=== PATIENT | female | born 1960 | race Caucasian/White ===

== ENCOUNTER 2019-03-22 23:41 | Emergency (ER) | payer OTHER, SELFPAY ==
--- NOTE | ~2019-03-22 | CT_ITS ---
EXAMINATION: CTA [facility] DATE: 03/23/2019 03:01 INDICATION: Left lower limb pain. TECHNIQUE: Computed tomographic angiography (CTA) of the left lower extremity was performed with 150 mL Omnipaque-350 intravenous contrast. Automated exposure control and iterative reconstruction techni que were employed. The dose-length product was 500.76 mGy-cm. Maximum intensity projection 3D-reconst ructions of the arteries were created by the technologist on a separate workstation. COMPARISON: None. FINDINGS: There is thrombus in left common femoral artery and proximal superficial femoral artery with severe s tenosis. There is no significant stenosis of popliteal artery, tibioperoneal trunk, peroneal artery, or the anterior or posterior tibial arteries. IMPRESSION: 1. Thrombus in left common femoral artery and proximal superficial femoral artery with severe stenos is. Reviewed, dictated and finalized at location A. OR CENTER MANAGER IMPRESSION: 1. Thrombus in left common femoral artery and proximal superficial femoral art kae with severe stenosis.
[2019-03-23 00:05] VITALS: BP 130/68; PULSE 71; RESP 22; TEMP 36.8; O2SAT 100
[2019-03-23 01:38] VITALS: BP 122/87; PULSE 80; RESP 16; O2SAT 99
--- NOTE | 2019-03-23 01:44 | ED.LOWEXIN ---
HPI - Extremity Injury (Lower) General Chief Complaint: Extremity Injury, Lower Stated Complaint: L LEG PAIN Time Seen by Provider: 03/23/19 01:43 Source: patient and RN notes reviewed Mode of arrival: ambulatory Limitations: no limitations History of Present Illness HPI Narrative: A 58 y/o female presents to the ED with constant, aching, 7/10, lt groin pain beginning when she woke up yesterday morning. She states that she had that pain occasionally radiates down into her lt calf. She reports some LLE weakness. She notes that she had a triple A repaired on 01/15/[address] [facility], but that she is no longer on any BT's. She denies anything alleviating or aggravating her pain. She also denies any numbness, tingling, back pain, neck pain, knee pain, hip pain, CP, SOB, fevers, chills, N/V/D, or ABD pain. complaint: other (lt groin pain) Onset (ago): day(s) (yesterday morning) Injury: Left: thigh (groin) Place: home Severity scale (1-10): 7 Relieving factors: nothing Exacerbating factors: nothing Context: other (woke up with the pain) Other symptoms: other (lt calf pain and LLE weakness) Related Data Allergies Allergy/AdvReac Type Severity Reaction Status Date / Time No Known Allergies Allergy Unverified 08/17/18 12:36 Review of Systems Review of Systems: All systems reviewed & are unremarkable except as noted in HPI and below Constitutional: Constitutional: Denies chills and Denies fever(s) Cardiovascular: Cardiovascular: Denies chest pain and Reports other (Lt calf pain) Respiratory: Respiratory: Denies dyspnea Gastrointestinal: Gastrointestinal: Denies abdominal pain, Denies diarrhea, Denies nausea and Denies vomiting Musculoskeletal: Musculoskeletal: Denies back pain, Denies neck pain and Reports other (Reports: lt groin pain Denies: knee pain or hip pain) Neurologic: Denies tingling and Reports weakness (LLE) PENDING SALE TO [facility] Past Medical History Medical History (Updated 03/23/19 @ 05:11 by Kiel Avila DO) Anemia Aneurysm Arthritis Asthma Bowel obstruction Depression Eczema Ileostomy in place MRSA (methicillin resistant Staphylococcus aureus) x3 Ulcerative colitis Surgical History Surgical History (Updated 03/23/19 @ 01:51 by Sen Cordon) H/O section H/O colectomy H/O thyroidectomy H/O: hysterectomy History of tonsillectomy Status post aneurysm repair Social History Social History Smoking status: Never smoker Gender identity (if verbalized by the patient): Female Comments PCP: Dr. Gomez. Exam Narrative: Exam Narrative: APPEARANCE: No acute distress, nontoxic, resting in bed EYES: EOMI HEENT: Normocephalic, atraumatic, OMM RESPIRATORY: No respiratory distress Clear to auscultation bilaterally with no rhonchi wheezing or rales. CARDIOVASCULAR: Regular rate and rhythm without murmurs rubs or gallops. ABDOMINAL: Soft, nontender, nondistended, no rebound or guarding MUSCULOSKELETAl: Moves all extremities. No clubbing, cyanosis or edema. No tenderness of the left hip knee or ankle with full range of motion, bilateral dorsalis pedis pulses present by Doppler no overlying erythema NEURO: Awake and alert. Following commands, speech normal, no focal deficits SKIN:: Warm, dry. No rashes lesions or abrasions PSYCHIATRIC: Normal affect/mood, Course Course Emergency Course: Discussed with patient need for transfer and request [facility] at this time Discussed with vascular surgery.Dr. Roberts at [facility]. Request patient placed on heparin drip and transferred to the ER Discussed with Dr. Stevens at [facility] ED. Excepts transfer at this time Vital Signs Vital signs: Vital Signs Temperature 98.2 F 03/23/19 00:05 Pulse Rate 71 03/23/19 00:05 Respiratory Rate 22 H 03/23/19 00:05 Blood Pressure 130/68 03/23/19 00:05 Pulse Oximetry 100 03/23/19 00:05 Temperature 98.2 F 03/23/19 04:27 Pulse Rate 64 03/23/19 04:2
--- NOTE | 2019-03-23 02:00 | PC.NURSE ---
this rn couldn't palpate pedal pulses in pt. md notified. pt has 7/10 pain in left leg, no discoloration noted. leg is cold to touch.
[2019-03-23 02:07] LABS: Basophils Absolute Auto 0.1 K/mm3 (0.0-0.1); Basophils Percent Auto 0.9 % (0.2-1.2); Eosinophils Absolute Auto 0.2 K/mm3 (0-0.3); Eosinophils Percent Auto 2.8 % (0-4.4); Hematocrit 40.1 % (37.0-47.0); Hemoglobin 12.8 g/dL (12.0-15.0); Immature Granulocyte Absolute 0.02 K/mm3 (0.00-0.031); Immature Granulocyte Percent A 0.3 % (0-0.5); Lymphocytes Absolute Auto 1.54 K/mm3 (0.9-3.2); Lymphocytes Percent Auto 22.5 % (18.3-44.2); Mean Corpuscular HGB Conc 31.9 g/dl (32-36); Mean Corpuscular Hemoglobin 29.8 pg (26-34); Mean Corpuscular Volume 93.5 fl (80-100); Mean Platelet Volume 9.6 fl (7.4-10.4); Monocytes Percent Auto 14.3 % (2.6-8.5); Neutrophils Absolute Auto 4.1 K/mm3 (1.3-6.7); Neutrophils Percent Auto 59.2 % (45.5-73.1); Platelet Count Result 223 k/mm3 (150-375); Red Blood Count 4.29 M/mm3 (4.2-5.4); Red Cell Distribution Width 14.2 % (11.5-14.5); White Blood Count 6.8 K/mm3 (4.5-10.0)
[2019-03-23 02:20] LABS: Blood Urea Nitrogen 11 mg/dL (7-17); Calcium 9.8 mg/dL (8.4-10.2); Carbon Dioxide 28 mmol/L (22-30); Chloride 95 mmol/L (98-107); Estimated CRCL calculation 72 ml/min; Estimated Glomerular Filt Rate > 60; Glucose 112 mg/dL (65-105); Potassium 4.6 mmol/L (3.4-5.0); Sodium 134 mmol/L (137-145)
[2019-03-23 02:21] LABS: INR 0.9; Partial Thromboplastin Time 30.3 SECONDS (22.3-36.8); Prothrombin Time 11.4 Seconds (11.1-14.7)
--- NOTE | 2019-03-23 02:23 | PC.NURSE ---
this rn couldnt palpate pedal pulses in pt. this rn used doppler, found faint pedal pulses md shwetha notified. where pulses found marked w/ marker on pt feet shwetha.
[2019-03-23 03:22] VITALS: BP 158/77; PULSE 64; RESP 16; O2SAT 100
--- NOTE | 2019-03-23 03:45 | ECG_ITS ---
Measurements Intervals [place] Rate: 63 P: -23 [place]: 208 QRS: -33 QRSD: 84 T: 24 QT: 430 QTc: 443 Interpretive Statements SINUS RHYTHM WITH FIRST DEGREE AV BLOCK LEFT AXIS DEVIATION LOW QRS VOLTAGE IN PRECORDIAL LEADS ANTEROSEPTAL INFARCT, CONSIDER RECENT ANTEROLATERAL INFARCT, AGE INDETERMINATE INFERIOR INFARCT, AGE INDETERMINATE BORDERLINE ST-T WAVE ABNORMALITY- LATERAL LEADS BASELINE ARTIFACT- I, II, III, AVL ABNORMAL ECG Electronically Signed On 03-23-2019 15:48:30 PATROLLER by Brandyn Abdi D.O.
[2019-03-23] MEDS: MORPHINE SULFATE 2 MG/ML INJ IV PUSH (04:10)
[2019-03-23] MEDS: HEPARIN SODIUM 5,000 UNITS/ML VIAL 5000 UNITS IV PUSH (04:10)
[2019-03-23] MEDS: HEPARIN SOD/D5W 100 UNITS/ML 25,000 UNITS/250 ML BAG 11 UNITS IV CONT (04:10)
--- NOTE | 2019-03-23 04:12 | PC.NURSE ---
0356: CALLED [facility] TO TRANSPORT PATIENT TO [facility] (EMERG[facility]). 0359, [facility] CALLED AND DECLINED. 0405: CALLED [facility] TO TRANSPORT PATIENT TO [facility] (EMERGENT). ETA....ENROUTE.
[2019-03-23 04:27] VITALS: BP 150/74; PULSE 64; RESP 16; TEMP 36.8; O2SAT 99
== END 2019-03-23 04:38 | disposition short-term general hospital (02) ==
PROVIDERS: Emergency Provider Emergency Medicine; PCP Family Medicine
DX: I74.3 Embolism and thrombosis of arteries of the lower extremities (principal); I44.0 Atrioventricular block, first degree; R94.31 Abnormal electrocardiogram [ECG] [EKG]; M19.90 Unspecified osteoarthritis, unspecified site; J45.909 Unspecified asthma, uncomplicated; Z86.14 Personal history of Methicillin resistant Staphylococcus aureus infection; Z86.2 Personal history of diseases of the blood and blood-forming organs and certain disorders involving the immune mechanism; E89.0 Postprocedural hypothyroidism
CPT/HCPCS: 36415; 73706; 80048; 85025; 85610; 85730; 93005; 96365; 96375; 99285; J1644; J2270; Q9967

== ENCOUNTER 2019-07-23 18:26 | Emergency (ER) | payer OTHER, SELFPAY ==
--- NOTE | ~2019-07-23 | XR_ITS ---
EXAMINATION: XR chest 1V EXAM DATE: 07/23/2019 20:10 INDICATION: Confusion. History of asthma. TECHNIQUE: Portable AP frontal chest x-ray was obtained. Comparison is made to prior examination from 02/06/2019. FINDINGS: The lungs are clear. Patient has sternotomy hardware. There are no pleural effusions. Card iac silhouette is prominent but magnified on this AP technique. There is no pneumothorax suspected. Mild to moderate thoracolumbar scoliosis. IMPRESSION: No acute cardiopulmonary findings. Reviewed, dictated and finalized at location A.
--- NOTE | ~2019-07-23 | CT_ITS ---
EXAMINATION: CT brain wo con, CT cervical spine wo con EXAM DATE: 07/23/2019 19:58 INDICATION: Fall, head injury. Altered mental status. TECHNIQUE: Spiral CT of the head was performed without contrast. Axial, coronal and sagittal images were reviewed. Spiral CT of the cervical spine was performed without contrast. Axial images were rev iewed. Coronal and sagittal reformatted images were also reviewed. The dose-length product (DLP) fo r this examination was 605.33 (accession [id number]), 170.01 (accession [id number]) mGy-cm. The exposure was tailored according to patient size, and iterative reconstruction (ASIR) was used as additional dose reduction technique. There is no prior study for comparison. FINDINGS: HEAD CT: There is no acute intraparenchymal hemorrhage. No evidence of intraparenchymal brain mass l esion. No evidence of acute infarction. There is mild periventricular and subcortical hypodensity, n onspecific but probably related to small vessel ischemic disease. There is mild prominence of the s ulci and ventricles related to cerebral atrophy. There is intracranial carotid arteriosclerosis. There is no mass effect or midline shift. There is no obstructive hydrocephalus suspected. There are no extra-axial collections. There are no acute calvarial fractures. The orbits are unremarkable. Soft tissue is unremarkable. The visualized sinuses and mastoid air cells are well aerated. CERVICAL CT: Sternotomy wires. There is no evidence of acute cervical fracture. The odontoid process is intact. Pre-dens space is normal. Prevertebral soft tissue is normal. There are no soft tissue abnormalities identified. There is no disc space widening or traumatic vertebral body subluxation s uspected. Moderate disc disease at C6-7. Right thyroid lobectomy. Moderate arthropathy at multiple l evels. A detailed level by level evaluation of spondylosis can be added as addendum if requested. IMPRESSION: 1. No acute intracranial or cervical findings. Reviewed, dictated and finalized at location A. IMPRESSION: 1. No acute intracranial or cervical findings.
[2019-07-23 18:26] VITALS: BP 107/65; PULSE 116; RESP 16; TEMP 36.9; O2SAT 100
--- NOTE | 2019-07-23 19:13 | PC.NURSE ---
Patient refusing blood to be drawn until speaks with doctor.
[2019-07-23 19:21] LABS: Add Urine Microscopic? YES; Appearance Urine Clear (Clear); Bilirubin Urine Negative (Negative); Blood Urine Negative (Negative); Color Urine Straw (Yellow); Glucose Urine UA Negative (Negative); Ketones Urine Trace mg/dL (Negative); Leukocyte Esterase Ur Negative LEU/UL (Negative); Nitrate Urine Negative (Negative); Protein Urine Negative (Negative); RBC Urine 0-2 /hpf (0-2); Specific Grav Ur 1.005 (1.001-1.035); Squamous Epithelial Cell Urine Rare /hpf (Few); Urobilinogen Urine Negative mg/dL (<2.0); WBC Urine 0-3 /hpf
--- NOTE | 2019-07-23 19:28 | ED.GENADULT ---
HPI - General Adult General Chief complaint: Altered Mental Status Stated complaint: SI Time Seen by Provider: 07/23/19 19:03 Source: patient Mode of arrival: EMS History of Present Illness HPI narrative: This patient is a 59 year old female who presented via EMS for evaluation of altered mental status after a fall. Patient states she fell in the shower. She denies any pain, nausea, vomiting, chest pain, shortness of breath. She denies headache and dizziness. EMS states they were initially called for a lift assist. PAtient was naked on the floor trying to put ostomy bag back on. Patient has history of depression but she denies suicidal ideations or homicidal ideations. Related Data Home Medications Medication Instructions Recorded Confirmed albuterol sulfate INHALATION 07/23/19 aspirin 07/23/19 atorvastatin 07/23/19 clonazepam 07/23/19 clonazepam 07/23/19 ferrous sulfate 07/23/19 folic acid 07/23/19 metoprolol tartrate 07/23/19 venlafaxine mg PO 07/23/19 warfarin 07/23/19 warfarin 07/23/19 Allergies Allergy/AdvReac Type Severity Reaction Status Date / Time No Known Allergies Allergy Verified 07/23/19 18:47 Review of Systems Review of Systems: All systems reviewed & are unremarkable except as noted in HPI and below Constitutional: Constitutional: Denies chills and Denies fever(s) Cardiovascular: Cardiovascular: Denies chest pain Respiratory: Respiratory: Denies cough and Denies dyspnea Gastrointestinal: Gastrointestinal: Denies abdominal pain, Denies nausea and Denies vomiting Genitourinary: Genitourinary: Denies hematuria Neurologic: Denies dizziness, Denies headache(s), Denies focal weakness, Denies numbness and Denies weakness Psychiatric: Psychiatric: Denies anxiety, Denies homicidal ideation and Denies suicidal ideation [facility] Past Medical History Medical History (Updated 07/24/19 @ 00:00 by Sg Mays) Anemia Aneurysm Arthritis Asthma Bowel obstruction Depression Eczema Ileostomy in place MRSA (methicillin resistant Staphylococcus aureus) x3 Ulcerative colitis Surgical History Surgical History (Updated 03/23/19 @ 01:51 by Sen Cordon) H/O section H/O colectomy H/O thyroidectomy H/O: hysterectomy History of tonsillectomy Status post aneurysm repair Social History Social History Smoking status: Never smoker Gender identity (if verbalized by the patient): Female Exam Narrative: Exam Narrative: GENERAL: Well-appearing, well-nourished, and in no acute distress. HEAD: Normocephalic, atraumatic EYES: PERRLA and EOMI, conjunctiva clear without discharge EARS: TM's clear bilaterally without erythema or dullness NOSE: Nares clear, no rhinorrhea or epistaxis THROAT:Mucous membranes moist, Oropharynx normal without erythema, exudate, peritonsillar swelling or fluctuance NECK: Supple, without lymphadenopathy or mass RESPIRATORY: No respiratory distress, Airway patent, Respirations non-labored, Clear to auscultation without rales, rhonchi or wheeze HEART: Regular rate and rhythm. No murmur heard. Normal peripheral pulses. ABDOMEN: Soft, nontender, nondistended, normal active bowel sounds. No masses. No rebound or guarding, No organomegaly. EXTREMITIES: No edema, normal strength with full range of motion. SKIN: Warm, dry, normal color without rash NEURO: Alert and oriented x3. CN 2-12 grossly intact. No focal deficits. PSYCH: Normal mood and affect. Course Reevaluation(s) Reevaluation #1: Nursing staff has spoken to patient's and he denies patient making suicidal statements. Patient has no medical abnormalities. She is not confused. She is able to answer all questions. Date: 07/23/19 Time: 22:37 Vital Signs Vital signs: Vital Signs Temperature 98.4 F 07/23/19 18:26 Pulse Rate 116 H 07/23/19 18:26 Respiratory Rate 16 07/23/19 18:26 Blood Pressure 107/65
[2019-07-23 19:34] VITALS: BP 111/66; PULSE 98; RESP 18; O2SAT 97
[2019-07-23 19:37] LABS: Basophils Percent Auto 0.3 % (0.2-1.2); Eosinophils Absolute Auto 0.1 K/mm3 (0-0.3); Eosinophils Percent Auto 0.9 % (0-4.4); Hematocrit 43.4 % (37.0-47.0); Hemoglobin 14.2 g/dL (12.0-15.0); Immature Granulocyte Absolute 0.01 K/mm3 (0.00-0.031); Immature Granulocyte Percent A 0.2 % (0-0.5); Lymphocytes Absolute Auto 1.24 K/mm3 (0.9-3.2); Lymphocytes Percent Auto 21.3 % (18.3-44.2); Mean Corpuscular HGB Conc 32.7 g/dl (32-36); Mean Corpuscular Hemoglobin 29.2 pg (26-34); Mean Corpuscular Volume 89.1 fl (80-100); Mean Platelet Volume 9.6 fl (7.4-10.4); Monocytes Absolute Auto 0.6 K/mm3 (0.1-0.6); Monocytes Percent Auto 10.3 % (2.6-8.5); Neutrophils Absolute Auto 3.9 K/mm3 (1.3-6.7); Platelet Count Result 228 k/mm3 (150-375); Red Blood Count 4.87 M/mm3 (4.2-5.4); Red Cell Distribution Width 13.5 % (11.5-14.5); White Blood Count 5.8 K/mm3 (4.5-10.0)
[2019-07-23 19:38] VITALS: TEMP 36.8
[2019-07-23 19:45] LABS: Ethanol 61 mg/dL (<10)
--- NOTE | 2019-07-23 19:45 | PC.NURSE ---
Pt denies suicidal/ homicidal ideations at this time. Pt denies seeing or hearing anything. Pt alert and orientedx4 at this time and answering all questions appropriately. Per EDP move pt to rm [address] her on a monitor. Pt does not meet SI requirements nor does she need a sitter.
[2019-07-23 19:46] LABS: Alanine Aminotransferase 33 U/L (4-35); Albumin Level 5.1 g/dL (3.5-5.1); Alkaline Phosphatase 100 U/L (38-126); Aspartate Amino Transferase 42 U/L (14-36); Bilirubin,Total 0.4 mg/dL (0.2-1.3); Blood Urea Nitrogen 13 mg/dL (7-17); Calcium 10.1 mg/dL (8.4-10.2); Carbon Dioxide 22 mmol/L (22-30); Chloride 101 mmol/L (98-107); Estimated CRCL calculation 49 ml/min; Estimated Glomerular Filt Rate 57; Glucose 160 mg/dL (65-105); Potassium 3.6 mmol/L (3.4-5.0); Sodium 138 mmol/L (137-145)
[2019-07-23 19:47] LABS: Barbiturate Screen Urine Negative (Negative); Benzodiazepines Screen Urine Negative (Negative)
[2019-07-23 19:48] LABS: Amphetamine Screen Urine Negative (Negative); Cocaine Screen Urine Negative (Negative); Methadone Screen Urine Negative (Negative); Opiate Screen Urine Negative (Negative); Phencyclidine Screen Urine Negative (Negative)
--- NOTE | 2019-07-23 19:49 | PC.NURSE ---
Pt's called RN to state pt has been suffering w/ chronic depression and that she has a chemical imbalance in her brain. Pt's states she has been telling him and that she does not want to see him or anyone else. Pt's states he loves his and he wants to be here for her. Pt's family states he is concerned about her and doesn't know what is going on. Pt's states told him she just wants me to leave and go back to [place] and that he is controlling her. Pt's Hesham states I watched carolyn take all the pictures of our kids and grandkids and put it in a bag. I asked her honey what are you doing those are your family, he states she said, 'well I don't want them.' Hesham states I found her burning the pictures. States he is 62 years old and that i stay in shape work out, take care of the big yard and do the dishes. I do all of this out of love. And she wants nothing to do with me. I have nothing bad to say about my . Hesham the asks Why would she do this to me? RN states she is unsure. Pt's Hesham Ramey, .
[2019-07-23 20:09] LABS: Cannabinoid Screen Urine Negative (Negative)
--- NOTE | 2019-07-23 20:45 | ECG_ITS ---
Measurements Intervals [place] Rate: 97 P: 43 [place]: 199 QRS: 89 QRSD: 110 T: 35 QT: 362 QTc: 462 Interpretive Statements SINUS RHYTHM BORDERLINE AV CONDUCTION DELAY POSSIBLE LEFT ATRIAL ENLARGEMENT LOW QRS VOLTAGE IN PRECORDIAL LEADS CANNOT RULE OUT SEPTAL INFARCT, AGE INDETERMINATE BORDERLINE ST-T WAVE ABNORMALITY- ANT/INF LEADS ABNORMAL ECG Electronically Signed On 07-24-2019 6:42:14 CDT by Brandyn Abdi D.O.
[2019-07-23 21:18] VITALS: BP 115/74; PULSE 104; RESP 30; O2SAT 98
--- NOTE | 2019-07-23 23:07 | PC.NURSE ---
Pt's here to lemon picker pt. informed him that pt is no longer present in the ED. pt's asks what am i supposed to do. suggested that he could call pd to help find his .
--- NOTE | 2019-07-23 23:26 | PC.NURSE ---
pt back stating I drove everywhere and can't find her. Informed him that RN cannot leave work to help find patient. PT was alert and oriented x4 and left before getting her d/c inst. told he should call the police if he cannot find her.
== END 2019-07-23 22:45 | disposition home or self-care (01) ==
PROVIDERS: Emergency Medicine; Emergency Provider General Practice; PCP Family Medicine
DX: S09.90XA Unspecified injury of head, initial encounter (principal); Z93.2 Ileostomy status; J45.909 Unspecified asthma, uncomplicated; Z86.14 Personal history of Methicillin resistant Staphylococcus aureus infection; Z79.01 Long term (current) use of anticoagulants; D64.9 Anemia, unspecified; F32.9 Major depressive disorder, single episode, unspecified; E89.0 Postprocedural hypothyroidism; R94.31 Abnormal electrocardiogram [ECG] [EKG]; W18.2XXA Fall in (into) shower or empty bathtub, initial encounter
CPT/HCPCS: 36415; 70450; 71045; 72125; 80053; 80307; 81001; 84443; 85025; 93005; 99284

== ENCOUNTER 2019-08-03 13:21 | Emergency (ER) | payer OTHER, SELFPAY ==
--- NOTE | ~2019-08-03 | US_ITS ---
EXAMINATION: US venous doppler [facility] DATE: 08/03/2019 14:20 INDICATION: Left lower limb pain TECHNIQUE: Grayscale ultrasound images without and with compression and Doppler ultrasound images of the left lower extremity veins were obtained. COMPARISON: None. FINDINGS: The visualized portions of left common femoral vein, profunda (deep) femoral vein, femoral vein, popl iteal vein, peroneal veins, posterior tibial veins, gastrocnemius vein and greater saphenous vein out flow are patent. IMPRESSION: 1. No deep venous thrombosis in the left lower limb. Reviewed, dictated and finalized at location A.
--- NOTE | ~2019-08-03 | CT_ITS ---
EXAMINATION: CTA [facility] DATE: 08/03/2019 15:32 INDICATION: Left lower limb arterial occlusive disease. Left thigh pain. TECHNIQUE: Computed tomographic angiography (CTA) of the left lower limb was performed with 100 mL Om nipaque-350 intravenous contrast. Automated exposure control and iterative reconstruction technique w ere employed. The dose-length product was 603.34 mGy-cm. Maximum intensity projection 3D-reconstructi ons of the arteries were constructed by the technologist on a separate workstation. COMPARISON: CTA 03/23/2019, 01/15/2019 FINDINGS: There is a dissection in the visualized portion of abdominal aorta and in left common iliac artery. There is no significant stenosis of left common femoral artery, profunda femoris, superficia l femoral artery, popliteal artery, tibioperoneal trunk, peroneal artery, anterior tibial artery, or posterior tibial artery. There is an ostomy in right abdomen. There are no pathologically enlarged ly mph nodes. There is no free intraperitoneal fluid. There is moderate left knee osteoarthritis. IMPRESSION: 1. No significant arterial occlusive disease in left lower limb. Three-vessel runoff. 2. Dissection in abdominal aorta and left common iliac artery, stable from 01/15/2019. Reviewed, dictated and finalized at location A. IMPRESSION: 1. No significant arterial occlusive disease in left lower limb. Three-vessel r unoff. 2. Dissection in abdominal aorta and left common iliac artery, stable from 12/23.
[2019-08-03 13:27] VITALS: BP 138/63; PULSE 85; RESP 20; O2SAT 100
[2019-08-03 14:28] LABS: Basophils Percent Auto 0.3 % (0.2-1.2); Eosinophils Absolute Auto 0.1 K/mm3 (0-0.3); Eosinophils Percent Auto 1.2 % (0-4.4); Hemoglobin 12.8 g/dL (12.0-15.0); Immature Granulocyte Absolute 0.01 K/mm3 (0.00-0.031); Immature Granulocyte Percent A 0.2 % (0-0.5); Lymphocytes Absolute Auto 1.18 K/mm3 (0.9-3.2); Lymphocytes Percent Auto 20.6 % (18.3-44.2); Mean Corpuscular HGB Conc 32.8 g/dl (32-36); Mean Corpuscular Hemoglobin 29.7 pg (26-34); Mean Corpuscular Volume 90.5 fl (80-100); Mean Platelet Volume 9.7 fl (7.4-10.4); Monocytes Absolute Auto 0.6 K/mm3 (0.1-0.6); Monocytes Percent Auto 11.2 % (2.6-8.5); Neutrophils Absolute Auto 3.8 K/mm3 (1.3-6.7); Neutrophils Percent Auto 66.5 % (45.5-73.1); Platelet Count Result 222 k/mm3 (150-375); Red Blood Count 4.31 M/mm3 (4.2-5.4); Red Cell Distribution Width 14.1 % (11.5-14.5); White Blood Count 5.7 K/mm3 (4.5-10.0)
--- NOTE | 2019-08-03 14:32 | ED.EXTPRO ---
HPI - Extremity Problem General Chief complaint: Extremity Problem,Nontraumatic Stated complaint: lt thigh pain. pt with hx dvt Time Seen by Provider: 08/03/19 14:06 Source: patient Mode of arrival: ambulatory Limitations: no limitations History of Present Illness HPI Narrative: This is a 59 year old female that presents to the ER for left thigh pain present for one week. Reports worsening last night. Reports she has history of clots in this leg and has been treated by a vascular surgeon at [facility]. Reports she currently takes Warfarin. She had a clot removed from the left leg in March of this year. Reports she has had intermittent pain in the left thigh since. Denies chest pain or shortness of breath. Related Data Home Medications Medication Instructions Recorded Confirmed albuterol sulfate INHALATION 07/23/19 aspirin 07/23/19 atorvastatin 07/23/19 ferrous sulfate 07/23/19 folic acid 07/23/19 metoprolol tartrate 07/23/19 venlafaxine mg PO 07/23/19 warfarin 07/23/19 warfarin 07/23/19 warfarin [Coumadin] 7.5 mg PO DAILY 08/03/19 08/03/19 Allergies Allergy/AdvReac Type Severity Reaction Status Date / Time No Known Allergies Allergy Verified 08/03/19 13:47 Review of Systems Review of Systems: Narrative: CONSTITUTIONAL: Denies fever CARDIOVASCULAR: Denies chest pain RESPIRATORY: Denies dyspnea. MUSCULOSKELETAL: Reports myalgia. NEUROLOGIC: Denies numbness, or weakness. All systems reviewed & are unremarkable except as noted in HPI and below PMFSH Past Medical History Medical History (Updated 08/03/19 @ 16:59 by Patricia Sher PA-C) Anemia Aneurysm Arthritis Asthma Bowel obstruction Depression Eczema Ileostomy in place MRSA (methicillin resistant Staphylococcus aureus) x3 Ulcerative colitis Surgical History Surgical History (Updated 03/23/19 @ 01:51 by Sen Cordon) H/O section H/O colectomy H/O thyroidectomy H/O: hysterectomy History of tonsillectomy Status post aneurysm repair Social History Social History Smoking status: Never smoker Gender identity (if verbalized by the patient): Female Exam Narrative: Exam Narrative: GENERAL: Well-appearing, well-nourished, and in no acute distress. HEAD: Normocephalic, atraumatic. EYES: EOMI. EXTREMITIES: Normal range of motion. No edema or erythema. Strength equal in bilateral lower extremities. Normal DP pulse on the right; mildly reduced on the left, but palpable SKIN: Warm, dry, no rash. NEURO: No focal deficits. Alert and oriented x3. PSYCH: Normal mood and affect Course Vital Signs Vital signs: Vital Signs Pulse Rate 85 08/03/19 13:27 Respiratory Rate 20 08/03/19 13:27 Blood Pressure 138/63 08/03/19 13:27 Pulse Oximetry 100 08/03/19 13:27 Pulse Rate 85 08/03/19 13:27 Respiratory Rate 20 08/03/19 13:27 Blood Pressure 138/63 08/03/19 13:27 Pulse Oximetry 100 08/03/19 13:27 MDM - Extremity (Nontraumatic) MDM Narrative Medical decision making narrative: Patient presents the emergency department for left thigh pain for the last week. History of recent thrombus removal from left femoral artery earlier this year at [facility]. Reports she has had intermittent pain in this leg since. She is afebrile and nontoxic-appearing. CBC and metabolic panel are without acute changes. Inflammatory markers are not elevated. Left lower extremity venous Dopplers without evidence of DVT. Lower extremity CTA is without significant arterial occlusive disease. 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 She sees a cardiothoracic surgeon at [facility] for this as well. Patient was updated on case findings. Patient stable and felt appropriate for further outpatient evaluation. She was instructed to follow-up with her vascular surgeon. Patient was given warnings to return to the ER Lab Data Attestation: I reviewed
[2019-08-03 14:45] LABS: Blood Urea Nitrogen 13 mg/dL (7-17); CRP < 0.5 mg/dL (<1.0); Carbon Dioxide 28 mmol/L (22-30); Chloride 101 mmol/L (98-107); Estimated CRCL calculation 82 ml/min; Estimated Glomerular Filt Rate > 60; Glucose 97 mg/dL (65-105); INR 2.2; Potassium 3.8 mmol/L (3.4-5.0); Prothrombin Time 24.1 Seconds (11.1-14.7); Sodium 137 mmol/L (137-145)
[2019-08-03 14:46] LABS: Partial Thromboplastin Time 35.8 SECONDS (22.3-36.8)
[2019-08-03 15:22] LABS: Erythrocyte Sedimentation Rate 16 mm/hr (0-20)
--- NOTE | 2019-08-03 16:05 | PC.NURSE ---
Patient given water per verbal okay from CALLIE Sher.
[2019-08-03 17:17] VITALS: BP 133/71; PULSE 81; RESP 18; O2SAT 97
== END 2019-08-03 17:18 | disposition home or self-care (01) ==
PROVIDERS: Physician Assistant; Emergency Provider Emergency Medicine; PCP Family Medicine
DX: M79.652 Pain in left thigh (principal); Z86.2 Personal history of diseases of the blood and blood-forming organs and certain disorders involving the immune mechanism; J45.909 Unspecified asthma, uncomplicated; Z86.14 Personal history of Methicillin resistant Staphylococcus aureus infection; D64.9 Anemia, unspecified; Z79.82 Long term (current) use of aspirin; Z79.01 Long term (current) use of anticoagulants; E89.0 Postprocedural hypothyroidism; Z93.2 Ileostomy status; Z86.718 Personal history of other venous thrombosis and embolism; I71.02 Dissection of abdominal aorta; I72.3 Aneurysm of iliac artery
CPT/HCPCS: 36415; 73706; 80048; 85025; 85610; 85652; 85730; 86140; 93971; 99284; Q9967

== ENCOUNTER 2019-12-24 01:07 | Inpatient (IN) | payer OTHER, SELFPAY ==
[2019-12-24] VITALS (9 sets, daily range): BP systolic 117–130; BP diastolic 40–58; PULSE 59–78; RESP 16–20; TEMP 36–36.9; O2SAT 91–100; BMI 21.7
--- NOTE | ~2019-12-24 | XR_ITS ---
EXA EXAMINATION: XR UGI water soluble w sbs DATE: 12/26/2019 11:46 INDICATION: Small bowel obstruction TECHNIQUE: Water-soluble contrast was injected through the patient's indwelling nasogastric tube. Con ventional supine abdomen radiographs and fluoroscopy of the distal esophagus, stomach, and small karen l were performed. Fluoroscopy exposure time was 0.9 minutes. The DAP for this procedure was 51.06 Gyc m2. COMPARISON: 12/24/2019 FINDINGS: UPPER GASTROINTESTINAL SERIES: There is no mass or stricture of the distal esophagus. No hiatal hernia is identified. There was a sm all amount of gastroesophageal reflux around the nasogastric tube. The stomach shows a normal folding pattern.] SMALL BOWEL SERIES: The small bowel is diffusely dilated. Contrast progresses to the right pelvis at the three hour mariajose but is not definitely identified in the ileostomy bag or the affected loops seen on recent CT. Examin ation was ended by the surgical team with plan for surgery. IMPRESSION: 1. Small bowel obstruction. Reviewed, dictated and finalized at location A. MACOV[employer]ILANCE SAFETY EXPERT IMPRESSION: 1. Small bowel obstruction.
--- NOTE | ~2019-12-24 | XR_ITS ---
EXAMINATION: XR chest 1V portable DATE: 12/27/2019 22:51 INDICATION: Atrial fibrillation. TECHNIQUE: A single frontal view of the chest was obtained. COMPARISON: Chest single view 07/23/2019, CT abdomen and pelvis 12/24/2019 FINDINGS: There are airspace opacities at the lung bases. No pleural effusion or pneumothorax. Cardio megaly is noted. Median sternotomy wires and mediastinal surgical clips are seen, likely from prior c oronary artery bypass grafting. There are surgical clips in right axilla. The nasogastric tube tip is beyond the inferior margin of the radiograph, but at least to the stomach. IMPRESSION: 1. Airspace opacities at the lung bases, consistent with atelectasis or less likely pneumonia. 2. Cardiomegaly. Reviewed, dictated and finalized at location A. EDGE BANDER IMPRESSION: 1. Airspace opacities at the lung bases, consistent with atelectasis or less li segundo pneumonia. 2. Cardiomegaly.
--- NOTE | ~2019-12-24 | XR_ITS ---
EXAMINATION: XR abdomen NG/feed tube insert INDICATION: Nasogastric tube placement TECHNIQUE: Portable AP KUB-NG at 0354 hours COMPARISON: 08/17/2018 FINDINGS: The nasogastric tube is in the stomach. There are mildly dilated small bowel loops in the v isualized upper abdomen. Contrast from earlier CT examination partially opacifies the urinary tract. IMPRESSION: 1. Nasogastric tube in the stomach. Reviewed, dictated and finalized at location A. TSU THERAPIST
--- NOTE | ~2019-12-24 | XR_ITS ---
EXAMINATION: XR abdomen/kub 1V INDICATION: Small bowel obstruction TECHNIQUE: Supine view of the abdomen is obtained. COMPARISON: 12/24/2019 FINDINGS: There are persistently dilated loops of small bowel in the midabdomen. Nasogastric tube is in the stomach. No definite free intraperitoneal gas is identified. IMPRESSION: 1. Persistently dilated small bowel, consistent with obstruction. Reviewed, dictated and finalized at location A. ACT LENS CUTTER
--- NOTE | ~2019-12-24 | CT_ITS ---
EXAMINATION: CT abdomen pelvis w con EXAM DATE: 12/24/2019 02:23 INDICATION: Abdominal pain nausea and vomiting. TECHNIQUE: Spiral CT of the abdomen and pelvis was performed following intravenous injection of 100 m L Omnipaque 350. Axial, coronal and sagittal images were reviewed. The dose-length product (DLP) fo r this examination was 278.62 mGy-cm. The exposure was tailored according to patient size (auto mA e xposure control), and iterative reconstruction (ASIR) was used as additional dose reduction technique . Correlation is made to left lower extremity CT angiogram 08/03/2019, CTA chest abdomen pelvis 2018. FINDINGS: Again there is dissecting abdominal aortic aneurysm, was previously determined to be a type A dissection in 2019. On previous examination, there was difference in degree of opacification betwe en the true and false lumens, which now has equal opacification on today's examination. Otherwise jason s not appear significantly changed. The abdominal aorta and iliac arteries are normal in caliber. The re is no aortic rupture. Renal arteries, mesenteric arteries are patent. The liver, spleen, adrenal glands and pancreas are unremarkable. Gallbladder is unremarkable. No bi liary obstruction. Portal and splenic veins are patent. Kidneys enhance symmetrically. There is no hydronephrosis. The uterus is not identified and has likely been surgically resected. The bladder is unremarkable. There is no retroperitoneal or pelvic lymphadenopathy. Status post colectomy with right lower quadrant ileostomy. There are multiple loops of distended smal l bowel, most of the small bowel being dilated with the distal aspect being collapsed, and discrete t ransition point suspected on axial image 117. Appearance is most consistent with adhesion related sma ll bowel obstruction. The stomach and small bowel are unremarkable. No free intraperitoneal gas. There is cardiomegaly. There are no pleural or pericardial effusions. The lung bases are unremarkab le. There are no osteoblastic or osteolytic lesions identified. IMPRESSION: 1. Small bowel obstruction. 2. Colectomy, right lower quadrant ileostomy. 3. Chronic aortic dissection. Reviewed, dictated and finalized at location B. ER MILL OPERATOR
--- NOTE | ~2019-12-24 | XR_ITS ---
EXAMINATION: XR abdomen/kub 1V INDICATION: Small bowel obstruction TECHNIQUE: Supine view of the abdomen is obtained. COMPARISON: 12/25/2019 FINDINGS: There are persistently dilated loops of small bowel in the midabdomen which have decreased in number. No free intraperitoneal gas is identified. The nasogastric tube is in the stomach. IMPRESSION: 1. Persistent but decreased number of dilated small bowel loops, consistent with ileus versus obstruc tion. Reviewed, dictated and finalized at location A. M CONVEYOR OPERATOR IMPRESSION: 1. Persistent but decreased number of dilated small bowel loops, consistent wit h ileus versus obstruction.
--- NOTE | 2019-12-24 01:42 | ED.ABDPAIN ---
HPI - Abdominal Pain General Chief Complaint: Abdominal Pain Stated Complaint: abd pain & vomiting Time Seen by Provider: 12/24/19 01:33 History of Present Illness HPI narrative: Severe sharp upper abdominal pain for the past several hours. Associated with nausea and vomiting. She had a similar pain last week that resolved spontaneously. She has an ileostomy due to UC. She has had one previous bowel obstruction. She had surgery for an ascending thoracic aortic aneurysm earlier this year. Related Data Home Medications Medication Instructions Recorded Confirmed albuterol sulfate INHALATION 07/23/19 aspirin 07/23/19 atorvastatin 07/23/19 ferrous sulfate 07/23/19 folic acid 07/23/19 metoprolol tartrate 07/23/19 venlafaxine mg PO 07/23/19 warfarin 07/23/19 warfarin 07/23/19 warfarin [Coumadin] 7.5 mg PO DAILY 08/03/19 08/03/19 Allergies Allergy/AdvReac Type Severity Reaction Status Date / Time No Known Allergies Allergy Verified 12/24/19 01:15 Review of Systems Review of Systems: All systems reviewed & are unremarkable except as noted in HPI and below Constitutional: Constitutional: Denies fever(s) Cardiovascular: Cardiovascular: Denies chest pain Respiratory: Respiratory: Denies dyspnea Gastrointestinal: Gastrointestinal: Reports abdominal pain, Reports nausea and Reports vomiting Genitourinary: Genitourinary: Denies hematuria, Denies nocturia and Denies dysuria Neurologic: Denies confusion [facility] Past Medical History Medical History Anemia Aneurysm Arthritis Asthma Bowel obstruction Depression Eczema Ileostomy in place MRSA (methicillin resistant Staphylococcus aureus) x3 Ulcerative colitis Surgical History Surgical History H/O section H/O colectomy H/O thyroidectomy H/O: hysterectomy History of tonsillectomy Status post aneurysm repair Social History Social History Smoking status: Never smoker Gender identity (if verbalized by the patient): Female Exam Const: General: no acute distress and alert Orientation/consciousness: patient oriented x3 HENMT: Head: normal to inspection Resp: Effort & Inspection: normal respiratory effort Auscultation: clear to auscultation bilaterally Cardio: Rate: regular rate Rhythm: regular rhythm GI: Inspection: non-distended GI Palp: Yes Soft to palpation and Yes Tenderness to palpation present (GI) (epigastrium) Neuro: General: patient oriented x3, moves all extremities and CN's II-XI intact bilaterally Speech: normal speech Extrem: General: normal to inspection Course Vital Signs Vital signs: Vital Signs Temperature 36.0 C L 12/24/19 01:11 Pulse Rate 60 12/24/19 01:11 Respiratory Rate 18 12/24/19 01:11 Blood Pressure 121/55 L 12/24/19 01:11 Pulse Oximetry 100 12/24/19 01:11 Temperature 36.0 C L 12/24/19 01:11 Pulse Rate 59 L 12/24/19 02:30 Respiratory Rate 16 12/24/19 02:30 Blood Pressure 130/55 L 12/24/19 02:30 Pulse Oximetry 97 12/24/19 02:30 MDM - Abdominal Pain MDM Narrative Medical decision making narrative: CT shows SBO and aortic dissection. I spoke with [facility] vascular surgeon [facility]. The aortic dissection is not new and if it is not causing end organ ischemia it does not need any further intervention at this time. Case discussed with Dr. Govea. He will admit for SBO. Differential Diagnosis Differential diagnosis: Likely calculus of kidney, diverticulitis, pancreatitis and small bowel obstruction Medical Records Attestation: I reviewed the patient's medical records. Lab Data Attestation: I reviewed the patient's lab results. Result diagrams: 12/24/19 01:37 12/24/19 01:37 Labs: Lab Results 12/24/19 12/24/19 12/24/19 Range/Units 01:37 01:37 01:37 WBC 10.0
[2019-12-24 01:48] LABS: Basophils Percent Auto 0.3 % (0.2-1.2); Eosinophils Percent Auto 0.3 % (0-4.4); Hematocrit 42.9 % (37.0-47.0); Hemoglobin 14.1 g/dL (12.0-15.0); Immature Granulocyte Absolute 0.02 K/mm3 (0.00-0.031); Immature Granulocyte Percent A 0.2 % (0-0.5); Mean Corpuscular HGB Conc 32.9 g/dl (32-36); Mean Corpuscular Hemoglobin 29.4 pg (26-34); Mean Corpuscular Volume 89.4 fl (80-100); Mean Platelet Volume 10.4 fl (7.4-10.4); Monocytes Absolute Auto 0.9 K/mm3 (0.1-0.6); Monocytes Percent Auto 9.2 % (2.6-8.5); Neutrophils Absolute Auto 7.5 K/mm3 (1.3-6.7); Platelet Count Result 226 k/mm3 (150-375); Red Cell Distribution Width 13.2 % (11.5-14.5)
[2019-12-24] MEDS: ONDANSETRON INJ 4 MG/2 ML VIAL IV PUSH ×2 (01:48→22:54)
[2019-12-24] MEDS: fentaNYL CITRATE INJ (*CRX) 100 MCG/2 ML VIAL 50 MCG IV PUSH (01:48)
[2019-12-24 02:02] LABS: Alanine Aminotransferase 100 U/L (4-35); Albumin Level 4.6 g/dL (3.5-5.1); Alkaline Phosphatase 254 U/L (38-126); Anion Gap 12 mmol/L (8-16); Aspartate Amino Transferase 59 U/L (14-36); Bilirubin,Total 0.7 mg/dL (0.2-1.3); Blood Urea Nitrogen 17 mg/dL (7-17); Calcium 10.3 mg/dL (8.4-10.2); Carbon Dioxide 30 mmol/L (22-30); Chloride 99 mmol/L (98-107); Estimated Glomerular Filt Rate > 60; Glucose 173 mg/dL (65-105); Lipase 51 U/L (23-300); Potassium 3.6 mmol/L (3.4-5.0); Sodium 141 mmol/L (137-145)
[2019-12-24 02:22] LABS: INR 1.1; Prothrombin Time 13.5 Seconds (11.1-14.7)
[2019-12-24 02:22] LABS: Add Urine Microscopic? YES; Appearance Urine Clear (Clear); Bacteria Urine Trace /hpf; Bilirubin Urine Negative (Negative); Blood Urine Negative (Negative); Color Urine Yellow (Yellow); Glucose Urine UA Negative (Negative); Ketones Urine Trace mg/dL (Negative); Leukocyte Esterase Ur Negative LEU/UL (Negative); Mucus Urine Few /lpf; Nitrate Urine Negative (Negative); Protein Urine Negative (Negative); Specific Grav Ur 1.018 (1.001-1.035); Squamous Epithelial Cell Urine Rare /hpf (Few); Urobilinogen Urine Negative mg/dL (<2.0); WBC Urine 0-3 /hpf
[2019-12-24 02:23] LABS: Partial Thromboplastin Time 31.1 SECONDS (22.3-36.8)
[2019-12-24] MEDS: MORPHINE SULFATE (*CRX) 4 MG/ML INJ IV PUSH ×4 (03:38→13:42)
--- NOTE | 2019-12-24 05:30 | PC.NURSE ---
This patient, Eri Ramey, was admitted to [facility] Surg Room 322-01. Patient/family oriented to hospital policies and general routines including ID bracelet, bed and alarms, visiting hours, pain management, procedures, bathroom and other care routines, personal items, smoking policy, room service/diet, and visiting hours. Information on how to activate the Rapid Response Team has been discussed. Patient/Family are encouraged to report perceived risks to care and to ask questions if they do not understand what they are told or what they should do.
[2019-12-24] MEDS: LACTATED RINGERS 1,000 ML 125 ML IV CONT ×3 (05:31→21:53)
--- NOTE | 2019-12-24 08:20 | PM.IMHP ---
H&P: HPI History of Present Illness Date/Time: 12/24/19 08:20 Chief complaint: SBO Narrative: Eri Ramey is a 59 year old female Who has a history of ulcerative colitis. She underwent procto colectomy with permanent ileostomy in the in [place]. She has also had a hysterectomy. She started having rather diffuse abdominal pain with nausea and vomiting yesterday morning. This got worse and she came to the emergency room[place] [address] [place] scan was done and showed evidence of a small-bowel obstruction with the point of obstruction in the lower right pelvis. The patient was treated for small-bowel obstruction here in August of 2018. She does feel better since an NG tube has been placed. She has continued to have ileostomy output. She still has some abdominal pain but not as severe. She also has a history of a stable aortic dissection which was noted about a year ago. She has had the ascending aorta repaired. The descending aorta is being observed and repair may be done later. The emergency room physician contacted vascular surgery at [facility] prior to the patient being admitted to confirm this was a stable dissection. Review of Systems Review of Systems: All systems reviewed & are unremarkable except as noted in HPI and below Constitutional: Constitutional: Denies headache(s) Cardiovascular: Cardiovascular: Denies chest pain and Denies dyspnea Respiratory: Respiratory: Denies cough and Denies dyspnea Gastrointestinal: Gastrointestinal: Reports abdominal pain, Reports nausea and Reports vomiting Integumentary/Breasts: Skin/Breast: Reports pruritus, Denies lesions and Denies wounds Neurologic: Denies confusion and Denies headache(s) [facility] Past Medical History Medical History Anemia Aneurysm Arthritis Asthma Bowel obstruction Depression Eczema Ileostomy in place MRSA (methicillin resistant Staphylococcus aureus) x3 Ulcerative colitis Surgical History Surgical History H/O section H/O colectomy H/O thyroidectomy H/O: hysterectomy History of tonsillectomy Status post aneurysm repair Family History Family History Sibling Diabetes mellitus Mother Cancer Father Heart attack Social History Social History Smoking status: Never smoker Second hand tobacco smoke exposure: No Alcohol intake: never Substance use: never Substance use type: does not use Gender identity (if verbalized by the patient): Female Spiritual care concerns: No Meds Home Medications and Allergies Home Medications Medication Instructions Recorded Confirmed Type albuterol sulfate 90 mcg INHALATION PRN PRN 07/23/19 12/24/19 History aspirin 81 mg PO DAILY 07/23/19 12/24/19 History atorvastatin 80 mg PO DAILY 07/23/19 12/24/19 History ferrous sulfate 325 mg PO DAILY 07/23/19 12/24/19 History folic acid 1 mg PO DAILY 07/23/19 12/24/19 History metoprolol tartrate 100 mg PO BID 07/23/19 12/24/19 History venlafaxine 150 mg PO DAILY 07/23/19 12/24/19 History apixaban [Eliquis] 5 mg PO BID 12/24/19 12/24/19 History Allergies Allergy/AdvReac Type Severity Reaction Status Date / Time No Known Allergies Allergy Verified 12/24/19 06:04 Vital Signs Vital Signs - 24 hr 12/24/19 01:11 12/24/19 02:30 12/24/19 04:00 Temperature 36.0 C L Pulse Rate 60 59 L 59 L Respiratory Rate 18 16 18 Blood Pressure 121/55 L 130/55 L 128/49 L Pulse Oximetry 100 97 95 12/24/19 05:15 12/24/19 05:30 Temperature 36.2 C L Pulse Rate 65 62 Respiratory Rate 16 18 Blood Pressure 117/43 L 122/40 L Pulse Oximetry 93 97 Exam Const: General: cooperative, comfortable, no acute distress, alert and awake; No confusion Orientation/consciousness: No confu
[2019-12-24] MEDS: VENLAFAXINE HCL XR 75 MG CAP.ER.24H 150 MG PO (10:22)
[2019-12-24] MEDS: ENOXAPARIN 40 MG/0.4 ML SYRINGE SUB-Q (10:22)
[2019-12-24] MEDS: METOPROLOL TARTRATE INJ 5 MG/5 ML VIAL IV PUSH ×3 (13:41→23:30)
[2019-12-24] MEDS: HYDROmorphone HCL INJ (*CRX) 1 MG/ML SYR 0.5 MG IV PUSH ×2 (17:47→19:45)
[2019-12-24] MEDS: HYDROmorphone HCL INJ (*CRX) 1 MG/ML SYR IV PUSH (21:53)
[2019-12-25] VITALS (8 sets, daily range): BP systolic 114–139; BP diastolic 37–50; PULSE 73–79; RESP 16–24; TEMP 36.6–36.9; O2SAT 91–98
[2019-12-25] MEDS: HYDROmorphone HCL INJ (*CRX) 1 MG/ML SYR IV PUSH ×7 (01:34→18:41)
[2019-12-25] MEDS: ONDANSETRON INJ 4 MG/2 ML VIAL IV PUSH ×3 (03:17→16:30)
[2019-12-25] MEDS: METOPROLOL TARTRATE INJ 5 MG/5 ML VIAL IV PUSH ×3 (06:11→17:55)
[2019-12-25] MEDS: LACTATED RINGERS 1,000 ML 125 ML IV CONT (06:12)
[2019-12-25 06:15] LABS: Hemoglobin 12.3 g/dL (12.0-15.0); Mean Corpuscular HGB Conc 32.4 g/dl (32-36); Mean Corpuscular Hemoglobin 29.3 pg (26-34); Mean Corpuscular Volume 90.5 fl (80-100); Mean Platelet Volume 9.5 fl (7.4-10.4); Platelet Count Result 164 k/mm3 (150-375); Red Cell Distribution Width 13.6 % (11.5-14.5); White Blood Count 2.9 K/mm3 (4.5-10.0)
[2019-12-25 06:31] LABS: Anion Gap 6 mmol/L (8-16); Blood Urea Nitrogen 14 mg/dL (7-17); Calcium 8.6 mg/dL (8.4-10.2); Carbon Dioxide 35 mmol/L (22-30); Chloride 99 mmol/L (98-107); Estimated CRCL calculation 82 ml/min; Estimated Glomerular Filt Rate > 60; Glucose 128 mg/dL (65-105); Potassium 3.9 mmol/L (3.4-5.0); Sodium 140 mmol/L (137-145)
--- NOTE | 2019-12-25 07:56 | PM.PNGS ---
Progress Note: A&P Assessment and Plan (1) SBO (small bowel obstruction): Code(s): K56.609 - Unspecified intestinal obstruction, unspecified as to partial versus complete obstruction Status: Acute Assessment and Plan: symptoms persist. Continue NG suction. No signs deterioration. Possible UGI/SBFT tomorrow. (2) Ileostomy in place: Code(s): Z93.2 - Ileostomy status Status: Chronic (3) Chronic dissection of thoracic aorta: Code(s): I71.01 - Dissection of thoracic aorta Status: Chronic Subjective Subjective Date/Time Seen: 12/25/19 07:56 Patient reports: still having pain, bowel movement, nausea and afebrile Review of Systems Review of Systems: All systems reviewed & are unremarkable except as noted in HPI and below Constitutional: Constitutional: Reports fatigue, Denies headache(s) and Reports poor appetite Cardiovascular: Cardiovascular: Denies chest pain and Denies dyspnea Respiratory: Respiratory: Denies cough and Denies dyspnea Gastrointestinal: Gastrointestinal: Reports as per HPI, Reports abdominal pain and Reports other (having stoma output but decreased) Neurologic: Denies confusion and Denies headache(s) Exam Const: General: cooperative, healthy appearing, no acute distress, well developed, alert, awake and uncomfortable; No confusion Nutritional Appearance: well nourished and thin Orientation/consciousness: patient oriented x3 and No confusion GI: Inspection: distended and scar GI Palp: Yes Soft to palpation, Yes Tenderness to palpation present (GI) (lower abdomen), No Guarding due to palpation present (GI) and No Rebound tenderness present Auscultation: Hypoactive bowel sounds present Neuro: General: patient oriented x3, no focal motor deficits and No confusion Extrem: General: no calf tenderness and no edema Psych: Affect: normal affect Insight: Good insight present (Psych) Judgement: Good judgement present (Psych) Objective Data Vital Signs Vital Signs: Vital Signs - 24 hr 12/24/19 08:00 12/24/19 14:00 12/24/19 22:00 Temperature 36.9 C 36.6 C Pulse Rate 62 70 78 Respiratory Rate 18 18 20 Blood Pressure 125/58 L 121/47 L Pulse Oximetry 97 91 93 12/24/19 23:30 12/25/19 06:00 12/25/19 06:11 Temperature 36.6 C Pulse Rate 64 79 74 Respiratory Rate 20 Blood Pressure 122/45 L Pulse Oximetry 95 Intake/Output Intake/Output: Intake & Output 12/23/19 12/23/19 12/24/19 12/25/19 00:59 23:59 23:59 23:59 Intake Total 1999 1000 Output Total 500 450 Balance 1500 550 Meds/Results Medications: Active Medications Generic Name Dose Route Start Last Admin Trade Name Freq PRN Reason Stop Dose Admin Diphenhydramine HCl 25 mg 12/24/19 08:30 Diphenhydramine Hcl Inj 50 Mg/Ml Vial IV PUSH Q6H PRN Itching Enoxaparin Sodium 40 mg 12/24/19 09:00 12/24/19 10:22 Enoxaparin 40 Mg/0.4 Ml Syringe SUB-Q 40 mg DAILY GULSHAN Administration Hydromorphone HCl 0.5 mg 12/24/19 16:57 12/24/19 19:45 Hydromorphone Hcl Inj (*Crx) 1 Mg/Ml Syr IV PUSH 0.5 mg Q2H PRN Administration Pain Rated 4-6 Hydromorphone HCl 1 mg 12/24/19 16:57 12/25/19 06:11 Hydromorphone Hcl Inj (*Crx) 1 Mg/Ml Syr IV PUSH 1 mg Q2H PRN Administration Pain Rated 7-10 Lactated Ringer's 1,000 mls @ 80 mls/hr 12/24/19 04:00 12/25/19 06:12 Lr - Lactated Ringers Iv IV CONT 125 mls/hr .[id number] GULSHAN Administration Ibuprofen 800 mg in 200 mls @ 400 mls/hr 12/24/19 08:30 Caldolor 800 Mg/200 Ml IVPB Q6H PRN Pain Rated 1-3 Metoprolol Tartrate 5 mg 12/24/19 12:00 12/25/19 06:11 Metoprolol Tartrate Inj 5 Mg/5 Ml Vial IV PUSH 5 mg Q6HR GULSHAN Administration Naloxone HCl 0.1 mg 12/24/19 08:30 Naloxone Hcl 0.4 Mg/Ml Vial IV PUSH Q2M PRN Opiate Reversal Ondansetron HCl 4 mg 12/24/19 08:30 12/25/19 03:17 Ondansetron Inj 4 Mg/2 Ml Vial IV PUSH 4 mg Q4H PRN Administration
[2019-12-25] MEDS: ENOXAPARIN 40 MG/0.4 ML SYRINGE SUB-Q (09:17)
[2019-12-25] MEDS: LACTATED RINGERS 1,000 ML 80 ML IV CONT (16:26)
[2019-12-26] VITALS (20 sets, daily range): BP systolic 106–155; BP diastolic 41–103; PULSE 70–812; RESP 14–18; TEMP 36.1–37.3; O2SAT 90–100
[2019-12-26] MEDS: HYDROmorphone HCL INJ (*CRX) 1 MG/ML SYR IV PUSH ×3 (00:08→12:23)
[2019-12-26] MEDS: METOPROLOL TARTRATE INJ 5 MG/5 ML VIAL IV PUSH ×4 (00:12→18:38)
[2019-12-26] MEDS: HYDROmorphone HCL INJ (*CRX) 1 MG/ML SYR 0.5 MG IV PUSH ×2 (03:20→06:36)
[2019-12-26] MEDS: LACTATED RINGERS 1,000 ML 80 ML IV CONT (04:48)
[2019-12-26 06:46] LABS: Hemoglobin 11.3 g/dL (12.0-15.0); Mean Corpuscular HGB Conc 31.4 g/dl (32-36); Mean Corpuscular Hemoglobin 28.9 pg (26-34); Mean Corpuscular Volume 92.1 fl (80-100); Mean Platelet Volume 9.9 fl (7.4-10.4); Platelet Count Result 172 k/mm3 (150-375); Red Blood Count 3.91 M/mm3 (4.2-5.4); Red Cell Distribution Width 13.7 % (11.5-14.5); White Blood Count 4.1 K/mm3 (4.5-10.0)
[2019-12-26 06:57] LABS: Anion Gap 5 mmol/L (8-16); Blood Urea Nitrogen 14 mg/dL (7-17); Calcium 8.3 mg/dL (8.4-10.2); Carbon Dioxide 36 mmol/L (22-30); Chloride 99 mmol/L (98-107); Estimated CRCL calculation 72 ml/min; Estimated Glomerular Filt Rate > 60; Glucose 111 mg/dL (65-105); Potassium 3.6 mmol/L (3.4-5.0); Sodium 140 mmol/L (137-145)
[2019-12-26] MEDS: ONDANSETRON INJ 4 MG/2 ML VIAL IV PUSH (09:02)
--- NOTE | 2019-12-26 11:39 | PM.PNGS ---
Progress Note: A&P Assessment and Plan (1) SBO (small bowel obstruction): Code(s): K56.609 - Unspecified intestinal obstruction, unspecified as to partial versus complete obstruction Status: Acute Assessment and Plan: Patient currently having more pain in very uncomfortable after upper GI small-bowel follow-through. With her clinical appearance, I feel she still has a small-bowel obstruction and we will need to proceed with surgery to relieve. I discussed this with her. The procedure the risks the benefits have been discussed. The usual recovery and time in the hospital is been discussed. All questions were answered. She agrees to go ahead. (2) Ileostomy in place: Code(s): Z93.2 - Ileostomy status Status: Chronic (3) Chronic dissection of thoracic aorta: Code(s): I71.01 - Dissection of thoracic aorta Status: Chronic Subjective Subjective Date/Time Seen: 12/26/19 11:39 Patient reports: still having pain (Still having crampy pain no different from yesterday or the day before), bowel movement (Small amount ileostomy output) and afebrile Review of Systems Review of Systems: All systems reviewed & are unremarkable except as noted in HPI and below Constitutional: Constitutional: Denies headache(s) Cardiovascular: Cardiovascular: Denies chest pain and Denies dyspnea Respiratory: Respiratory: Denies cough and Denies dyspnea Gastrointestinal: Gastrointestinal: Reports as per HPI, Reports abdominal pain and Reports GI cramping Neurologic: Denies confusion and Denies headache(s) Exam Const: General: comfortable and no acute distress; No confusion Orientation/consciousness: patient oriented x3 and No confusion GI: Inspection: non-distended and scar GI Palp: Yes Soft to palpation, Yes Tenderness to palpation present (GI) (Mild lower abdominal tenderness as before), No Guarding due to palpation present (GI) and No Rebound tenderness present Auscultation: normal bowel sounds Neuro: General: patient oriented x3, no focal motor deficits and No confusion Extrem: General: no calf tenderness and no edema Psych: Affect: normal affect Insight: Good insight present (Psych) Judgement: Good judgement present (Psych) Objective Data Vital Signs Vital Signs: Vital Signs - 24 hr 12/25/19 12:13 12/25/19 13:21 12/25/19 14:00 Temperature 36.7 C 36.6 C Pulse Rate 75 73 73 Respiratory Rate 24 H 18 Blood Pressure 114/44 L 132/49 L Pulse Oximetry 91 98 12/25/19 17:30 12/25/19 17:55 12/25/19 22:00 Temperature 36.7 C 36.9 C Pulse Rate 77 77 75 Respiratory Rate 20 16 Blood Pressure 139/50 L 122/47 L Pulse Oximetry 95 94 12/26/19 00:05 12/26/19 00:12 12/26/19 06:00 Temperature 36.3 C L Pulse Rate 88 88 84 Respiratory Rate 18 Blood Pressure 117/41 L Pulse Oximetry 91 12/26/19 06:35 12/26/19 06:38 12/26/19 08:00 Temperature Pulse Rate 79 79 79 Respiratory Rate 18 18 Blood Pressure 123/42 L Pulse Oximetry 90 90 Intake/Output Intake/Output: Intake & Output 12/23/19 12/24/19 12/25/19 12/26/19 23:59 23:59 23:59 23:59 Intake Total 1999 2220 1010 Output Total 500 650 Balance 1500 1570 1010 Meds/Results Medications: Active Medications Generic Name Dose Route Start Last Admin Trade Name Freq PRN Reason Stop Dose Admin Diphenhydramine HCl 25 mg 12/24/19 08:30 Diphenhydramine Hcl Inj 50 Mg/Ml Vial IV PUSH Q6H PRN Itching Enoxaparin Sodium 40 mg 12/24/19 09:00 12/25/19 09:17 Enoxaparin 40 Mg/0.4 Ml Syringe SUB-Q 40 mg DAILY GULSHAN Administration Hydromorphone HCl 0.5 mg 12/24/19 16:57 12/26/19 06:36 Hydromorphone Hcl Inj (*Crx) 1 Mg/Ml Syr IV PUSH 0.5 mg Q2H PRN Administration Pain Rated 4-6 Hydromorphone HCl 1 mg 12/24/19 16:57 12/26/19 09:25 Hydromorphone Hcl Inj (*Crx) 1 Mg/Ml Syr IV PUSH 1 mg Q2H PRN Administration Pain Rated 7-10 Lactated Ringer's 1,000 mls @ 80 mls/hr
--- NOTE | 2019-12-26 11:45 | WPDHPUPDATE1 ---
History and Physical Update Update Date/Time: 12/26/19 11:45 History and Physical has been reviewed, including an updated exam of the patient. There are NO changes in the patient's condition. Risks, benefits, and alternatives have been discussed and questions answered. Patient agrees to proceed with procedure.
--- NOTE | 2019-12-26 12:07 | WPDANESEPPF ---
Anes - Initial Pre Proc Eval Procedure: Operation Date: 12/26/19 14:00 Proposed Procedures p Exploratory Laparotomy for Small Bowel Obstruction - Ector Govea MD Date/Time: 12/26/19 12:07 Surgeon: Ector Govea MD Pre Op Diagnosis: SBO Patient Data Age: 59 Gender: F Height: 1.7 m Weight: 63 kg Last Vital Signs Temp 36.3 C L 12/26/19 06:00 Pulse 79 12/26/19 08:00 Resp 18 12/26/19 08:00 BP 123/42 L 12/26/19 06:35 Pulse Ox 90 12/26/19 08:00 Allergies Allergy/AdvReac Type Severity Reaction Status Date / Time No Known Allergies Allergy Verified 12/24/19 06:04 Home Medications Medication Instructions Recorded Confirmed Type albuterol sulfate 90 mcg INHALATION PRN PRN 07/23/19 12/24/19 History aspirin 81 mg PO DAILY 07/23/19 12/24/19 History atorvastatin 80 mg PO DAILY 07/23/19 12/24/19 History ferrous sulfate 325 mg PO DAILY 07/23/19 12/24/19 History folic acid 1 mg PO DAILY 07/23/19 12/24/19 History metoprolol tartrate 100 mg PO BID 07/23/19 12/24/19 History venlafaxine 150 mg PO DAILY 07/23/19 12/24/19 History apixaban [Eliquis] 5 mg PO BID 12/24/19 12/24/19 History Laboratory Tests 12/26/19 12/26/19 06:03 06:03 WBC 4.1 K/mm3 L K/mm3 (4.5-10.0) RBC 3.91 M/mm3 L M/mm3 (4.2-5.4) Hgb 11.3 g/dL L g/dL (12.0-15.0) Hct 36.0 % L % (37.0-47.0) MCV 92.1 fl fl (80-100) MCH 28.9 pg pg (26-34) MCHC 31.4 g/dl L g/dl (32-36) RDW 13.7 % % (11.5-14.5) Plt Count 172 k/mm3 k/mm3 (150-375) MPV 9.9 fl fl (7.4-10.4) Sodium 140 mmol/L mmol/L (137-145) Potassium 3.6 mmol/L mmol/L (3.4-5.0) Chloride 99 mmol/L mmol/L (98-107) Carbon Dioxide 36 mmol/L H mmol/L (22-30) Anion Gap 5 mmol/L L mmol/L (8-16) BUN 14 mg/dL mg/dL (7-17) Creatinine 0.70 mg/dL mg/dL (0.7-1.0) Estim Creat Clear Calc 72 ml/min ml/min Estimated GFR > 60 (59 - ) Glucose 111 mg/dL H mg/dL (65-105) Calcium 8.3 mg/dL L mg/dL (8.4-10.2) ECG: Date of Service: 07/23/19 Procedure(s): CA 12 lead EKG Accession Number(s): [id number] cc: ~ Measurements Intervals [place] Rate: 97 P: 43 TX: 199 QRS: 89 QRSD: 110 T: 35 QT: 362 QTc: 462 Interpretive Statements SINUS RHYTHM BORDERLINE AV CONDUCTION DELAY POSSIBLE LEFT ATRIAL ENLARGEMENT LOW QRS VOLTAGE IN PRECORDIAL LEADS CANNOT RULE OUT SEPTAL INFARCT, AGE INDETERMINATE BORDERLINE ST-T WAVE ABNORMALITY- ANT/INF LEADS ABNORMAL ECG Electronically Signed On 07-24-2019 6:42:14 CDT by Brandyn Abdi D.O. Dictated By: Brandyn Abdi DO 07/23/191931 Other Studies: CT abdomen: FINDINGS: Again there is dissecting abdominal aortic aneurysm, was previously determined to be a type A dissection in 2019. On previous examination, there was difference in degree of opacification between the true and false lumens, which now has equal opacification on today's examination. Otherwise does not appear significantly changed. The abdominal aorta and iliac arteries are normal in caliber. There is no aortic rupture. Renal arteries, mesenteric arteries are patent. [facility] Past Medical History Medical History (Updated 12/26/19 @ 12:09 by Sly Basurto MD) Anemia Aneurysm Aortic dissection Arthritis Asthma Bowel obstruction CAD (coronary artery disease) Depression DVT (deep venous thrombosis) Eczema Hypothyroidism Ileostomy in place MRSA (methicillin resistant Staphylococcus aureus) x3 Paroxysmal A-fib Ulcerative colitis Surgical History Surgical History (Updated 12/26/19 @ 12:09 by Sly Basurto MD) H/O
[2019-12-26] MEDS: LACTATED RINGERS 1,000 ML 30 ML IV CONT ×2 (13:30→16:28)
--- NOTE | 2019-12-26 13:52 | WPDANESEPPF ---
Anes - Initial Pre Proc Eval Procedure: Operation Date: 12/26/19 14:00 Proposed Procedures p Exploratory Laparotomy for Small Bowel Obstruction - Ector Govea MD Date/Time: 12/26/19 13:52 Surgeon: Ector Govea MD Pre Op Diagnosis: SBO Patient Data Age: 59 Gender: F Height: 5 ft 7 in Weight: 63 kg Last Vital Signs Temp 36.3 C L 12/26/19 06:00 Pulse 75 12/26/19 12:26 Resp 18 12/26/19 08:00 BP 123/42 L 12/26/19 06:35 Pulse Ox 90 12/26/19 08:00 Allergies Allergy/AdvReac Type Severity Reaction Status Date / Time No Known Allergies Allergy Verified 12/24/19 06:04 Home Medications Medication Instructions Recorded Confirmed Type albuterol sulfate 90 mcg INHALATION PRN PRN 07/23/19 12/24/19 History aspirin 81 mg PO DAILY 07/23/19 12/24/19 History atorvastatin 80 mg PO DAILY 07/23/19 12/24/19 History ferrous sulfate 325 mg PO DAILY 07/23/19 12/24/19 History folic acid 1 mg PO DAILY 07/23/19 12/24/19 History metoprolol tartrate 100 mg PO BID 07/23/19 12/24/19 History venlafaxine 150 mg PO DAILY 07/23/19 12/24/19 History apixaban [Eliquis] 5 mg PO BID 12/24/19 12/24/19 History Laboratory Tests 12/26/19 12/26/19 12/26/19 06:03 06:03 11:45 WBC 4.1 K/mm3 L K/mm3 (4.5-10.0) RBC 3.91 M/mm3 L M/mm3 (4.2-5.4) Hgb 11.3 g/dL L g/dL (12.0-15.0) Hct 36.0 % L % (37.0-47.0) MCV 92.1 fl fl (80-100) MCH 28.9 pg pg (26-34) MCHC 31.4 g/dl L g/dl (32-36) RDW 13.7 % % (11.5-14.5) Plt Count 172 k/mm3 k/mm3 (150-375) MPV 9.9 fl fl (7.4-10.4) Sodium 140 mmol/L mmol/L (137-145) Potassium 3.6 mmol/L mmol/L (3.4-5.0) Chloride 99 mmol/L mmol/L (98-107) Carbon Dioxide 36 mmol/L H mmol/L (22-30) Anion Gap 5 mmol/L L mmol/L (8-16) BUN 14 mg/dL mg/dL (7-17) Creatinine 0.70 mg/dL mg/dL (0.7-1.0) Estim Creat Clear Calc 72 ml/min ml/min Estimated GFR > 60 (59 - ) Glucose 111 mg/dL H mg/dL (65-105) Calcium 8.3 mg/dL L mg/dL (8.4-10.2) Blood Type O Positive Antibody Screen Negative Patient hx anesthesia problems: none Family hx anesthesia problems: none PMFSH Past Medical History Medical History Anemia Aneurysm Aortic dissection Arthritis Asthma Bowel obstruction CAD (coronary artery disease) Depression DVT (deep venous thrombosis) Eczema Hypothyroidism Ileostomy in place MRSA (methicillin resistant Staphylococcus aureus) x3 Paroxysmal A-fib Ulcerative colitis Surgical History Surgical History H/O section H/O colectomy H/O thyroidectomy H/O: hysterectomy History of tonsillectomy S/P CABG (coronary artery bypass graft) Status post aneurysm repair Family History Family History Sibling Diabetes mellitus Mother Cancer Father Heart attack Social History Social History Smoking status: Never smoker Second hand tobacco smoke exposure: No Alcohol intake: never Substance use: never Substance use type: does not use Gender identity (if verbalized by the patient): Female Spiritual care concerns: No Anes - Eval Final PreProcedure Day of Procedure 12/26/19 13:52 Patient weight: normal Heart: regular rate and rhythm Lungs: clear to auscultation Airway: Mallampati scale class II Neurological: alert and oriented Last oral intake: >/= 8 hours ASA classification: IV Emergent: yes Anesthetic plan: proceed Anesthesia type and monitoring: general ETT, standard monitoring and invasive monitoring (possible) Other findings: possible post op vent ICU Informed Consent: Nahun bobby
--- NOTE | 2019-12-26 13:53 | PC.NURSE ---
taken down for surgery [id number]
[2019-12-26] MEDS: ceFAZolin 2 GM/D5W 50 ML 2 GM/50 ML BAG IVPB (14:29)
--- NOTE | 2019-12-26 16:35 | P.OP_ITS ---
Procedure Note - Detailed Date of procedure: 12/26/19 Pre-op diagnosis: SBO Small-bowel obstruction due to adhesions Post-op diagnosis: same Procedure performed: Adhesiolysis Description of procedure: The patient was taken to the operating room and induced into general anesthesia. Bryant catheter was placed. Her ileostomy appliance was removed. We placed a 16 Amharic Bryant in the ileostomy such that the tip was advanced well into the abdomen. The balloon was inflated to 10 cm with saline. It was pulled back to the edge of the abdominal wall. We then prepped and draped. Ray-Essence sponges were placed over the ileostomy and the Bryant catheter. Ioban was placed over the entire abdomen including the Ray tecs. The the scar of the lower 3/4's of the previous midline incision was excised and discarded. Dissection was carried down through the midline fascia. We carefully opened the peritoneum. There was a lot of yellowish ascites in the abdomen. This was suctioned away. We opened the peritoneum the length of the wound. There was considerable dilated, dusky small intestine in the pelvis. Much of this was eviscerated without difficulty. A single adhesive band was found about 4 ft from the ileostomy. This was divided. This appeared to be 1 point of obstruction. Additionally there were adhesions to the lateral right pelvic sidewall of additional small bowel. These were carefully taken down and brought up into the wound. These appeared to be also a point of obstruction as the bowel was very collapsed on distal to this. All these adhesions and additional interloop adhesions were taken down. No bowel entry occurred. Cautery was used for hemostasis. Eventually the entire small bowel was cleared and I was able to follow it all the way to the ileostomy. The NG tube was checked in the stomach it seemed to be clogged. It was removed and replaced by Anesthesia. We then milked significant amounts of small bowel content into the stomach and evacuated it via the nasogastric tube. The small-bowel was much more collapsed and of a smaller diameter. It was then able to be easily placed back in the abdomen without creating abdominal distention. The NG tube was carefully positioned in the stomach. We then closed the peritoneum with 0 chromic suture. The midline fascia was closed with bidirectional running 1. PDS. The subcutaneous was closed with interrupted 3 0 Vicryl suture. The skin was loosely approximated with subcuticular interrupted 4 O Vicryl skin suture. A new ileostomy appliance was placed over the ileostomy site after the Bryant catheter was removed. The wound was dressed with Xeroform gauze fluffs and Medipore tape. The patient was awakened and taken to recovery in good condition. Sponge and needle counts were correct x2. Surgeon: Ector Govea MD Press Operator Meat: Maria Elena WU Estimated blood loss (mL): 20 Drains: Yes (NG tube) Packing: No Pathology: none sent Complications: No immediate complications Condition: stable Disposition: PACU Findings: Multiple pelvic adhesions causing small bowel obstruction.
[2019-12-26] MEDS: fentaNYL CITRATE INJ (*CRX) 100 MCG/2 ML VIAL 25 MCG IV PUSH ×8 (16:55→17:20)
[2019-12-26] MEDS: IBUPROFEN IV 800 MG/200 ML 800 MG/200 ML BAG 400 MG IVPB (18:41)
[2019-12-26] MEDS: MORPHINE SULFATE PCA (*CRX) 30 MG/30 ML SYR IV CONT (21:40)
[2019-12-26] MEDS: LACTATED RINGERS 1,000 ML 100 ML IV CONT (23:53)
[2019-12-27] VITALS (18 sets, daily range): BP systolic 100–140; BP diastolic 40–46; PULSE 65–157; RESP 16–20; TEMP 36.3–37.2; O2SAT 92–99
[2019-12-27] MEDS: IBUPROFEN IV 800 MG/200 ML 800 MG/200 ML BAG 400 MG IVPB ×4 (02:11→18:50)
[2019-12-27] MEDS: METOPROLOL TARTRATE INJ 5 MG/5 ML VIAL IV PUSH ×4 (02:11→23:55)
[2019-12-27 06:44] LABS: Hematocrit 36.8 % (37.0-47.0); Hemoglobin 11.7 g/dL (12.0-15.0); Mean Corpuscular HGB Conc 31.8 g/dl (32-36); Mean Corpuscular Hemoglobin 29.3 pg (26-34); Mean Platelet Volume 10.7 fl (7.4-10.4); Platelet Count Result 152 k/mm3 (150-375); Red Cell Distribution Width 13.5 % (11.5-14.5); White Blood Count 6.5 K/mm3 (4.5-10.0)
[2019-12-27 07:11] LABS: Alanine Aminotransferase 24 U/L (4-35); Albumin Level 2.9 g/dL (3.5-5.1); Alkaline Phosphatase 83 U/L (38-126); Anion Gap 7 mmol/L (8-16); Aspartate Amino Transferase 26 U/L (14-36); Bilirubin,Total 0.6 mg/dL (0.2-1.3); Blood Urea Nitrogen 14 mg/dL (7-17); Calcium 7.8 mg/dL (8.4-10.2); Carbon Dioxide 33 mmol/L (22-30); Chloride 99 mmol/L (98-107); Estimated CRCL calculation 97 ml/min; Estimated Glomerular Filt Rate > 60; Glucose 110 mg/dL (65-105); Potassium 3.4 mmol/L (3.4-5.0); Sodium 139 mmol/L (137-145)
--- NOTE | 2019-12-27 07:55 | WPDANESPN ---
Anes - Prog Note Post-Op Date/Time: 12/27/19 07:55 Cardiovascular status: normal Respiratory status: normal Airway patency: baseline Mental status: baseline Post-Op hydration status: normal Vital Signs: Last Vital Signs Temp 37.1 C 12/27/19 04:00 Pulse 69 12/27/19 05:54 Resp 18 12/27/19 05:51 BP 113/44 L 12/27/19 05:51 Pulse Ox 95 12/27/19 05:51 Pain Score (VAS): 04/30 I/O: Intake & Output 12/26/19 12/26/19 12/27/19 15:59 23:59 07:59 Intake Total 50 450 450 Output Total 300 40 350 Balance -250 410 100 Laboratory Tests 12/27/19 06:07 12/27/19 06:07 12/26/19 12/27/19 12/27/19 11:45 06:07 06:07 WBC 6.5 RBC 4.00 L Hgb 11.7 L Hct 36.8 L MCV 92.0 MCH 29.3 MCHC 31.8 L RDW 13.5 Plt Count 152 MPV 10.7 H Sodium 139 Potassium 3.4 Chloride 99 Carbon Dioxide 33 H Anion Gap 7 L BUN 14 Creatinine 0.50 L Estim Creat Clear Calc 97 Estimated GFR > 60 Glucose 110 H Calcium 7.8 L Total Bilirubin 0.6 AST 26 ALT 24 Alkaline Phosphatase 83 Total Protein 5.0 L Albumin 2.9 L Blood Type O Positive Antibody Screen Negative Post-procedural complaints: none Patient Feedback: Patient satisfied with anesthetic care.
[2019-12-27] MEDS: ENOXAPARIN 40 MG/0.4 ML SYRINGE SUB-Q (09:59)
[2019-12-27] MEDS: LACTATED RINGERS 1,000 ML 100 ML IV CONT ×2 (09:59→18:55)
--- NOTE | 2019-12-27 10:50 | PM.PNGS ---
Progress Note: A&P Assessment and Plan (1) SBO (small bowel obstruction): Code(s): K56.609 - Unspecified intestinal obstruction, unspecified as to partial versus complete obstruction Status: Acute Assessment and Plan: Looks very good postop day 1. Will discontinue Bryant catheter. Wound nurses to see for application of appropriate ileostomy appliance. Up walking. Feels better than she did preoperatively. Will DC dose on [employer] slightly. (2) Ileostomy in place: Code(s): Z93.2 - Ileostomy status Status: Chronic (3) Chronic dissection of thoracic aorta: Code(s): I71.01 - Dissection of thoracic aorta Status: Chronic Subjective Subjective Date/Time Seen: 12/27/19 10:50 Post Op day: 1 Patient reports: no new complaints, feels better, pain is less, bowel movement and afebrile Exam GI: Inspection: non-distended, incision (Clean, dry, healing) and other (Increased ileostomy output) GI Palp: Yes Soft to palpation and Yes Tenderness to palpation present (GI) Auscultation: normal bowel sounds Objective Data Vital Signs Vital Signs: Vital Signs - 24 hr 12/26/19 12:26 12/26/19 14:31 12/26/19 16:28 Temperature 37.0 C 36.1 C L Pulse Rate 75 73 87 Respiratory Rate 16 16 Blood Pressure 144/52 H 155/81 H Pulse Oximetry 91 100 12/26/19 16:40 12/26/19 16:55 12/26/19 17:00 Temperature 36.8 C Pulse Rate 87 79 812 H Respiratory Rate 18 16 16 Blood Pressure 122/103 H 154/52 H 140/52 L Pulse Oximetry 100 96 95 12/26/19 17:10 12/26/19 17:25 12/26/19 18:00 Temperature 37.3 C 36.6 C Pulse Rate 75 83 88 Respiratory Rate 16 16 14 Blood Pressure 135/55 L 137/55 L 141/45 H Pulse Oximetry 97 94 92 12/26/19 18:30 12/26/19 18:38 12/26/19 19:30 Temperature 37.1 C 36.6 C Pulse Rate 86 70 80 Respiratory Rate 16 18 Blood Pressure 139/49 L 106/41 L Pulse Oximetry 96 95 12/26/19 20:00 12/26/19 21:40 12/27/19 00:00 Temperature 37.2 C Pulse Rate 83 Respiratory Rate 18 18 Blood Pressure 113/44 L Pulse Oximetry 94 96 97 12/27/19 02:08 12/27/19 02:11 12/27/19 04:00 Temperature 37.1 C Pulse Rate 80 80 74 Respiratory Rate 16 18 Blood Pressure 114/41 L 100/42 L Pulse Oximetry 92 94 12/27/19 05:51 12/27/19 05:54 12/27/19 10:00 Temperature 36.8 C Pulse Rate 69 69 72 Respiratory Rate 18 18 Blood Pressure 113/44 L 131/46 L Pulse Oximetry 95 99 Intake/Output Intake/Output: Intake & Output 12/24/19 12/25/19 12/26/19 12/27/19 23:59 23:59 23:59 23:59 Intake Total 1999 2220 1510 1450 Output Total 500 650 340 350 Balance 1500 1570 1170 1100 Meds/Results Medications: Active Medications Generic Name Dose Route Start Last Admin Trade Name Freq PRN Reason Stop Dose Admin Diphenhydramine HCl 25 mg 12/24/19 08:30 Diphenhydramine Hcl Inj 50 Mg/Ml Vial IV PUSH Q6H PRN Itching Enoxaparin Sodium 40 mg 12/24/19 09:00 12/27/19 09:59 Enoxaparin 40 Mg/0.4 Ml Syringe SUB-Q 40 mg DAILY GULSHAN Administration Ibuprofen 800 mg in 200 mls @ 400 mls/hr 12/26/19 18:00 12/27/19 06:24 Caldolor 800 Mg/200 Ml IVPB Infused Q6HR GULSHAN Infusion Lactated Ringer's 1,000 mls @ 100 mls/hr 12/26/19 17:28 12/27/19 09:59 Lr - Lactated Ringers Iv IV CONT 100 mls/hr .Q10H GULSHAN Administration Morphine Sulfate 30 mg in 30 mls @ 1 mls/hr 12/26/19 21:01 12/26/19 21:40 Morphine Sulfate Beam Department Supervisor IV CONT 1 mg/hr PRN PRN 1 mls/hr [employer] Management Administration Protocol 1 MG/HR Metoprolol Tartrate 5 mg 12/24/19 12:00 12/27/19 05:54 Metoprolol Tartrate Inj 5 Mg/5 Ml Vial IV PUSH 5 mg Q6HR GULSHAN Administration Naloxone HCl 0.1 mg 12/24/19 08:30 Naloxone Hcl 0.4 Mg/Ml Vial IV PUSH Q2M PRN Opiate Reversal Ondansetron HCl 4 mg 12/24/19 08:30 12/26/19 09:02 Ondansetron Inj 4 Mg/2 Ml Vial IV PUSH 4 mg Q4H PRN Administration Nausea And Vomiting Venlafaxine HCl 150 mg 12/24/19 09:
--- NOTE | 2019-12-27 21:56 | ECG_ITS ---
Measurements Intervals [place] Rate: 147 P: NV: 0 QRS: 76 QRSD: 106 T: -40 QT: 218 QTc: 341 Interpretive Statements ATRIAL FIBRILLATION WITH RAPID VENTRICULAR RESPONSE RSR' IN V1 OR V2, CONSIDER RIGHT VENTRICULAR HYPERTROPHY OR RIGHT VCD ST-T WAVE ABNORMALITY IN ANTEROLAT/INF LEADS- CONSIDER ISCHEMIA ABNORMAL ECG Electronically Signed On 12-28-2019 6:51:16 HELICOPTER REPAIRER by Brandyn Abdi D.O.
[2019-12-27] MEDS: SODIUM CHLORIDE 0.9% IV 500 ML 999 ML IV CONT (22:44)
--- NOTE | 2019-12-27 23:00 | PC.NURSE ---
Report given to SUE Turk @9005.
--- NOTE | 2019-12-27 23:40 | PC.NURSE ---
Patient transferred to [facility] @1382.
[2019-12-28] VITALS (17 sets, daily range): BP systolic 93–153; BP diastolic 44–62; PULSE 65–86; RESP 16–24; TEMP 36.3–37; O2SAT 93–96; BMI 23.7
[2019-12-28] MEDS: IBUPROFEN IV 800 MG/200 ML 800 MG/200 ML BAG 400 MG IVPB ×3 (00:01→12:25)
--- NOTE | 2019-12-28 00:04 | ECG_ITS ---
Measurements Intervals [place] Rate: 72 P: 19 IA: 169 QRS: 64 QRSD: 100 T: 29 QT: 384 QTc: 422 Interpretive Statements SINUS RHYTHM INCOMPLETE RIGHT BUNDLE BRANCH BLOCK BASELINE ARTIFACT- V4 BORDERLINE ECG Electronically Signed On 12-28-2019 6:52:31 PUBLIC INFORMATION SPECIALIST by Brandyn Abdi D.O.
--- NOTE | 2019-12-28 00:05 | ECHO_ITS ---
Patient Info Name: Eri Ramey Age: 59 years : 1960 Gender: Female Ht: 67 in Wt: 138 lbs BSA: 1.72 m2 HR: 70 bpm BP: 123 / 69 mmHg Technical Quality: Good Exam Date: 12/28/2019 9:39 AM Exam Location: [facility] Patient Status: Inpatient Admit Date: 12/24/2019 Staff Ordering Physician: Bethel Cruz MD Aircraft Maintenance Instructor: Michael Lemus RDCS, RT Attending Provider: Ector Govea MD Referring Physician: Anthony CHOPRA; Exam Type: CA echo doppler color flow Study Info Indications I48.1 - Persistent atrial fibrillation Complete two-dimensional, color flow and Doppler transthoracic echocardiogram is performed with contrast to opacify the left ventricle and to improve the deliniation of the left ventricle endocardial borders. Strain analysis performed. Summary 1. Left ventricular chamber dimension is normal. 2. Definity contrast administered improved wall motion interpretation. 3. Left ventricular systolic function is normal, estimated at 60-65%. 4. There is mildly increased left ventricular wall thickness. 5. The left ventricular diastolic function is grade III diastolic dysfunction. 6. E/e' 9 is minimally elevated. 7. Global longitudinal strain is normal at -19.8%. 8. Left atrial chamber dimension is mildly enlarged. 9. Right atrial chamber dimension is moderately enlarged. 10. There is mild aortic valve sclerosis. 11. There is mild to moderate aortic valve regurgitation. 12. There is mild mitral valve regurgitation. 13. There is moderate to severe tricuspid valve regurgitation. 14. Mild pulmonary hypertension, estimated pulmonary arterial systolic pressure is 41 mmHg. 15. There is trace pulmonic regurgitation. 16. The aortic root size at the sinus of Valsalva is mildly dilated at 4.4 cm. 17. Ascending aorta is not well seen. There is trace regurgitation in area of what appears to be the proximal ascending aortic graft. 18. Dilated inferior vena cava with >50% collapse upon inspiration consistent with elevated right atrial pressure, 10 mmHg. Left Ventricle E/e' 9 is minimally elevated. Global longitudinal strain is normal at -19.8%. Definity contrast administered improved wall motion interpretation. Left ventricular chamber dimension is normal. Left ventricular systolic function is normal, estimated at 60-65%. There is mildly increased left ventricular wall thickness. The left ventricular diastolic function is grade III diastolic dysfunction. Right Ventricle Right ventricular systolic function is normal with normal TAPSE at 1.8 cm. Right ventricular chamber dimension is normal. Left Atria Left atrial chamber dimension is mildly enlarged. Right Atria Right atrial chamber dimension is moderately enlarged. Aortic Valve The aortic valve is trileaflet. There is mild aortic valve sclerosis. There is no aortic valve stenosis. There is mild to moderate aortic valve regurgitation. Pulmonic Valve There is trace pulmonic regurgitation. Mitral Valve There is no mitral valve stenosis. There is mild mitral valve regurgitation. Tricuspid Valve There is moderate to severe tricuspid valve regurgitation. Mild pulmonary hypertension, estimated pulmonary arterial systolic pressure is 41 mmHg. Pericardium/Pleural There is no pericardial effusion. Inferior Vena Cava Dilated inferior vena cava with >50% collapse upon inspiration consistent with elevated right atrial pressure, 10 mmHg. Aorta The aortic root size at the sinus of Valsalva is mil
--- NOTE | 2019-12-28 00:07 | PC.NURSE ---
This patient, Eri Ramey, was received from [facility] on 12/27/19 at 2340. Patient/family oriented to unit policies and routines
--- NOTE | 2019-12-28 00:10 | PM.IMHP ---
H&P: HPI History of Present Illness Date/Time: 12/28/19 00:10 Chief complaint: SBO Narrative: Thank you for consulting us to see this pleasant 59 year old female with a history of ulcerative colitis s/p colectomy with ileostomy and paroxysmal atrial fibrillation on chronic Eliquis therapy who was admitted to the hospital four days ago for a bowel obstruction. The patient underwent adhesiolysis on Tuesday12/26/2019. Tonight the patient suddenly developed palpitations and the patient's nurse found that the patient had a heart rate in the 150s. EKG was obtained which demonstrated atrial fibrillation with rapid ventricular rate. The patient continues to have a NG tube. The patient denies any chest pain, nausea, vomiting, coughing, shortness of breath. Her abdominal pain is controlled and her surgical site is clean and dry. She has no other complaints at this time. Review of Systems Review of Systems: All systems reviewed & are unremarkable except as noted in HPI and below PMFSH Past Medical History Medical History Anemia Aneurysm Aortic dissection Arthritis Asthma Bowel obstruction CAD (coronary artery disease) Depression DVT (deep venous thrombosis) Eczema Hypothyroidism Ileostomy in place MRSA (methicillin resistant Staphylococcus aureus) x3 Paroxysmal A-fib Ulcerative colitis Surgical History Surgical History H/O section H/O colectomy H/O thyroidectomy H/O: hysterectomy History of tonsillectomy S/P CABG (coronary artery bypass graft) Status post aneurysm repair Family History Family History Sibling Diabetes mellitus Mother Cancer Father Heart attack Social History Social History Smoking status: Never smoker Second hand tobacco smoke exposure: No Alcohol intake: never Substance use: never Substance use type: does not use Gender identity (if verbalized by the patient): Female Spiritual care concerns: No Meds Home Medications and Allergies Home Medications Medication Instructions Recorded Confirmed Type albuterol sulfate 90 mcg INHALATION PRN PRN 07/23/19 12/24/19 History aspirin 81 mg PO DAILY 07/23/19 12/24/19 History atorvastatin 80 mg PO DAILY 07/23/19 12/24/19 History ferrous sulfate 325 mg PO DAILY 07/23/19 12/24/19 History folic acid 1 mg PO DAILY 07/23/19 12/24/19 History metoprolol tartrate 100 mg PO BID 07/23/19 12/24/19 History venlafaxine 150 mg PO DAILY 07/23/19 12/24/19 History apixaban [Eliquis] 5 mg PO BID 12/24/19 12/24/19 History Allergies Allergy/AdvReac Type Severity Reaction Status Date / Time No Known Allergies Allergy Verified 12/24/19 06:04 Vital Signs Vital Signs - 24 hr 12/27/19 02:08 12/27/19 02:11 12/27/19 04:00 Temperature 37.1 C Pulse Rate 80 80 74 Respiratory Rate 16 18 Blood Pressure 114/41 L 100/42 L Pulse Oximetry 92 94 12/27/19 05:51 12/27/19 05:54 12/27/19 08:00 Temperature Pulse Rate 69 69 72 Respiratory Rate 18 18 Blood Pressure 113/44 L Pulse Oximetry 95 99 12/27/19 10:00 12/27/19 12:41 12/27/19 13:37 Temperature 36.8 C Pulse Rate 72 72 Respiratory Rate 18 16 Blood Pressure 131/46 L Pulse Oximetry 99 99 12/27/19 13:54 12/27/19 14:11 12/27/19 18:00 Temperature 36.6 C 36.3 C L Pulse Rate 71 73 Respiratory Rate 18 20 Blood Pressure 140/46 L 106/43 L Pulse Oximetry 95 99 97 12/27/19 19:01 12/27/19 20:00 12/27/19 22:00 Temperature 36.6 C Pulse Rate 65 72 157 H Respiratory Rate 16 Blood Pressure 107/40 L Pulse Oximetry 94 94 12/27/19 23:55 Temperature Pulse Rate 119 H Respiratory Rate Blood Pressure Pulse Oximetry Exam Const: General: cooperative, no acute distress, alert and awake Nutritional Appearance: well nourished Skinny
[2019-12-28 01:04] LABS: Troponin I 0.021 ng/mL (0.000-0.034)
[2019-12-28] MEDS: ENOXAPARIN 80 MG/0.8 ML SYRINGE 63 MG SUB-Q ×2 (05:23→17:22)
[2019-12-28] MEDS: METOPROLOL TARTRATE INJ 5 MG/5 ML VIAL IV PUSH ×3 (05:24→17:21)
[2019-12-28 05:38] LABS: Hematocrit 35.9 % (37.0-47.0); Hemoglobin 11.4 g/dL (12.0-15.0); Mean Corpuscular HGB Conc 31.8 g/dl (32-36); Mean Corpuscular Volume 91.3 fl (80-100); Mean Platelet Volume 9.8 fl (7.4-10.4); Platelet Count Result 170 k/mm3 (150-375); Red Blood Count 3.93 M/mm3 (4.2-5.4); Red Cell Distribution Width 13.2 % (11.5-14.5); White Blood Count 6.3 K/mm3 (4.5-10.0)
[2019-12-28 05:40] LABS: Anion Gap 11 mmol/L (8-16); Blood Urea Nitrogen 12 mg/dL (7-17); Calcium 7.5 mg/dL (8.4-10.2); Carbon Dioxide 28 mmol/L (22-30); Chloride 100 mmol/L (98-107); Estimated CRCL calculation 97 ml/min; Estimated Glomerular Filt Rate > 60; Glucose 58 mg/dL (65-105); Potassium 2.5 mmol/L (3.4-5.0); Sodium 139 mmol/L (137-145)
[2019-12-28 05:47] LABS: Glucose Point of Care 59 (65-105)
[2019-12-28] MEDS: DEXTROSE 50% 25 GM/50 ML SYRINGE IV PUSH (05:50)
[2019-12-28 05:53] LABS: Troponin I 0.055 ng/mL (0.000-0.034)
[2019-12-28 06:40] LABS: Glucose Point of Care 109 (65-105)
[2019-12-28] MEDS: MORPHINE SULFATE PCA (*CRX) 30 MG/30 ML SYR IV CONT (08:16)
[2019-12-28 08:56] LABS: Troponin I 0.041 ng/mL (0.000-0.034)
[2019-12-28] MEDS: PERFLUTREN LIPID MICROSPHERES 1.5 ML VIAL DILUTED TO 10 ML TOTAL VOLUME IV PUSH (10:25)
[2019-12-28] MEDS: LACTATED RINGERS 1,000 ML 80 ML IV CONT (12:25)
[2019-12-28 13:08] LABS: Potassium 2.7 mmol/L (3.4-5.0)
--- NOTE | 2019-12-28 13:45 | PM.PNGS ---
Progress Note: A&P Assessment and Plan (1) SBO (small bowel obstruction): Code(s): K56.609 - Unspecified intestinal obstruction, unspecified as to partial versus complete obstruction Status: Acute Assessment and Plan: Has good bowel sounds, no abdominal distention and good ileostomy again this morning. I will discontinue her NG tube and start clear liquids. Incision is healing well. Looks good from this standpoint. (2) Ileostomy in place: Code(s): Z93.2 - Ileostomy status Status: Chronic Assessment and Plan: Good output. No leaks from appliance. Up when okay with Cardiology and medical physicians. (3) Atrial fibrillation with rapid ventricular response: Code(s): I48.91 - Unspecified atrial fibrillation Status: Acute Assessment and Plan: Converted back to sinus rhythm. Now anticoagulated on Lovenox. Potassium very low. Will supplement with p.o. potassium now that is taking liquids. (4) Chronic dissection of thoracic aorta: Code(s): I71.01 - Dissection of thoracic aorta Status: Chronic Assessment and Plan: No evidence of changes here. Subjective Subjective Date/Time Seen: 12/28/19 13:45 Post Op day: 2 Patient reports: no new complaints, pain is less, bowel movement, afebrile and other (AFib with RVR last night, transferred to IMU, converted) Interval history: Patient started on therapeutic dose of Lovenox last night. Review of Systems Review of Systems: All systems reviewed & are unremarkable except as noted in HPI and below Constitutional: Constitutional: Denies headache(s) Gastrointestinal: Gastrointestinal: Reports as per HPI, Reports abdominal pain (Very minimal, feels good) and Denies nausea Neurologic: Denies confusion and Denies headache(s) Psychiatric: Psychiatric: Denies confusion Exam Const: General: comfortable and no acute distress; No confusion Orientation/consciousness: patient oriented x3 and No confusion GI: Inspection: non-distended and incision (Healing well, good ileostomy output) GI Palp: Yes Soft to palpation, Yes Tenderness to palpation present (GI) (Minimal appropriate tenderness), No Guarding due to palpation present (GI) and No Rebound tenderness present Auscultation: normal bowel sounds Neuro: General: patient oriented x3, no focal motor deficits and No confusion Extrem: General: no calf tenderness and no edema Psych: Affect: normal affect Insight: Good insight present (Psych) Judgement: Good judgement present (Psych) Objective Data Vital Signs Vital Signs: Vital Signs - 24 hr 12/27/19 13:54 12/27/19 14:11 12/27/19 18:00 Temperature 36.6 C 36.3 C L Pulse Rate 71 73 Respiratory Rate 18 20 Blood Pressure 140/46 L 106/43 L Pulse Oximetry 95 99 97 12/27/19 19:01 12/27/19 20:00 12/27/19 22:00 Temperature 36.6 C Pulse Rate 65 72 157 H Respiratory Rate 16 Blood Pressure 107/40 L Pulse Oximetry 94 94 12/27/19 23:48 12/27/19 23:55 12/28/19 00:00 Temperature Pulse Rate 157 H 119 H Respiratory Rate Blood Pressure Pulse Oximetry 95 12/28/19 00:10 12/28/19 02:00 12/28/19 04:00 Temperature 36.8 C 36.7 C Pulse Rate 86 83 75 Respiratory Rate 24 H 18 Blood Pressure 93/62 L 113/44 L Pulse Oximetry 95 96 12/28/19 05:24 12/28/19 05:59 12/28/19 07:10 Temperature 36.3 C L Pulse Rate 75 69 66 Respiratory Rate 20 Blood Pressure 122/46 L Pulse Oximetry 93 12/28/19 08:00 12/28/19 10:00 12/28/19 12:00 Temperature 37.0 C Pulse Rate 68 65 71 Respiratory Rate 16 Blood Pressure 141/47 H Pulse Oximetry 93 12/28/19 12:26 Temperature Pulse Rate 76 Respiratory Rate Blood Pressure Pulse Oximetry Intake/Output Intake/Output: Intake & Output 12/25/19 12/26/19 12/27/19 12/28/19 23:59 23:59 23:59 23:59 Intake Total 2220 1510 3350 2570 Output Total 857 803 3075 1400 Balance 1570 1170 1650 1170 Meds/Results Medications: Act
[2019-12-28] MEDS: HYDROcodone/acetaminophen (*CRX) 5-325 MG TABLET 1 TAB PO ×2 (16:22→20:50)
[2019-12-28] MEDS: POTASSIUM CHLORIDE 20 MEQ TABLET.ER 40 MEQ PO (17:21)
[2019-12-28] MEDS: KCL 40 MEQ/D5/0.9% SOD CHL 1,000 ML 100 ML IV CONT (17:22)
[2019-12-28] MEDS: MORPHINE SULFATE (*CRX) 2 MG/ML INJ IV PUSH (22:12)
[2019-12-29] VITALS (18 sets, daily range): BP systolic 106–141; BP diastolic 51–89; PULSE 66–92; RESP 12–20; TEMP 35.9–37; O2SAT 92–98
[2019-12-29] MEDS: METOPROLOL TARTRATE INJ 5 MG/5 ML VIAL IV PUSH ×3 (00:24→13:39)
[2019-12-29] MEDS: MORPHINE SULFATE (*CRX) 2 MG/ML INJ IV PUSH ×4 (00:26→16:06)
[2019-12-29] MEDS: HYDROcodone/acetaminophen (*CRX) 5-325 MG TABLET 1 TAB PO ×5 (04:00→22:10)
[2019-12-29] MEDS: ENOXAPARIN 80 MG/0.8 ML SYRINGE 63 MG SUB-Q (06:25)
[2019-12-29] MEDS: KCL 40 MEQ/D5/0.9% SOD CHL 1,000 ML 100 ML IV CONT ×2 (06:37→17:37)
[2019-12-29 07:14] LABS: Hematocrit 33.4 % (37.0-47.0); Hemoglobin 10.7 g/dL (12.0-15.0); Mean Corpuscular Hemoglobin 28.9 pg (26-34); Mean Corpuscular Volume 90.3 fl (80-100); Mean Platelet Volume 9.8 fl (7.4-10.4); Platelet Count Result 164 k/mm3 (150-375); Red Cell Distribution Width 13.3 % (11.5-14.5); White Blood Count 4.7 K/mm3 (4.5-10.0)
[2019-12-29 09:09] LABS: Anion Gap 4 mmol/L (8-16); Blood Urea Nitrogen 7 mg/dL (7-17); Calcium 7.6 mg/dL (8.4-10.2); Carbon Dioxide 29 mmol/L (22-30); Chloride 102 mmol/L (98-107); Estimated CRCL calculation 118 ml/min; Estimated Glomerular Filt Rate > 60; Glucose 109 mg/dL (65-105); Potassium 3.6 mmol/L (3.4-5.0); Sodium 135 mmol/L (137-145)
--- NOTE | 2019-12-29 10:09 | PM.PNGS ---
Progress Note: A&P Assessment and Plan (1) SBO (small bowel obstruction): Code(s): K56.609 - Unspecified intestinal obstruction, unspecified as to partial versus complete obstruction Status: Acute Assessment and Plan: improved, good ileostomy fxn, heaven clears, soft diet Subjective Subjective Date/Time Seen: 12/29/19 10:09 feels good, some soreness but improved, good ostomy output Review of Systems Review of Systems: All systems reviewed & are unremarkable except as noted in HPI and below Exam Const: General: cooperative, comfortable and no acute distress Orientation/consciousness: patient oriented x3 Resp: Effort & Inspection: normal respiratory effort Auscultation: clear to auscultation bilaterally Cardio: Rate: regular rate Rhythm: regular rhythm GI: Inspection: normal to inspection and incision GI Palp: No abdominal tenderness, Yes Soft to palpation, No Tenderness to palpation present (GI) and No Guarding due to palpation present (GI) Objective Data Vital Signs Vital Signs: Vital Signs - 24 hr 12/28/19 12:00 12/28/19 12:26 12/28/19 14:00 Temperature 37.0 C Pulse Rate 71 76 65 Respiratory Rate 16 Blood Pressure 141/47 H Pulse Oximetry 93 12/28/19 16:00 12/28/19 17:21 12/28/19 18:00 Temperature 37.0 C Pulse Rate 73 78 71 Respiratory Rate 18 Blood Pressure 153/53 H Pulse Oximetry 93 12/28/19 20:00 12/28/19 22:00 12/29/19 00:00 Temperature 36.9 C 35.9 C L Pulse Rate 77 77 72 Respiratory Rate 20 16 Blood Pressure 126/49 L 133/89 Pulse Oximetry 96 92 12/29/19 00:24 12/29/19 02:00 12/29/19 04:00 Temperature 36.8 C Pulse Rate 71 71 81 Respiratory Rate 20 Blood Pressure 136/60 Pulse Oximetry 98 12/29/19 06:00 12/29/19 06:25 12/29/19 08:14 Temperature 36.3 C L Pulse Rate 66 75 80 Respiratory Rate 16 Blood Pressure 106/51 L Pulse Oximetry 95 Intake/Output Intake/Output: Intake & Output 12/26/19 12/27/19 12/28/19 12/29/19 23:59 23:59 23:59 23:59 Intake Total 1510 3350 4155 1400 Output Total 340 1700 1650 1450 Balance 1170 1650 2505 -50 Meds/Results Medications: Active Medications Generic Name Dose Route Start Last Admin Trade Name Freq PRN Reason Stop Dose Admin Acetaminophen 500 mg 12/28/19 16:07 Acetaminophen 500 Mg Tablet PO Q6H PRN Mild Pain (1-3) or Fever Hydrocodone Bitart/Acetaminophen 1 tab 12/28/19 16:08 12/29/19 04:00 Hydrocodone/Acetaminophen (*Crx) 5-325 Mg Tablet PO 1 tab Q4H PRN Administration Pain Rated 4-6 Dextrose 12.5 gm 12/28/19 05:44 12/28/19 05:50 Dextrose 50% 25 Gm/50 Ml Syringe IV PUSH 12.5 gm PRN PRN Administration Hypoglycemia Protocol Diphenhydramine HCl 25 mg 12/24/19 08:30 Diphenhydramine Hcl Inj 50 Mg/Ml Vial IV PUSH Q6H PRN Itching Enoxaparin Sodium 63 mg 12/28/19 06:00 12/29/19 06:25 Enoxaparin 80 Mg/0.8 Ml Syringe SUB-Q 63 mg Q12H GULSHAN Administration Glucagon 1 mg 12/28/19 05:44 Glucagon For Inj 1 Mg Vial IM PRN PRN Hypoglycemia Protocol Dextrose 1,000 mls @ 100 mls/hr 12/28/19 05:44 Dextrose 5% 1,000 Ml IVPB PRN PRN Hypoglycemia Protocol Potassium Chloride/Dextrose/Sod Cl 1,000 mls @ 100 mls/hr 12/28/19 17:00 12/29/19 06:37 Kcl 40 Meq/D5ns IV CONT 100 mls/hr .Q10H GULSHAN Administration Metoprolol Tartrate 5 mg 12/24/19 12:00 12/29/19 06:25 Metoprolol Tartrate Inj 5 Mg/5 Ml Vial IV PUSH 5 mg Q6HR GULSHAN Administration Morphine Sulfate 2 mg 12/28/19 16:08 12/29/19 06:34 Morphine Sulfate (*Crx) 2 Mg/Ml Inj IV PUSH 2 mg Q2H PRN Administration Pain Rated 7-10 Naloxone HCl 0.1 mg 12/24/19 08:30 Naloxone Hcl 0.4 Mg/Ml Vial IV PUSH Q2M PRN Opiate Reversal Ondansetron HCl 4 mg 12/24/19 08:30 12/26/19 09:02 Ondansetron Inj 4 Mg/2 Ml Vial IV PUSH 4 mg Q4H PRN Administration Nausea And Vomiting Pot
[2019-12-29] MEDS: VENLAFAXINE HCL XR 75 MG CAP.ER.24H 150 MG PO (10:15)
[2019-12-29] MEDS: POTASSIUM CHLORIDE 20 MEQ TABLET.ER 40 MEQ PO ×2 (10:16→18:08)
--- NOTE | 2019-12-29 14:27 | PM.IMPN ---
Progress Note: A&P Assessment and Plan (1) Atrial fibrillation with rapid ventricular response: Code(s): I48.91 - Unspecified atrial fibrillation Status: Acute Assessment and Plan: converted by to nsr, transition from lovenox back to eliquis oral and beta christine orally, echo reviewed. 1. Left ventricular chamber dimension is normal. 2. Definity contrast administered improved wall motion interpretation. 3. Left ventricular systolic function is normal, estimated at 60-65%. 4. There is mildly increased left ventricular wall thickness. 5. The left ventricular diastolic function is grade III diastolic dysfunction (2) SBO (small bowel obstruction): Code(s): K56.609 - Unspecified intestinal obstruction, unspecified as to partial versus complete obstruction Status: Acute Assessment and Plan: s/p adhesiolysis - pain is controlled. pt progressing well, ambulating in halls hopeful discharge tomorrow. (3) Ileostomy in place: Code(s): Z93.2 - Ileostomy status Status: Chronic Assessment and Plan: stable. (4) Hx of essential hypertension: Code(s): Z86.79 - Personal history of other diseases of the circulatory system Status: Chronic Assessment and Plan: stable. Continue beta christine. (5) Hyperlipidemia: Qualifiers: Hyperlipidemia type: unspecified Qualified Code(s): E78.5 - Hyperlipidemia, unspecified Code(s): E78.5 - Hyperlipidemia, unspecified Status: Chronic Assessment and Plan: Continue statin therapy when possible. Subjective Date/time seen: 12/29/19 14:27 Interval history: 59 year old female with a history of ulcerative colitis s/p colectomy with ileostomy and paroxysmal atrial fibrillation on chronic Eliquis therapy who was admitted to the hospital four days ago for a bowel obstruction. The patient underwent adhesiolysis on Tuesday12/26/2019. Pt is doing better today. ambulating on the floor, tolerating clear liquid diet and is in NSR. pt seen by surgery advanced to soft diet. potassium normal today, pt is looking better. Review of Systems Review of Systems: All systems reviewed & are unremarkable except as noted in HPI and below Exam Const: General: no acute distress Resp: Effort & Inspection: normal respiratory effort Auscultation: clear to auscultation bilaterally Cardio: Rate: regular rate Rhythm: regular rhythm Heart sounds: no murmurs GI: Inspection: other (Ileostomy in place+ Abg surgical site closed and dry++ ) Auscultation: normal bowel sounds Skin: General skin exam: normal color and no rashes or lesions noted Neuro: General: patient oriented x3 Cranial nerves: Yes CN's II-XII intact bilaterally and Yes Equal, round and reactive pupils present Speech: normal speech Motor exam (neuro): 5/5 motor strength present throughout Sensory Exam: normal sensation Extrem: General: normal to inspection and no edema Psych: Mental Status: mental status grossly normal Affect: normal affect Objective Data Vital Signs Vital Signs: Vital Signs - 24 hr 12/28/19 16:00 12/28/19 17:21 12/28/19 18:00 Temperature 37.0 C Pulse Rate 73 78 71 Respiratory Rate 18 Blood Pressure 153/53 H Pulse Oximetry 93 12/28/19 20:00 12/28/19 22:00 12/29/19 00:00 Temperature 36.9 C 35.9 C L Pulse Rate 77 77 72 Respiratory Rate 20 16 Blood Pressure 126/49 L 133/89 Pulse Oximetry 96 92 12/29/19 00:24 12/29/19 02:00 12/29/19 04:00 Temperature 36.8 C Pulse Rate 71 71 81 Respiratory Rate 20 Blood Pressure 136/60 Pulse Oximetry 98 12/29/19 06:00 12/29/19 06:25 12/29/19 08:00 Temperature Pulse Rate 66 75 72 Respiratory Rate 16 Blood Pressure Pulse Oximetry 95 12/29/19 08:14 12/29/19 10:00 12/29/19 12:00 Temperature 36.3 C L 35.9 C L Pulse Rate 80 92 89 Respiratory Rate 16 16 Blood Pressure 106/51 L 129/58 L Pulse Oximetry 95 97 Intake/
[2019-12-29] MEDS: ONDANSETRON INJ 4 MG/2 ML VIAL IV PUSH (16:12)
[2019-12-29] MEDS: APIXABAN 5 MG TABLET PO (18:07)
[2019-12-29] MEDS: METOPROLOL TARTRATE 50 MG TAB 100 MG PO (20:20)
[2019-12-30] VITALS (11 sets, daily range): BP systolic 123–144; BP diastolic 50–61; PULSE 64–80; RESP 16–18; TEMP 36.4–37.1; O2SAT 94–97
[2019-12-30] MEDS: HYDROcodone/acetaminophen (*CRX) 5-325 MG TABLET 1 TAB PO ×3 (02:10→11:28)
[2019-12-30] MEDS: KCL 40 MEQ/D5/0.9% SOD CHL 1,000 ML 100 ML IV CONT ×3 (03:47→22:25)
[2019-12-30 05:15] LABS: Hemoglobin 10.8 g/dL (12.0-15.0); Mean Corpuscular HGB Conc 32.7 g/dl (32-36); Mean Corpuscular Volume 88.5 fl (80-100); Mean Platelet Volume 9.7 fl (7.4-10.4); Platelet Count Result 205 k/mm3 (150-375); Red Blood Count 3.73 M/mm3 (4.2-5.4); Red Cell Distribution Width 13.4 % (11.5-14.5); White Blood Count 4.9 K/mm3 (4.5-10.0)
[2019-12-30 06:00] LABS: Anion Gap 4 mmol/L (8-16); Blood Urea Nitrogen 3 mg/dL (7-17); Carbon Dioxide 30 mmol/L (22-30); Chloride 103 mmol/L (98-107); Estimated CRCL calculation 118 ml/min; Estimated Glomerular Filt Rate > 60; Glucose 127 mg/dL (65-105); Potassium 4.1 mmol/L (3.4-5.0); Sodium 137 mmol/L (137-145)
[2019-12-30] MEDS: APIXABAN 5 MG TABLET PO ×2 (06:07→18:33)
--- NOTE | 2019-12-30 08:30 | PM.IMPN ---
Progress Note: A&P Assessment and Plan (1) Atrial fibrillation with rapid ventricular response: Code(s): I48.91 - Unspecified atrial fibrillation Status: Acute Assessment and Plan: This is not a new problem to her, she is on Eliquis at home. Back to normal sinus rhythm with a normal rate. Echo showed: 1. Left ventricular chamber dimension is normal. 2. Definity contrast administered improved wall motion interpretation. 3. Left ventricular systolic function is normal, estimated at 60-65%. 4. There is mildly increased left ventricular wall thickness. 5. The left ventricular diastolic function is grade III diastolic dysfunction. (2) SBO (small bowel obstruction): Code(s): K56.609 - Unspecified intestinal obstruction, unspecified as to partial versus complete obstruction Status: Acute Assessment and Plan: s/p adhesiolysis - pain is controlled. pt progressing well, ambulating in halls. (3) Ileostomy in place: Code(s): Z93.2 - Ileostomy status Status: Chronic Assessment and Plan: stable. (4) Hx of essential hypertension: Code(s): Z86.79 - Personal history of other diseases of the circulatory system Status: Chronic Assessment and Plan: stable. Continue beta christine. (5) Hyperlipidemia: Qualifiers: Hyperlipidemia type: unspecified Qualified Code(s): E78.5 - Hyperlipidemia, unspecified Code(s): E78.5 - Hyperlipidemia, unspecified Status: Chronic Assessment and Plan: Continue statin therapy when possible. Additional Plan Date of service was 12/27/2019 at 23:00 hrs. Subjective Date/time seen: She had an episode of emesis last night but this morning she feels better. 12/30/19 08:30 Review of Systems Review of Systems: All systems reviewed & are unremarkable except as noted in HPI and below Exam Const: General: no acute distress Nutritional Appearance: well nourished Orientation/consciousness: patient oriented x3 HENMT: Head: normal to inspection Eyes: Pupils: Equal, round and reactive pupils present EOM: EOMs intact bilaterally Neck: Neck: supple and no JVD Resp: Effort & Inspection: normal respiratory effort Auscultation: clear to auscultation bilaterally Cardio: Rate: regular rate Rhythm: regular rhythm Other: No bradycardia or tahycardia. GI: Inspection: other (Ileostomy in place+ Abg surgical site closed and dry++ ) Auscultation: normal bowel sounds Skin: General skin exam: normal color and no rashes or lesions noted Neuro: General: patient oriented x3 Cranial nerves: Yes Equal, round and reactive pupils present Speech: normal speech Motor exam (neuro): 5/5 motor strength present throughout Sensory Exam: normal sensation Extrem: General: normal to inspection and no edema Psych: Mental Status: mental status grossly normal Affect: normal affect Objective Data Vital Signs Vital Signs: Vital Signs - 24 hr 12/29/19 10:00 12/29/19 12:00 12/29/19 14:00 Temperature 96.7 F L Pulse Rate 92 89 67 Respiratory Rate 16 Blood Pressure 129/58 L Pulse Oximetry 97 12/29/19 16:00 12/29/19 18:00 12/29/19 19:36 Temperature 97.0 F L 97.1 F L Pulse Rate 73 72 78 Respiratory Rate 16 16 Blood Pressure 141/58 H 136/56 L Pulse Oximetry 96 94 12/29/19 20:00 12/29/19 20:20 12/29/19 22:00 Temperature Pulse Rate 78 78 86 Respiratory Rate 16 Blood Pressure Pulse Oximetry 94 12/29/19 23:53 12/30/19 00:00 12/30/19 02:00 Temperature 98.6 F Pulse Rate 68 67 71 Respiratory Rate 18 18 Blood Pressure 123/52 L Pulse Oximetry 96 96 12/30/19 04:00 12/30/19 05:36 12/30/19 08:25 Temperature 98.6 F 98.5 F Pulse Rate 80 75 68 Respiratory Rate 18 18 Blood Pressure 123/50 L 133/58 L Pulse Oximetry 94 94 Intake/Output Intake/Output: Intake & Output 12/27/19 12/28/19 12/29/19 12/30/19 23:59 23:59 23:59 23:59 Intake Total 6499 4155 37
[2019-12-30] MEDS: POTASSIUM CHLORIDE 20 MEQ TABLET.ER 40 MEQ PO ×2 (09:10→18:33)
[2019-12-30] MEDS: ATORVASTATIN 40 MG TABLET 80 MG PO (09:10)
[2019-12-30] MEDS: FOLIC ACID 1 MG TABLET PO (09:11)
[2019-12-30] MEDS: VENLAFAXINE HCL XR 75 MG CAP.ER.24H 150 MG PO (09:11)
[2019-12-30] MEDS: METOPROLOL TARTRATE 50 MG TAB 100 MG PO ×2 (09:11→20:36)
[2019-12-30] MEDS: FERROUS SULFATE 324 MG TABLET PO (09:11)
[2019-12-30] MEDS: ASPIRIN 81 MG CHEWABLE TABLET PO (09:13)
[2019-12-30] MEDS: MORPHINE SULFATE (*CRX) 2 MG/ML INJ IV PUSH ×2 (11:32→18:34)
--- NOTE | 2019-12-30 12:07 | PM.PNGS ---
Progress Note: A&P Assessment and Plan (1) SBO (small bowel obstruction): Code(s): K56.609 - Unspecified intestinal obstruction, unspecified as to partial versus complete obstruction Status: Acute Assessment and Plan: doing well s/p MADDIE, good ileostomy fxn, heaven diet, anticipate home soon Subjective Subjective Date/Time Seen: 12/30/19 12:07 feels better today, some mild upper abd pain, no N/V, heaven soft diet, good ileostomy fxn Review of Systems Review of Systems: All systems reviewed & are unremarkable except as noted in HPI and below Exam Const: General: cooperative, comfortable and no acute distress Resp: Effort & Inspection: normal respiratory effort Auscultation: clear to auscultation bilaterally Cardio: Rate: regular rate Rhythm: regular rhythm GI: Inspection: normal to inspection and incision GI Palp: Yes abdominal tenderness, Yes Soft to palpation, No Firmness to palpation present (GI), Yes Tenderness to palpation present (GI) and No Guarding due to palpation present (GI) Other: incision C/D/I Objective Data Vital Signs Vital Signs: Vital Signs - 24 hr 12/29/19 14:00 12/29/19 16:00 12/29/19 18:00 Temperature 36.1 C L Pulse Rate 67 73 72 Respiratory Rate 16 Blood Pressure 141/58 H Pulse Oximetry 96 12/29/19 19:36 12/29/19 20:00 12/29/19 20:20 Temperature 36.2 C L Pulse Rate 78 78 78 Respiratory Rate 16 16 Blood Pressure 136/56 L Pulse Oximetry 94 94 12/29/19 22:00 12/29/19 23:53 12/30/19 00:00 Temperature 37.0 C Pulse Rate 86 68 67 Respiratory Rate 18 18 Blood Pressure 123/52 L Pulse Oximetry 96 96 12/30/19 02:00 12/30/19 04:00 12/30/19 05:36 Temperature 37.0 C Pulse Rate 71 80 75 Respiratory Rate 18 Blood Pressure 123/50 L Pulse Oximetry 94 12/30/19 08:25 12/30/19 09:11 Temperature 36.9 C Pulse Rate 68 66 Respiratory Rate 18 Blood Pressure 133/58 L Pulse Oximetry 94 Intake/Output Intake/Output: Intake & Output 12/27/19 12/28/19 12/29/19 12/30/19 23:59 23:59 23:59 23:59 Intake Total 3350 4155 3710 1760 Output Total 1700 1650 2950 1750 Balance 1650 2505 760 10 Meds/Results Medications: Active Medications Generic Name Dose Route Start Last Admin Trade Name Freq PRN Reason Stop Dose Admin Acetaminophen 500 mg 12/28/19 16:07 Acetaminophen 500 Mg Tablet PO Q6H PRN Mild Pain (1-3) or Fever Hydrocodone Bitart/Acetaminophen 1 tab 12/28/19 16:08 12/30/19 11:28 Hydrocodone/Acetaminophen (*Crx) 5-325 Mg Tablet PO 1 tab Q4H PRN Administration Pain Rated 4-5 Hydrocodone Bitart/Acetaminophen 1 tab 12/30/19 11:24 Hydrocodone/Acetaminophen (*Crx) 7.5-325 Mg Tablet PO Q4H PRN Pain rated 6-7 Albuterol 1 puff 12/29/19 14:35 Albuterol Sulfate (*Sp) Aerosol 1 Puff INHALATION PRN PRN Shortness Of Breath Apixaban 5 mg 12/29/19 18:00 12/30/19 06:07 Apixaban 5 Mg Tablet PO 5 mg Q12H GULSHAN Administration Aspirin 81 mg 12/30/19 09:00 12/30/19 09:13 Aspirin 81 Mg Chewable Tablet PO 81 mg DAILY GULSHAN Administration Atorvastatin Calcium 80 mg 12/30/19 09:00 12/30/19 09:10 Atorvastatin 40 Mg Tablet PO 80 mg DAILY GULSHAN Administration Dextrose 12.5 gm 12/28/19 05:44 12/28/19 05:50 Dextrose 50% 25 Gm/50 Ml Syringe IV PUSH 12.5 gm PRN PRN Administration Hypoglycemia Protocol Diphenhydramine HCl 25 mg 12/24/19 08:30 Diphenhydramine Hcl Inj 50 Mg/Ml Vial IV PUSH Q6H PRN Itching Ferrous Sulfate 324 mg 12/30/19 09:00 12/30/19 09:11 Ferrous Sulfate 324 Mg Tablet PO 324 mg DAILY GULSHAN Administration Folic Acid 1 mg 12/30/19 09:00 12/30/19 09:11 Folic Acid 1 Mg Tablet PO 1 mg DAILY GULSHAN Administration Glucagon 1 mg 12/28/19 05:44 Glucagon For Inj 1 Mg Vial IM PRN PRN Hypoglycemia Protocol Dextrose 1,000 mls @ 100 mls/hr 12/28/19 05:44 Dextrose 5% 1,000 Ml I
[2019-12-30] MEDS: HYDROcodone/acetaminophen (*CRX) 7.5-325 MG TABLET 1 TAB PO ×2 (17:05→22:25)
[2019-12-31] MEDS: APIXABAN 5 MG TABLET PO (06:25)
[2019-12-31] MEDS: HYDROcodone/acetaminophen (*CRX) 5-325 MG TABLET 1 TAB PO ×2 (06:25→10:45)
[2019-12-31 08:03] VITALS: BP 139/59; PULSE 72; RESP 20; TEMP 36; O2SAT 97
[2019-12-31] MEDS: KCL 40 MEQ/D5/0.9% SOD CHL 1,000 ML 100 ML IV CONT (08:16)
[2019-12-31] MEDS: POTASSIUM CHLORIDE 20 MEQ TABLET.ER 40 MEQ PO (08:23)
[2019-12-31] MEDS: ASPIRIN 81 MG CHEWABLE TABLET PO (08:23)
[2019-12-31] MEDS: ATORVASTATIN 40 MG TABLET 80 MG PO (08:23)
[2019-12-31 08:24] VITALS: PULSE 76
[2019-12-31] MEDS: METOPROLOL TARTRATE 50 MG TAB 100 MG PO (08:24)
[2019-12-31] MEDS: VENLAFAXINE HCL XR 75 MG CAP.ER.24H 150 MG PO (08:24)
--- NOTE | 2019-12-31 08:24 | PM.PNGS ---
Progress Note: A&P Assessment and Plan (1) SBO (small bowel obstruction): Code(s): K56.609 - Unspecified intestinal obstruction, unspecified as to partial versus complete obstruction Status: Acute Assessment and Plan: doing quite well. Comfortable on oral analgesics. Recommend discharge today. Instructions were given. I will see her again in about 2 weeks. (2) Ileostomy in place: Code(s): Z93.2 - Ileostomy status Status: Chronic (3) Atrial fibrillation with rapid ventricular response: Code(s): I48.91 - Unspecified atrial fibrillation Status: Resolved (4) Chronic dissection of thoracic aorta: Code(s): I71.01 - Dissection of thoracic aorta Status: Chronic Subjective Subjective Date/Time Seen: 12/31/19 08:24 Post Op day: 5 Patient reports: no new complaints, pain is less ( minimal pain), tolerating liquids well, bowel movement ( good ileostomy output) and afebrile Review of Systems Review of Systems: All systems reviewed & are unremarkable except as noted in HPI and below Constitutional: Constitutional: Denies headache(s) Cardiovascular: Cardiovascular: Denies chest pain and Denies dyspnea Respiratory: Respiratory: Denies cough and Denies dyspnea Gastrointestinal: Gastrointestinal: Reports as per HPI Neurologic: Denies confusion and Denies headache(s) Exam Const: General: comfortable and no acute distress; No confusion Orientation/consciousness: patient oriented x3 and No confusion GI: Inspection: non-distended and incision ( wound healing well. good ileostomy output) GI Palp: Yes Soft to palpation, Yes Tenderness to palpation present (GI) ( Minimal appropriate the postsurgical tenderness), No Guarding due to palpation present (GI) and No Rebound tenderness present Auscultation: normal bowel sounds Neuro: General: patient oriented x3, no focal motor deficits and No confusion Extrem: General: no calf tenderness and no edema Psych: Affect: normal affect Insight: Good insight present (Psych) Judgement: Good judgement present (Psych) Objective Data Vital Signs Vital Signs: Vital Signs - 24 hr 12/30/19 08:25 12/30/19 09:11 12/30/19 15:54 Temperature 36.9 C 36.6 C Pulse Rate 68 66 64 Respiratory Rate 18 16 Blood Pressure 133/58 L 141/61 H Pulse Oximetry 94 97 12/30/19 19:26 12/30/19 20:36 12/30/19 23:49 Temperature 36.4 C 37.1 C Pulse Rate 70 70 68 Respiratory Rate 16 18 Blood Pressure 137/53 L 144/58 H Pulse Oximetry 95 97 12/31/19 08:03 Temperature 36.0 C L Pulse Rate 72 Respiratory Rate 20 Blood Pressure 139/59 L Pulse Oximetry 97 Intake/Output Intake/Output: Intake & Output 12/28/19 12/29/19 12/30/19 12/31/19 23:59 23:59 23:59 23:59 Intake Total 4155 3710 4740 1100 Output Total 1650 2950 4000 1050 Balance 2505 760 740 50 Meds/Results Medications: Active Medications Generic Name Dose Route Start Last Admin Trade Name Freq PRN Reason Stop Dose Admin Acetaminophen 500 mg 12/28/19 16:07 Acetaminophen 500 Mg Tablet PO Q6H PRN Mild Pain (1-3) or Fever Hydrocodone Bitart/Acetaminophen 1 tab 12/28/19 16:08 12/31/19 06:25 Hydrocodone/Acetaminophen (*Crx) 5-325 Mg Tablet PO 1 tab Q4H PRN Administration Pain Rated 4-5 Hydrocodone Bitart/Acetaminophen 1 tab 12/30/19 11:24 12/30/19 22:25 Hydrocodone/Acetaminophen (*Crx) 7.5-325 Mg Tablet PO 1 tab Q4H PRN Administration Pain rated 6-7 Albuterol 1 puff 12/29/19 14:35 Albuterol Sulfate (*Sp) Aerosol 1 Puff INHALATION PRN PRN Shortness Of Breath Apixaban 5 mg 12/29/19 18:00 12/31/19 06:25 Apixaban 5 Mg Tablet PO 5 mg Q12H GULSHAN Administration Aspirin 81 mg 12/30/19 09:00 12/30/19 09:13 Aspirin 81 Mg Chewable Tablet PO 81 mg DAILY GULSHAN Administration Atorvastatin Calcium 80 mg 12/30/19 09:00 12/30/19 09:10 Atorvastatin 40 Mg Tablet PO 80 mg DAILY [facility] Administratio
[2019-12-31] MEDS: FOLIC ACID 1 MG TABLET PO (08:25)
[2019-12-31] MEDS: FERROUS SULFATE 324 MG TABLET PO (08:25)
[2019-12-31] MEDS: HYDROcodone/acetaminophen (*CRX) 7.5-325 MG TABLET 1 TAB PO (08:25)
--- NOTE | 2019-12-31 08:27 | PM.SD ---
Same Day Admit/Disch: HPI History of Present Illness Chief complaint: SBO Narrative: Eri Ramey is a 59 year old female Who presented on 12/24/2019 with abdominal pain and abdominal distention. She is status post proctocolectomy for ulcerative colitis in the in another state, [place]. Workup showed evidence of a small-bowel obstruction. She has had this before. She was treated with NG suction and serial exams but failed to improve. Upper GI small-bowel follow-through on 12/26/2019 showed persistent small-bowel obstruction. She was taken to surgery on December 25 and adhesiolysis was performed. She had rapid improvement after this surgery. She was able to be started on liquids on postop day 2. And her NG tube was removed on that day. Unfortunately, that night she went into rapid atrial fibrillation. She was seen by the hospitalist service in consultation. She converted to sinus rhythm. Her potassium was quite low. This was supplemented. Cardiac echo showed good left ventricular function. She was treated with therapeutic dose of Lovenox and converted back to her oral anticoagulant of Eliquis. Her diet was slowly advanced and she was able to be discharged in good condition on postop day number 5. She does have a history of paroxysmal atrial fibrillation. This is treated with metoprolol as well as her Eliquis. [facility] Past Medical History Medical History (Updated 12/31/19 @ 08:37 by Ector Govea MD) Anemia Aneurysm Aortic dissection Arthritis Asthma Bowel obstruction CAD (coronary artery disease) Depression Eczema Hypothyroidism Ileostomy in place MRSA (methicillin resistant Staphylococcus aureus) x3 Paroxysmal A-fib Ulcerative colitis Surgical History Surgical History (Updated 12/31/19 @ 08:37 by Ector Govea MD) H/O section H/O colectomy H/O thyroidectomy H/O: hysterectomy History of tonsillectomy S/P CABG (coronary artery bypass graft) Status post aneurysm repair Family History Family History Sibling Diabetes mellitus Mother Cancer Father Heart attack Social History Social History Smoking status: Never smoker Second hand tobacco smoke exposure: No Alcohol intake: never Substance use: never Substance use type: does not use Gender identity (if verbalized by the patient): Female Spiritual care concerns: No Same Day Admit/Disch: Med Pre-admit Medications Home Medications Medication Instructions Recorded Confirmed Type albuterol sulfate 90 mcg INHALATION PRN PRN 07/23/19 12/24/19 History aspirin 81 mg PO DAILY 07/23/19 12/24/19 History atorvastatin 80 mg PO DAILY 07/23/19 12/24/19 History ferrous sulfate 325 mg PO DAILY 07/23/19 12/24/19 History folic acid 1 mg PO DAILY 07/23/19 12/24/19 History metoprolol tartrate 100 mg PO BID 07/23/19 12/24/19 History venlafaxine 150 mg PO DAILY 07/23/19 12/24/19 History apixaban [Eliquis] 5 mg PO BID 12/24/19 12/24/19 History oxycodone-acetaminophen 0.5 - 1 tablet PO Q6H PRN #10 12/31/19 Rx tablet Exam Const: General: comfortable and no acute distress; No confusion Orientation/consciousness: patient oriented x3 and No confusion Cardio: Rate: regular rate Rhythm: regular rhythm GI: Inspection: non-distended and incision ( Clean, dry, healing well. Ileostomy functioning normally.) GI Palp: Yes Soft to palpation, Yes Tenderness to palpation present (GI) ( Minimal tenderness), No Guarding due to palpation present (GI) and No Rebound tenderness present Auscultation: normal bowel sounds Neuro: General: patient oriented x3, no focal motor deficits and No confusion Extrem: General: no calf tenderness and no edema Psych: Affect: normal affect Insight: Good insight present (Psych) Judgement: Good judgement present (Psych) DS: Summary Time Spent with Patient Time attestation: Total time spent pr
--- NOTE | 2019-12-31 09:06 | PM.IMPN ---
Progress Note: A&P Assessment and Plan (1) Atrial fibrillation with rapid ventricular response: Code(s): I48.91 - Unspecified atrial fibrillation Status: Resolved Assessment and Plan: This is not a new problem to her, she is on Eliquis at home. Back to normal sinus rhythm with a normal rate. No objections with discharge planning from medicine. (2) SBO (small bowel obstruction): Code(s): K56.609 - Unspecified intestinal obstruction, unspecified as to partial versus complete obstruction Status: Resolved Assessment and Plan: s/p adhesiolysis - pain is controlled. pt progressing well, ambulating in halls. (3) Ileostomy in place: Code(s): Z93.2 - Ileostomy status Status: Chronic Assessment and Plan: stable. (4) Hx of essential hypertension: Code(s): Z86.79 - Personal history of other diseases of the circulatory system Status: Chronic Assessment and Plan: stable. Continue beta christine. (5) Hyperlipidemia: Qualifiers: Hyperlipidemia type: unspecified Qualified Code(s): E78.5 - Hyperlipidemia, unspecified Code(s): E78.5 - Hyperlipidemia, unspecified Status: Chronic Assessment and Plan: Continue statin therapy when possible. Additional Plan Stable for discharge today per medicine perspective. Date of service was 12/27/2019 at 23:00 hrs. Subjective Date/time seen: No new complains, sinus rhythm on exam. Plans for discharge home today per zoe. 12/31/19 09:06 Exam Const: General: no acute distress Nutritional Appearance: well nourished Orientation/consciousness: patient oriented x3 HENMT: Head: normal to inspection Eyes: Pupils: Equal, round and reactive pupils present EOM: EOMs intact bilaterally Neck: Neck: supple and no JVD Resp: Effort & Inspection: normal respiratory effort Auscultation: clear to auscultation bilaterally Cardio: Rate: regular rate Rhythm: regular rhythm Other: No bradycardia or tahycardia. GI: Inspection: other (Ileostomy in place+ Abg surgical site closed and dry++ ) Auscultation: normal bowel sounds Skin: General skin exam: normal color and no rashes or lesions noted Neuro: General: patient oriented x3 Cranial nerves: Yes Equal, round and reactive pupils present Speech: normal speech Motor exam (neuro): 5/5 motor strength present throughout Sensory Exam: normal sensation Extrem: General: normal to inspection and no edema Psych: Mental Status: mental status grossly normal Affect: normal affect Objective Data Vital Signs Vital Signs: Vital Signs - 24 hr 12/30/19 09:11 12/30/19 15:54 12/30/19 19:26 Temperature 97.8 F 97.6 F Pulse Rate 66 64 70 Respiratory Rate 16 16 Blood Pressure 141/61 H 137/53 L Pulse Oximetry 97 95 12/30/19 20:36 12/30/19 23:49 12/31/19 08:03 Temperature 98.7 F 96.8 F L Pulse Rate 70 68 72 Respiratory Rate 18 20 Blood Pressure 144/58 H 139/59 L Pulse Oximetry 97 97 12/31/19 08:24 Temperature Pulse Rate 76 Respiratory Rate Blood Pressure Pulse Oximetry Intake/Output Intake/Output: Intake & Output 12/28/19 12/29/19 12/30/19 12/31/19 23:59 23:59 23:59 23:59 Intake Total 4155 3710 4740 1100 Output Total 1650 2950 4000 1050 Balance 2505 760 740 50 Meds/Results Medications: Active Medications Generic Name Dose Route Start Last Admin Trade Name Freq PRN Reason Stop Dose Admin Acetaminophen 500 mg 12/28/19 16:07 Acetaminophen 500 Mg Tablet PO Q6H PRN Mild Pain (1-3) or Fever Hydrocodone Bitart/Acetaminophen 1 tab 12/28/19 16:08 12/31/19 06:25 Hydrocodone/Acetaminophen (*Crx) 5-325 Mg Tablet PO 1 tab Q4H PRN Administration Pain Rated 4-5 Hydrocodone Bitart/Acetaminophen 1 tab 12/30/19 11:24 12/31/19 08:25 Hydrocodone/Acetaminophen (*Crx) 7.5-325 Mg Tablet PO 1 tab Q4H PRN Administration Pain rated 6-7 Albuterol 1 puff 12/29/19 14:35 A
== END 2019-12-31 11:30 | disposition home or self-care (01) | DRG 224 ==
LOC: ANHED 04:05 → ANH3MEDSUR 04:22 → ANHIMU 12-28 00:51 → ANH3MEDSUR 01-02 13:29 → ANHIMU 01-02 13:29
PROVIDERS: Family Medicine; Admitting Provider Surgery; Emergency Provider Emergency Medicine; PCP Family Medicine; Visit Provider Surgery
PROC: 0DN80ZZ Release Small Intestine, Open Approach (ICD-10-PCS; CPT 49000; principal; 2019-12-26 14:00)
DX: K56.50 Intestinal adhesions [bands], unspecified as to partial versus complete obstruction (principal); Z93.2 Ileostomy status; E78.5 Hyperlipidemia, unspecified; I10 Essential (primary) hypertension; I48.0 Paroxysmal atrial fibrillation; M19.90 Unspecified osteoarthritis, unspecified site; K51.90 Ulcerative colitis, unspecified, without complications; L30.9 Dermatitis, unspecified; F32.9 Major depressive disorder, single episode, unspecified; D64.9 Anemia, unspecified; J45.909 Unspecified asthma, uncomplicated; I71.01 Dissection of thoracic aorta; Z90.710 Acquired absence of both cervix and uterus; Z95.1 Presence of aortocoronary bypass graft; Z86.718 Personal history of other venous thrombosis and embolism
CPT/HCPCS: 36415; 71045; 74018; 74177; 74240; 74248; 80048; 80053; 81001; 83690; 84132; 84443; 84484; 85025; 85027; 85610; 85730; 86850; 86900; 86901; 93005; 93306; 96374; 96375; 99285; A9270; J0330; J0690; J1100; J1170; J1650; J1741; J2250; J2270; J2370; J2405; J2704; J3010; J3480; J7040; J7120; Q9957; Q9967

== ENCOUNTER 2020-06-06 08:47 | Emergency (ER) | payer OTHER, SELFPAY ==
[2020-06-06] VITALS (23 sets, daily range): BP systolic 114–165; BP diastolic 29–66; PULSE 63–88; RESP 9–27; TEMP 35.5; O2SAT 98–100
--- NOTE | ~2020-06-06 | CT_ITS ---
EXAMINATION: CTA chest abdomen pelvis DATE: 06/06/2020 10:36 INDICATION: Aortic dissection. TECHNIQUE: Computed tomographic angiography (CTA) of the chest, abdomen, and pelvis was performed wit h 100 mL Omnipaque-350 intravenous contrast. Automated exposure control and iterative reconstruction technique were employed. The dose-length product was 490.81 mGy-cm. Maximum intensity projection 3D-r econstructions of the aorta and other arteries were constructed by the technologist on a separate wor kstation. COMPARISON: CT abdomen and pelvis 12/24/2019, chest CT 01/15/2019 FINDINGS: CHEST CTA: The lungs demonstrate mild atelectasis. No pleural effusion. There are changes of right hemithyroidec bety. Cardiomegaly is noted. There are changes of aortic dissection involving ascending and descendi ng aorta and abdominal aorta to the left common iliac artery without change in distribution from 12/23 07/09. There are surgical changes of ascending aorta with a tube graft. There is a fusiform aneurysm o f the aorta proximal to the tube graft measuring 5.6 cm at the sinuses of Valsalva. The aorta balloon s out anteriorly alongside the tube graft in this area. There are changes of coronary artery bypass g rafting. There is mild thoracic spondylosis. There is mild chronic anterior wedging of multiple verte bral bodies. ABDOMEN AND PELVIS CTA: The liver, gallbladder, spleen, pancreas, and adrenal glands are normal. There is cortical thinning o f right kidney. Left kidney is normal. There is an end colostomy in right abdomen. There are no patho logically enlarged lymph nodes. There is no free intraperitoneal fluid. There is mild lumbar spondylo sis. IMPRESSION: 1. Type A aortic dissection status post tube graft placement in ascending aorta. The aorta demonstrat es a fusiform aneurysm to 5.6 cm at the sinuses of Valsalva proximal to the graft with abnormal morph ology. Surgical consultation is recommended. Reviewed, dictated and finalized at location A. IMPRESSION: 1. Type A aortic dissection status post tube graft placement in ascending aorta . The aorta demonstrates a fusiform aneurysm to 5.6 cm at the sinuses of Valsal va proximal to the graft with abnormal morphology. Surgical consultation is rec ommended.
--- NOTE | 2020-06-06 08:54 | ECG_ITS ---
SINUS RHYTHM WITH FIRST DEGREE AV BLOCK CANNOT RULE OUT SEPTAL INFARCT, AGE INDETERMINATE BASELINE ARTIFACT- I, III, AVL ABNORMAL ECG Electronically Signed On 06-06-2020 9:19:27 CDT by Brandyn MAGUIRE
[2020-06-06 09:26] LABS: Basophils Percent Auto 0.6 % (0.2-1.2); Eosinophils Absolute Auto 0.1 K/mm3 (0-0.3); Eosinophils Percent Auto 1.6 % (0-4.4); Hematocrit 42.9 % (37.0-47.0); Hemoglobin 14.2 g/dL (12.0-15.0); Immature Granulocyte Absolute 0.01 K/mm3 (0.00-0.031); Immature Granulocyte Percent A 0.2 % (0-0.5); Lymphocytes Absolute Auto 1.08 K/mm3 (0.9-3.2); Lymphocytes Percent Auto 22.2 % (18.3-44.2); Mean Corpuscular HGB Conc 33.1 g/dl (32-36); Mean Corpuscular Hemoglobin 29.2 pg (26-34); Mean Corpuscular Volume 88.3 fl (80-100); Mean Platelet Volume 9.6 fl (7.4-10.4); Monocytes Absolute Auto 0.6 K/mm3 (0.1-0.6); Monocytes Percent Auto 13.2 % (2.6-8.5); Neutrophils Percent Auto 62.2 % (45.5-73.1); Platelet Count Result 162 k/mm3 (150-375); Red Blood Count 4.86 M/mm3 (4.2-5.4); White Blood Count 4.9 K/mm3 (4.5-10.0)
[2020-06-06 09:41] LABS: Anion Gap 5 mmol/L (8-16); Blood Urea Nitrogen 13 mg/dL (7-17); Calcium 9.1 mg/dL (8.4-10.2); Carbon Dioxide 29 mmol/L (22-30); Chloride 104 mmol/L (98-107); Estimated CRCL calculation 71 ml/min; Estimated Glomerular Filt Rate > 60; Glucose 118 mg/dL (65-105); Sodium 138 mmol/L (137-145)
[2020-06-06] MEDS: SODIUM CHLORIDE 0.9% IV 500 ML 999 ML IV CONT (09:52)
--- NOTE | 2020-06-06 10:27 | ED.DIZZY ---
HPI - Dizziness General Chief Complaint: Dizziness Stated Complaint: low bp, dizzy Time Seen by Provider: 06/06/20 09:34 Source: patient Mode of arrival: ambulatory Limitations: no limitations History of Present Illness HPI Narrative: This is a 60 year old female with history of AAA, aortic dissection, atrial fibrillation who presents for evaluation of low blood pressure. She states she has not felt right since Tuesday. She reports intermittent dizziness. She was evaluated by her crate icer on Tuesday, and she noticed that her blood pressure was low. She reports her diastolic has been in 30 and 40s. She reports her crate icer performed an EKG and she was told she was okay. She has been monitoring her blood pressure at home and she has noticed that her blood pressure remains low so she came to ER. She reports palpitations and intermittent sob. She denies chest pain, abdominal pain, nausea, vomiting, diarrhea or blood loss. She has been taking metoprolol 100 mg BID for 1 year and she is also taking eliquis. MD elicited complaint: dizziness Related Data Home Medications Medication Instructions Recorded Confirmed albuterol sulfate 90 mcg INHALATION PRN PRN 07/23/19 01/31/20 aspirin 81 mg PO DAILY 07/23/19 01/31/20 atorvastatin 80 mg PO DAILY 07/23/19 01/31/20 ferrous sulfate 325 mg PO DAILY 07/23/19 01/31/20 folic acid 1 mg PO DAILY 07/23/19 01/31/20 metoprolol tartrate 100 mg PO BID 07/23/19 01/31/20 venlafaxine 150 mg PO DAILY 07/23/19 01/31/20 Eliquis 5 mg PO BID 12/24/19 01/31/20 Allergies Allergy/AdvReac Type Severity Reaction Status Date / Time No Known Allergies Allergy Verified 06/06/20 08:58 Review of Systems Review of Systems: All systems reviewed & are unremarkable except as noted in HPI and below PMFSH Past Medical History Medical History Anemia Aneurysm Aortic dissection Arthritis Asthma Bowel obstruction CAD (coronary artery disease) Depression Eczema Hypothyroidism Ileostomy in place MRSA (methicillin resistant Staphylococcus aureus) x3 Paroxysmal A-fib Ulcerative colitis Surgical History Surgical History H/O section H/O colectomy H/O thyroidectomy H/O: hysterectomy History of tonsillectomy S/P CABG (coronary artery bypass graft) SBO (small bowel obstruction) Status post aneurysm repair Family History Family History Sibling Diabetes mellitus Mother Cancer Father Heart attack Social History Social History Second hand tobacco smoke exposure: No Alcohol intake: never Substance use: never Substance use type: does not use Gender identity (if verbalized by the patient): Female Spiritual care concerns: No Exam Const: General: no acute distress and alert Orientation/consciousness: patient oriented x3 Eyes: EOM: EOMs intact bilaterally Resp: Effort & Inspection: normal respiratory effort and no retractions Auscultation: clear to auscultation bilaterally Cardio: Rate: regular rate Rhythm: regular rhythm Heart sounds: no murmurs Other: palpable radial pulses bilateral and DP pulses bilaterally GI: GI Palp: Yes Soft to palpation, No Tenderness to palpation present (GI) and No Guarding due to palpation present (GI) Auscultation: normal bowel sounds Skin: General skin exam: normal color Rashes: no rashes Neuro: General: patient oriented x3 and moves all extremities Psych: Mental Status: mental status grossly normal Affect: normal affect Course Consultations Consultation #1: I Discussed case with Dr. Mathis in [facility] ER who accepts patient . PAtient to be transported in helicopter Date: 06/06/20 Time: 11:15 Vital Signs Vital signs: Vital Signs Temperature 96 F L 06/06/20 08:55 Pulse Rate 73 06/06/20 08:5
[2020-06-06 10:34] LABS: Lactic Acid Reflex 0.9 mmol/L (0.7-2.1)
--- NOTE | 2020-06-06 11:01 | PC.NURSE ---
Patient ambulatory to restroom, patient reports feeling much better and decreased dizziness.
--- NOTE | 2020-06-06 11:38 | PC.NURSE ---
[facility] Contacted for transfer to [facility] ETA 26min coming from [place] [facility] flight accepted transfer to [facility] ETA 16min Security contacted for [facility] updated ETA for [facility] flight is 5min
--- NOTE | 2020-06-06 11:57 | PC.NURSE ---
[facility] transfer center called for patient's ETA at 10 min
== END 2020-06-06 12:01 | disposition short-term general hospital (02) ==
PROVIDERS: Emergency Provider General Practice; PCP Family Medicine
DX: I71.01 Dissection of thoracic aorta (principal); J45.909 Unspecified asthma, uncomplicated; I25.10 Atherosclerotic heart disease of native coronary artery without angina pectoris; Z86.14 Personal history of Methicillin resistant Staphylococcus aureus infection; Z79.01 Long term (current) use of anticoagulants; Z79.82 Long term (current) use of aspirin; I48.0 Paroxysmal atrial fibrillation; D64.9 Anemia, unspecified; E89.0 Postprocedural hypothyroidism; Z95.1 Presence of aortocoronary bypass graft; I44.0 Atrioventricular block, first degree; R94.31 Abnormal electrocardiogram [ECG] [EKG]
CPT/HCPCS: 36415; 71275; 74174; 80048; 83605; 85025; 93005; 99291; J7040; Q9967

== ENCOUNTER 2020-09-25 09:57 | Outpatient (CLI) | payer OTHER, SELFPAY ==
--- NOTE | ~2020-09-25 | MM_ITS ---
EXAMINATION: MM screening carly BI w inna HISTORY: Screening TECHNIQUE: Craniocaudal and mediolateral oblique 3-D tomosynthesis images were obtained and synthetic 2-D images were generated. CAD analysis was submitted and interpreted. COMPARISON: Comparison to multiple prior studies sequentially, with oldest reviewed study dated 10/2014. BREAST PARENCHYMAL COMPOSITION: The breasts are heterogenously dense, which may obscure small masses FINDINGS: There is no evidence of suspicious mass, calcification, or architectural distortion to sugg est malignancy in either breast. There has been no suspicious interval change. IMPRESSION: 1. No mammographic evidence of malignancy. 2. Recommend routine screening mammography in one year. BI-RADS Category 1: Negative Reviewed, dictated and finalized at location A.
== END 2020-09-25 09:58 | disposition home or self-care (01) ==
LOC: ANHIMG 09:59
PROVIDERS: PCP Family Medicine; Visit Provider Family Medicine
DX: Z12.31 Encounter for screening mammogram for malignant neoplasm of breast (principal)
CPT/HCPCS: 77063; 77067

== ENCOUNTER 2020-11-28 10:30 | Emergency (ER) | payer OTHER, SELFPAY ==
[2020-11-28 10:51] VITALS: BP 155/85; PULSE 76; RESP 16; TEMP 36.7; O2SAT 100
[2020-11-28 10:53] VITALS: BP 155/85; PULSE 76; RESP 16; TEMP 36.7; O2SAT 100
--- NOTE | 2020-11-28 12:16 | ED.URI ---
HPI - URI/Sore Throat General Chief Complaint: Upper Respiratory Infection Stated Complaint: Congestion Time Seen by Provider: 11/28/20 12:10 Source: patient and RN notes reviewed Mode of arrival: ambulatory Limitations: no limitations History of Present Illness HPI Narrative: 60-year-old female with history of CABG, small bowel obstruction, hypertension, aortic dissection, A. fib presents concern for 10-day history of sinus congestion, drainage, pressure, headache, cough. Reports she has been taking Tylenol with no relief. She denies nausea, vomiting, diarrhea, body aches, chills, sweats, fever. MD elicited complaint: nasal congestion Related Data Home Medications Medication Instructions Recorded Confirmed albuterol sulfate 90 mcg INHALATION PRN PRN 07/23/19 01/31/20 aspirin 81 mg PO DAILY 07/23/19 01/31/20 atorvastatin 80 mg PO DAILY 07/23/19 01/31/20 metoprolol tartrate 100 mg PO BID 07/23/19 01/31/20 venlafaxine 150 mg PO DAILY 07/23/19 01/31/20 zolpidem 11/28/20 Allergies Allergy/AdvReac Type Severity Reaction Status Date / Time No Known Allergies Allergy Verified 06/06/20 08:58 Review of Systems Review of Systems: CONSTITUTIONAL: Denies malaise, chills, sweats, or fever. EYES: Denies visual changes, redness, or discharge. ENT: Reports rhinorrhea, congestion, sinus pain. Denies otalgia and sore throat. CARDIOVASCULAR: Denies chest pain, palpitations, or edema. RESPIRATORY: Reports cough. Denies dyspnea. GASTROINTESTINAL: Denies abdominal pain, nausea, vomiting, diarrhea SKIN: Denies rash or itching. MUSCULOSKELETAL: Denies myalgia. NEUROLOGIC: Reports headache. All systems reviewed & are unremarkable except as noted in HPI and below PMFSH Past Medical History Medical History Anemia Aneurysm Aortic dissection Arthritis Asthma Bowel obstruction CAD (coronary artery disease) Depression Eczema Hypothyroidism Ileostomy in place MRSA (methicillin resistant Staphylococcus aureus) x3 Paroxysmal A-fib Ulcerative colitis Surgical History Surgical History H/O section H/O colectomy H/O thyroidectomy H/O: hysterectomy History of tonsillectomy S/P CABG (coronary artery bypass graft) SBO (small bowel obstruction) Status post aneurysm repair Family History Family History Sibling Diabetes mellitus Mother Cancer Father Heart attack Social History Social History Second hand tobacco smoke exposure: No Alcohol intake: never Substance use: never Substance use type: does not use Gender identity (if verbalized by the patient): Female Spiritual care concerns: No Comments At time of signature, agree with nursing past medical, surgical, social and family history. There is no relevant family history pertinent to the presenting complaint Exam Narrative: GENERAL: Well-appearing, well-nourished, and in no acute distress. HEAD: Normocephalic EYES: PERRLA, conjunctivae clear ENT: Nares clear, turbinates left edematous and erythematous, clear discharge. Mucous membranes moist. TM pearly carballo with dull light reflex on the left, sharp light reflex on the right; no tragal tenderness. Oropharynx not erythematous without lesions. Tonsils not enlarged and without exudate, no drooling, no hoarseness, no trismus, uvula midline. NECK: Supple. No lymphadenopathy CHEST: Clear to auscultation, breath sounds equal. No wheezing, rhonchi, rales, or stridor. No respiratory distress, speaks in full sentences. HEART: Regular rate and rhythm. No murmur heard. SKIN: Warm, dry, no rash. NEURO: Alert and oriented x3. PSYCH: Normal mood and affect Course Course Emergency Course: Patient is aware of diagnosis, understands and agrees to treatment plan. Anticipatory guidance given. Patient ag
== END 2020-11-28 12:22 | disposition home or self-care (01) ==
PROVIDERS: Emergency Provider Nurse Practitioner; PCP Family Medicine
DX: J01.90 Acute sinusitis, unspecified (principal); M19.90 Unspecified osteoarthritis, unspecified site; I25.10 Atherosclerotic heart disease of native coronary artery without angina pectoris; Z86.14 Personal history of Methicillin resistant Staphylococcus aureus infection; E89.0 Postprocedural hypothyroidism; I48.0 Paroxysmal atrial fibrillation; Z95.1 Presence of aortocoronary bypass graft; I10 Essential (primary) hypertension
CPT/HCPCS: 99213; G0463

== ENCOUNTER 2021-02-05 07:44 | Outpatient (CLI) | payer OTHER, SELFPAY ==
--- NOTE | ~2021-02-05 | XR_ITS ---
EXAMINATION: XR tibia fibula LT 2V EXAM DATE: 02/05/2021 08:05 INDICATION: Osteoporosis, left anterior mid shaft pain. Symptoms 2 months, no known recent injury. TECHNIQUE: Left tibia/fibula frontal and lateral projections obtained and reviewed. There is no prio r study for comparison. FINDINGS: Left tibial and fibular shafts unremarkable. There are no acute fractures or dislocations identified. There is no subcutaneous gas. The soft tissue is unremarkable. Some surgical clips o verlying the medial aspect of the leg, could be saphenous venous harvest. Serpiginous density in the medial subcutaneous fat suspicious for varicosity. There is mild to moderate left knee primary osteoa rthritis. IMPRESSION: 1. Probable left calf superficial varicosity. 2. Mild to moderate knee osteoarthritis. Reviewed, dictated and finalized at location B. MAKER
--- NOTE | ~2021-02-05 | US_ITS ---
EXAMINATION: US abdomen complete EXAM DATE: 02/05/2021 08:25 INDICATION: Left lower quadrant abdominal pain. TECHNIQUE: Multiple grayscale and Doppler images of the complete abdomen were obtained (by a technolo gist who performed the scan) and subsequently reviewed. There is no prior study for comparison. FINDINGS: The abdominal aorta is normal in caliber. Visualized portion IVC is patent. The pancreatic head a nd body are normal in appearance. The pancreatic tail is not visualized. The liver has normal echogenicity and contour. There are no focal liver lesions identified. There is no evidence of intrahepatic biliary duct dilation. Portal venous flow was seen in the hepatopedal , normal direction and has normal Doppler waveform. Common bile duct measures 1.5 mm, which is normal. The gallbladder wall is normal in thickness, with expected amount of distention. No sonographic evidence of pericholecystic fluid. There is no cholel ithiases. Technologist performing exam reports patient did not demonstrate sonographic Lemus's sign. Please note that this sign is less reliable in patients who have received pain medication. Right kidney: There is normal contour and echogenicity. It measures 11.3 x 4.8 x 3.9 centimeters. There are no focal renal lesions identified. There is no hydronephrosis. Left kidney: There is normal contour and echogenicity. It measures 10.4 x 4.8 x 4.3 centimeters. T here are no focal renal lesions identified. There is no hydronephrosis. The spleen measures 10.7 centimeters and is morphologically normal. IMPRESSION: Unremarkable complete abdominal ultrasound exam. Reviewed, dictated and finalized at location B. 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
== END 2021-02-05 07:45 | disposition home or self-care (01) ==
LOC: ANHIMG 07:48
PROVIDERS: PCP Family Medicine
DX: R10.9 Unspecified abdominal pain (principal); M81.0 Age-related osteoporosis without current pathological fracture; M17.12 Unilateral primary osteoarthritis, left knee
CPT/HCPCS: 73590; 76700

== ENCOUNTER 2021-02-27 10:28 | Emergency (ER) | payer OTHER, SELFPAY ==
--- NOTE | ~2021-02-27 | CT_ITS ---
EXAMINATION: CT brain wo con INDICATION: Head injury COMPARISON: 07/23/2019 TECHNIQUE: Standard unenhanced head CT. The dose-length product (DLP) was 681.00 mGy-cm. The mA was a djusted according to patient size. Iterative reconstruction technique was employed. FINDINGS: There is no acute intraparenchymal hemorrhage. No evidence of mass lesion. No evidence of a cute infarction. There is mild periventricular and subcortical hypodensity probably related to small vessel ischemic disease. There is mild prominence of the sulci and ventricles related to cerebral atr ophy. Intracranial calcified cerebral atherosclerosis is noted. There are no extra-axial collections. There is no mass effect or midline shift. The orbits and soft tissues are unremarkable. A small flui d levels noted in the left maxillary sinus. IMPRESSION: 1. No acute intracranial abnormality. 2. Age related findings. Reviewed, dictated and finalized at location A. OCHEMISTRY PROFESSOR
--- NOTE | ~2021-02-27 | CT_ITS ---
EXAMINATION: CT cervical spine wo con DATE: 02/27/2021 13:10 INDICATION: Head injury TECHNIQUE: Computed tomography (CT) of the cervical spine was performed without intravenous contrast. The dose-length product (DLP) was 681.00 mGy-cm. Automated exposure control and iterative reconstruc tion technique were employed. COMPARISON: 07/23/2019, 06/06/2020 FINDINGS: There is no fracture. Bone alignment is normal. The vertebral body heights are maintained. There is unchanged moderate loss of intervertebral disc space height at C6-7. The odontoid is intact. The prevertebral soft tissues are normal. There is mild multilevel facet and uncovertebral joint ost eoarthritis. Incidental note is made of a partially imaged dissection of the thoracic aorta without e vidence of significant change in the visualized portion IMPRESSION: 1. Mild cervical spondylosis without acute findings or significant interval change. Reviewed, dictated and finalized at location A. LER RENTAL CLERK IMPRESSION: 1. Mild cervical spondylosis without acute findings or significant interval jennifer nge.
[2021-02-27 10:31] VITALS: BP 135/86; PULSE 77; RESP 18; TEMP 36.9; O2SAT 100
--- NOTE | 2021-02-27 12:10 | ED.HEATRA ---
HPI - Head Injury General Chief complaint: Head Injury Stated complaint: head inj x1 week ago, dizziness, LAGOS Time Seen by Provider: 02/27/21 11:12 Source: patient Mode of arrival: ambulatory Limitations: no limitations History of Present Illness HPI Narrative: This is a 60 year old female that presents to the ER for head injury present x 1 week. Reports she was walking her dog and tripped and fell. Reports hitting the back of her head. She did not lose consciousness. Reports she was not evaluated after the fall. Reports since she has had headache, lightheadedness, and neck pain. Denies vision changes, vomiting, chest pain, shortness of breath, numbness, or weakness. Related Data Home Medications Medication Instructions Recorded Confirmed albuterol sulfate 90 mcg INHALATION PRN PRN 07/23/19 01/31/20 aspirin 81 mg PO DAILY 07/23/19 01/31/20 atorvastatin 80 mg PO DAILY 07/23/19 01/31/20 metoprolol tartrate 100 mg PO BID 07/23/19 01/31/20 zolpidem 11/28/20 bupropion HCl 150 mg PO QAM 02/27/21 02/27/21 Allergies Allergy/AdvReac Type Severity Reaction Status Date / Time No Known Allergies Allergy Verified 02/27/21 10:35 Review of Systems Review of Systems: CONSTITUTIONAL: Denies fever EYES: Denies visual changes CARDIOVASCULAR: Denies chest pain RESPIRATORY: Denies dyspnea. GASTROINTESTINAL: Denies vomiting MUSCULOSKELETAL: Reports joint pain, and myalgia. NEUROLOGIC: Reports headache. Denies numbness, or weakness. All systems reviewed & are unremarkable except as noted in HPI and below PMFSH Past Medical History Medical History Anemia Aneurysm Aortic dissection Arthritis Asthma Bowel obstruction CAD (coronary artery disease) Depression Eczema Hypothyroidism Ileostomy in place MRSA (methicillin resistant Staphylococcus aureus) x3 Paroxysmal A-fib Ulcerative colitis Surgical History Surgical History (Reviewed 01/31/20 @ 09:17 by Arelis Luque [facility]) H/O section H/O colectomy H/O thyroidectomy H/O: hysterectomy History of tonsillectomy S/P CABG (coronary artery bypass graft) SBO (small bowel obstruction) Status post aneurysm repair Family History Family History (Reviewed 01/31/20 @ 09:17 by Arelis Luque [facility]) Sibling Diabetes mellitus Mother Cancer Father Heart attack Social History Social History (Reviewed 01/31/20 @ 09:17 by Arelis Luque [facility]) Second hand tobacco smoke exposure: No Alcohol intake: never Substance use: never Substance use type: does not use Gender identity (if verbalized by the patient): Female Spiritual care concerns: No Exam Narrative: GENERAL: Well-appearing, well-nourished, and in no acute distress. HEAD: Normocephalic, atraumatic. EYES: PERRLA and EOMI. ENT: Nares clear, no rhinorrhea or epistaxis. Mucous membranes moist. Oropharynx without tonsillar hypertrophy exudate or other lesions. Bilateral TMs pearly carballo non-bulging NECK: Supple. No adenopathy or masses. CHEST: Clear to auscultation. No respiratory distress. No wheezes rales or rhonchi HEART: Regular rate and rhythm. No murmur heard. Normal peripheral pulses. BACK: No midline thoracic or lumbar spine tenderness EXTREMITIES: Normal range of motion. No edema. Strength equal in bilateral upper extremities (5/5) SKIN: Warm, dry, no rash. NEURO: No focal deficits. Alert and oriented x3. Cranial nerves II through XII grossly intact. Normal gait PSYCH: Normal mood and affect Course Vital Signs Vital signs: Vital Signs Temperature 98.5 F 02/27/21 10:31 Pulse Rate 77 02/27/21 10:31 Respiratory Rate 18 02/27/21 10:31 Blood Pressure 135/86 02/27/21 10:31 Pulse Oximetry 100 02/27/21 10:31 Temperature 98.5 F 02/27/21 10:31 Pulse Rate 77 02/27/21 10:31 Respiratory Rate 18 02/27/21 10:31 Blood Pressure 135/86 02/27/21 10:31 Pulse Oximetry 100 02/27/21 10:31 MDM - Head Injury
[2021-02-27] MEDS: ACETAMINOPHEN 500 MG TABLET 1000 MG PO (12:49)
== END 2021-02-27 14:00 | disposition home or self-care (01) ==
PROVIDERS: Emergency Provider Emergency Medicine; PCP Family Medicine
DX: S09.90XA Unspecified injury of head, initial encounter (principal); J45.909 Unspecified asthma, uncomplicated; I25.10 Atherosclerotic heart disease of native coronary artery without angina pectoris; I48.0 Paroxysmal atrial fibrillation; K51.90 Ulcerative colitis, unspecified, without complications; M19.90 Unspecified osteoarthritis, unspecified site; E89.0 Postprocedural hypothyroidism; Z90.49 Acquired absence of other specified parts of digestive tract; Z86.14 Personal history of Methicillin resistant Staphylococcus aureus infection; Z86.2 Personal history of diseases of the blood and blood-forming organs and certain disorders involving the immune mechanism; Z95.1 Presence of aortocoronary bypass graft; Z93.2 Ileostomy status; Z79.82 Long term (current) use of aspirin; M47.812 Spondylosis without myelopathy or radiculopathy, cervical region; Y93.K1 Activity, walking an animal; W01.0XXA Fall on same level from slipping, tripping and stumbling without subsequent striking against object, initial encounter
CPT/HCPCS: 70450; 72125; 99284; A9270

== ENCOUNTER 2021-04-01 09:33 | Inpatient (IN) | payer OTHER, SELFPAY ==
[2021-04-01] VITALS (26 sets, daily range): BP systolic 78–154; BP diastolic 47–82; PULSE 64–80; RESP 16–33; TEMP 36.1–37.2; O2SAT 93–100; BMI 21.9
--- NOTE | ~2021-04-01 | US_ITS ---
EXAMINATION: US carotid duplex BI EXAM DATE: 04/01/2021 15:24 INDICATION: Dizziness, bruit vs murmur . TECHNIQUE: Grayscale, color and pulsed Doppler images of the cervical carotid arteries were obtained . The degree of vessel stenosis is placed in one of the following categories: normal, <50% stenosis, 50-69% stenosis, >=70% stenosis but less than near-occlusion, near-occlusion, or occlusion. Note that percent stenosis relative to normal distal artery lumen diameter is indirectly measured from velocit y measurements as described by Shyam, et al. Radiology 2003; 229:340-346. There is no prior study fo r comparison. FINDINGS: RIGHT SIDE: Right common carotid artery peak systolic velocity (PSV in cm/s): 87 Right bulb/internal carotid artery peak systolic velocity (PSV in cm/s): 98 Right internal carotid artery end diastolic velocity (EDV in cm/s): 25 Right ICA/CCA peak systolic ratio: 1.1 Right external carotid artery peak systolic velocity (PSV in cm/s): 73 Right vertebral artery antegrade flow: yes There is no focal plaque identified. LEFT SIDE: Left common carotid artery peak systolic velocity (PSV in cm/s): 80 Left bulb/internal carotid artery peak systolic velocity (PSV in cm/s): 78 Left internal carotid artery end diastolic velocity (EDV in cm/s): 28 Left ICA/CCA peak systolic ratio: 1.0 Left external carotid artery peak systolic velocity (PSV in cm/s): 76 Left vertebral artery antegrade flow: yes There is no focal plaque identified. IMPRESSION: 1. Normal right internal carotid artery. 2. Normal left internal carotid artery. Reviewed, dictated and finalized at location B. TAIN DISPENSER
--- NOTE | ~2021-04-01 | MR_ITS ---
EXAMINATION: MR brain/brain stem wo/w con EXAM DATE: 04/02/2021 11:40 INDICATION: Dizziness. TECHNIQUE: Magnetic resonance imaging (MRI) of the brain/brain stem obtained without contrast. Sagit mrai T1, axial diffusion, gradient echo (T2*), T1, T2, FLAIR sequences obtained. Patient was then inj ected with 10 cc intravenous Multihance contrast. Axial and coronal postcontrast T1 weighted sequence s obtained. Correlation is made to head CT from 04/01/2021. FINDINGS: There are no areas of restricted diffusion to suggest acute infarction. There is no acute hemorrhage seen on the T2*, a hemosiderin sensitive sequence. No intraparenchymal brain mass. The ve ntricles are normal in size. There are no extra-axial collections. Flow voids are seen in the cereb ral arteries on the T2-weighted sequences consistent with their expected patency. The orbits are unr emarkable. Soft tissue is unremarkable. IMPRESSION: 1. No acute intracranial findings. Reviewed, dictated and finalized at location B. [employer]
--- NOTE | ~2021-04-01 | XR_ITS ---
EXAMINATION: XR chest 1V portable EXAM DATE: 04/01/2021 11:51 INDICATION: Dizziness today. HX of aneurysm aortic 2 yrs ago. TECHNIQUE: Portable AP frontal chest x-ray was obtained. Comparison is made to prior examination from 12/27/2019. FINDINGS: Sternotomy wires are present without findings to suggest sternal dehiscence. Aortic valve r eplacement. The lungs are clear. There are no pleural effusions. The cardiomediastinal silhouette i s within normal limits. There is no pneumothorax suspected. The bones and soft tissues are unremark able. IMPRESSION: No acute cardiopulmonary findings. Reviewed, dictated and finalized at location B. SCAN TECH
--- NOTE | ~2021-04-01 | CT_ITS ---
EXAMINATION: CT brain wo con EXAM DATE: 04/01/2021 11:11 INDICATION: Dizziness . TECHNIQUE: Spiral CT of the head was performed without contrast. Axial, coronal and sagittal images were reviewed. The dose-length product (DLP) for this examination was 605.33 mGy-cm. The exposure w as tailored according to patient size, and iterative reconstruction (ASIR) was used as additional dos e reduction technique. Comparison is made to prior examination from 02/27/2021. FINDINGS: There is no acute intraparenchymal hemorrhage. No evidence of intraparenchymal brain mass lesion. No evidence of acute infarction. There is no mass effect or midline shift. The ventricles are normal in size. There are no extra-axial collections. There are no acute calvarial fractures. T he orbits are unremarkable. Soft tissue is unremarkable. The visualized sinuses and mastoid air camelia ls are well aerated. IMPRESSION: 1. Unremarkable head CT examination. Reviewed, dictated and finalized at location B. HT ANALYST
--- NOTE | 2021-04-01 10:47 | ECG_ITS ---
Measurements Intervals Sanders Rate: 65 P: 40 [place]: 187 QRS: 77 QRSD: 101 T: 80 QT: 418 QTc: 435 Interpretive Statements SINUS RHYTHM CANNOT RULE OUT SEPTAL INFARCT, AGE INDETERMINATE MINIMAL Q WAVES- INFERIOR LEADS BORDERLINE T WAVE ABNORMALITY- ANT/HIGH LAT LEADS BASELINE ARTIFACT- I, III, AVL, AVF, V1-V6 ABNORMAL ECG Electronically Signed On 04-01-2021 11:45:32 [employer]ACLE ETL DEVELOPER by Brandyn Abdi D.O.
--- NOTE | 2021-04-01 10:50 | ED.DIZZY ---
HPI - Dizziness General Chief Complaint: Dizziness Stated Complaint: dizzy Time Seen by Provider: 04/01/21 10:23 Source: patient and family Mode of arrival: ambulatory Limitations: no limitations History of Present Illness HPI Narrative: Patient is 60 years old white female presented to the ED with intermittent dizziness and nausea started 2 months ago. 1 week after a fall and hitting the back of her head on the ground. Patient did not lose consciousness at that time. 1 week later patient started having the above symptoms, came to our emergency room with negative work-up at that time. Patient denies any fever, chills, vomiting, headache, vision change, respiratory symptoms, chest pain or back pain. Currently patient is feeling dizzy. Worse when she is up for a period of time, better if she remaining still without movement. Patient denies spinning. Related Data Home Medications Medication Instructions Recorded Confirmed albuterol sulfate 90 mcg INHALATION PRN PRN 07/23/19 01/31/20 aspirin 81 mg PO DAILY 07/23/19 01/31/20 atorvastatin 80 mg PO DAILY 07/23/19 01/31/20 metoprolol tartrate 100 mg PO BID 07/23/19 01/31/20 zolpidem PO HS PRN 11/28/20 bupropion HCl 450 mg PO QAM 02/27/21 02/27/21 Allergies Allergy/AdvReac Type Severity Reaction Status Date / Time No Known Allergies Allergy Verified 04/01/21 09:44 Review of Systems Review of Systems: CONSTITUTIONAL: Denies fever, chills, or sweats. EYES: Denies visual changes, redness, or discharge. ENT: Denies rhinorrhea, congestion, sore throat, or otalgia. CARDIOVASCULAR: Denies chest pain, palpitations, or edema. RESPIRATORY: Denies cough or dyspnea. GASTROINTESTINAL: Denies abdominal pain, nausea, vomiting, or diarrhea. GENITOURINARY: Denies dysuria or hematuria. SKIN: Denies rash or itching. MUSCULOSKELETAL: Denies back pain, joint pain, or myalgia. NEUROLOGIC: Dizziness, no headache, no vision change PSYCHIATRIC: Denies anxiety or depression. [facility] Past Medical History Medical History Anemia Aneurysm Aortic dissection Arthritis Asthma Bowel obstruction CAD (coronary artery disease) Depression Eczema Hypothyroidism Ileostomy in place MRSA (methicillin resistant Staphylococcus aureus) x3 Paroxysmal A-fib Ulcerative colitis Surgical History Surgical History H/O section H/O colectomy H/O thyroidectomy H/O: hysterectomy History of tonsillectomy S/P CABG (coronary artery bypass graft) SBO (small bowel obstruction) Status post aneurysm repair Family History Family History Sibling Diabetes mellitus Mother Cancer Father Heart attack Social History Social History Second hand tobacco smoke exposure: No Alcohol intake: never Substance use: never Substance use type: does not use Gender identity (if verbalized by the patient): Female Spiritual care concerns: No Exam Narrative: General appearance: Well-developed, well-nourished Skin: Normal color Head: Normocephalic, nontraumatic Eyes: Clear conjunctiva ENT: Oropharynx normal, ears normal, nose normal Neck: Supple, nontender Chest and respiratory: Airway patent, no respiratory distress, no accessory muscle use Heart: Regular rate/rhythm Abdomen: Soft, nontender, no organomegaly, quiet bowel sounds Vascular: Normal peripheral pulses, normal capillary refill. Musculoskeletal: Normal range of motion, nontender back Neurologic: Alert and oriented ?3, HARNESS TIER is normal as tested, no gross motor deficit
[2021-04-01 11:12] LABS: Basophils Percent Auto 0.6 % (0.2-1.2); Eosinophils Absolute Auto 0.1 K/mm3 (0-0.3); Eosinophils Percent Auto 1.1 % (0-4.4); Hematocrit 36.8 % (37.0-47.0); Hemoglobin 12.7 g/dL (12.0-15.0); Immature Granulocyte Absolute 0.01 K/mm3 (0.00-0.031); Immature Granulocyte Percent A 0.2 % (0-0.5); Lymphocytes Absolute Auto 0.77 K/mm3 (0.9-3.2); Lymphocytes Percent Auto 16.3 % (18.3-44.2); Mean Corpuscular HGB Conc 34.5 g/dl (32-36); Mean Platelet Volume 9.6 fl (7.4-10.4); Monocytes Absolute Auto 0.6 K/mm3 (0.1-0.6); Monocytes Percent Auto 13.4 % (2.6-8.5); Neutrophils Absolute Auto 3.2 K/mm3 (1.3-6.7); Neutrophils Percent Auto 68.4 % (45.5-73.1); Platelet Count Result 169 k/mm3 (150-375); Red Blood Count 4.23 M/mm3 (4.2-5.4); Red Cell Distribution Width 11.8 % (11.5-14.5); White Blood Count 4.7 K/mm3 (4.5-10.0)
[2021-04-01 11:21] LABS: Alanine Aminotransferase 23 U/L (4-35); Albumin Level 4.4 g/dL (3.5-5.1); Alkaline Phosphatase 88 U/L (38-126); Anion Gap 5 mmol/L (8-16); Aspartate Amino Transferase 27 U/L (14-36); Bilirubin,Total 1.2 mg/dL (0.2-1.3); Blood Urea Nitrogen 10 mg/dL (7-17); Calcium 9.5 mg/dL (8.4-10.2); Carbon Dioxide 26 mmol/L (22-30); Chloride 94 mmol/L (98-107); Estimated CRCL calculation 67 ml/min; Estimated Glomerular Filt Rate > 60; Glucose 114 mg/dL (65-110); Potassium 4.4 mmol/L (3.4-5.0); Sodium 125 mmol/L (137-145)
[2021-04-01] MEDS: SODIUM CHLORIDE 0.9% IV 1,000 ML 100 ML (11:33)
[2021-04-01 11:42] LABS: Add Urine Microscopic? NO; Appearance Urine Clear (Clear); Bilirubin Urine Negative (Negative); Blood Urine Negative (Negative); Color Urine Straw (Yellow); Glucose Urine UA Negative (Negative); Ketones Urine Negative (Negative); Leukocyte Esterase Ur Negative LEU/UL (Negative); Nitrate Urine Negative (Negative); Protein Urine Negative (Negative); Specific Grav Ur 1.005 (1.001-1.035); Urobilinogen Urine Negative mg/dL (<2.0)
[2021-04-01 13:29] LABS: Sodium Urine Random < 5 meq/L
--- NOTE | 2021-04-01 13:30 | PM.IMHP ---
H&P: HPI History of Present Illness Date/Time: 04/01/21 13:30 Chief Complaint: Dizzy. Narrative: This is a very 60-year-old female with history of ulcerative colitis, hypertension, hyperlipidemia, paroxysmal atrial fibrillation, depression, and anxiety presented to the emergency department from home for evaluation of dizziness. About a week ago she developed several symptoms including generalized headache, nausea, and dizziness which seems to be her biggest complaint. She denies feelings of movement however reports feeling off balance and occasionally lightheaded when up walking. Nearly 2 months ago while walking her dog she sustained a fall and hit the back of her head quite hard on the ground. She wonders if perhaps her symptoms may be related to that. Brain CT done today showed no acute findings. She was found to be hyponatremic with a sodium level of 125 which is unusual for her. It is noted that she was started on bupropion approximately 1 month ago in her venlafaxine was discontinued at that time due to ongoing issues with her depression and anxiety. She has been eating and drinking as per usual, typically consuming 75 oz of water a day which is unchanged. She has not had any vomiting or diarrhea. She is not on any diuretics. No syncope or near syncope. No confusion. No fever, chills, or sweats. No recent cold or flu symptoms. She denies chest pain, pleuritic pain, and palpitations. Review of Systems Review of Systems: Twelve systems were reviewed. No acute auditory visual changes. No focal weakness or paresthesias. No facial droop. No dysphagia or dysarthria. No change in urine output. Except as documented, all other systems were reviewed and are negative. COUNTS INCLUDE 234 BEDS AT THE [facility] Past Medical History Medical History (Updated 04/01/21 @ 20:30 by Dayana Snow PA-C) Anemia Aortic dissection Arthritis Asthma Bowel obstruction Depression with anxiety Dissecting aneurysm of thoracic aorta, Myron type A (01/15/19) Eczema History of MRSA infection Hypothyroidism Ileostomy in place Paroxysmal atrial fibrillation Peripheral vascular disease (~03/23/19) 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 Ulcerative colitis Surgical History Surgical History (Updated 04/01/21 @ 20:24 by Dayana Snow PA-C) History of aortic valve replacement with bioprosthetic valve History of section History of hysterectomy History of ileostomy History of laparoscopy With adhesiolysis. History of partial thyroidectomy History of repair of [place] type A dissecting aneurysm of thoracic aorta (01/15/19) Status post tube graft placement done at [facility]. Repair of what sounds like graft separation/leak was done in 05/2020. History of tonsillectomy Status post proctocolectomy Family History Family History Sibling Diabetes mellitus Mother Cancer Father Heart attack Social History Social History (Updated 04/01/21 @ 20:25 by Dayana Snow PA-C) Social History: Surrogate decision maker: Hesham Ramey, spouse. Code status: Full code. Smoking status: Never smoker Second hand tobacco smoke exposure: No Alcohol intake: never Substance use: never Substance use type: does not use Additional living arrangements comments: Lives with family in [place]. Meds Home Medications and Allergies Home Medications Medication Instructions Recorded Confirmed Type albuterol sulfate 90 mcg INHALATION PRN PRN 07/23/19 04/01/21 History aspirin 81 mg PO DAILY 07/23/19 04/01/21 History atorvastatin 80 mg PO HS 07/23/19 04/01/21 History zolpidem 10 mg PO HS PRN 11/28/20 04/01/21 History bupropion HCl 450 mg PO QAM 02/27/21 04/01/21 History metoprolol succinate 200 mg PO DAILY 04/01/21 04/01/21 History venlafaxine 150 mg PO DAILY 04/01/21 04/01/21 History Allergies Allergy/AdvReac Type He
[2021-04-01 13:53] LABS: Thyroid Stimulating Hormone 0.517 uIU/mL (0.465-4.680)
--- NOTE | 2021-04-01 15:40 | ADMGEN ---
This patient, Eri Ramey, was admitted to Medical Room 342-01. Patient/family oriented to hospital policies and general routines including ID bracelet, bed and alarms, visiting hours, pain management, procedures, bathroom and other care routines, personal items, smoking policy, room service/diet, and visiting hours. Information on how to activate the Rapid Response Team has been discussed. Patient/Family are encouraged to report perceived risks to care and to ask questions if they do not understand what they are told or what they should do.
[2021-04-01] MEDS: SODIUM CHLORIDE 0.9% IV 1,000 ML 150 ML IV CONT (16:20)
[2021-04-01 20:36] LABS: Anion Gap 7 mmol/L (8-16); Blood Urea Nitrogen 12 mg/dL (7-17); Calcium 8.8 mg/dL (8.4-10.2); Carbon Dioxide 25 mmol/L (22-30); Chloride 101 mmol/L (98-107); Estimated CRCL calculation 51 ml/min; Estimated Glomerular Filt Rate 56; Glucose 153 mg/dL (65-110); Potassium 3.3 mmol/L (3.4-5.0); Sodium 133 mmol/L (137-145)
[2021-04-01] MEDS: METOPROLOL SUCCINATE EXT REL 100 MG TABCR PO (22:35)
[2021-04-01] MEDS: ACETAMINOPHEN 325 MG TABLET 650 MG PO (22:53)
[2021-04-02] VITALS (16 sets, daily range): BP systolic 106–147; BP diastolic 55–81; PULSE 56–78; RESP 16–18; TEMP 35.9–37.5; O2SAT 94–98
[2021-04-02] MEDS: METOPROLOL SUCCINATE EXT REL 100 MG TABCR PO (06:03)
[2021-04-02 06:22] LABS: Anion Gap 3 mmol/L (8-16); Blood Urea Nitrogen 8 mg/dL (7-17); Calcium 8.7 mg/dL (8.4-10.2); Carbon Dioxide 27 mmol/L (22-30); Chloride 105 mmol/L (98-107); Estimated CRCL calculation 63 ml/min; Estimated Glomerular Filt Rate > 60; Glucose 109 mg/dL (65-110); Potassium 3.8 mmol/L (3.4-5.0); Sodium 135 mmol/L (137-145)
[2021-04-02] MEDS: ACETAMINOPHEN 325 MG TABLET 650 MG PO ×3 (06:49→19:43)
[2021-04-02 09:01] LABS: Anion Gap 6 mmol/L (8-16); Blood Urea Nitrogen 8 mg/dL (7-17); Calcium 8.8 mg/dL (8.4-10.2); Carbon Dioxide 27 mmol/L (22-30); Chloride 102 mmol/L (98-107); Estimated CRCL calculation 63 ml/min; Estimated Glomerular Filt Rate > 60; Glucose 150 mg/dL (65-110); Potassium 3.9 mmol/L (3.4-5.0); Sodium 135 mmol/L (137-145)
[2021-04-02] MEDS: DEXTROSE 5% IN WATER 250 ML 100 ML IV CONT (09:04)
[2021-04-02] MEDS: ASPIRIN 81 MG CHEWABLE TABLET PO (09:32)
[2021-04-02 10:28] LABS: Anion Gap 4 mmol/L (8-16); Blood Urea Nitrogen 7 mg/dL (7-17); Calcium 8.1 mg/dL (8.4-10.2); Carbon Dioxide 25 mmol/L (22-30); Chloride 94 mmol/L (98-107); Estimated CRCL calculation 71 ml/min; Estimated Glomerular Filt Rate > 60; Glucose 427 mg/dL (65-110); Potassium 3.5 mmol/L (3.4-5.0); Sodium 123 mmol/L (137-145)
[2021-04-02 12:21] LABS: Anion Gap 6 mmol/L (8-16); Blood Urea Nitrogen 7 mg/dL (7-17); Carbon Dioxide 23 mmol/L (22-30); Chloride 104 mmol/L (98-107); Estimated CRCL calculation 71 ml/min; Estimated Glomerular Filt Rate > 60; Glucose 127 mg/dL (65-110); Potassium 4.1 mmol/L (3.4-5.0); Sodium 133 mmol/L (137-145)
--- NOTE | 2021-04-02 12:41 | PM.IMPN ---
Progress Note: A&P Assessment and Plan (1) Dizziness: Code(s): R42 - Dizziness and giddiness Status: Acute Assessment and Plan: -Given her underlying history, CVA is a possibility as history and findings are not suggestive of peripheral vertigo. -Low sodium could be causing this as well. -Check orthostatic vital signs. -Meclizine available as needed. -Initiate fall precautions. (2) Hyponatremia: Code(s): E87.1 - Hypo-osmolality and hyponatremia Status: Acute Assessment and Plan: -She appears euvolemic at this time. -May be related to the addition of bupropion within the last several weeks. She received a L bolus of normal saline in the emergency department and was continued at 150 ml/hr. NS was stopped this morning. -Check TSH, urine and serum osmolalities, as well as urine sodium and creatinine. -admitted with sodium of 125, later that evenig had increased to 133, up to 135 this morning. Gave 250 ml of D5W due to the fast correction. It appears repeat sodium was drawn at the same time those fluids were initiated and it had dropped to 123. Spoke w/ lab to see if there was possibly an error. They suggested a redraw which I have ordered stat as well as q4 after that. -nephrology consult, recommendations appreciated (3) Depression with anxiety: Code(s): F41.8 - Other specified anxiety disorders Status: Acute Assessment and Plan: -Bupropion hold given hyponatremia. (4) Hypothyroidism: Code(s): E03.9 - Hypothyroidism, unspecified Status: Acute Assessment and Plan: -Continue levothyroxine -TSH WNL (5) Paroxysmal atrial fibrillation: Code(s): I48.0 - Paroxysmal atrial fibrillation Status: Acute Assessment and Plan: -In a sinus rhythm. -Continue metoprolol for rate control. Subjective Date/time seen: 04/02/21 12:41 Interval history: 60-year-old female with history of ulcerative colitis, hypertension, hyperlipidemia, paroxysmal atrial fibrillation, depression, and anxiety, admitted for acute hyponatremia. Pt states she overall feels much better. Does still report mild dizziness, headache, and nausea, however she states all symptoms have improved. No cp/sob. Review of Systems Review of Systems: All systems reviewed & are unremarkable except as noted in HPI and below Exam Narrative: General: No acute distress, non toxic appearing Eyes: PERRL, no scleral icterus HEENT: NCAT, external ears normal, MMM Respiratory: No respiratory distress, Lungs CTA bilaterally, no wheezing Cardiovascular: RRR, no murmur Abdominal: Soft, nontender, non distended, no rebound or guarding, ileostomy in place Musculoskeletal: Moves all 4 extremities, no edema Neurological: A/Ox3, speech normal, no facial asymmetry Skin: Warm, dry, no rashes Psychiatric: Normal affect, normal mood Objective Data Vital Signs Vital Signs: Vital Signs - 24 hr 04/01/21 12:50 04/01/21 13:27 04/01/21 15:22 Temperature 97.2 F L Pulse Rate 64 65 Respiratory Rate 19 16 Blood Pressure 142/71 H Pulse Oximetry 95 98 04/01/21 16:07 04/01/21 20:00 04/01/21 20:03 Temperature 98.9 F Pulse Rate 66 73 71 Respiratory Rate 19 18 Blood Pressure 154/75 H Pulse Oximetry 100 94 93 04/01/21 20:17 04/01/21 20:24 04/01/21 20:29 Temperature 97 F L Pulse Rate 73 Respiratory Rate 18 Blood Pressure 99/47 L 109/54 L 78/51 L Pulse Oximetry 94 04/01/21 22:35 04/02/21 00:00 04/02/21 04:00 Temperature Pulse Rate 80 62 78 Respiratory Rate Blood Pressure Pulse Oximetry 04/02/21 05:49 04/02/21 06:03 04/02/21 08:00 Temperature 97 F L Pulse Rate 72 70 63 Respiratory Rate 18 Blood Pressure 106/55 L Pulse Oximetry 97 Intake/Output Intake/Output: Intake & Output 03/30/21 03/31/21 04/01/21 04/02/21 23:59 23:59 23:59 23:59 Intake Total 940 550 Output Total 700
--- NOTE | 2021-04-02 13:14 | PM.CNNEP ---
Assessment and Plan Assessment and plan (1) Hyponatremia: Code(s): E87.1 - Hypo-osmolality and hyponatremia Status: Acute Assessment and Plan: appears to be an acute issue risk factors include recent addition of buproprion prerenal factors hypothyroidism evaluaton to date: TSH okay and on supplementation urine electrolyte are prerenal overcorrection noted with normal saline IVF sodium still climbing relatively fast (125 - 135mmol/L in 7 hours) -- given more D5W IVF and DDAVP to slow rate of change goal of therapy is a change of 4 - 6mmol/L (but not to exceed 8mmol/L) in 24 hours follow up on serum/urine osmolality check cortisol and SPE/UPE follow trend of repeat sodium levels (2) Dizziness: Code(s): R42 - Dizziness and giddiness Status: Acute Assessment and Plan: due to CVA versus #1 versus something else meclizine PRN follow vial signs MRI of brain for further evaluation (3) Paroxysmal A-fib: Code(s): I48.0 - Paroxysmal atrial fibrillation Status: Chronic Assessment and Plan: rate control strategy not on anticoagulation(?) (4) Hypertension: Code(s): I10 - Essential (primary) hypertension Status: Chronic Assessment and Plan: reasonable control at this time follow trend of hemodynamics (5) Hypothyroidism: Code(s): E03.9 - Hypothyroidism, unspecified Status: Chronic Assessment and Plan: on replacement therapy Will continue to follow. History of Present Illness Reason for Consult Consult date: 04/02/21 Reason for consult: hyponatremia Chief Complaint Chief complaint: Dizziness,Orthostatic Hypotension,Hyponatremia History of Present Illness Narrative: The patient is a 60-year-old female with a past medical history as outlined below who presented to [facility] Emergency room for further evaluation of dizziness. Over the last week prior to admission to the hospital, the patient has had multiple symptoms including generalized headaches and nausea but her biggest complaint is that of the dizziness. She states that she has felt off balance and occasionally lightheaded when she stands up. A reportedly, about 2 months ago, she sustained a fall and hit the back of her head after walking her dog but did not seek any medical attention after this event and wonders if it may be related to that issue. In any case, given the persistence of the symptoms, she presented to the ER for further evaluation Workup and evaluation emergency room demonstrated the patient to be hemodynamically stable. Routine blood tests were significant for a sodium level of 125 and from review of her records, she has never had any issues or problems with severe hyponatremia previously. There are occasions where her sodium level has run on the lower side of normal but usually corrects itself by the next blood draw. Interestingly, it should be noted that she was started on bupropion on about a month ago due to her ongoing issues with depression and anxiety. She denies any excessive free water intake and states that she has been eating and drinking as per her usual routine with the exception that the nausea somewhat has diminished this. A CT scan of her brain done in the emergency room did not demonstrate any acute intracranial findings either. Do the constellation of symptoms as mentioned above in conjunction with her hyponatremia, she was admitted the hospital for further evaluation and therapy Since her admission, she has been receiving IV fluids and her sodium level has been correcting but unfortunately, it appears to have overcorrected with interventions to date. Renal consultation was requested due to her acute hyponatremia. As mentioned, her sodium level was 125 at 11:00 a.m. yesterday and was up to 135 in a span of less than 7 hours. She had no other critical electrolyte abnormalities. In effort to correct
[2021-04-02 13:22] LABS: Sodium 136 mmol/L (137-145)
[2021-04-02] MEDS: DESMOPRESSIN ACETATE 4 MCG/ML AMP 1 MCG SUB-Q (14:41)
[2021-04-02] MEDS: DEXTROSE 5% IN WATER 500 ML 250 ML IV CONT (14:48)
[2021-04-02 19:10] LABS: Sodium 133 mmol/L (137-145)
[2021-04-02] MEDS: ATORVASTATIN 40 MG TABLET 80 MG PO (19:44)
[2021-04-02] MEDS: ZOLPIDEM TARTRATE (*CRX) 5 MG TABLET 10 MG PO (21:17)
[2021-04-02 22:46] LABS: Sodium 128 mmol/L (137-145)
[2021-04-03] VITALS (14 sets, daily range): BP systolic 115–135; BP diastolic 49–82; PULSE 61–78; RESP 16; TEMP 35.9–36.6; O2SAT 98–100
[2021-04-03] MEDS: ACETAMINOPHEN 325 MG TABLET 650 MG PO ×2 (06:14→14:14)
[2021-04-03 06:38] LABS: Hemoglobin 12.5 g/dL (12.0-15.0); Mean Corpuscular HGB Conc 34.7 g/dl (32-36); Mean Corpuscular Hemoglobin 30.9 pg (26-34); Mean Corpuscular Volume 88.9 fl (80-100); Mean Platelet Volume 9.5 fl (7.4-10.4); Platelet Count Result 140 k/mm3 (150-375); Red Blood Count 4.05 M/mm3 (4.2-5.4); Red Cell Distribution Width 12.1 % (11.5-14.5); White Blood Count 3.3 K/mm3 (4.5-10.0)
[2021-04-03 06:49] LABS: Albumin Level 4.1 g/dL (3.5-5.1); Anion Gap 8 mmol/L (8-16); Blood Urea Nitrogen 6 mg/dL (7-17); Calcium 8.9 mg/dL (8.4-10.2); Carbon Dioxide 27 mmol/L (22-30); Chloride 96 mmol/L (98-107); Estimated CRCL calculation 81 ml/min; Estimated Glomerular Filt Rate > 60; Glucose 106 mg/dL (65-110); Phosphorus 3.3 mg/dL (2.5-4.5); Potassium 3.5 mmol/L (3.4-5.0); Sodium 131 mmol/L (137-145)
[2021-04-03] MEDS: ASPIRIN 81 MG CHEWABLE TABLET PO (08:58)
[2021-04-03] MEDS: METOPROLOL SUCCINATE EXT REL 100 MG TABCR 200 MG PO (10:20)
[2021-04-03 11:10] LABS: Sodium 129 mmol/L (137-145)
--- NOTE | 2021-04-03 13:21 | P.PNNP_ITS ---
Progress Note: A&P Assessment and Plan (1) Hyponatremia: Code(s): E87.1 - Hypo-osmolality and hyponatremia Status: Acute Assessment and Plan: * appears to be an acute issue * risk factors include * recent addition of buproprion * prerenal factors (low urine sodium) * hypothyroidism * evaluaton to date: * TSH okay and on supplementation * urine electrolyte are prerenal * cortisol okay * overcorrection noted with normal saline IVF on admission * s/p D5W IVF and DDAVP to slow rate of change * goal of therapy is a change of 4 - 6mmol/L (but not to exceed 8mmol/L) in 24 hours * follow up on serum/urine osmolality and SPE/UPE * follow trend of repeat sodium levels (2) Dizziness: Code(s): R42 - Dizziness and giddiness Status: Acute Assessment and Plan: * due to CVA versus #1 versus something else * meclizine PRN * follow vial signs * MRI of brain noted (3) Paroxysmal A-fib: Code(s): I48.0 - Paroxysmal atrial fibrillation Status: Chronic Assessment and Plan: * rate control strategy * not on anticoagulation(?) (4) Hypertension: Code(s): I10 - Essential (primary) hypertension Status: Chronic Assessment and Plan: * reasonable control at this time * follow trend of hemodynamics (5) Hypothyroidism: Code(s): E03.9 - Hypothyroidism, unspecified Status: Chronic Assessment and Plan: * on replacement therapy Will continue to follow. Subjective Date/time seen: 04/03/21 13:21 Overcorrection of sodium level resolved with us of D5W IVFs and DDAVP; unfortunately, still having issues with dizziness and nausea today which seems to come and go; no other acute issues/events overnight or earlier this AM; no acute distress noted. Exam Narrative: General: WD/WN female in NAD Heart: normal S1 and S2; no rub Lungs: clear to auscultation Abdomen: soft, nontender, nondistended, positive bowel sounds Extremities: no cyanosis or clubbing; no edema Skin: warm and dry Objective Data Vital Signs Vital Signs: Vital Signs Temp Pulse Resp BP Pulse Ox 04/03/21 12:00 66 04/03/21 10:20 72 04/03/21 10:10 115/72 04/03/21 10:05 128/80 04/03/21 10:00 129/82 04/03/21 08:00 78 04/03/21 05:18 36.6 C 67 16 135/68 98 04/03/21 04:00 71 04/03/21 00:00 75 04/02/21 20:51 130/74 04/02/21 20:49 147/81 H 04/02/21 20:47 37.5 C 56 L 16 133/67 98 04/02/21 20:00 56 L 16 98 Intake/Output Intake/Output: Intake & Output 03/31/21 04/01/21 04/02/21 04/03/21 23:59 23:59 23:59 23:59 Intake Total 940 1150 1010 Output Total 700 2850 400 Balance 240 -1700 610 Meds/Results Medications: Active Medications Generic Name Dose Route Start Last Admin Trade Name Freq PRN Reason Stop Dose Admin Acetaminophen 650 mg 04/01/21 22:30 04/03/21 14:14 Acetaminophen 325 Mg Tablet PO 650 mg Q6H PRN Administration Mild Pain (1-3) or Fever Albuterol 1 puff 04/01/21 19:56 Albuterol Sulfate (*Sp) Aerosol 1 Puff INHALATION PRN PRN Short
--- NOTE | 2021-04-03 13:21 | PM.PNNEP ---
Progress Note: A&P Assessment and Plan (1) Hyponatremia: Code(s): E87.1 - Hypo-osmolality and hyponatremia Status: Acute Assessment and Plan: appears to be an acute issue risk factors include recent addition of buproprion prerenal factors (low urine sodium) hypothyroidism evaluaton to date: TSH okay and on supplementation urine electrolyte are prerenal cortisol okay overcorrection noted with normal saline IVF on admission s/p D5W IVF and DDAVP to slow rate of change goal of therapy is a change of 4 - 6mmol/L (but not to exceed 8mmol/L) in 24 hours follow up on serum/urine osmolality and SPE/UPE follow trend of repeat sodium levels (2) Dizziness: Code(s): R42 - Dizziness and giddiness Status: Acute Assessment and Plan: due to CVA versus #1 versus something else meclizine PRN follow vial signs MRI of brain noted (3) Paroxysmal A-fib: Code(s): I48.0 - Paroxysmal atrial fibrillation Status: Chronic Assessment and Plan: rate control strategy not on anticoagulation(?) (4) Hypertension: Code(s): I10 - Essential (primary) hypertension Status: Chronic Assessment and Plan: reasonable control at this time follow trend of hemodynamics (5) Hypothyroidism: Code(s): E03.9 - Hypothyroidism, unspecified Status: Chronic Assessment and Plan: on replacement therapy Will continue to follow. Subjective Date/time seen: 04/03/21 13:21 Overcorrection of sodium level resolved with us of D5W IVFs and DDAVP; unfortunately, still having issues with dizziness and nausea today which seems to come and go; no other acute issues/events overnight or earlier this AM; no acute distress noted. Exam Narrative: General: WD/WN female in NAD Heart: normal S1 and S2; no rub Lungs: clear to auscultation Abdomen: soft, nontender, nondistended, positive bowel sounds Extremities: no cyanosis or clubbing; no edema Skin: warm and dry Objective Data Vital Signs Vital Signs: Vital Signs Temp Pulse Resp BP Pulse Ox 04/03/21 12:00 66 04/03/21 10:20 72 04/03/21 10:10 115/72 04/03/21 10:05 128/80 04/03/21 10:00 129/82 04/03/21 08:00 78 04/03/21 05:18 36.6 C 67 16 135/68 98 04/03/21 04:00 71 04/03/21 00:00 75 04/02/21 20:51 130/74 04/02/21 20:49 147/81 H 04/02/21 20:47 37.5 C 56 L 16 133/67 98 04/02/21 20:00 56 L 16 98 Intake/Output Intake/Output: Intake & Output 03/31/21 04/01/21 04/02/21 04/03/21 23:59 23:59 23:59 23:59 Intake Total 940 1150 1010 Output Total 700 2850 400 Balance 240 -1700 610 Meds/Results Medications: Active Medications Generic Name Dose Route Start Last Admin Trade Name Freq PRN Reason Stop Dose Admin Acetaminophen 650 mg 04/01/21 22:30 04/03/21 14:14 Acetaminophen 325 Mg Tablet PO 650 mg Q6H PRN Administration Mild Pain (1-3) or Fever Albuterol 1 puff 04/01/21 19:56 Albuterol Sulfate (*Sp) Aerosol 1 Puff INHALATION PRN PRN Shortness Of Breath Aspirin 81 mg 04/02/21 09:00 04/03/21 08:58 Aspirin 81 Mg Chewable Tablet PO 81 mg DAILY GULSHAN Administration Atorvastatin Calcium 80 mg 04/01/21 21:00 04/02/21 19:44 Atorvastatin 40 Mg Tablet PO 80 mg HS GULSHAN Administration Meclizine HCl 12.5 mg 04/01/21 19:55 Meclizine Hcl 12.5 Mg Tablet PO QID PRN Dizziness Metoprolol Succinate 200 mg 04/03/21 09:00 04/03/21 10:20 Metoprolol Succinate Ext Rel 100 Mg Tabcr PO 200 mg DAILY GULSHAN Administration Ondansetron HCl 4 mg 04/01/21 13:48 Ondansetron Inj 4 Mg/2 Ml Vial IV PUSH Q4H PRN Nausea Zolpidem Tartrate 10 mg 04/01/21 19:56 04/02/21 21:17 Zolpidem Tartrate (*Crx) 5 Mg Tablet PO 10 mg HS PRN Administration Insomnia Radiology Results: ITS Impressions Head CT 04/01/21 11:12 I
--- NOTE | 2021-04-03 13:26 | PM.IMPN ---
Progress Note: A&P Assessment and Plan (1) Dizziness: Code(s): R42 - Dizziness and giddiness Status: Acute Assessment and Plan: -Given her underlying history, CVA is a possibility as history and findings are not suggestive of peripheral vertigo. -Low sodium could be causing this as well. -Check orthostatic vital signs. -Meclizine available as needed. -Initiate fall precautions. (2) Hyponatremia: Code(s): E87.1 - Hypo-osmolality and hyponatremia Status: Acute Assessment and Plan: -She appears euvolemic at this time. -May be related to the addition of bupropion within the last several weeks. She received 1 L bolus of normal saline in the emergency department and was continued at 150 ml/hr. NS was stopped 04/02/21 in the AM. -Check TSH WNL -urine studies pending -D5W and desmopressin due to overcorrection -currently stable right around 130 -nephrology consult, recommendations appreciated (3) Depression with anxiety: Code(s): F41.8 - Other specified anxiety disorders Status: Acute Assessment and Plan: -Bupropion hold given hyponatremia. (4) Hypothyroidism: Code(s): E03.9 - Hypothyroidism, unspecified Status: Chronic Assessment and Plan: -Continue levothyroxine -TSH WNL (5) Paroxysmal atrial fibrillation: Code(s): I48.0 - Paroxysmal atrial fibrillation Status: Acute Assessment and Plan: -In a sinus rhythm. -Continue metoprolol for rate control. -not on chronic anticoagulation Subjective Date/time seen: 04/03/21 13:26 Interval history: 60-year-old female with history of ulcerative colitis, hypertension, hyperlipidemia, paroxysmal atrial fibrillation, depression, and anxiety, admitted for acute hyponatremia. Pt states she is feeling very dizzy and nauseated right now. States it comes and goes. No cp/sob. No vision changes. Has not taken the meclizine yet. Review of Systems Review of Systems: All systems reviewed & are unremarkable except as noted in HPI and below Exam Narrative: General: No acute distress, non toxic appearing Eyes: PERRL, no scleral icterus HEENT: NCAT, external ears normal, MMM Respiratory: No respiratory distress, Lungs CTA bilaterally, no wheezing Cardiovascular: RRR, no murmur Abdominal: Soft, nontender, non distended, no rebound or guarding, ileostomy in place Musculoskeletal: Moves all 4 extremities, no edema Neurological: A/Ox3, speech normal, no facial asymmetry Skin: Warm, dry, no rashes Psychiatric: Normal affect, normal mood Objective Data Vital Signs Vital Signs: Vital Signs - 24 hr 04/02/21 14:00 04/02/21 14:29 04/02/21 16:00 Temperature 97.1 F L Pulse Rate 66 68 Respiratory Rate 18 Blood Pressure 125/64 Pulse Oximetry 97 94 04/02/21 20:00 04/02/21 20:47 04/02/21 20:49 Temperature 99.5 F Pulse Rate 56 L 56 L Respiratory Rate 16 16 Blood Pressure 133/67 147/81 H Pulse Oximetry 98 98 04/02/21 20:51 04/03/21 00:00 04/03/21 04:00 Temperature Pulse Rate 75 71 Respiratory Rate Blood Pressure 130/74 Pulse Oximetry 04/03/21 05:18 04/03/21 08:00 04/03/21 10:00 Temperature 97.9 F Pulse Rate 67 78 Respiratory Rate 16 Blood Pressure 135/68 129/82 Pulse Oximetry 98 04/03/21 10:05 04/03/21 10:10 04/03/21 10:20 Temperature Pulse Rate 72 Respiratory Rate Blood Pressure 128/80 115/72 Pulse Oximetry Intake/Output Intake/Output: Intake & Output 03/31/21 04/01/21 04/02/21 04/03/21 23:59 23:59 23:59 23:59 Intake Total 940 1150 1010 Output Total 700 2850 400 Balance 240 -1700 610 Meds/Results Medications: Active Medications Generic Name Dose Route Start Last Admin Trade Name Freq PRN Reason Stop Dose Admin Acetaminophen 650 mg 04/01/21 22:30 04/03/21 06:14 Acetaminophen 325 Mg Tablet PO 650 mg Q6H PRN Administration Mild
[2021-04-03] MEDS: ATORVASTATIN 40 MG TABLET 80 MG PO (20:09)
[2021-04-03] MEDS: ZOLPIDEM TARTRATE (*CRX) 5 MG TABLET 10 MG PO (20:13)
[2021-04-03 20:19] LABS: Anion Gap 8 mmol/L (8-16); Blood Urea Nitrogen 8 mg/dL (7-17); Calcium 8.8 mg/dL (8.4-10.2); Carbon Dioxide 28 mmol/L (22-30); Chloride 98 mmol/L (98-107); Estimated CRCL calculation 81 ml/min; Estimated Glomerular Filt Rate > 60; Glucose 110 mg/dL (65-110); Potassium 3.4 mmol/L (3.4-5.0); Sodium 134 mmol/L (137-145)
[2021-04-04] VITALS (8 sets, daily range): BP systolic 107–133; BP diastolic 55–78; PULSE 68–77; RESP 16; TEMP 35.9; O2SAT 96
[2021-04-04 05:55] LABS: Hematocrit 35.6 % (37.0-47.0); Hemoglobin 12.1 g/dL (12.0-15.0); Mean Corpuscular Hemoglobin 30.4 pg (26-34); Mean Corpuscular Volume 89.4 fl (80-100); Mean Platelet Volume 9.3 fl (7.4-10.4); Platelet Count Result 149 k/mm3 (150-375); Red Blood Count 3.98 M/mm3 (4.2-5.4); Red Cell Distribution Width 12.4 % (11.5-14.5); White Blood Count 3.3 K/mm3 (4.5-10.0)
[2021-04-04 06:09] LABS: Albumin Level 3.9 g/dL (3.5-5.1); Anion Gap 3 mmol/L (8-16); Blood Urea Nitrogen 6 mg/dL (7-17); Calcium 9.1 mg/dL (8.4-10.2); Carbon Dioxide 29 mmol/L (22-30); Chloride 105 mmol/L (98-107); Estimated CRCL calculation 71 ml/min; Estimated Glomerular Filt Rate > 60; Glucose 110 mg/dL (65-110); Phosphorus 3.9 mg/dL (2.5-4.5); Potassium 3.9 mmol/L (3.4-5.0); Sodium 137 mmol/L (137-145)
[2021-04-04 07:00] LABS: Osmolality, Urine 190 mOsm/kg (50-1200)
[2021-04-04] MEDS: METOPROLOL SUCCINATE EXT REL 100 MG TABCR 200 MG PO (08:35)
[2021-04-04] MEDS: ASPIRIN 81 MG CHEWABLE TABLET PO (08:35)
--- NOTE | 2021-04-04 11:24 | PM.DS ---
DS: Admitting Diagnosis Discharge Date 04/04/21 Admitting Diagnosis dizziness, hyponatremia DS: Discharge Diagnosis Discharge Diagnosis (1) Hyponatremia: Code(s): E87.1 - Hypo-osmolality and hyponatremia Status: Acute Assessment and Plan: -She appears euvolemic at this time. -May be related to the addition of bupropion within the last several weeks. She received 1 L bolus of normal saline in the emergency department and was continued at 150 ml/hr. NS was stopped 04/02/21 in the AM. -TSH WNL -D5W and desmopressin due to overcorrection -nephrology consult -pt has been stable in the 130s -today 137 and she states her symptoms have overall resolved -discontinue wellbutrin -spoke with patient and she has actually also been on Effexor x6 months. Discussed with Dr. Jovel, plan is to have her restart her Effexor only (not wellbutrin) and have repeat BMP in 3 days and 10 days to monitor sodium. She will follow up with her pcp or Dr. Jovel if her primary is unable to manage her hyponatremia. At this time she is stable for discharge with close follow up. (2) Dizziness: Code(s): R42 - Dizziness and giddiness Status: Acute Assessment and Plan: -MRI brain WNL -Carotid dopplers negative -orthostatic vital signs normal -sounds like this has been going on intermittently x 2 months since a fall where she hit her head. She had an increase in the dizziness approximately 1 week ago with associated nausea. Today she states she feels much better and is back to her baseline of mild occasional dizziness. -Most likely secondary to hyponatremia as symptoms improved after correction of her sodium levels -although normal MRI brain and normal neurological exam, plan to have her follow up with neurology outpatient (3) Depression with anxiety: Code(s): F41.8 - Other specified anxiety disorders Status: Acute Assessment and Plan: -Bupropion stopped given hyponatremia. -she will follow up with her pcp for different medication options -continue Effexor for now pending repeat sodium levels outpatient (4) Hypothyroidism: Code(s): E03.9 - Hypothyroidism, unspecified Status: Chronic Assessment and Plan: -Continued levothyroxine -TSH WNL (5) Paroxysmal atrial fibrillation: Code(s): I48.0 - Paroxysmal atrial fibrillation Status: Acute Assessment and Plan: -In a sinus rhythm. -Continued metoprolol for rate control. -not on chronic anticoagulation DS: Summary Hospital Course Reason for hospitalization: 60-year-old female with history of ulcerative colitis, hypertension, hyperlipidemia, paroxysmal atrial fibrillation, depression, and anxiety, admitted for acute hyponatremia. Please see HPI for further details. Hospital Course: Please see above for details of hospital course. Status at Discharge Cognitive/behavioral status at discharge: stable Functional status at discharge: independent ambulation Overall status at discharge: patient is progressing back to baseline Time Spent with Patient Time attestation: Total time spent providing and/or coordinating discharge services: 35 Time spent: Greater than 30 minutes Exam Narrative: General: No acute distress, non toxic appearing Eyes: PERRL, no scleral icterus HEENT: NCAT, external ears normal, MMM Respiratory: No respiratory distress, Lungs CTA bilaterally, no wheezing Cardiovascular: RRR, no murmur Abdominal: Soft, nontender, non distended, no rebound or guarding, ileostomy in place Musculoskeletal: Moves all 4 extremities, no edema Neurological: A/Ox3, speech normal, no facial asymmetry Skin: Warm, dry, no rashes Psychiatric: Normal affect, normal mood DS: Data Data Completed and Pending Labs on day of discharge: Labs from last 24 hours 04/04/21 04/04/21 04/03/21 05:23 05:23 19:44 WBC 3.3 L RBC 3.98 L Hgb 12.1 Hc
--- NOTE | 2021-04-04 12:00 | P.PNNP_ITS ---
Progress Note: A&P Assessment and Plan (1) Hyponatremia: Code(s): E87.1 - Hypo-osmolality and hyponatremia Status: Acute Assessment and Plan: * appears to be an acute issue * risk factors include * recent addition of buproprion * prerenal factors (low urine sodium) * hypothyroidism * evaluaton to date: * TSH okay and on supplementation * urine electrolyte are prerenal * cortisol okay * overcorrection noted with normal saline IVF on admission * sodium level was 131 yesterday at 6:00 a.m. and is 137 today at 5:00 a.m.. * she is not on a fluid restriction. I told to drink if she is thirsty not if she is not. She should not push it. * She is not on any medications that would do this. (2) Dizziness: Code(s): R42 - Dizziness and giddiness Status: Acute Assessment and Plan: * due to CVA versus #1 versus something else * meclizine PRN * follow vial signs * MRI of brain noted (3) Paroxysmal A-fib: Code(s): I48.0 - Paroxysmal atrial fibrillation Status: Chronic Assessment and Plan: * rate control strategy (4) Hypertension: Code(s): I10 - Essential (primary) hypertension Status: Chronic Assessment and Plan: * reasonable control at this time * follow trend of hemodynamics (5) Hypothyroidism: Code(s): E03.9 - Hypothyroidism, unspecified Status: Chronic Assessment and Plan: * on replacement therapy Will continue to follow. Subjective Date/time seen: 04/04/21 12:00 Interval history: Patient is alert. She feels good. She is eager for discharge. They are thinking about a yesterday but she was still dizzy. Today she is less dizzy. Exam Narrative: General: WD/WN female in NAD Heart: normal S1 and S2; no rub Lungs: clear Abdomen: soft, nontender, nondistended, positive bowel sounds Extremities: no cyanosis or clubbing; no edema Skin: No rash Objective Data Vital Signs Vital Signs: Vital Signs - 24 hr 04/03/21 14:00 04/03/21 16:00 04/03/21 20:00 Temperature 36.3 C L Pulse Rate 75 72 63 Respiratory Rate 16 Blood Pressure 121/49 L Pulse Oximetry 100 04/03/21 21:46 04/03/21 21:47 04/04/21 00:00 Temperature 35.9 C L Pulse Rate 61 74 Respiratory Rate 16 Blood Pressure 120/62 120/62 Pulse Oximetry 98 04/04/21 04:00 04/04/21 05:37 04/04/21 08:00 Temperature 35.9 C L Pulse Rate 73 68 77 Respiratory Rate 16 Blood Pressure 107/55 L 133/74 Pulse Oximetry 96 04/04/21 08:35 04/04/21 11:39 04/04/21 11:41 Temperature Pulse Rate 77 Respiratory Rate Blood Pressure 127/78 112/73 Pulse Oximetry Intake/Output Intake/Output: Intake & Output 04/01/21 04/02/21 04/03/21 04/04/21 23:59 23:59 23:59 23:59 Intake Total 940 1150 1745 390 Output Total 700 2850 400 0 Balance 240 -1700 1345 390 Meds/Results Medications: Active Medications Generic Name Dose Route Start Last Admin Trade Name Freq PRN Reason Stop Dose Admin Acetaminophen 650 mg 04/01/21
--- NOTE | 2021-04-04 12:00 | PM.PNNEP ---
Progress Note: A&P Assessment and Plan (1) Hyponatremia: Code(s): E87.1 - Hypo-osmolality and hyponatremia Status: Acute Assessment and Plan: appears to be an acute issue risk factors include recent addition of buproprion prerenal factors (low urine sodium) hypothyroidism evaluaton to date: TSH okay and on supplementation urine electrolyte are prerenal cortisol okay overcorrection noted with normal saline IVF on admission sodium level was 131 yesterday at 6:00 a.m. and is 137 today at 5:00 a.m.. she is not on a fluid restriction. I told to drink if she is thirsty not if she is not. She should not push it. She is not on any medications that would do this. (2) Dizziness: Code(s): R42 - Dizziness and giddiness Status: Acute Assessment and Plan: due to CVA versus #1 versus something else meclizine PRN follow vial signs MRI of brain noted (3) Paroxysmal A-fib: Code(s): I48.0 - Paroxysmal atrial fibrillation Status: Chronic Assessment and Plan: rate control strategy (4) Hypertension: Code(s): I10 - Essential (primary) hypertension Status: Chronic Assessment and Plan: reasonable control at this time follow trend of hemodynamics (5) Hypothyroidism: Code(s): E03.9 - Hypothyroidism, unspecified Status: Chronic Assessment and Plan: on replacement therapy Will continue to follow. Subjective Date/time seen: 04/04/21 12:00 Interval history: Patient is alert. She feels good. She is eager for discharge. They are thinking about a yesterday but she was still dizzy. Today she is less dizzy. Exam Narrative: General: WD/WN female in NAD Heart: normal S1 and S2; no rub Lungs: clear Abdomen: soft, nontender, nondistended, positive bowel sounds Extremities: no cyanosis or clubbing; no edema Skin: No rash Objective Data Vital Signs Vital Signs: Vital Signs - 24 hr 04/03/21 14:00 04/03/21 16:00 04/03/21 20:00 Temperature 36.3 C L Pulse Rate 75 72 63 Respiratory Rate 16 Blood Pressure 121/49 L Pulse Oximetry 100 04/03/21 21:46 04/03/21 21:47 04/04/21 00:00 Temperature 35.9 C L Pulse Rate 61 74 Respiratory Rate 16 Blood Pressure 120/62 120/62 Pulse Oximetry 98 04/04/21 04:00 04/04/21 05:37 04/04/21 08:00 Temperature 35.9 C L Pulse Rate 73 68 77 Respiratory Rate 16 Blood Pressure 107/55 L 133/74 Pulse Oximetry 96 04/04/21 08:35 04/04/21 11:39 04/04/21 11:41 Temperature Pulse Rate 77 Respiratory Rate Blood Pressure 127/78 112/73 Pulse Oximetry Intake/Output Intake/Output: Intake & Output 04/01/21 04/02/21 04/03/21 04/04/21 23:59 23:59 23:59 23:59 Intake Total 940 1150 1745 390 Output Total 700 2850 400 0 Balance 240 -1700 1345 390 Meds/Results Medications: Active Medications Generic Name Dose Route Start Last Admin Trade Name Freq PRN Reason Stop Dose Admin Acetaminophen 650 mg 04/01/21 22:30 04/03/21 14:14 Acetaminophen 325 Mg Tablet PO 650 mg Q6H PRN Administration Mild Pain (1-3) or Fever Albuterol 1 puff 04/01/21 19:56 Albuterol Sulfate (*Sp) Aerosol 1 Puff INHALATION PRN PRN Shortness Of Breath Aspirin 81 mg 04/02/21 09:00 04/04/21 08:35 Aspirin 81 Mg Chewable Tablet PO 81 mg DAILY GULSHAN Administration Atorvastatin Calcium 80 mg 04/01/21 21:00 04/03/21 20:09 Atorvastatin 40 Mg Tablet PO 80 mg HS GULSHAN Administration Meclizine HCl 12.5 mg 04/01/21 19:55 Meclizine Hcl 12.5 Mg Tablet PO QID PRN Dizziness Metoprolol Succinate 200 mg 04/03/21 09:00 04/04/21 08:35 Metoprolol Succinate Ext Rel 100 Mg Tabcr PO 200 mg DAILY GULSHAN Administration Ondansetron HCl 4 mg 04/01/21 13:48 Ondansetron Inj 4 Mg/2 Ml Vial IV PUSH Q4H PRN Nausea Zolpidem Tartrate 10 mg 04/01/21 19:56 04/03/21 20:13 Zo
[2021-04-04] MEDS: MECLIZINE HCL 12.5 MG TABLET PO (12:17)
[2021-04-06 15:51] LABS: Kappa\\Lambda Light Chains 1.38 (0.26-1.65)
[2021-04-07 07:18] LABS: Creatinine, Random Urine 97 mg/dL (20-275); Total Protein/Creatinine Ratio 82 mg/g creat (21-161)
[2021-04-07 15:24] LABS: Albumin 3.8 g/dL (3.8-4.8); Alpha 1 Globulin 0.3 g/dL (0.2-0.3); Alpha 2 Globulin 0.6 g/dL (0.5-0.9); Beta 1 Globulin 0.4 g/dL (0.4-0.6); Gamma Globulin 0.8 g/dL (0.8-1.7); Protein, Total 6.2 g/dL (6.1-8.1)
== END 2021-04-04 14:16 | disposition home or self-care (01) | DRG 426 ==
LOC: ANHED 13:47 → ANH3MED 14:21
PROVIDERS: Internal Medicine Nephrology; Physician Assistant; Admitting Provider Hospitalist; Emergency Provider Emergency Medicine; PCP Family Medicine; Visit Provider Internal Medicine
DX: E87.1 Hypo-osmolality and hyponatremia (principal); I25.10 Atherosclerotic heart disease of native coronary artery without angina pectoris; I48.0 Paroxysmal atrial fibrillation; I10 Essential (primary) hypertension; I73.9 Peripheral vascular disease, unspecified; F41.8 Other specified anxiety disorders; R42 Dizziness and giddiness; Z93.2 Ileostomy status; E89.0 Postprocedural hypothyroidism; Z79.899 Other long term (current) drug therapy; E78.5 Hyperlipidemia, unspecified; Z79.82 Long term (current) use of aspirin; Z95.1 Presence of aortocoronary bypass graft
CPT/HCPCS: 36415; 70450; 70553; 71045; 80048; 80053; 80069; 81003; 82533; 82570; 83735; 83883; 83930; 83935; 84155; 84156; 84165; 84166; 84295; 84300; 84443; 85025; 85027; 93005; 93880; 96374; 96375; 96376; 99285; A9270; A9577; G0378; J0131; J2597; J7030; J7060

== ENCOUNTER 2021-04-13 07:59 | Outpatient (CLI) | payer OTHER, SELFPAY ==
[2021-04-13 09:09] LABS: Anion Gap 6 mmol/L (8-16); Blood Urea Nitrogen 8 mg/dL (7-17); Calcium 10.1 mg/dL (8.4-10.2); Carbon Dioxide 31 mmol/L (22-30); Chloride 102 mmol/L (98-107); Estimated Glomerular Filt Rate > 60; Glucose 103 mg/dL (65-110); Potassium 4.2 mmol/L (3.4-5.0); Sodium 139 mmol/L (137-145)
== END 2021-04-13 08:00 | disposition home or self-care (01) ==
LOC: ANHLAB 08:03
PROVIDERS: PCP Family Medicine; Referring Provider Physician Assistant; Visit Provider Physician Assistant
DX: E87.1 Hypo-osmolality and hyponatremia (principal)
CPT/HCPCS: 36415; 80048

== ENCOUNTER 2021-04-22 10:11 | Emergency (ER) | payer OTHER, SELFPAY ==
--- NOTE | ~2021-04-22 | CT_ITS ---
EXAMINATION: CTA brain carotid EXAM DATE: 04/22/2021 14:15 INDICATION: Headache, confusion, visual changes. TECHNIQUE: Spiral CTA of the carotid arteries was performed with intravenous injection 100 cc of Om nipaque 350. Axial, coronal, sagittal reformatted images reviewed. Additional reformatted images cre ated on dedicated 3-D workstation. NASCET comparable standard used to assess the degree of arterial stenosis. Spiral CT angiogram cerebral arteries performed with the same intravenous injection of con trast. Source images of the brain CTA transferred to dedicated workstation for 3-D rotational image c reation. Coronal, sagittal maximum intensity pixel images also reviewed. The dose-length product (D LP) for this examination was 987.88 mGy-cm. The exposure was tailored according to patient size, an d iterative reconstruction (ASIR) was used as additional dose reduction technique. Comparison is made to head CT earlier same date. Correlation was made with CTA chest abdomen pelvis 06/06/2020. FINDINGS: Patient has an ascending aortic dissection with interval placement of a banding device wily g the ascending aorta. The descending thoracic aorta measures 4.3 cm (was 4.0 cm on prior study). No extension of dissection flap into the carotid or vertebral arteries which enhance normally. There is bilateral carotid bulb 0% stenosis. The vertebral arteries are codominant. There is right-sided poste rior communicating artery dominant posterior cerebral artery. Symmetric cerebral artery arborization, no cut offs. IMPRESSION: 1. No acute intracranial or cervical findings. 2. Treated chronic type A aortic dissection. 3. Mild increase in diameter of descending thoracic aortic aneurysm now 4.3 cm. Reviewed, dictated and finalized at location B. WALKER IMPRESSION: 1. No acute intracranial or cervical findings. 2. Treated chronic type A aortic dissection. 3. Mild increase in diameter of descending thoracic aortic aneurysm now 4.3 cm .
--- NOTE | ~2021-04-22 | CT_ITS ---
EXAMINATION: CT brain wo con DATE: 04/22/2021 11:55 INDICATION: Confusion. Expressive aphasia. TECHNIQUE: Computed tomography (CT) of the head was performed without intravenous contrast. The mA wa s adjusted according to patient size. Iterative reconstruction technique was employed. The dose-lengt h product was 605.33 mGy-cm. COMPARISON: Head CT 04/01/2021 FINDINGS: There is no intracranial hemorrhage, acute infarction, or abnormal intracranial mass lesion . The ventricles are normal in size. The orbits are normal. There is mild mucosal thickening in the p aranasal sinuses. The mastoid air cells are normal. The orbits are normal. IMPRESSION: 1. Normal brain. Reviewed, dictated and finalized at location A. TROPHYSIOLOGY SCIENTIST IMPRESSION: 1. Normal brain.
[2021-04-22 10:30] VITALS: BP 137/67; PULSE 72; RESP 18; TEMP 36.8; O2SAT 100
[2021-04-22 11:43] LABS: Basophils Percent Auto 0.5 % (0.2-1.2); Eosinophils Absolute Auto 0.1 K/mm3 (0-0.3); Eosinophils Percent Auto 2.5 % (0-4.4); Hematocrit 41.6 % (37.0-47.0); Hemoglobin 13.8 g/dL (12.0-15.0); Immature Granulocyte Absolute 0.02 K/mm3 (0.00-0.031); Immature Granulocyte Percent A 0.4 % (0-0.5); Lymphocytes Percent Auto 16.3 % (18.3-44.2); Mean Corpuscular HGB Conc 33.2 g/dl (32-36); Mean Corpuscular Hemoglobin 30.1 pg (26-34); Mean Corpuscular Volume 90.8 fl (80-100); Mean Platelet Volume 9.6 fl (7.4-10.4); Monocytes Absolute Auto 0.6 K/mm3 (0.1-0.6); Monocytes Percent Auto 11.6 % (2.6-8.5); Neutrophils Absolute Auto 3.8 K/mm3 (1.3-6.7); Neutrophils Percent Auto 68.7 % (45.5-73.1); Platelet Count Result 178 k/mm3 (150-375); Red Blood Count 4.58 M/mm3 (4.2-5.4); Red Cell Distribution Width 12.8 % (11.5-14.5); White Blood Count 5.5 K/mm3 (4.5-10.0)
[2021-04-22 11:50] LABS: Alanine Aminotransferase 83 U/L (4-35); Albumin Level 4.8 g/dL (3.5-5.1); Alkaline Phosphatase 128 U/L (38-126); Anion Gap 7 mmol/L (8-16); Aspartate Amino Transferase 55 U/L (14-36); Bilirubin,Total 0.7 mg/dL (0.2-1.3); Blood Urea Nitrogen 13 mg/dL (7-17); Calcium 10.1 mg/dL (8.4-10.2); Carbon Dioxide 28 mmol/L (22-30); Chloride 103 mmol/L (98-107); Estimated CRCL calculation 81 ml/min; Estimated Glomerular Filt Rate > 60; Glucose 111 mg/dL (65-110); Potassium 4.4 mmol/L (3.4-5.0); Sodium 138 mmol/L (137-145)
--- NOTE | 2021-04-22 12:09 | ED.GENADULT ---
HPI - General Adult General Chief complaint: Unspecified Stated complaint: difficulty thinking Time Seen by Provider: 04/22/21 11:18 Source: patient Mode of arrival: ambulatory Limitations: no limitations History of Present Illness HPI narrative: This is a 60 year old female that presents to the ER for worsening confusion over the last couple of months. Report she hit her head a couple of months ago and has had symptoms since. Reports trouble with her memory. Also reports she has had some vision problems in her left eye. She was seen here for symptoms a couple of weeks ago and admitted for hyponatremia. Denies fever, chest pain, vomiting, numbness or weakness. Related Data Home Medications Medication Instructions Recorded Confirmed albuterol sulfate 90 mcg INHALATION PRN PRN 07/23/19 04/01/21 aspirin 81 mg PO DAILY 07/23/19 04/01/21 atorvastatin 80 mg PO HS 07/23/19 04/01/21 zolpidem 10 mg PO HS PRN 11/28/20 04/01/21 metoprolol succinate 200 mg PO DAILY 04/01/21 04/01/21 venlafaxine 150 mg PO DAILY 04/01/21 04/01/21 Allergies Allergy/AdvReac Type Severity Reaction Status Date / Time No Known Allergies Allergy Verified 04/01/21 09:44 Review of Systems Review of Systems: CONSTITUTIONAL: Denies fever EYES: Reports visual changes CARDIOVASCULAR: Denies chest pain, or edema. RESPIRATORY: Denies dyspnea. GASTROINTESTINAL: Denies vomiting NEUROLOGIC: Reports headache. Denies numbness, or weakness. All systems reviewed & are unremarkable except as noted in HPI and below PMFSH Past Medical History Medical History (Updated 04/22/21 @ 16:34 by Patricia Sher PA-C) Anemia Aortic dissection Arthritis Asthma Bowel obstruction Depression with anxiety Dissecting aneurysm of thoracic aorta, [place] type A (01/15/19) Eczema History of MRSA infection Hypothyroidism Ileostomy in place Paroxysmal atrial fibrillation Peripheral vascular disease (~03/23/19) 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 Ulcerative colitis Surgical History Surgical History (Updated 04/01/21 @ 20:24 by Dayana Snow PA-C) History of aortic valve replacement with bioprosthetic valve History of section History of hysterectomy History of ileostomy History of laparoscopy With adhesiolysis. History of partial thyroidectomy History of repair of [place] type A dissecting aneurysm of thoracic aorta (01/15/19) Status post tube graft placement done at [facility]. Repair of what sounds like graft separation/leak was done in 05/2020. History of tonsillectomy Status post proctocolectomy Family History Family History Sibling Diabetes mellitus Mother Cancer Father Heart attack Social History Social History (Updated 04/01/21 @ 20:25 by Dayana Snow PA-C) Social History: Surrogate decision maker: Hesham Ramey, spouse. Code status: Full code. Smoking status: Never smoker Second hand tobacco smoke exposure: No Alcohol intake: never Substance use: never Substance use type: does not use Additional living arrangements comments: Lives with family in [place]. Exam Narrative: GENERAL: Well-appearing, well-nourished, and in no acute distress. HEAD: Normocephalic, atraumatic. EYES: PERRLA and EOMI. ENT: Nares clear, no rhinorrhea or epistaxis. Mucous membranes moist. Oropharynx without tonsillar hypertrophy exudate or other lesions. Bilateral TMs pearly carballo non-bulging NECK: Supple. No adenopathy or masses. CHEST: Clear to auscultation. No respiratory distress. No wheezes rales or rhonchi HEART: Regular rate and rhythm. No murmur heard. Normal peripheral pulses. EXTREMITIES: Normal range of motion. No edema. Strength equal in bilateral upper and lower extremities (5/5) SKIN: Warm, dry, no rash. NEURO: No focal deficits. Alert and oriented x3. Cranial nerves II through
[2021-04-22 12:25] LABS: Prothrombin Time 12.3 Seconds (11.1-14.7)
[2021-04-22 12:26] LABS: Partial Thromboplastin Time 29.9 SECONDS (22.3-36.8)
[2021-04-22 12:36] LABS: Add Urine Microscopic? YES; Appearance Urine Clear (Clear); Bilirubin Urine Negative (Negative); Blood Urine Negative (Negative); Color Urine Straw (Yellow); Glucose Urine UA Negative (Negative); Ketones Urine Negative (Negative); Leukocyte Esterase Ur 1+ LEU/UL (Negative); Nitrate Urine Negative (Negative); Protein Urine Negative (Negative); RBC Urine 0-2 /hpf (0-2); Specific Grav Ur 1.005 (1.001-1.035); Squamous Epithelial Cell Urine Rare /hpf (Few); Urobilinogen Urine Negative mg/dL (<2.0)
--- NOTE | 2021-04-22 15:02 | PC.NURSE ---
OD - OS - OU -
[2021-04-22 16:50] VITALS: BP 150/82; PULSE 72; RESP 16; TEMP 36.7; O2SAT 100
== END 2021-04-22 17:00 | disposition home or self-care (01) ==
PROVIDERS: Physician Assistant; Emergency Provider Emergency Medicine; PCP Physician Assistant
DX: R41.3 Other amnesia (principal); I71.2 Thoracic aortic aneurysm, without rupture; R51.9 Headache, unspecified; I48.0 Paroxysmal atrial fibrillation; I74.3 Embolism and thrombosis of arteries of the lower extremities; K51.90 Ulcerative colitis, unspecified, without complications; E89.0 Postprocedural hypothyroidism; M19.90 Unspecified osteoarthritis, unspecified site; F41.8 Other specified anxiety disorders; Z86.2 Personal history of diseases of the blood and blood-forming organs and certain disorders involving the immune mechanism; Z86.14 Personal history of Methicillin resistant Staphylococcus aureus infection; Z79.82 Long term (current) use of aspirin; Z95.2 Presence of prosthetic heart valve; Z90.49 Acquired absence of other specified parts of digestive tract; Z93.2 Ileostomy status
CPT/HCPCS: 36415; 70450; 70496; 70498; 80053; 81001; 85025; 85610; 85730; 87086; 99284; Q9967

== ENCOUNTER 2021-05-22 09:43 | Emergency (ER) | payer OTHER, SELFPAY ==
[2021-05-22] VITALS (33 sets, daily range): BP systolic 113–135; BP diastolic 58–104; PULSE 58–73; RESP 12–24; TEMP 36.6; O2SAT 85–100
--- NOTE | ~2021-05-22 | XR_ITS ---
XR chest 2V DATE: 05/22/2021 10:12 INDICATION: Chest pain TECHNIQUE: PA and lateral views COMPARISON April 01, 2021 portable AP chest FINDINGS: Status post sternotomy and aortic valve replacement. Heart size is within normal limits. Th ere is aortic calcification, ectasia and tortuosity. No hilar or mediastinal enlargement. Mild discoid atelectasis or scarring in the medial left lower lobe; otherwise no pulmonary infiltrate or consolidation, pleural effusion or pulmonary vascular congestion or pneumothorax. Diffuse osteopenia. Mild thoracic and lumbar scoliosis. Surgical clips overlie the right axillary area and left upper quadrant of the abdomen. IMPRESSION: Status post aortic valve replacement No active pulmonary disease Reviewed, dictated and finalized at location A.
--- NOTE | ~2021-05-22 | CT_ITS ---
EXAMINATION: CTA chest PE abdomen pel DATE: 05/22/2021 11:39 INDICATION: Chest pain, upper abdominal pain. Known aortic aneurysm. TECHNIQUE: Computed tomography angiography (CTA) of the chest and abdomen was performed with 100 mL O mnipaque-350 intravenous contrast timed to evaluate the pulmonary arteries. Coronal maximum intensity projection 3D-reconstructions were created by the technologist. Automated exposure control and itera tive reconstruction technique were employed. Exam dose: 440.02 mGy-cm total exam DLP. COMPARISON: CTA chest abdomen pelvis FINDINGS: Since 06/06/2020 there is postoperative change from sternotomy and aortic valve replacement. Again noted is thoracic and abdominal aortic dissection, including ascending and descending thoracic aorta, continuing into the left common iliac artery. The thoracic aorta diameter is approximately 3.6 cm at the mid aortic arch, 4 cm in the posterior aor tic arch, 3.6 cm of the descending thoracic aorta. The abdominal aorta is of normal caliber. Cardiomegaly. No pericardial effusion. Mild atelectasis at the left lung base. No pulmonary consolidation or pulmonary mass lesion is eviden t. No hilar or mediastinal mass lesion or lymphadenopathy. There is no evidence of pulmonary embolism. The liver, gallbladder, bile ducts, spleen, pancreas, pancreatic duct, and adrenal glands are unremar kable. There are several up to 9 mm and 9.7 mm left renal cysts and 7.5 mm right renal cyst. No urinary trac t calculus or hydroureteronephrosis. The urinary bladder is unremarkable. Status post hysterectomy. Status post colectomy with right lower quadrant ileostomy. No bowel obstruction. No intraperitoneal f ree air. No intraperitoneal or retroperitoneal or pelvic mass lesion or adenopathy or ascites. Included skeletal structures are essentially unremarkable; no suspicious osteolytic or osteoblastic l esions are noted. There is severe degenerative disc disease at C5-6. IMPRESSION: Status post aortic valve replacement Type A aortic dissection, which continues into the left common iliac artery Thoracic aortic aneurysm, measuring up to 4 cm diameter at the posterior aortic arch Cardiomegaly Mild atelectasis in the left lower lung Status post colectomy and right lower quadrant ileostomy Status post hysterectomy Bilateral renal cysts Reviewed, dictated and finalized at Location A. Reviewed, dictated and finalized at location A.
--- NOTE | 2021-05-22 09:47 | ECG_ITS ---
Measurements Intervals [place] Rate: 66 P: 60 PA: 205 QRS: 89 QRSD: 90 T: 60 QT: 402 QTc: 421 Interpretive Statements SINUS RHYTHM POSSIBLE LEFT ATRIAL ENLARGEMENT [-0.1mV P WAVE IN V1/V2] SEPTAL MYOCARDIAL INFARCTION , OF INDETERMINATE AGE [40+ ms Q WAVE IN V1/V2] ABNORMAL ECG COMPARED TO ECG 04/01/2021 11:15:27 NO SIGNIFICANT CHANGES Electronically Signed On 05-22-2021 17:15:28 CDT by Bhavik Conroy M.D.
--- NOTE | 2021-05-22 10:03 | ED.CHESTPAIN ---
HPI - Chest Pain General Chief Complaint: Chest Pain Stated Complaint: chest pain/abd pain Time Seen by Provider: 05/22/21 09:57 Source: RN notes reviewed History of Present Illness HPI narrative: Patient presents to emergency department from home for chest and abdominal pain. Patient states symptoms been ongoing for 1 week. Patient states that pain has been relatively constant for the past 1 week the pain is located in the upper abdomen and the lower chest nothing seems to make the pain better or worse the pain is described as a pressure she denies any fevers or chills shortness of breath nausea vomiting diarrhea or any other symptoms. States she does have a history of abdominal aortic aneurysm that is followed and measures approximately 4.2 cm Related Data Home Medications Medication Instructions Recorded Confirmed albuterol sulfate 90 mcg INHALATION PRN PRN 07/23/19 04/01/21 aspirin 81 mg PO DAILY 07/23/19 04/01/21 atorvastatin 80 mg PO HS 07/23/19 04/01/21 zolpidem 10 mg PO HS PRN 11/28/20 04/01/21 metoprolol succinate 200 mg PO DAILY 04/01/21 04/01/21 venlafaxine 150 mg PO DAILY 04/01/21 04/01/21 Allergies Allergy/AdvReac Type Severity Reaction Status Date / Time No Known Allergies Allergy Verified 04/01/21 09:44 Review of Systems Review of Systems: Gen.: Denies fevers or chills ENT: Denies congestion Respiratory: Denies shortness of breath or cough CV: Reports chest pain GI: Reports abdominal pain, denies nausea, emesis or diarrhea Musculoskeletal: Denies back pain or muscle pain Neuro: Denies numbness, tingling, weakness or focal weakness Skin: Denies rash Except as documented, all other systems reviewed and negative [facility] Past Medical History Medical History Anemia Aortic dissection Arthritis Asthma Bowel obstruction Depression with anxiety Dissecting aneurysm of thoracic aorta, [place] type A (01/15/19) Eczema History of MRSA infection Hypothyroidism Ileostomy in place Paroxysmal atrial fibrillation Peripheral vascular disease (~03/23/19) 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 Ulcerative colitis Surgical History Surgical History (Updated 04/01/21 @ 20:24 by Dayana G. Gerling, PA-C) History of aortic valve replacement with bioprosthetic valve History of section History of hysterectomy History of ileostomy History of laparoscopy With adhesiolysis. History of partial thyroidectomy History of repair of [place] type A dissecting aneurysm of thoracic aorta (01/15/19) Status post tube graft placement done at [facility]. Repair of what sounds like graft separation/leak was done in 05/2020. History of tonsillectomy Status post proctocolectomy Family History Family History Sibling Diabetes mellitus Mother Cancer Father Heart attack Social History Social History Social History: Surrogate decision maker: Hesham Ramey, spouse. Code status: Full code. Smoking status: Never smoker Second hand tobacco smoke exposure: No Alcohol intake: never Substance use: never Substance use type: does not use Additional living arrangements comments: Lives with family in [place]. Exam Narrative: APPEARANCE: No acute distress, nontoxic, resting in bed HEENT: Normocephalic, atraumatic, OMM RESPIRATORY: No respiratory distress, clear to auscultation bilaterally with no rhonchi wheezing or rales CARDIOVASCULAR: RRR s murmur ABDOMINAL: Soft nondistended tender palpation epigastric and right upper quadrant left lower quadrant no tenderness right lower quadrant left lower quadrant no rebound or guarding MUSCULOSKELETAl: Moves all extremities. No clubbing, cyanosis or edema. NEURO: Awake and alert. Following commands, speech normal, n
[2021-05-22 10:06] LABS: Basophils Percent Auto 0.6 % (0.2-1.2); Eosinophils Absolute Auto 0.1 K/mm3 (0-0.3); Eosinophils Percent Auto 2.1 % (0-4.4); Hematocrit 40.4 % (37.0-47.0); Hemoglobin 13.2 g/dL (12.0-15.0); Immature Granulocyte Absolute 0.01 K/mm3 (0.00-0.031); Immature Granulocyte Percent A 0.2 % (0-0.5); Lymphocytes Absolute Auto 0.93 K/mm3 (0.9-3.2); Lymphocytes Percent Auto 19.7 % (18.3-44.2); Mean Corpuscular HGB Conc 32.7 g/dl (32-36); Mean Corpuscular Hemoglobin 29.9 pg (26-34); Mean Corpuscular Volume 91.6 fl (80-100); Mean Platelet Volume 9.6 fl (7.4-10.4); Monocytes Absolute Auto 0.6 K/mm3 (0.1-0.6); Monocytes Percent Auto 12.1 % (2.6-8.5); Neutrophils Absolute Auto 3.1 K/mm3 (1.3-6.7); Neutrophils Percent Auto 65.3 % (45.5-73.1); Platelet Count Result 189 k/mm3 (150-375); Red Blood Count 4.41 M/mm3 (4.2-5.4); Red Cell Distribution Width 12.6 % (11.5-14.5); White Blood Count 4.7 K/mm3 (4.5-10.0)
[2021-05-22 10:12] LABS: Alanine Aminotransferase 19 U/L (4-35); Albumin Level 4.6 g/dL (3.5-5.1); Alkaline Phosphatase 77 U/L (38-126); Anion Gap 8 mmol/L (8-16); Aspartate Amino Transferase 27 U/L (14-36); Bilirubin,Total 0.7 mg/dL (0.2-1.3); Blood Urea Nitrogen 9 mg/dL (7-17); Calcium 9.5 mg/dL (8.4-10.2); Carbon Dioxide 29 mmol/L (22-30); Chloride 102 mmol/L (98-107); Estimated Glomerular Filt Rate > 60; Glucose 125 mg/dL (65-110); Lipase 76 U/L (23-300); Potassium 3.8 mmol/L (3.4-5.0); Sodium 139 mmol/L (137-145)
[2021-05-22 10:13] LABS: INR 0.9; Prothrombin Time 12.1 Seconds (11.1-14.7)
[2021-05-22 10:14] LABS: Partial Thromboplastin Time 29.8 SECONDS (22.3-36.8)
[2021-05-22 10:24] LABS: Troponin I < 0.012 ng/mL (0.000-0.034)
[2021-05-22] MEDS: ASPIRIN 81 MG CHEWABLE TABLET 324 MG PO (11:04)
[2021-05-22 13:16] LABS: Troponin I < 0.012 ng/mL (0.000-0.034)
== END 2021-05-23 03:25 | disposition home or self-care (01) ==
PROVIDERS: Emergency Provider Emergency Medicine
DX: R10.13 Epigastric pain (principal); J45.909 Unspecified asthma, uncomplicated; I48.0 Paroxysmal atrial fibrillation; I71.01 Dissection of thoracic aorta; I71.02 Dissection of abdominal aorta; E89.0 Postprocedural hypothyroidism; Z95.2 Presence of prosthetic heart valve; Z86.14 Personal history of Methicillin resistant Staphylococcus aureus infection; Z86.2 Personal history of diseases of the blood and blood-forming organs and certain disorders involving the immune mechanism; Z79.82 Long term (current) use of aspirin; R94.31 Abnormal electrocardiogram [ECG] [EKG]; I51.7 Cardiomegaly; Z90.49 Acquired absence of other specified parts of digestive tract; N28.1 Cyst of kidney, acquired
CPT/HCPCS: 36415; 71046; 71275; 74177; 80053; 83690; 84484; 85025; 85610; 85730; 93005; 99284; A9270; Q9967

== ENCOUNTER 2021-06-08 13:45 | Outpatient (CLI) | payer OTHER, SELFPAY ==
--- NOTE | ~2021-06-08 | DEXA_ITS ---
Bone Density Report Name: DAVID ROLON Age: 61 Sex: Female Ethnicity: White Date of : 1960 Indication: postmenopausal osteoporosis; asthma or emphysema; hysterectomy; Referring Provider: SUYAPA, RENATE Study: Bone densitometry was performed. Exam Date: June 08, 2021 Accession number: [id number] Bone Density: Region BMD T-score Z-score Classification AP Spine(L1-L4) 0.744 -2.8 -1.2 Osteoporosis Femoral Neck (Left) 0.648 -1.8 -0.4 Osteopenia Total Hip (Left) 0.774 -1.4 -0.3 Osteopenia Femoral Neck (Right) 0.618 -2.1 -0.7 Osteopenia Total Hip (Right) 0.743 -1.6 -0.6 Osteopenia Total Hip Mean 0.759 -1.5 -0.5 Osteopenia World Health Organization criteria for BMD impression classify patients as: Normal (T-score at or above -1.0), Osteopenia (T-score between -1.0 and -2.5), or Osteoporosis (T-score at or below -2.5). 10-year Fracture Risk: FRAX not reported because: Some T-score for Spine Total or Hip Total or Femoral Neck at or below -2.5 Previous Exams: Region Exam Age BMD T-score BMD Change BMD Change Date g/cm2 vs Baseline vs Previous AP Spine(L1-L4) 06/08/2021 61 0.744 -2.8 -0.015(-2.0%)# -0.015(-2.0%)# 01/30/2015 54 0.759 -2.6 Total Hip(Left) 06/08/2021 61 0.774 -1.4 -0.094(-10.9%) -0.094(-10.9%) 01/30/2015 54 0.869 -0.6 Total Hip(Right) 06/08/2021 61 0.743 -1.6 -0.077(-9.4%)* -0.077(-9.4%)* 01/30/2015 54 0.820 -1.0 *Denotes significance at 95% confidence level, LSC for AP Spine = 0.022 g/cm2, LSC for Total Hip = 0.027 g/cm2 # Denotes dissimilar scan types or analysis methods Clinical Information Provided by Patient: Has used the following medications: Vitamin D, Calcium Has the following medical conditions: Asthma or Emphysema, Hysterectomy Patient maximum height was 67 Menopause Age: 45 Drinks caffeinated beverages Onset of menses at age 15 Number of children 4 Impression: The patient has osteoporosis, based on the Total Spine T-score. The BMD for the Total Hip(Left) decreased, changing by -10.9% since the last DXA exam. The BMD for the Total Hip(Right) decreased, changing by -9.4% since the last DXA exam. Discussion: INCREASED RISK OF FRACTURE. BONE DENSITY IS UNDESIRABLY LOW AT ONE OR MORE SKELETAL SITES, CONSISTENT WITH POSTMENOPAUSAL OSTEOPOROSIS. This patient's lowest T-score meets the World Health Organization's (WHO) criteria for osteoporosis at one or more sites (T-score -2.5 or below)
== END 2021-06-08 13:46 | disposition home or self-care (01) ==
PROVIDERS: Visit Provider Physician Assistant
DX: M79.605 Pain in left leg (principal); M85.89 Other specified disorders of bone density and structure, multiple sites; M81.0 Age-related osteoporosis without current pathological fracture
CPT/HCPCS: 77080

== ENCOUNTER 2021-06-13 10:12 | Outpatient (CLI) | payer OTHER, SELFPAY ==
--- NOTE | ~2021-06-13 | MR_ITS ---
EXAMINATION: MR cervical spine wo con DATE: 06/13/2021 10:59 INDICATION: Dizziness and giddiness. Neck nerve damage. Head injury. TECHNIQUE: Magnetic resonance imaging (MRI) of the cervical spine was performed without intravenous c ontrast. Sequences included sagittal T2-weighted FSE, sagittal T2-weighted FS FSE, sagittal T1-weight ed FSE, axial MERGE, and axial T2-weighted FSE. COMPARISON: None FINDINGS: Bone alignment is normal. Vertebral body heights are normal. There is moderately decreased disc height at C6-C7. The spinal cord signal intensity is normal. The following disc levels are speci fically discussed: C2-C3: The disc does not extend beyond the endplate margin. There is no uncovertebral joint osteoarth ritis. There is severe bilateral facet joint osteoarthritis. There is mild left neural foraminal sten osis. There is no central canal stenosis. C3-C4: There is a central protrusion. There is no uncovertebral joint osteoarthritis. There is severe bilateral facet joint osteoarthritis. There is mild right neural foraminal stenosis. There is no caridad tral canal stenosis. C4-C5: The disc does not extend beyond the endplate margin. There is no uncovertebral joint osteoarth ritis. There is mild right and severe left facet joint osteoarthritis. There is mild left neural fora jorge stenosis. There is no central canal stenosis. C5-C6: The disc is bulging and has an annular fissure. There is mild bilateral uncovertebral joint os teoarthritis. There is severe bilateral facet joint osteoarthritis. There is mild bilateral neural fo raminal stenosis. There is mild central canal stenosis. C6-C7: The disc is bulging. There is severe bilateral uncovertebral joint osteoarthritis. There is mi ld bilateral facet joint osteoarthritis. There is mild bilateral neural foraminal stenosis. There is no central canal stenosis. C7-T1: There is a central protrusion. There is no uncovertebral joint osteoarthritis. There is modera te right and severe left facet joint osteoarthritis. There is mild bilateral neural foraminal stenosi s. There is no central canal stenosis. IMPRESSION: 1. Moderate cervical spondylosis. Reviewed, dictated and finalized at location A.
== END 2021-06-13 10:13 | disposition home or self-care (01) ==
LOC: ANHIMG 10:14
PROVIDERS: Visit Provider Psychiatry & Neurology Neurology
DX: M47.892 Other spondylosis, cervical region (principal)
CPT/HCPCS: 72141

== ENCOUNTER 2021-07-16 10:01 | Outpatient (CLI) | payer MEDICARE, MEDICAID, SELFPAY ==
--- NOTE | 2021-07-16 11:00 | NEURO_ITS ---
Impression: # Complains of dizziness and imbalance. # Normal nerve conduction study. # Normal needle/EMG exam. # No evidence of neuropathy. # Clinical correlation recommended. Nerve Conduction Studies Anti Sensory Summary Table Stim Site NR Peak (ms) P-T Amp (?V) Site1 Site2 Delta-P (ms) Dist (cm) Dung (m/s) Left Median Anti Sensory (2-3nd Digit) Wrist 3.2 75.8 Wrist 2-3nd Digit 3.2 14.0 44 Wrist 3.3 59.3 Wrist 2-3nd Digit 3.2 14.0 44 Right Median Anti Sensory (2-3nd Digit) Wrist 3.3 41.9 Wrist 2-3nd Digit 3.3 14.0 42 Wrist 3.3 34.3 Wrist 2-3nd Digit 3.3 14.0 42 Left Radial Anti Sensory (Base 1st Digit) Wrist 2.3 29.6 Wrist Base 1st Digit 2.3 0.0 Right Radial Anti Sensory (Base 1st Digit) Wrist 2.0 22.2 Wrist Base 1st Digit 2.0 0.0 Left Sup Fibular Anti Sensory (Ant Lat Mall) 14 cm 3.7 19.9 14 cm Ant Lat Mall 3.7 16.0 43 Right Sup Fibular Anti Sensory (Ant Lat Mall) 14 cm 3.1 2.7 14 cm Ant Lat Mall 3.1 16.0 52 Left Sural Anti Sensory (Lat Mall) Calf 3.8 9.7 Calf Lat Mall 3.8 16.0 42 Right Sural Anti Sensory (Lat Mall) Calf 3.8 14.1 Calf Lat Mall 3.8 16.0 42 Left Ulnar Anti Sensory (5th Digit) Wrist 2.7 43.4 Wrist 5th Digit 2.7 14.0 52 Right Ulnar Anti Sensory (5th Digit) Wrist 2.8 12.8 Wrist 5th Digit 2.8 14.0 50 Motor Summary Table Stim Site NR Onset (ms) O-P Amp (mV) Site1 Site2 Delta-0 (ms) Dist (cm) Dung (m/s) Left Median Motor (Abd Poll Brev) Wrist 3.0 6.8 Elbow Wrist 5.4 29.0 54 Elbow 8.4 6.1 Right Median Motor (Abd Poll Brev) Wrist 3.4 5.7 Elbow Wrist 5.9 28.0 47 Elbow 9.3 2.6 Left Peroneal Motor (Vastus Med) Ankle 4.6 1.0 Popit Ankle 9.4 42.0 45 Popit 14.0 1.5 Right Peroneal Motor (Vastus Med) Ankle 4.3 3.8 Popit Ankle 8.9 41.0 46 Popit 13.2 3.1 Left Tibial Motor (Abd Redd Brev) Ankle 4.7 5.8 Knee Ankle 10.4 43.0 41 Knee 15.1 4.2 Right Tibial Motor (Abd Redd Brev) Ankle 4.8 2.8 Knee Ankle 9.6 44.0 46 Knee 14.4 3.5 Left Ulnar Motor (Abd Dig Minimi) Wrist 2.7 5.0 A Elbow Wrist 5.8 30.0 52 A Elbow 8.5 4.2 B Elbow Wrist 3.9 22.0 56 B Elbow 6.6 3.5 Right Ulnar Motor (Abd Dig Minimi) Wrist 2.6 4.4 A Elbow Wrist 5.1 29.0 57 A Elbow 7.7 4.4 F Wave Studies NR F-Lat (ms) L-R F-Lat (ms) Left Median (Mrkrs) (Abd Poll Brev) 29.30 0.58 Right Median (Mrkrs) (Abd Poll Brev) 28.72 0.58 Left Peroneal (Mrkrs) (EDB) 52.22 0.23 Right Peroneal (Mrkrs) (EDB) 51.99 0.23 Left Tibial (Mrkrs) (Abd Hallucis) 52.94 0.46 Right Tibial (Mrkrs) (Abd Hallucis) 52.49 0.46 Left Ulnar (Mrkrs) (Abd Dig Min) 27.81 0.78 Right Ulnar (Mrkrs) (Abd Dig Min) 27.03 0.78 MTDD
== END 2021-07-16 10:02 | disposition home or self-care (01) ==
LOC: ANHNEURO 10:06
PROVIDERS: PCP Physician Assistant; Visit Provider Psychiatry & Neurology Neurology
DX: G62.9 Polyneuropathy, unspecified (principal)
CPT/HCPCS: 95913

== ENCOUNTER 2021-11-03 15:10 | Outpatient (CLI) | payer MEDICARE, SELFPAY ==
--- NOTE | ~2021-11-03 | MM_ITS ---
EXAMINATION: MM screening carly BI w inna HISTORY: Screening mammogram TECHNIQUE: Craniocaudal and mediolateral oblique 3-D tomosynthesis images were obtained and synthetic 2-D images were generated. CAD analysis was submitted and interpreted. COMPARISON: 09/25/2020, 12/12/2018 bilateral screening mammogram examinations BREAST PARENCHYMAL COMPOSITION: The breasts are heterogeneously dense, which may obscure small masses . FINDINGS: Monitor device is noted in the posterior inner aspect of the left breast. There is no evide nce of suspicious mass, calcification, or architectural distortion to suggest malignancy in either br east. There has been no suspicious interval change. IMPRESSION: 1. No mammographic evidence of malignancy. 2. Recommend routine screening mammography in one year. BI-RADS Category 1: Negative Reviewed, dictated and finalized at location A.
== END 2021-11-03 15:11 | disposition home or self-care (01) ==
PROVIDERS: PCP Physician Assistant; Visit Provider Physician Assistant
DX: Z12.31 Encounter for screening mammogram for malignant neoplasm of breast (principal)
CPT/HCPCS: 77063; 77067

== ENCOUNTER 2022-01-18 14:30 | Outpatient (RCR) | payer MEDICARE, MEDICAID, SELFPAY ==
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
--- NOTE | 2022-01-18 15:07 | PTOPDC ---
Assessment and note entered by Michelle Medina, PT Evaluation Information Assessment Status Discharge Diagnosis cervicalgia Onset August 2021 Subjective Information Eri reports: neck pain is less; have a headache every day, last all day long; sinus' are better, headaches little less, been taking allergy med daily; problems getting neck comfortable to fall asleep; once fall asleep, neck pain does not wake her up; heat helps her pain; is using the theracane for self massage and her is massaging her neck and shoulders. She feels like she is ready to be finished with therapy and do the exercises at home. PAIN: range of 3-6/10, tight at base of skull, shoulders not as tight as they were; Reported Pain Level Pain Score : Self Report range 3-6/10 neck Assessment PT Clinical Summary Eri has received 6 PT sessions. Compared to the initial evaluation: pain rating at the low rating is the same and high rating decreased from 9 to 6/10; continues to have daily headaches, but sinus meds are helping decrease them; continues to have problems getting neck comfortable to fall asleep; self assessment Oswestry score improved from 54% to 24% limitation in activity level; increase in cervical rotation ROM to R and L; no longer has pain with cervical flexion and slight pain with side bend to R and L; improved posture awareness, but still has rounding of shoulders with shoulder pain; Education has been completed for posture and home exercise program, techniques for self management of pain. The goals were partially achieved. Discharge PT services. Plan of Care PT Services Indicated No
== END 2022-03-08 09:51 | disposition home or self-care (01) ==
LOC: ANHPT 14:30
PROVIDERS: PCP Physician Assistant; Visit Provider Physician Assistant
DX: M54.2 Cervicalgia (principal)
CPT/HCPCS: 97014; 97110; 97112; 97140; 97161; 97530; G0283

== ENCOUNTER 2022-01-19 07:33 | Outpatient (CLI) | payer MEDICARE, MEDICAID, SELFPAY ==
[2022-01-19 08:03] LABS: Alanine Aminotransferase 21 U/L (6-35); Albumin Level 4.6 g/dL (3.5-5.1); Alkaline Phosphatase 72 U/L (38-126); Anion Gap 8 mmol/L (8-16); Aspartate Amino Transferase 25 U/L (14-36); Bilirubin,Total 0.6 mg/dL (0.2-1.3); Blood Urea Nitrogen 16 mg/dL (7-17); Carbon Dioxide 29 mmol/L (22-30); Chloride 102 mmol/L (98-107); Cholesterol 164 mg/dL (0-200); Estimated Glomerular Filt Rate > 60; Glucose 105 mg/dL (65-110); HDL Direct 56 mg/dL; Potassium 4.3 mmol/L (3.4-5.0); Sodium 139 mmol/L (137-145); Triglycerides 129 mg/dL (<150)
[2022-01-19 08:15] LABS: LDL Cholesterol Direct 58 mg/dL
== END 2022-01-19 07:34 | disposition home or self-care (01) ==
LOC: ANHLAB 07:36
PROVIDERS: PCP Physician Assistant; Visit Provider Internal Medicine Cardiovascular Disease
DX: E78.5 Hyperlipidemia, unspecified (principal)
CPT/HCPCS: 36415; 80053; 80061

== ENCOUNTER 2022-01-25 09:29 | Outpatient (CLI) | payer MEDICARE, MEDICAID, SELFPAY ==
--- NOTE | 2022-01-25 09:38 | ECHO_ITS ---
Patient Info Name: Eri Ramey Age: 61 years : 1960 Gender: Female Ht: 67 in Wt: 135 lbs BSA: 1.70 m2 HR: 67 bpm BP: 113 / 67 mmHg Technical Quality: Good Exam Date: 01/25/2022 10:09 AM Exam Location: [facility] Patient Status: Outpatient Admit Date: 01/25/2022 Staff Ordering Physician: Brandyn Abdi DO Customer Service Dispatcher: Katya Claros RDCS Attending Provider: Brandyn Abid DO Referring Physician: Jin PARSONS; Exam Type: CA echo doppler color flow Study Info Indications Z95.3 - PRESCENCE OF XENOGINIC HEART VALVE Complete two-dimensional, color flow and Doppler transthoracic echocardiogram is performed. Summary 1. Complete two-dimensional, color flow and Doppler transthoracic echocardiogram is performed. 2. Left ventricular chamber dimension is normal. 3. Left ventricular systolic function is normal, estimated at 60-65%. 4. The left ventricular diastolic function is normal. 5. E/e' 8 is minimally elevated. 6. Global longitudinal strain is normal at -18.7%. 7. Right ventricular chamber dimension is moderately enlarged. 8. Right ventricular systolic function is mildly reduced. 9. Left atrial chamber dimension is mildly enlarged. 10. Right atrial chamber dimension is mildly enlarged. 11. The bioprosthetic aortic valve is not well visualized. 12. There is mild mitral valve regurgitation. 13. There is mild tricuspid valve regurgitation. 14. No pulmonary hypertension, estimated pulmonary arterial systolic pressure is 31 mmHg. 15. The aortic root size at the sinus of Valsalva is normal. In ascending aorta there is a shelf-like structure about mid way across the aorta. Consider CTA if clinically indicated. Left Ventricle E/e' 8 is minimally elevated. Global longitudinal strain is normal at -18.7%. Left ventricular chamber dimension is normal. Left ventricular systolic function is normal, estimated at 60-65%. The left ventricular diastolic function is normal. Right Ventricle Right ventricular chamber dimension is moderately enlarged. Right ventricular systolic function is mildly reduced. Left Atria Left atrial chamber dimension is mildly enlarged. Right Atria Right atrial chamber dimension is mildly enlarged. Aortic Valve The bioprosthetic aortic valve is not well visualized. There is no bioprosthetic aortic valve stenosis based on valve area and gradients. There is no regurgitation of the bioprosthetic aortic valve. Pulmonic Valve There is no pulmonic regurgitation. Mitral Valve There is no mitral valve stenosis. There is mild mitral valve regurgitation. Tricuspid Valve There is mild tricuspid valve regurgitation. No pulmonary hypertension, estimated pulmonary arterial systolic pressure is 31 mmHg. Pericardium/Pleural There is no pericardial effusion. Inferior Vena Cava Normal inferior vena cava with >50% collapse upon inspiration consistent with normal right atrial pressure, 5 mmHg. Aorta The aortic root size at the sinus of Valsalva is normal. In ascending aorta there is a shelf-like structure about mid way across the aorta. Consider CTA if clinically indicated. Left Ventricular Outflow Tract Name Value Normal LVOT 2D LVOT Diameter 1.9 cm
== END 2022-01-25 09:30 | disposition home or self-care (01) ==
LOC: ANHCARD 09:30
PROVIDERS: PCP Physician Assistant; Visit Provider Internal Medicine Cardiovascular Disease
DX: I08.1 Rheumatic disorders of both mitral and tricuspid valves (principal); Z95.3 Presence of xenogenic heart valve
CPT/HCPCS: 93306

== ENCOUNTER 2022-07-27 08:35 | Outpatient (CLI) | payer MEDICARE, MEDICAID, SELFPAY ==
--- NOTE | 2022-08-05 11:28 | WPDSLEEPSTUD ---
Sleep Study Date of Study: 07/27/22 Ordering Provider: Brandyn Abdi DO Interpreting Physician: Omaira Ness MD Sleep Study Type: Polysomnogram Height: 1.7 m Weight: 71.668 kg Body Mass Index: 24.7 Neck Circumference (inches): 13 [place]: 0 Reason for Sleep Study Hypersomnolence Sleep History Eri Ramey is a 64-year-old female with several medical comorbidities including coronary artery disease s/p CABG and aortic valve replacement, chronic aortic dissection, hypertension, dyslipidemia, perioperative PAF who presented for a sleep study ordered by her it help desk associate for evaluation of daytime hypersomnia. She occasionally awakens from sleep short of breath. She occasionally awakens at night with heartburn, belching or cough.? She occasionally snores. She rarely snores loudly enough that others complain. She frequently has trouble sleeping when she has a cold. She occasionally wakes up gasping for breath during the night. She rarely has breathing problems at night. She rarely sweats excessively at night. She occasionally notices her heart pounding or beating irregularly during the night. She never falls asleep during the day. She does not fall asleep involuntarily and never falls asleep while driving. She rarely experiences loss of muscle tone with strong emotion. She never feels paralyzed on waking or falling asleep. She never experiences vivid dreams upon waking or falling asleep. She occasionally feels afraid of going to sleep. She rarely has nightmares. She never recalls her dreams. She occasionally has thoughts racing through her mind. She constantly feels sad or depressed. She occasionally feels anxiety or worry about things. She rarely notices parts of her body jerk. She occasionally kicks during the night. She frequently feels crawling or aching feelings in her legs. She rarely feels leg pain at night. She frequently grinds her teeth with sleep but never has morning jaw pain. She frequently feels bothered by pain during the day and occasionally is awakened by pain during the night. She occasionally wakes up feeling stiff in the morning, rarely wakes up feeling sore or achy. She constantly wakes up with pain in her neck, spine, or joints. She feels like she gets about 2 to 4 hours of sleep per night. States she typically falls asleep between 4am to 6am. When she wakes during the night she watches movies or reads. She takes naps in the afternoon or evening. A short nap is not refreshing. She is drowsy for 3 hours after waking. She feels better in the afternoon and evening compared to the morning. She reports difficulty falling asleep and staying asleep. She has a difficult time waking in the morning. She has taken sleeping medications. Habits:? Never tobacco smoker. Drinks about 1 to 2 cups of coffee per day. No alcohol or recreational substances. [facility] Past Medical History Medical History Anemia Aortic dissection Arthritis Asthma Bowel obstruction Depression with anxiety Dissecting aneurysm of thoracic aorta, [place] type A (01/15/19) Eczema History of MRSA infection Hypothyroidism Ileostomy in place Paroxysmal atrial fibrillation Peripheral vascular disease (~03/23/19) 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 Ulcerative colitis Surgical History Surgical History History of aortic valve replacement with bioprosthetic valve History of section History of hysterectomy History of ileostomy History of laparoscopy With adhesiolysis. History of partial thyroidectomy History of repair of [place] type A dissecting aneurysm of thoracic aorta (01/15/19) Status post tube graft placement done at [facility]. Repair of what sounds like graft separation/leak was done in 05/2020. History of tonsillectomy Status post proctocolectomy Fam
[2022-08-05 12:00] VITALS: BMI 24.7
== END 2022-07-28 12:48 | disposition home or self-care (01) ==
LOC: ANHCSM 08:36
PROVIDERS: PCP Physician Assistant; Visit Provider Internal Medicine Cardiovascular Disease
DX: G47.10 Hypersomnia, unspecified (principal); Z72.821 Inadequate sleep hygiene
CPT/HCPCS: 95810

== ENCOUNTER 2023-02-20 09:20 | Emergency (ER) | payer OTHER, SELFPAY ==
--- NOTE | 2023-02-20 09:40 | ED.FEMALEGU ---
HPI - Female Genitourinary General Chief complaint: Urogenital-Female Stated complaint: urinary issue Time Seen by Provider: 02/20/23 09:20 Source: patient Mode of arrival: ambulatory Limitations: no limitations History of Present Illness HPI Narrative: Kecia is a 62-year-old female patient presenting to the clinic today with complaints of possible UTI. She reports over the past few days she has been having burning, frequency, urgency and lower abdominal discomfort. Denies any fever but has had some chills. Denies any back pain. Related Data Home Medications Medication Instructions Recorded Confirmed albuterol sulfate 90 mcg/actuation 90 mcg inhalation PRN PRN 07/23/19 09/16/22 aerosol inhaler Shortness Of Breath aspirin 81 mg chewable tablet 81 mg PO DAILY 07/23/19 09/16/22 atorvastatin 10 mg tablet 10 mg PO DAILY 01/08/22 09/16/22 lisinopril 10 mg tablet 10 mg PO DAILY 01/08/22 09/16/22 azelastine 0.05 % eye drops drp 02/20/23 lisinopril 5 mg tablet mg 02/20/23 montelukast 10 mg tablet mg 02/20/23 pantoprazole 20 mg tablet,delayed mg PO 02/20/23 release sertraline 25 mg tablet mg 02/20/23 zolpidem 10 mg tablet mg 02/20/23 Allergies Allergy/AdvReac Type Severity Reaction Status Date / Time No Known Allergies Allergy Verified 02/20/23 09:40 Review of Systems Review of Systems: Pertinent positives per HPI. Patient denies any fever, chills, rash, headache, visual changes, dizziness, cough, runny nose, sore throat, shortness of breath, chest pain, palpitations, nausea, vomiting, diarrhea, constipation. [facility] Past Medical History Medical History Anemia Aortic dissection Arthritis Asthma Bowel obstruction Depression with anxiety Dissecting aneurysm of thoracic aorta, [place] type A (01/15/19) Eczema History of MRSA infection Hypothyroidism Ileostomy in place Paroxysmal atrial fibrillation Peripheral vascular disease (~03/23/19) 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 Ulcerative colitis Surgical History Surgical History History of aortic valve replacement with bioprosthetic valve History of section History of hysterectomy History of ileostomy History of laparoscopy With adhesiolysis. History of partial thyroidectomy History of repair of [place] type A dissecting aneurysm of thoracic aorta (01/15/19) Status post tube graft placement done at [facility]. Repair of what sounds like graft separation/leak was done in 05/2020. History of tonsillectomy Status post proctocolectomy Family History Family History Sibling Diabetes mellitus Mother Cancer Father Heart attack Social History Social History Social History: Surrogate decision maker: Hesham Ramey, spouse. Code status: Full code. Smoking status: Never smoker Second hand tobacco smoke exposure: No Alcohol intake: never Substance use: never Substance use type: does not use Additional living arrangements comments: Lives with family in [place]. Comments At the time of my signature, I reviewed and agree with the nursing past medical, surgical, social, and family history. There is no relevant family history pertinent to the patient complaint. Exam Narrative: General: Well-developed, well nourished, in no apparent distress. Head: Normocephalic, atraumatic. Cardio: Regular rate and rhythm, s1 and s2 normal, no murmur appreciated. Resp: Clear to auscultation bilaterally, no rhonchi, rales, wheezing or rubs. Abdomen: Soft, pliable, bowel sounds present in all quadrants, suprapubic tender to palpation, no organomegly, no CVAT tenderness. Course Course Emergency Course: Portions of this r
[2023-02-20 10:05] VITALS: BP 105/63; PULSE 87; RESP 18; TEMP 37.2; O2SAT 96
== END 2023-02-20 10:14 | disposition home or self-care (01) ==
PROVIDERS: Emergency Provider Nurse Practitioner Family; PCP Physician Assistant
DX: N30.01 Acute cystitis with hematuria (principal); B96.89 Other specified bacterial agents as the cause of diseases classified elsewhere; M19.90 Unspecified osteoarthritis, unspecified site; E03.9 Hypothyroidism, unspecified; I48.0 Paroxysmal atrial fibrillation; I73.9 Peripheral vascular disease, unspecified; Z90.89 Acquired absence of other organs; Z79.82 Long term (current) use of aspirin
CPT/HCPCS: 81003; 87077; 87086; 87186; 99213; G0463

== ENCOUNTER 2023-04-28 13:57 | Outpatient (CLI) | payer OTHER, SELFPAY ==
--- NOTE | ~2023-04-28 | MM_ITS ---
EXAMINATION: MM screening carly BI w inna HISTORY: Screening mammogram TECHNIQUE: Craniocaudal and mediolateral oblique 3-D tomosynthesis images were obtained and synthetic 2-D images were generated. CAD analysis was submitted and interpreted. COMPARISON: 11/03/2021, 09/25/2020 bilateral screening mammogram examinations BREAST PARENCHYMAL COMPOSITION: The breasts are heterogeneously dense, which may obscure small masses . FINDINGS: baseboard heating installer device is again noted in the left breast. There is no evidence of suspiciou s mass, calcification, or architectural distortion to suggest malignancy in either breast. There has been no suspicious interval change. IMPRESSION: 1. No mammographic evidence of malignancy. 2. Recommend routine screening mammography in one year. BI-RADS Category 1: Negative Reviewed, dictated and finalized at location A. 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
== END 2023-04-28 13:58 | disposition home or self-care (01) ==
PROVIDERS: PCP Physician Assistant; Visit Provider Physician Assistant
DX: Z12.31 Encounter for screening mammogram for malignant neoplasm of breast (principal)
CPT/HCPCS: 77063; 77067

== ENCOUNTER 2023-07-14 13:30 | Outpatient (RCR) | payer OTHER, SELFPAY ==
--- NOTE | 2023-06-13 16:57 | OPREHPOC ---
Outpatient Therapy Plan of Care This is a Multidisciplinary Plan of Care that may contain components documented by all disciplines (PT, OT, and ST.) PT Problem 1 PT Problem #1 Knowledge Deficit PT Goal 1 Goal Pt will perform HEPs indep Target Visit 2 PT Problem 2 PT Problem #2 Pain PT Goal 1 Goal Pt will report a reduction in pain level to 2/10 when performing sitting and standing tasks Target Visit 6 PT Problem 3 PT Problem #3 Impaired Range of Motion PT Goal 1 Goal Pt will demonstrate WNL active neck ROMs without c /o pain. Target Visit 6
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
--- NOTE | 2023-07-27 16:31 | PCPTNOTE ---
Patient called & cancelled scheduled appointment this date due to not wanting have therapy session back to back.
--- NOTE | 2023-08-03 15:56 | PTOPDC ---
Assessment and note entered by Pinky Cornejo, PT Discharge Information Assessment Status Discharge - Pt Not Presen Diagnosis C5-C7 cervical disc degeneration Onset approx a year Assessment PT Clinical Summary Pt self-DC'd due to insurance issues, discontinued therapy at this time. Plan of Care PT Services Indicated No
== END 2023-08-04 08:45 | disposition home or self-care (01) ==
LOC: ANHPT 13:30
PROVIDERS: PCP Physician Assistant; Visit Provider Physician Assistant
DX: M50.30 Other cervical disc degeneration, unspecified cervical region (principal)
CPT/HCPCS: 97012; 97110; 97140; 97161; 97530

== ENCOUNTER 2023-07-29 10:39 | Emergency (ER) | payer OTHER, SELFPAY ==
[2023-07-29 10:52] VITALS: BP 129/65; PULSE 74; RESP 18; TEMP 37.2; O2SAT 98
--- NOTE | 2023-07-29 11:08 | ED.FEMALEGU ---
HPI - Female Genitourinary General Chief complaint: Urogenital-Female Stated complaint: Urinary Problems Time Seen by Provider: 07/29/23 11:06 Source: patient and RN notes reviewed Mode of arrival: ambulatory Limitations: no limitations History of Present Illness HPI Narrative: 63-year-old female presents with concern for 2 day history of dysuria, frequency, urgency, lower back pain, flank pain, abdominal spasms. Reports she took azo last night. She denies fever. Reports chills. She denies nausea vomiting MD elicited complaint: UTI Related Data Home Medications Medication Instructions Recorded Confirmed albuterol sulfate 90 mcg/actuation 90 mcg inhalation PRN PRN 07/23/19 07/29/23 aerosol inhaler Shortness Of Breath aspirin 81 mg chewable tablet 81 mg PO DAILY 07/23/19 07/29/23 atorvastatin 10 mg tablet 10 mg PO DAILY 01/08/22 07/29/23 lisinopril 10 mg tablet 10 mg PO DAILY 01/08/22 07/29/23 azelastine 0.05 % eye drops 1 drp EACH EYE BID 02/20/23 07/29/23 montelukast 10 mg tablet 10 mg PO DAILY 02/20/23 07/29/23 pantoprazole 20 mg tablet,delayed 20 mg PO DAILY 02/20/23 07/29/23 release sertraline 25 mg tablet 25 mg PO DAILY 02/20/23 07/29/23 zolpidem 10 mg tablet 10 mg PO HS 02/20/23 07/29/23 Allergies Allergy/AdvReac Type Severity Reaction Status Date / Time No Known Allergies Allergy Verified 07/29/23 10:46 Review of Systems Review of Systems: CONSTITUTIONAL: Denies malaise, chills, sweats, or fever. CARDIOVASCULAR: Denies chest pain, palpitations, or edema. RESPIRATORY: Denies cough or dyspnea. GASTROINTESTINAL: Denies abdominal pain, nausea, vomiting, diarrhea GENITOURINARY: Reports dysuria, frequency, urgency, suprapubic pressure. Denies flank pain or hematuria. SKIN: Denies rash or itching. MUSCULOSKELETAL: Denies back pain or myalgia. All systems reviewed & are unremarkable except as noted in HPI and below PMFSH Past Medical History Medical History Anemia Aortic dissection Arthritis Asthma Bowel obstruction Depression with anxiety Dissecting aneurysm of thoracic aorta, [place] type A (01/15/19) Eczema History of MRSA infection Hypothyroidism Ileostomy in place Paroxysmal atrial fibrillation Peripheral vascular disease (~03/23/19) 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 Ulcerative colitis Surgical History Surgical History History of aortic valve replacement with bioprosthetic valve History of section History of hysterectomy History of ileostomy History of laparoscopy With adhesiolysis. History of partial thyroidectomy History of repair of [place] type A dissecting aneurysm of thoracic aorta (01/15/19) Status post tube graft placement done at [facility]. Repair of what sounds like graft separation/leak was done in 05/2020. History of tonsillectomy Status post proctocolectomy Family History Family History Sibling Diabetes mellitus Mother Cancer Father Heart attack Social History Social History Social History: Surrogate decision maker: Hesham Tanvir, spouse. Code status: Full code. Smoking status: Never smoker Second hand tobacco smoke exposure: No Alcohol intake: never Substance use: never Substance use type: does not use Additional living arrangements comments: Lives with family in [place]. Comments At time of signature, agree with nursing past medical, surgical, social and family history. There is no relevant family history pertinent to the presenting complaint Exam Narrative: GENERAL: Well-appearing, well-nourished, and in no acute distress. HEAD: Normocephalic. EYES: PERRLA, conjunctivae clear. NECK: Supple. No lymphadenop
== END 2023-07-29 11:20 | disposition home or self-care (01) ==
PROVIDERS: Emergency Provider Nurse Practitioner
DX: N39.0 Urinary tract infection, site not specified (principal); B96.1 Klebsiella pneumoniae [K. pneumoniae] as the cause of diseases classified elsewhere; M19.90 Unspecified osteoarthritis, unspecified site; E03.9 Hypothyroidism, unspecified; I48.0 Paroxysmal atrial fibrillation; I73.9 Peripheral vascular disease, unspecified; Z95.2 Presence of prosthetic heart valve; Z90.89 Acquired absence of other organs; F41.8 Other specified anxiety disorders; Z79.82 Long term (current) use of aspirin
CPT/HCPCS: 81003; 87077; 87086; 87088; 87186; 99213; G0463

== ENCOUNTER 2023-10-19 08:26 | Outpatient (CLI) | payer OTHER, SELFPAY ==
[2023-10-19 08:56] LABS: Alanine Aminotransferase 32 U/L (6-35); Albumin Level 4.8 g/dL (3.5-5.1); Alkaline Phosphatase 75 U/L (38-126); Anion Gap 11 mmol/L (4-12); Aspartate Amino Transferase 34 U/L (14-36); Bilirubin,Total 0.6 mg/dL (0.2-1.3); Blood Urea Nitrogen 15 mg/dL (7-17); Calcium 9.2 mg/dL (8.4-10.2); Carbon Dioxide 30 mmol/L (22-30); Chloride 95 mmol/L (98-107); Cholesterol 168 mg/dL (0-200); Estimated Glomerular Filt Rate > 60; Glucose 104 mg/dL (65-110); HDL Direct 74 mg/dL; Sodium 136 mmol/L (137-145); Triglycerides 131 mg/dL (<150)
[2023-10-19 09:07] LABS: LDL Cholesterol Direct 56 mg/dL
[2023-10-19 09:11] LABS: Hemoglobin A1C 5.7 % (<5.7)
[2023-10-19 09:14] LABS: Vitamin D 25 Hydroxy 72.5 ng/mL
[2023-10-19 09:36] LABS: Basophils Percent Auto 0.8 % (0.2-1.2); Eosinophils Absolute Auto 0.1 K/mm3 (0-0.3); Eosinophils Percent Auto 2.7 % (0-4.4); Hematocrit 42.1 % (37.0-47.0); Hemoglobin 13.7 g/dL (12.0-15.0); Immature Granulocyte Absolute 0.02 K/mm3 (0.00-0.031); Immature Granulocyte Percent A 0.5 % (0-0.5); Lymphocytes Absolute Auto 0.76 K/mm3 (0.9-3.2); Lymphocytes Percent Auto 20.3 % (18.3-44.2); Mean Corpuscular HGB Conc 32.5 g/dl (32-36); Mean Corpuscular Volume 92.1 fl (80-100); Mean Platelet Volume 10.1 fl (7.4-10.4); Monocytes Absolute Auto 0.5 K/mm3 (0.1-0.6); Monocytes Percent Auto 12.8 % (2.6-8.5); Neutrophils Absolute Auto 2.4 K/mm3 (1.3-6.7); Neutrophils Percent Auto 62.9 % (45.5-73.1); Platelet Count Result 178 k/mm3 (150-375); Red Blood Count 4.57 M/mm3 (4.2-5.4); Red Cell Distribution Width 13.4 % (11.5-14.5); White Blood Count 3.8 K/mm3 (4.5-10.0)
== END 2023-10-19 08:27 | disposition home or self-care (01) ==
PROVIDERS: PCP Nurse Practitioner Family; Visit Provider Nurse Practitioner Family
DX: E78.5 Hyperlipidemia, unspecified (principal); I10 Essential (primary) hypertension; Z78.0 Asymptomatic menopausal state; K56.609 Unspecified intestinal obstruction, unspecified as to partial versus complete obstruction; J30.2 Other seasonal allergic rhinitis; I25.810 Atherosclerosis of coronary artery bypass graft(s) without angina pectoris; I48.0 Paroxysmal atrial fibrillation; R73.01 Impaired fasting glucose; E53.9 Vitamin B deficiency, unspecified; E55.9 Vitamin D deficiency, unspecified
CPT/HCPCS: 36415; 80053; 80061; 82306; 82607; 83036; 84443; 85025

== ENCOUNTER 2023-10-21 11:36 | Emergency (ER) | payer OTHER, SELFPAY ==
[2023-10-21 11:49] VITALS: BP 118/64; PULSE 72; RESP 20; TEMP 36.6; O2SAT 97
[2023-10-21] MEDS: LIDOCAINE HCL 1% LOCAL INJ 2 ML AMPUL 4 ML INFILTRATE (12:16)
[2023-10-21] MEDS: TETANUS,DIPHTHERIA,AC PERTUSSIS ADULT (0.5 ML) BOOSTRIX IM (12:17)
--- NOTE | 2023-10-21 12:33 | ED.LOWEXIN ---
HPI - Extremity Injury (Lower) General Chief Complaint: Extremity Injury, Lower Stated Complaint: right knee injury Time Seen by Provider: 10/21/23 12:15 Source: patient, RN notes reviewed and old records reviewed Mode of arrival: ambulatory Limitations: no limitations History of Present Illness HPI Narrative: Patient presents with laceration to right knee. She reports this happened just prior to arrival. Bleeding is controlled on arrival. She does need tetanus updated. She voices no other concerns or complaints at this time. Related Data Home Medications Medication Instructions Recorded Confirmed albuterol sulfate 90 mcg/actuation 90 mcg inhalation PRN PRN 07/23/19 10/21/23 aerosol inhaler Shortness Of Breath aspirin 81 mg chewable tablet 81 mg PO DAILY 07/23/19 10/21/23 atorvastatin 10 mg tablet 10 mg PO DAILY 01/08/22 10/21/23 lisinopril 10 mg tablet 10 mg PO DAILY 01/08/22 10/21/23 montelukast 10 mg tablet 10 mg PO DAILY 02/20/23 10/21/23 zolpidem 10 mg tablet 10 mg PO HS 02/20/23 10/21/23 Allergies Allergy/AdvReac Type Severity Reaction Status Date / Time No Known Allergies Allergy Verified 10/21/23 11:42 Review of Systems Review of Systems: All systems reviewed & are unremarkable except as noted in HPI and below Constitutional: Constitutional: Reports no additional constitutional complaints ENT: Reports system reviewed and no additional complaints, except as documented Cardiovascular: Cardiovascular: Reports no additional cardiovascular complaints Respiratory: Respiratory: Reports no additional respiratory complaints Gastrointestinal: Gastrointestinal: Reports no additional gastrointestinal complaints Integumentary/Breasts: Skin/Breast: Reports as per HPI [facility] Past Medical History Medical History Anemia Aortic dissection Arthritis Asthma Bowel obstruction Depression with anxiety Dissecting aneurysm of thoracic aorta, Myron type A (01/15/19) Eczema History of MRSA infection Hypothyroidism Ileostomy in place Paroxysmal atrial fibrillation Peripheral vascular disease (~03/23/19) 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 Ulcerative colitis Surgical History Surgical History History of aortic valve replacement with bioprosthetic valve History of section History of hysterectomy History of ileostomy History of laparoscopy With adhesiolysis. History of partial thyroidectomy History of repair of [place] type A dissecting aneurysm of thoracic aorta (01/15/19) Status post tube graft placement done at [facility]. Repair of what sounds like graft separation/leak was done in 05/2020. History of tonsillectomy Status post proctocolectomy Family History Family History Sibling Diabetes mellitus Mother Cancer Father Heart attack Social History Social History Social History: Surrogate decision maker: Hesham Ramey, spouse. Code status: Full code. Smoking status: Never smoker Second hand tobacco smoke exposure: No Alcohol intake: never Substance use: never Substance use type: does not use Additional living arrangements comments: Lives with family in [place]. Exam Const: General: cooperative, no acute distress, alert and awake Orientation/consciousness: oriented to person, oriented to place and oriented to time HENMT: Head: normal to inspection Resp: Effort & Inspection: normal respiratory effort and able to speak in complete sentences Auscultation: clear to auscultation bilaterally, no crackles, no rales, no rhonchi and no wheezes Cardio: Palpation: normal PMI Rate: regular rate Rhythm: regular rhythm Heart sounds: S1 normal heart sound present and S2 normal he
== END 2023-10-21 13:15 | disposition home or self-care (01) ==
PROVIDERS: Emergency Provider Nurse Practitioner Family; PCP Nurse Practitioner Family
DX: S81.011A Laceration without foreign body, right knee, initial encounter (principal); X58.XXXA Exposure to other specified factors, initial encounter; Z23 Encounter for immunization; M19.90 Unspecified osteoarthritis, unspecified site; J45.909 Unspecified asthma, uncomplicated; E03.9 Hypothyroidism, unspecified; I48.0 Paroxysmal atrial fibrillation; I73.9 Peripheral vascular disease, unspecified; Z95.2 Presence of prosthetic heart valve; Z90.89 Acquired absence of other organs; Z79.82 Long term (current) use of aspirin
CPT/HCPCS: 12001; 90471; 90715; 99212; G0463

== ENCOUNTER 2023-11-29 23:04 | Emergency (ER) | payer OTHER, SELFPAY ==
--- NOTE | ~2023-11-29 | CT_ITS ---
Clinical Indication: Chest pressure CT Scan of the Chest, Abdomen, and Pelvis with Contrast: Technique: Contiguous sections were acquired throughout the chest, abdomen, and pelvis after intraven ous administration of 100 cc of Omnipaque 350. Dose reduction technique was used on this scan by iris cabrales automated exposure control and iterative reconstruction technique. The dose-length product (DL P) was 379.67 mGy-cm. Comparison: 05/22/2021 Findings: There is no evidence of any significant mediastinal, hilar or axillary lymphadenopathy. There is diss ection extending from the proximal aortic arch and through the entirety of the descending thoracic ao rta and into the abdominal aorta extending to the level of the bifurcation and just into the left com mon iliac artery. Questionable extension of dissection into the ascending aorta versus changes relate d to repair of ascending aortic aneurysm. Descending thoracic aorta measures up to 4.5 cm in maximum diameter. No pulmonary embolus. Status post aortic valve replacement. There is no evidence of pleural or pericardial effusion. The lungs are clear. No pulmonary nodules or infiltrates are noted. The liver, spleen, pancreas, gallbladder, adrenals and kidneys are within normal limits. No evidence of aortic aneurysm. No lymphadenopathy. Status post total colectomy with right lower quadrant ileostomy present. No bowel obstruction or karen l wall thickening evident. Urinary bladder is unremarkable. No pelvic mass seen. No ascites. Impression: Extensive aortic dissection extending from the proximal aortic arch to the entirety of the descending thoracic and abdominal aorta and just into the left common iliac artery. Probable changes of repair of ascending aortic aneurysm rather than dissection extension. Appearance is similar to prior exam. Descending thoracic aorta measures up to 4.5 cm in diameter. Status post colectomy with ileostomy. Reviewed, dictated and finalized at [facility]. Impression: Extensive aortic dissection extending from the proximal aortic arch to the enti rety of the descending thoracic and abdominal aorta and just into the left comm on iliac artery. Probable changes of repair of ascending aortic aneurysm rather than dissection extension. Appearance is similar to prior exam. Descending thoracic aorta measures up to 4.5 cm in diameter. Status post colectomy with ileostomy.
--- NOTE | ~2023-11-29 | XR_ITS ---
XR chest 2V Ordering provider: Jose Martin Lynch MD History: 63 years Female with . SOB HX OF 2 ACENDING AORTIC ANEURYSM REPAIRS . Comparison: May 22, 2021 FINDINGS: MEDIASTINUM: The cardiac silhouette is not enlarged. Device is projected over the left hemithorax. Po stoperative changes in the heart and mediastinum. LUNGS: No infiltrates, effusions or pneumothorax. OTHER: No free air under the diaphragm. Slight loss of volume of T12 and T11 is noted unchanged. Degenerative the spine. IMPRESSION: No acute cardiopulmonary pathology. No significant change from previous examination. Reviewed, dictated and finalized at [facility]. IMPRESSION: No acute cardiopulmonary pathology. No significant change from previous examina tion.
--- NOTE | 2023-11-29 23:08 | ECG_ITS ---
Test Date: 2023-11-29 23:11:52 Measurements Intervals [place] Rate: 61 P: 44 ND: 191 QRS: 104 QRSD: 89 T: 81 QT: 419 QTc: 425 Interpretive Statements SINUS RHYTHM MARKED RIGHT AXIS DEVIATION [QRS AXIS > 100] LOW QRS VOLTAGE IN PRECORDIAL LEADS [QRS DEFLECTION < 1.0 mV IN CHEST LEADS] POSSIBLE RIGHT VENTRICULAR CONDUCTION DELAY [RSR (QR) IN V1/V2] CANNOT EXCLUDE PREVIOUS ANTEROSEPTAL INFARCTION ABNORMAL ELECTROCARDIOGRAM No previous ECG available for comparison Electronically Signed On 11-30-2023 07:23:06 CDT by Erlin Newsome M.D.
[2023-11-29 23:25] VITALS: BP 138/60; PULSE 68; RESP 16; TEMP 36.7; O2SAT 99
[2023-11-30] VITALS (7 sets, daily range): BP systolic 108–150; BP diastolic 48–84; PULSE 63–80; RESP 17–22; O2SAT 100
[2023-11-30 00:23] LABS: Basophils Absolute Auto 0.1 K/mm3 (0.0-0.1); Basophils Percent Auto 0.9 % (0.2-1.2); Eosinophils Absolute Auto 0.2 K/mm3 (0-0.3); Eosinophils Percent Auto 2.8 % (0-4.4); Hemoglobin 12.5 g/dL (12.0-15.0); Immature Granulocyte Absolute 0.01 K/mm3 (0.00-0.031); Immature Granulocyte Percent A 0.2 % (0-0.5); Lymphocytes Absolute Auto 1.27 K/mm3 (0.9-3.2); Lymphocytes Percent Auto 23.8 % (18.3-44.2); Mean Corpuscular HGB Conc 32.9 g/dl (32-36); Mean Corpuscular Hemoglobin 29.9 pg (26-34); Mean Corpuscular Volume 90.9 fl (80-100); Mean Platelet Volume 9.7 fl (7.4-10.4); Monocytes Absolute Auto 0.7 K/mm3 (0.1-0.6); Monocytes Percent Auto 13.9 % (2.6-8.5); Neutrophils Absolute Auto 3.1 K/mm3 (1.3-6.7); Neutrophils Percent Auto 58.4 % (45.5-73.1); Platelet Count Result 144 k/mm3 (150-375); Red Blood Count 4.18 M/mm3 (4.2-5.4); Red Cell Distribution Width 12.7 % (11.5-14.5); White Blood Count 5.3 K/mm3 (4.5-10.0)
[2023-11-30 00:35] LABS: Alanine Aminotransferase 19 U/L (6-35); Albumin Level 4.5 g/dL (3.5-5.1); Alkaline Phosphatase 81 U/L (38-126); Anion Gap 7 mmol/L (4-12); Aspartate Amino Transferase 29 U/L (14-36); Bilirubin,Total 0.4 mg/dL (0.2-1.3); Blood Urea Nitrogen 17 mg/dL (7-17); Carbon Dioxide 29 mmol/L (22-30); Chloride 98 mmol/L (98-107); Estimated CRCL calculation 68 ml/min; Estimated Glomerular Filt Rate > 60; Glucose 101 mg/dL (65-110); Potassium 3.8 mmol/L (3.4-5.0); Sodium 134 mmol/L (137-145)
[2023-11-30 00:59] LABS: Influenza A QL RT-PCR Negative (Negative); Influenza B QL RT-PCR Negative (Negative); SARS-CoV-2 RNA PCR Negative (Negative)
--- NOTE | 2023-11-30 02:05 | ED.GENADULT ---
HPI - General Adult General Chief complaint: Shortness of Breath/Dyspnea Stated complaint: anxiety, difficulty breathing, confusion Time Seen by Provider: 11/30/23 01:43 History of Present Illness HPI narrative: 63 old female presenting to the emergency department for multiple complaints including generalized fatigue and chest tightness over the course of the last 2 weeks. Patient does have prior history of a prior surgery for aortic aneurysms and patient does have artificial valve replacement. Patient reports had a our cannulas removed repair initially at [facility] and 2018 then again at [place] and 2020 and had her aortic valve replacement at that time as well. Patient denies any associated chest pain. Patient denies any associated shortness of breath. Patient does not feel that she currently has her brain fog. Related Data Home Medications Medication Instructions Recorded Confirmed albuterol sulfate 90 mcg/actuation 90 mcg inhalation PRN PRN 07/23/19 11/30/23 aerosol inhaler Shortness Of Breath aspirin 81 mg chewable tablet 81 mg PO DAILY 07/23/19 11/30/23 atorvastatin 80 mg tablet 80 mg PO DAILY 11/18/23 11/30/23 lisinopril 5 mg tablet 5 mg PO DAILY 11/18/23 11/30/23 Allergies Allergy/AdvReac Type Severity Reaction Status Date / Time No Known Allergies Allergy Verified 11/29/23 23:17 Review of Systems Review of Systems: All systems reviewed & are unremarkable except as noted in HPI and below PMFSH Past Medical History Medical History Anemia Aortic dissection Arthritis Asthma Bowel obstruction Depression with anxiety Dissecting aneurysm of thoracic aorta, [place] type A (01/15/19) Eczema History of MRSA infection Hypothyroidism Ileostomy in place Paroxysmal atrial fibrillation Peripheral vascular disease (~03/23/19) 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 Ulcerative colitis Surgical History Surgical History History of aortic valve replacement with bioprosthetic valve History of section History of hysterectomy History of ileostomy History of laparoscopy With adhesiolysis. History of partial thyroidectomy History of repair of [place] type A dissecting aneurysm of thoracic aorta (01/15/19) Status post tube graft placement done at [facility]. Repair of what sounds like graft separation/leak was done in 05/2020. History of tonsillectomy Status post proctocolectomy Family History Family History Sibling Diabetes mellitus Mother Cancer Father Heart attack Social History Social History Social History: Surrogate decision maker: Hesham Ramey, spouse. Code status: Full code. Smoking status: Never smoker Second hand tobacco smoke exposure: No Alcohol intake: never Substance use: never Substance use type: does not use Additional living arrangements comments: Lives with family in [place]. Exam Narrative: APPEARANCE: Well appearing, no pain, no distress, well-nourished. HEAD: normocephalic, atraumatic. EYES: PERRLA/EOMI, conjunctivae clear. NOSE: Normal no drainage EARS:TMS clear with good light reflex. THROAT: Pharynx clear, no exudate. NECK: Supple. No adenopathy, no masses. RESPIRATORY: Airway patent, respirations nonlabored. Clear to auscultation bilaterally, no rales, rhonchi, wheezing. CARDIOVASCULAR: Regular rate and rhythm without murmurs rubs or gallops. Distal pulses intact bilaterally for upper and lower extremity ABDOMINAL: Soft, nontender, nondistended, normal bowel sounds MUSCULOSKELETAL: Moves all extremities. Strength/ROM intact, No edema, No calf tenderness. NEURO: Alert. Cranial nerves II through XII intact. Good gait. Good coordination SKIN: Warm,
[2023-11-30 02:34] LABS: Troponin I < 0.012 ng/mL (0.000-0.034)
[2023-11-30] MEDS: hydrALAZINE HCL 20 MG/ML VIAL 10 MG IV PUSH (02:50)
[2023-11-30] MEDS: MORPHINE SULFATE (*CRX) 4 MG/ML INJ IV PUSH (02:50)
[2023-11-30] MEDS: ONDANSETRON INJ 4 MG/2 ML VIAL IV PUSH (03:32)
--- NOTE | 2023-11-30 03:34 | ECG_ITS ---
Test Date: 2023-11-30 03:37:59 Measurements Intervals [place] Rate: 64 P: 75 LA: 201 QRS: 76 QRSD: 102 T: 76 QT: 447 QTc: 463 Interpretive Statements SINUS RHYTHM RV CONDUCTION DELAY CANNOT EXCLUDE PREVIOUS SEPTAL INFARCTION ABNORMAL ELECTROCARDIOGRAM Compared to ECG 11/29/2023 23:11:52 NO DIFFERENCE Electronically Signed On 11-30-2023 07:24:42 CDT by Erlin Newsome M.D.
[2023-11-30 03:38] LABS: Lipase 139 U/L (23-300)
[2023-11-30 04:03] LABS: Troponin I < 0.012 ng/mL (0.000-0.034)
== END 2023-11-30 04:29 | disposition home or self-care (01) ==
PROVIDERS: Emergency Provider Emergency Medicine; PCP Nurse Practitioner Family
DX: R07.89 Other chest pain (principal); R41.9 Unspecified symptoms and signs involving cognitive functions and awareness; Z20.822 Contact with and (suspected) exposure to COVID-19; I48.0 Paroxysmal atrial fibrillation; I73.9 Peripheral vascular disease, unspecified; E89.0 Postprocedural hypothyroidism; J45.909 Unspecified asthma, uncomplicated; K51.90 Ulcerative colitis, unspecified, without complications; M19.90 Unspecified osteoarthritis, unspecified site; Z93.2 Ileostomy status; Z95.2 Presence of prosthetic heart valve; Z86.14 Personal history of Methicillin resistant Staphylococcus aureus infection; Z86.2 Personal history of diseases of the blood and blood-forming organs and certain disorders involving the immune mechanism; Z79.82 Long term (current) use of aspirin; Z79.899 Other long term (current) drug therapy; Z90.49 Acquired absence of other specified parts of digestive tract
CPT/HCPCS: 36415; 71046; 71275; 74174; 80053; 83690; 84484; 85025; 87636; 93005; 96374; 96375; 99284; J0360; J2270; J2405; Q9967

== ENCOUNTER 2024-06-26 18:06 | Emergency (ER) | payer MEDICARE, SELFPAY ==
--- OUTSIDE RECORDS SUMMARY | 2024-06-26 18:09 | XMS_ITS | Clinical Summary ---
Author Organization [facility] Address [address] [place] [id number] Care Team Providers Care Instructional Interventionist Name Role Phone Unavailable Primary Care Provider Unavailabl e Social History Tobacco Use Types Packs/Day Years Used Date Smoking Tobacco: Never Assessed Comments Unknown Sex and Gender Information Value Date Recorded Sex Assigned at Not on file Legal Sex Female 6:49 PM CDT Gender Identity Not on file Sexual Orientation Not on file Last Filed Vital Signs Vital Sign Reading Time Taken Comments Blood Pressure 102/70 01/03/2012 5:40 PM CELL OPERATOR Pulse 85 01/03/2012 5:40 PM CELL OPERATOR Temperature - - Respiratory Rate - - Oxygen Saturation - - Inhaled Oxygen Concentration - - Weight 58.1 kg (128 lb) 01/03/2012 5:40 PM CELL OPERATOR Height 170.2 cm (5' 7 ) 01/03/2012 5:40 PM CELL OPERATOR Body Mass Index 20.05 01/03/2012 5:40 PM CELL OPERATOR Plan of Treatment Health Maintenance Due Date Last Done Comments Colorectal Cancer Screening Colonoscopy (10 Years) 1959 Hepatitis C 05/17/1977 DTaP, Tdap and Td Vaccines ( 1 - Tdap) 05/17/1978 Mammogram Screening 1999 Pneumococcal Vaccine: 50+ Ye ars (1 of 1 - PCV) 05/17/2009 Zoster Vaccines (1 of 2) 05/17/2009 COVID-19 Vaccine (1 - 2023-2 5 season) 2023 PHQ-2 (Physician [place]) 02/22/2024 Dexa Scan (General) 05/17/2024 RSV Immunization or 60+ Years (1 - 1-dose 75+ series) 05/17/2034 Meningococcal B Vaccine Aged Out No l onger eligible based on patient's age to complete this topic Meningococcal Vaccine Aged Out No laly isis eligible based on patient's age to complete this topic RSV Immunizations Under 20 Months Aged Out No longer eligible based on patient's age to complete this topic Insurance [employer]
--- OUTSIDE RECORDS SUMMARY | 2024-06-26 18:09 | XMS_ITS | Encounter Summary ---
Author Organization [facility] [place] Address [address] [place] [address] Phone Care Team Providers Care Stoker Erector And Servicer Name Role Phone Perla Gomez MD Primary Care Provider [phone] Lynn Shipman Primary Care Provider [phone] Perla Gomez MD Unavailable [phone] Rajat Paul MD Unavailable Brandyn Abdi DO Primary Care Provider [phone] Pearl Akbar NP Primary Care Provider [phone] Encounter Details Date Type Department Care Team (Latest Contact Info) Description 06/30/2021 Orders Only [facility] Scanning, Provider Social History Tobacco Use Types Packs/Day Years Used Date Smoking Tobacco: Former Smokeless Tobacco: Never AUDIT-C Answer Date Recorded Q1: How often do you have a drink containing alc ohol? Never 06/18/2020 Q2: How many drinks containi ng alcohol do you have on a typical day when you are drinking? 1 or 2 06/18/2020 Q3: How often do you have six or more drinks on one occasion? Never 06/18/2020 Comments No Sex and Gender Information Value Date Recorded Sex Assigned at Not on file Legal Sex Female 8:18 AM CDT Gender Identity Not on file Sexual Orientation Not on file documented as of this encounter Plan of Treatment Not on file documented as of this encounter Procedures Procedure Name Priority Date/Time Associated Diagnosis Comments CARDIOLOGY DOCUMENT SCAN 06/30/2021 documented in this encounter Results * CARDIOLOGY DOCUMENT SCAN (06/30/2021) Anatomical Region Laterality Modality Other us Provider Scanning CV CARDIAC SERVICES PROCEDURES Final Result documented in this encounter Visit Diagnoses Not on filedocumented in this encounter Care Teams Stoker Erector And Servicer Relationship Specialty Start Date End Date Perla Gomez MD PCP - General Family Medicine 06/10/20 08/17/22 Lynn Shipman PA [address] [place] [id number] PCP - General Physician Pipe Organ Mechanic Apprentice 08/18/22 09/07/22 Brandyn Abdi DO [address] [id number] PCP - General Internal Medicine 09/08/22 12/06/23 Pearl Akbar, TOP AND TRIM WORKER [address] [place] [address] PCP - General Family Medicine 12/07/23 Perla Goemz MD Family Medicine 08/18/22 09/05/22 Rajat Paul MD [address] [place] [id number] Surgeon Cardiothoracic Surgery 06/24/20 7 3 documented as of this encounter
--- OUTSIDE RECORDS SUMMARY | 2024-06-26 18:09 | XMS_ITS | Clinical Summary ---
Author Organization [facility] Address [address] [place] [address] Care Team Providers Care Digital Advisor Name Role Phone Perla Gomez MD Primary Care Provider [phone] Perla Gomez MD Unavailable [phone] Source Comments [facility],non-owned Affiliates and Associated Physician Practices is amultiple site organization consisting of ambulatory clinics and hospital sitesin [place], [place], [place] and [place]. This disclosure is being madepursuant to the Care Everywhere program and may not contain all information available regarding this patient. Last updated 17.[facility] [employer] ([place]) Allergies No known active allergies Medications * Be aware that medications may not be up to date on this document. Alwaysverify current medications with the patient. aspirin (ASPIRIN) 81 MG chew tablet Take 1 tablet by mouth once daily 100 tablet 3 9 Active acetaminophen (TYLENOL) 325 MG tablet Take 2 tablets by mouth every 4 hours Maximum allowable Acetaminophen amount = 4 Grams (4000 mg) / 24 hours. 30 tablet 0 Active metoprolol succinate XL 24hr (TOPROL XL) 200 MG tablet Take 1 tablet by mouth once daily 90 tablet 3 1 Active Cholecalcifero l (VITAMIN D3) 25 MCG (1000 UT) Take 2 capsules by mouth once daily Active albuterol HFA (PROVENTIL;RUSS TOLIN;PROAIR) 108 (90 Base) MCG/ACT inhaler Inhale 2 puffs by mouth Active metoprolol succinate XL 24hr (TOPROL XL) 100 MG tablet 2 Active atorvastatin (LIPITOR) 80 MG tablet TAKE 1 TABLET BY MOUTH EVERYDAY AT BEDTIME 2 Active sertraline (ZOLOFT) 100 MG tablet Take 100 mg by mouth 2 Active Active Problems Problem Noted Date Diagnosed Date Paroxysmal atrial fibrillation 06/06/2020 History of aortic dissection 06/06/2020 Paroxysmal A-fib 10/10/2019 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 Will reach out to vascular for Recs on NOAC. Assessment & Plan (04/05/2019 11:59 AM TIRE BUILDER OPERATOR): Warfarin, follow up with vascular. Paroxysmal atrial fibrillation 02/02/2019 Assessment & Plan (10/19/2019 2:25 PM CDT): Post Operative AFIB: with reoccurrence. Continue BB. With recent SFA occlusion, suspected to be embolic, pt will require AC, now on warfarin, despite [id number] of 1. Will reach out to vascular for recs on NOAC. Follow up with EP for rhythm control recs. Assessment & Plan (04/05/2019 12:05 PM TIRE BUILDER OPERATOR): Post Operative AFIB: No events on monitor, stop amio. Continue BB. With recent SFA occlusion, suspected to be embolic, pt will require AC, now on warfarin, despite NEOSo1IHGX of 1. . Assessment & Plan (02/02/2019 9:24 AM TIRE BUILDER OPERATOR): Post Operative AFIB: Continue Amio, check TSH and PFTS for baseline. Event Monitor to quantify. Increase Metoprolol to 50mg BID. Hx of CABG 02/02/2019 Assessment & Plan (04/05/2019 11:59 AM TIRE BUILDER OPERATOR): SVG to RCA secondary to acute dissection. Continue medical management with ASA, statin, and Metoprolol. Assessment & Plan (02/02/2019 9:25 AM TIRE BUILDER OPERATOR): SVG to RCA secondary to acute dissection. Continue medical management with ASA, statin, and Metoprolol. Type 1 dissection of ascending aorta 01/16/2019 Assessment & Plan (10/19/2019 2:36 PM CDT): Stable, sp Ascending aorta graft with cardiopulmonary bypass using 34 mm Hemashield graft on 01/15 at [facility] per Dr. Alegre. SBP remains stable, continue BB. Stable on CT 03/24. Assessment & Plan (04/05/2019 11:56 AM TIRE BUILDER OPERATOR): Stable, sp Ascending aorta graft with cardiopulmonary bypass using 34 mm Hemashield graft on 01/15 at [facility] per Dr. Alegre. SBP remains stable, pt is orthostatic in clinic today, decrease Metoprolol to 12.5mg daily. Continue to log BP and bring to follow up. Stable on CT 03/24. S/P aortic dissection repair 01/16/2019 Assessment & Plan (02/02/2019 9:28 AM TIRE BUILDER OPERATOR): Stable, sp Ascending aorta graft with cardiopulmonary bypass using 34 mm Hemashield graft on 01/15 at [facility] per Dr. Alegre. SBP remains slightly above goal would like SBP less than 120. At home she is running high 120's, increase Metoprolol to 50mg Twice a day. Echo same day as Dr. Alegre apppointment. Continue to log BP and bring to follow up. Formal ECHO. Pt is Euvolemic on Exam with good lung sounds throughout and completed post operative course of Lasix, has a Chest Xray Pending. Will await read for additional diuretics deferred to CTS visit next week. 02/[address] Alegre. Other chest pain 01/15/2019 Immunizations Immunization Administration Dates Next Due INFLUENZA VACCINE 10/22/2018 INFLUENZA VACCINE, QUADR. (F LUZONE; FLULAVAL; FLUARIX; AFLURIA QUADRIVALENT; 6MO+), 0.5 ML (IIV4) 11/22/2019 TDAP (7yrs+) 09/03/2016 Social History Tobacco Use Types Packs/Day Years Used Date Smoking Tobacco: Never Smokeless Tobacco: Never Tobacco Cessation:Counseling Given: No Alcohol Use Standard Drinks/Week Comments Not Currently 0 (1 standard drink = 0.6 oz pur e alcohol) AUDIT-C Answer Date Recorded Q1: How often do you have a drink containing alc ohol? Never 06/06/2020 Average Number of Drinks Not on file 021 Frequency of Binge Drinking Not on file 05/22 Comments No Sex and Gender Information Value Date Recorded Sex Assigned at Not on file Legal Sex Female 3:05 PM TIRE BUILDER OPERATOR Gender Identity Not on file Sexual Orientation Not on file Last Filed Vital Signs Vital Sign Reading Time Taken Comments Blood Pressure 120/78 09/07/2021 10:56 AM CDT Pulse 66 09/07/2021 10:56 AM CDT Temperature 36.7 C (98.1 F) 09/07/2021 10:56 AM CDT Respiratory Rate 20 07/02/2021 2:25 PM CDT Oxygen Saturation 96% 09/07/2021 10:56 AM CDT Inhaled Oxygen Concentration 40% 03/26/2019 1 0:36 AM TIRE BUILDER OPERATOR Weight 60.8 kg (134 lb) 09/07/2021 10:56 AM CDT Height 170.2 cm (5' 7 ) 09/07/2021 10:56 AM CDT Body Mass Index 20.99 09/07/2021 10:56 AM CDT Plan of Treatment Health Maintenance Due Date Last Done Comments BONE DENSITY TESTING 1960 COLOGUARD (AGES 45-75) - COLON CA SCREENING 1960 COLON MONITORING 1960 COLONOSCOPY - COLON CA SCREENING 1959 CT COLONOGRAPHY - COLON CA SCREENING 1960 Colorectal Cancer Screening 1960 FIT - COLON CA SCREENING 1960 FLEX SIG - COLON CA SCREENING 1960 MAMMOGRAM 1960 PAP SMEAR 1960 PNEUMOCOCCAL VACCINE 50+ (1 of 1 - PCV) 05/17/2009 ZOSTER VACCINE (1 of 2) 05/17/2009 Respiratory Syncytial Virus (RSV) Vaccine Pt: or over 60 yrs (1 - Risk 60-74 years 1-dose series) 2019 COVID-19 VACCINE ( season) 2023 08/11/2020, 07/02/2020, 05/21/2020 DEPRESSION SCREENING 02/22/2024 MEDICARE AWV CALENDAR YEAR 2024 INFLUENZA VACCINE (Season Ended) 2024 02/04/2021, 12/12/2020, 11/22/2019, Additional history exists DTAP/TDAP/TD VACCINES (2 - Td or Tdap) 09/03/2026 09/03/2016 HEPATITIS C SCREENING Completed 06/04/2021, 022 HIV SCREENING Completed 06/04/2021 HEPATITIS B VACCINE Aged Out No longe r eligible based on patient's age to complete this topic HIB VACCINE Aged Out No longer eligi ble based on patient's age to complete this topic HPV VACCINE Aged Out No longer eligi ble based on patient's age to complete this topic MENINGOCOCCAL (Group B) VACCINE SHARED DECISION-MAKING Aged Out No longer eligible based on patient's age to complete this topic MENINGOCOCCAL GROUPS A/C/Y/W VACCINE Aged Out No longer eligible based on patient's age to complete this topic Medical Devices Implanted Type Area Physician Assistant Certified Device Identifier Shelf Expiration Date Model / Serial / Lot Graft Cv 34mm 30cm Hmsh Pl Polystr 2 Vlr - [id number] Implanted:Qty: 1 on 01/15/2019 by Josue Alegre MD at [facility] N/A: Aorta Maquet 11/20/2021 [id number] / [id number] Description:GTIN: [id number] Graft Cv 8mm 30cm Hmsh Pl Polystr 2 Vlr - [id number] Implanted:Qty: 1 on 01/15/2019 by Josue Alegre MD at [facility] N/A: Aorta Maquet 11/20/2022 [id number] / [id number] Description:GTIN: [id number] Cubero Tefl Implanted:Qty: 4 on 01/15/2019 by Josue Alegre MD at [facility] N/A: Aorta Bard Peripheral Vascular 03/16/2023 [id number] / / [id number] 8 Hl Strnm Strnlck Ze 2.4 Mm Implanted:Qty: 2 on 01/15/2019 by Josue Alegre MD at [facility] N/A: Sternum Bina Biomet [id number] / / Screw 2.4mm 12mm Slf Drl Lck Strnl Canc Implanted:Qty: 16 on 01/15/2019 by Josue Alegre MD at [facility] N/A: Sternum Bina Biomet [id number] / / Screw 2.4mm 14mm Slf Drl Lck Strnl Canc Implanted:Qty: 8 on 01/15/2019 by Josue Alegre MD at [facility] N/A: Sternum Bina Biomet [id number] / / 8-Hole Jl Plate Implanted:Qty: 1 on 01/15/2019 by Josue Alegre MD at [facility] N/A: Sternum Bina Biomet [id number] / / Sys Crd Mntr Rvl Linq Ii - [id number] Implanted:Qty: 1 on 06/30/2021 by Erik Lance MD at [facility] Left: Chest Medtron [place] 04/15/2022 [id number] / [id number] / Description:loop recorder Procedures Procedure Name Priority Date/Time Associated Diagnosis Comments HEPATITIS C RNA QUANTITATIVE Routine 06/04/2021 10:42 AM CDT HIV-1 HIV-2 ANTIBODY + HIV P24 AG PANEL STAT 06/04/2021 10:42 AM CDT from Last 3 Months or Most Recently Relevant to Health Maintenance Results * HIV-1 HIV-2 ANTIBODY + HIV P24 AG PANEL (06/04/2021 10:42 AM CDT) HIV Antigen/Antibod y 1 & 2 Non-reacti ve Non-react felix 06/04/2021 12:09 PM CDT [facility] Comment:No Laboratory eviden ce of HIV infection. Blood BLOOD SPECIMEN / Unknown Venipuncture / Unknown 06/04/2021 10:42 AM CDT 06/04/2021 10:48 AM CDT Dee Ramirez MD LAB - CHEMISTRY ORDERABLES F inal Result [facility] [address] [place] [address], [place] [phone] * HEPATITIS C RNA QUANTITATIVE (06/04/2021 10:42 AM CDT) [facility] Hepatitis C RNA PCR, Interp Not detected Not detected 06/08/2021 12:[address] [facility] Blood BLOOD SPECIMEN / Unknown Venipuncture / Unknown 06/04/2021 10:42 AM CDT 06/04/2021 12:[address] [facility] - 06/08/2021 12:18 PM CDT The Hepatitis C viral (HCV) RNA analysis utilized a serum sample, real-time reverse spa concierge PCR, and is reported as Not Detected, Detected (<12 IU/mL), Quantity (IU/mL) or >30,000,000 IU/mL. The limit of quantitation of the assay is 12 IU/mL (100% of samples with this HCV RNA level were detected). The linear range is from 12 IU/mL to 30,000,000 IU/mL. Values less than 12 IU/mL are reported as Detected (<12 IU/mL). Values greater than 30,000,000 IU/mL are reported as >30,000,000 IU/mL. The detection/quantitation of HCV RNA in serum is based on the isolation of HCV RNA with reverse spa concierge of genomic HCV RNA followed by real-time PCR in the presence of an unrelated RNA internal control. The internal control ensures that RNA is isolated, and that no general significant inhibitors of the RT-PCR process are present. The analysis was performed using a U.S. FDA approved test methodology (Canlife Real Time HCV). us Dee Ramirez MD LAB - CHEMISTRY ORDERABLES F inal Result [facility] [address] [place] [address], [place] [phone] from Last 3 Months or Most Recently Relevant to Health Maintenance Insurance [facility] MEDICAID - [place] [facility] * Guarantor: ERI ROLON Account Type Relation to Patient Date of Phone Billing Address Personal/Family [phone] Advance Directives * Full Code (Latest Code Status on File) Date Activated Date Inactivated Comments 06/06/2020 4:01 PM 06/08/2020 4:29 PM * Full Code Date Activated Date Inactivated Comments 10/10/2019 4:33 AM 10/10/2019 8:00 AM * Full Code Date Activated Date Inactivated Comments 03/23/2019 2:45 PM 03/28/2019 12:01 PM * Full Code Date Activated Date Inactivated Comments 01/16/2019 12:03 AM 01/22/2019 4:11 PM Care Teams Digital Advisor Relationship Specialty Start Date End Date Perla Gomez MD [address] [place] [address] PCP - General Family Medicine 06/06/20 Perla Gomez MD [facility] [place] [address] 06/06/20
--- OUTSIDE RECORDS SUMMARY | 2024-06-26 18:09 | XMS_ITS | Referral Summary ---
Author Organization [facility] [address] Address [address] [place] [address] Care Team Providers Care Commercial Marketing Specialist Name Role Phone Pearl Akbar NP Primary Care Provider [phone] Allergies No known active allergies Medications aspirin 81 mg chewable tabletIndicati ons:primary prevention of coronary heart disease Take 1 tablet (81 mg total) by mouth early childhood education instructor before breakfast 01/24/20 19 Active atorvastatin (LIPITOR) 80 mg tabletIndicati ons:hyperlipid emia Take 1 tablet (80 mg total) by mouth early childhood education instructor before breakfast 01/23/20 19 Active cholecalcifero l (VITAMIN D-3) 1,000 unit capsuleIndicat ions:Vitamin D Deficiency Take 2 capsules (2,000 Units total) by mouth early childhood education instructor before breakfast Active zolpidem (AMBIEN) 10 mg tabletIndicati ons:Sleep-Onse t Insomnia Take 1 tablet (10 mg total) by mouth nightly as needed for sleep Active calcium carbonate (OS-STAN) 1,500 mg (600 mg of elemental calcium) tabletIndicati ons:Hypocalcem ia Prevention Take 1,000 mg of elemental calcium by mouth early childhood education instructor before breakfast Active albuterol HFA (PROVENTIL HFA,VENTOLIN HFA,PROAIR HFA) 90 mcg/actuation inhalerIndicat ions:Acute Asthma Attack Inhale 2 puffs every 6 (six) hours as needed for wheezing Active buPROPion SR (ZYBAN) 150 mg 12 hr tablet Take 1 tablet (150 mg total) by mouth daily Active lisinopriL (PRINIVIL,ZEST RIL) 10 mg tablet Take 1 tablet (10 mg total) by mouth daily 07/01/19 23 Active sertraline (ZOLOFT) 100 mg tablet Take 1 tablet (100 mg total) by mouth daily Active metoprolol XL (TOPROL-XL) 50 mg extended release tablet Take 1 tablet (50 mg total) by mouth daily 08/19/19 23 Active ARIPiprazole (ABILIFY) 2 mg tablet Take 1 tablet (2 mg total) by mouth daily 12/16/19 24 Active tiZANidine (ZANAFLEX) 2 mg tablet TAKE 1-2 TABLET(S) BY MOUTH DAILY AT BEDTIME 180 tablet 05/29/19 25 Active tiZANidine (ZANAFLEX) 2 mg tablet TAKE 1-2 TABLET(S) BY MOUTH DAILY AT BEDTIME 180 tablet 03/02/19 25 025 Discontinued Active Problems Problem Noted Date Diagnosed Date Episodic confusion 01/13/2024 Encounter for surgical after care following surgery on the circulatory system 08/14/2020 Pain, acute 06/23/2020 Assessment & Plan (06/23/2020 1:47 PM CDT): Continue prn acetaminophen Continue prn oxycodone Anemia due to blood loss, acute 06/23/2020 Assessment & Plan (06/24/2020 10:49 AM CDT): Expect a slow increment to normal Atrial fibrillation 06/21/2020 Assessment & Plan (06/23/2020 1:51 PM CDT): Postop AF with RVR on 06/19 Added amiodarone TID on 06/19 5/3 SR QTC 447 Change amiodarone to 400mg daily DVT (deep venous thrombosis) 06/21/2020 Assessment & Plan (06/24/2020 10:52 AM CDT): Hx of DVT - was on Eliquis Will not restart at discharge due to two major surgeries. 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 Paul for total arch replacement. Redo sternotomy, zone 2 arch replacement (with 26 graft, 18 branch graft to innominate/L carotid arteries), bioBentall aortic root replacement (23 ME AV in 26 graft, 10 cabrol to LCA) reimplant of SVG-RCA bypass Innominate artery cannulation for CPB (via 8 chimney) Moderate hypothermic circulatory arrest with antegrade cerebral perfusion TTF 06/20 06/21 PCT out, MCT out today, capped wires Lasix daily PO with slightly negative fluid balance + Asa, statin, metop (increase as tolerated) 5 temporary epicardial pacing wires out Assessment & Plan (06/17/2020 11:46 AM CDT): - OR 06/16/2020 Left subclavian to carotid transposition - OOB ambulating - OU status - Romi discontinued - BP goal normotensive - Diet: advanced, NPO after midnight for OR with Dr. Paul - Will keep KENNY drain in today - Neurochecks q 2 - Planning OR with Dr. Paul on Tuesday Severe aortic regurgitation 06/12/2020 Overview (06/12/2020): Added automatically from request for surgery [id number] Assessment & Plan (06/23/2020 1:43 PM CDT): 06/16: OR with vascular for subclavian debranching (Dr. Lowry) 06/18 ([place]): Redo sternotomy, zone 2 aortic arch replacement, AVR (inspiris 23mm) & bioBentall aortic root replacement (10 cabrol to LCA), reimplant of SVG-RCA bypass. 5/3 Remove temporary pacing wires History of aortic dissection 06/06/2020 S/P aortic dissection repair 01/16/2019 Overview (08/14/2020): Last Assessment & Plan: Stable, sp Ascending aorta graft with cardiopulmonary bypass using 34 mm Hemashield graft on 01/15 at [facility] per Dr. Alegre. SBP remains slightly above [...] visit next week. 02/[address] Alegre. Type 1 dissection of ascending aorta 01/16/2019 Overview (08/14/2020): Last Assessment & Plan: Stable, sp Ascending aorta graft with cardiopulmonary bypass using 34 mm Hemashield graft on 01/15 at [facility] per Dr. Alegre. SBP remains stable, continue BB. Stable on CT 03/24. Resolved Problems Problem Noted Date Diagnosed Date Resolved Date Postoperative nausea and vomiting 06/17/2020 06/22/2020 Assessment & Plan (06/17/2020 11:51 AM CDT): Developed nausea and emesis postoperative Patient states having similar symptoms after previous surgeries - Emesis noted after taking morning medication - Zofran 4 mg IV given Dissection of thoracic aorta 06/12/2020 06/21/2020 Overview (06/12/2020): Added automatically from request for surgery [id number] Social History Tobacco Use Types Packs/Day Years Used Date Smoking Tobacco: Former Smokeless Tobacco: Never Tobacco Cessation:Counseling Given: Not Answered AUDIT-C Answer Date Recorded Q1: How often do you have a drink containing alc ohol? Never 06/18/2020 Q2: How many drinks containi ng alcohol do you have on a typical day when you are drinking? 1 or 2 06/18/2020 Q3: How often do you have six or more drinks on one occasion? Never 06/18/2020 Personal Safety Answer Date Recorded Have you ever been in or are you currently in a harmful physical or emotional relationship or is someone making you feel afraid or unsafe? Denies 05/04/2023 Comments No Sex and Gender Information Value Date Recorded Sex Assigned at Not on file Legal Sex Female 8:18 AM CDT Gender Identity Not on file Sexual Orientation Not on file Last Filed Vital Signs Vital Sign Reading Time Taken Comments Blood Pressure 136/70 01/06/2024 9:22 AM DRIVER GUIDE Pulse 64 01/06/2024 9:22 AM DRIVER GUIDE Temperature 36.8 C (98.2 F) 05/04/2023 10:51 AM CDT Respiratory Rate 17 05/04/2023 5:00 PM CDT Oxygen Saturation 98% 01/06/2024 9:22 AM DRIVER GUIDE Inhaled Oxygen Concentration - - Weight 61.2 kg (135 lb) 01/06/2024 9:22 AM DRIVER GUIDE Height 170.2 cm (5' 7 ) 01/06/2024 9:22 AM DRIVER GUIDE Body Mass Index 21.14 01/06/2024 9:22 AM DRIVER GUIDE Plan of Treatment Not on file Medical Devices Implanted Type Area Salesperson Burial Plots Device Identifier Shelf Expiration Date Model / Serial / Lot BrewDog [id number] Hemashield [place] 8mm 30cm Woven Smooth Needle Passage Suture - [id number] - [id number] Implanted:Qty: 1 on 06/18/2020 by Edmond Berumen MD at [facility] Graft N/A: Aorta Arithmatica [id number] 12/21/2024 [id number] / [id number] / [id number] Hallspot [id number] Graft Cardiovascular Hemashield [place] 2 Velour Collagen Polyester 4 Branch Od8 Mm L47 Cm Od26 Mm Odsec10 Mm Abdomen Thorax Woven Soft Flexible - [id number] - [id number] Implanted:Qty: 1 on 06/18/2020 by Rajat Paul MD at [facility] Graft N/A: Aorta curated.by INC 07/21/2020 [id number] / [id number] / [id number] BrewDog [id number] Hemashield [place] 18mm 30cm Woven Smooth Needle Passage Suture - [id number] - [id number] Implanted:Qty: 1 on 06/18/2020 by Rajat Paul MD at [facility] Graft N/A: Heart Getinge[employer] [id number] 07/21/2024 [id number] / [id number] / [id number] Implantable Loop Recorder-07/01/19 22 Implanted:2021 (Quantity not on file) Implantable Loop Recorder Left: Chest Medtronic REVEAL LINQ ICM / / [employer] [id number] Sawyer-Brayden ds Perimount Magna Ease 23mm Bioprosthesis - [id number] - [id number] Implanted:Qty: 1 on 06/18/2020 by Rajat Paul MD at [facility] Other - see comments N/A: Heart [employer] 12/15/2023 [id number] / [id number] / Insurance [employer] CHOICE PPO [employer] CHO[employer] PPO Advance Directives For more information, please contact: [phone] * Full Code (Latest Code Status on File) Date Activated Date Inactivated Comments 06/16/2020 4:41 PM 06/24/2020 5:30 PM Care Teams Commercial Marketing Specialist Relationship Specialty Start Date End Date Pearl Akbar NP [address] [place] [address] PCP - General Family Medicine 12/07/23
--- OUTSIDE RECORDS SUMMARY | 2024-06-26 18:09 | XMS_ITS | Encounter Summary ---
Author Organization [facility] Address [address] [place] [address] Care Team Providers Care Yield Loss Inspector Name Role Phone Perla Gomez MD Primary Care Provider Perla Gomez MD Unavailable [phone] Encounter Details Date Type Department Care Team (Late st Contact Info) Description 06/04/2021 Telephone [facility] [address] [facility] [address] [place] [address] Radha Rodas RN Social History Tobacco Use Types Packs/Day Years Used Date Smoking Tobacco: Never Smokeless Tobacco: Never Alcohol Use Standard Drinks/Week Comments Not Currently [...] on file Legal Sex 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 Answer Date of Assessment Author No 06/08/2020 12:57 PM CDT Bri Fisher RN * Is person blind or have serious difficulty seeing? Answer Date of Assessment Author No 06/08/2020 12:57 PM CDT Bri Fisher RN * Does person have serious difficulty walking/climbing stairs? Answer Date of Assessment Author No 06/08/2020 12:57 PM CDT Bri Fisher RN * Does person have difficulty dressing/bathing? Answer Date of Assessment Author No 06/08/2020 12:57 PM CDT Bri Fisher RN * Does person have difficulty doing errands alone? Answer Date of Assessment Author No 06/08/2020 12:57 PM CDT Bri Fisher RN documented as of this encounter Mental Status * Does person have difficulty concentrating/remembering/making decisions? Answer Entry Date Author No 06/08/2020 12:57 PM CDT Bri Fisher RN documented in this encounter Miscellaneous Notes * Telephone Encounter - Radha Rodas RN - 06/04/2021 4:07 PM CDT Left message for Ms Ramey to call regarding scheduled appt with Dr. Estrada next week for Aneurysm follow up. It appears that patient has been following at [facility] with Dr. Jamison. Will request CTS to reviewand see if patient needs to be followed by us as well. documented in this encounter Plan of Treatment Not on file documented as of this encounter Visit Diagnoses Not on filedocumented in this encounter Care Teams Yield Loss Inspector Relationship Specialty Start Date End Date Perla Gomez MD [address] [place] [phone] PCP - General Family Medicine 06/06/20 [place] [address] [place] [phone] 06/06/20 documented as of this encounter
--- OUTSIDE RECORDS SUMMARY | 2024-06-26 18:09 | XMS_ITS | Encounter Summary ---
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 Estrada documented in this encounter Plan of Treatment Not on file documented as of this encounter Visit Diagnoses Not on filedocumented in this encounter Care Teams Loom Stop Checker Relationship Specialty Start Date End Date Perla Gomez MD [address] [place] [address] PCP - General Family Medicine 06/06/20 Perla Gomez MD [address] [place] [phone] 06/06/20 documented as of this encounter
--- OUTSIDE RECORDS SUMMARY | 2024-06-26 18:09 | XMS_ITS | Clinical Summary ---
Author Organization [facility] [address] Address [address] [place] [address] Care Team Providers Care Transport Rn Name Role Phone Pearl Akbar NP Primary Care Provider [phone] Allergies No known active allergies Medications aspirin 81 mg chewable tabletIndicati ons:primary prevention of coronary heart disease Take 1 tablet (81 mg total) by mouth supervisor fertilizer processing before breakfast 01/24/20 19 Active atorvastatin (LIPITOR) 80 mg tabletIndicati ons:hyperlipid emia Take 1 tablet (80 mg total) by mouth supervisor fertilizer processing before breakfast 01/23/20 19 Active cholecalcifero l (VITAMIN D-3) 1,000 unit capsuleIndicat ions:Vitamin D Deficiency Take 2 capsules (2,000 Units total) by mouth supervisor fertilizer processing before breakfast Active zolpidem (AMBIEN) 10 mg tabletIndicati ons:Sleep-Onse t Insomnia Take 1 tablet (10 mg total) by mouth nightly as needed for sleep Active calcium carbonate (OS-STAN) 1,500 mg (600 mg of elemental calcium) tabletIndicati ons:Hypocalcem ia Prevention Take 1,000 mg of elemental calcium by mouth supervisor fertilizer processing before breakfast Active albuterol HFA (PROVENTIL HFA,VENTOLIN [...] (06/12/2020): Added automatically from request for surgery [id number] Assessment & Plan (06/24/2020 10:51 AM CDT): [...] (06/12/2020): Added automatically from request for surgery [id number] Assessment & Plan (06/23/2020 1:43 PM CDT): [...] 34 mm Hemashield graft on 01/15 at [facility] per Dr. Alegre. SBP remains [...] 34 mm Hemashield graft on 01/15 at [facility] per Dr. Alegre. SBP remains [...] (06/12/2020): Added automatically from request for surgery [id number] Surgical History Surgery Date Site/Laterality Comments THYROIDECTOMY, PARTIAL ~1995 Left CORONARY ARTERY BYPASS GRAFT 02/21/2018 - 02/20/2019 x1 vessel with type a dissection repair THROMBECTOMY Left iliofemoral SFA ,popliteal and tibial thrombectomy and fascietomy COLOSTOMY TONSILLECTOMY 02/21/1979 - 02/21/1980 HYSTERECTOMY ~1994 SECTION 02/21/1993 - 02/20/1994 ABDOMINAL SURGERY 10/23/2019 - 11/21/2019 AORTIC ANEURYSM REPAIR 12/22/2018 - 01/20/2019 34mm Hemashield aortic graft replacement VASCULAR SURGERY 06/16/2020 Left Left subclavian to carotid transposition Medical History Medical History Date Comments CAD (coronary artery disease) PAF (paroxysmal atrial fibri llation) ([facility]) Depression Asthma UC (ulcerative colitis) ([facility]) S/ P colectomy and illisotomy 1979 DVT (deep venous thrombosis) ([facility]) LLE Aneurysm PVD (peripheral vascular disease) Pulmonary nodule History of blood transfusion Aortic dissection ([facility]) type A Postoperative nausea and vomiting 06/17/2020 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[facility]) Family History Medical History Relation Name Comments Heart attack Father Heart disease Father Relation Name Status Comments Father Alive [place] in his 70s Social History Tobacco Use Types Packs/Day Years [...] on file Sexual Orientation Not on file Obstetrics History Last Filed Vital Signs Vital Sign Reading Time Taken Comments Blood Pressure 136/70 01/06/2024 9:22 AM CODING MACHINE OPERATOR Pulse 64 01/06/2024 9:22 AM CODING MACHINE OPERATOR Temperature 36.8 C (98.2 F) 05/04/2023 10:51 AM CDT Respiratory Rate 17 05/04/2023 5:00 PM CDT Oxygen Saturation 98% 01/06/2024 9:22 AM CODING MACHINE OPERATOR Inhaled Oxygen Concentration - - Weight 61.2 kg (135 lb) 01/06/2024 9:22 AM CODING MACHINE OPERATOR Height 170.2 cm (5' 7 ) 01/06/2024 9:22 AM CODING MACHINE OPERATOR Body Mass Index 21.14 01/06/2024 9:22 AM CODING MACHINE OPERATOR Plan of Treatment Health Maintenance Due Date Last Done Comments Breast Cancer Screening-Mammogram 1959 Colon Cancer Screening-Colonoscopy 1960 Depression Screening 1959 Hepatitis C Screening 1959 Osteoporosis Screening-Bone Density Scan 1959 Hepatitis B Screening 05/17/1977 Pneumococcal vaccine 65+ (1 of 1 - PCV) 05/17/2009 Zoster Vaccine (1 of 2) 05/17/2009 Fall Risk Assessment 06/24/2021 06/24/2020 Well Visit 65+ 05/17/2024 Influenza Vaccine (Season Ended) 2024 11/22/2019, 11/22/2019, 11/23/2018, Additional history exists DTaP/Tdap/Td Vaccine (2 - Td or Tdap) 09/03/2026 09/03/2016 Medical Devices Implanted Type Area Associate Vice President Device Identifier Shelf Expiration Date Model / Serial / Lot Wheretoget [id number] Hemashield [place] 8mm 30cm Woven Smooth Needle Passage Suture - [id number] - [id number] Implanted:Qty: 1 on 06/18/2020 by Edmond Berumen MD at [facility] Graft N/A: Aorta GETINGE [employer] [id number] 12/21/2024 [id number] / [id number] / 20L04 Getinge Chimayo Inc [id number] Graft Cardiovascular Hemashield [place] 2 Velour Collagen Polyester 4 Branch Od8 Mm L47 Cm Od26 Mm Odsec10 Mm Abdomen Thorax Woven Soft Flexible - [id number] - [id number] Implanted:Qty: 1 on 06/18/2020 by Rajat Paul MD at [facility] Graft N/A: Aorta GETINGE CASTLE INC 07/21/2020 [id number] / [id number] / [id number] Wheretoget [id number] Hemashield [place] 18mm 30cm Woven Smooth Needle Passage Suture - [id number] - [id number] Implanted:Qty: 1 on 06/18/2020 by Rajat Paul MD at [facility] Graft N/A: Heart Getinge/Chimayo Inc [id number] 07/21/2024 [id number] / [id number] / 20F24 Implantable Loop Recorder-07/01/19 22 Implanted:2021 (Quantity not on file) Implantable Loop Recorder Left: Chest Medtronic REVEAL LINQ ICM / / Greer [employer]esciences [id number] Sawyer-Brayden ds Perimount Magna Ease 23mm Bioprosthesis - [id number] - [id number] Implanted:Qty: 1 on 06/18/2020 by Rajat Paul MD at [facility] Other - see comments N/A: Heart Greer [employer]esciences 12/15/2023 [id number] [id number] / [id number] / Insurance Primordial PPO Primordial PPO Advance Directives For more information, please contact: [phone] * Full Code (Latest Code Status on File) Date Activated Date Inactivated Comments 06/16/2020 4:41 PM 06/24/2020 5:30 PM Care Teams Transport Rn Relationship Specialty Start Date End Date Pearl Akbar, COMPLIANCE TESTING ANALYST [address] [place] [address] PCP - General Family Medicine 12/07/23
--- OUTSIDE RECORDS SUMMARY | 2024-06-26 18:09 | XMS_ITS | CONTINUITY OF CARE DOCUMENT ---
Author Name ethan long Address Unknown Organization [facility] Office Address [address] [place] [address] Phone [phone] Care Team Providers Care Roofing Machine Tender Name Role Phone Cain Sibley MD Unavailable [phone] RENATE DALE PA-C Unavailable INSURANCE PROVIDERS Payer name Policy type / Coverage type [place] red libertarian ID UHC MEDICARE COMPLETE HMO Other [id number]
[2024-06-26 18:43] VITALS: BP 126/76; PULSE 66; RESP 16; TEMP 36.6; O2SAT 98
--- OUTSIDE RECORDS SUMMARY | 2024-06-26 20:48 | XMS_ITS | Referral Summary ---
Author Organization [facility] [address] Address [address] [place] [address] Care Team Providers Care Band Instrument Repairer Name Role Phone Pearl Akbar NP Primary Care Provider [phone] Allergies No known active allergies Medications aspirin 81 mg chewable tabletIndicati ons:primary prevention of coronary heart disease Take 1 tablet (81 mg total) by mouth scientific glass blower before breakfast 01/24/20 19 Active atorvastatin (LIPITOR) 80 mg tabletIndicati ons:hyperlipid emia Take 1 tablet (80 mg total) by mouth scientific glass blower before breakfast 01/23/20 19 Active cholecalcifero l (VITAMIN D-3) 1,000 unit capsuleIndicat ions:Vitamin D Deficiency Take 2 capsules (2,000 Units total) by mouth scientific glass blower before breakfast Active zolpidem (AMBIEN) 10 mg tabletIndicati ons:Sleep-Onse t Insomnia Take 1 tablet (10 mg total) by mouth nightly as needed for sleep Active calcium carbonate (OS-STAN) 1,500 mg (600 mg of elemental calcium) tabletIndicati ons:Hypocalcem ia Prevention Take 1,000 mg of elemental calcium by mouth scientific glass blower before breakfast Active albuterol HFA (PROVENTIL HFA,VENTOLIN [...] (06/12/2020): Added automatically from request for surgery [id number] Assessment & Plan (06/24/2020 10:51 AM CDT): [...] (06/12/2020): Added automatically from request for surgery [id number] Assessment & Plan (06/23/2020 1:43 PM CDT): [...] 34 mm Hemashield graft on 01/15 at [facility] per Dr. Alegre. SBP remains slightly above [...] 34 mm Hemashield graft on 01/15 at [facility] per Dr. Alegre. SBP remains stable, continue [...] (06/12/2020): Added automatically from request for surgery [id number] Social History Tobacco Use Types Packs/Day Years [...] Comments Blood Pressure 136/70 01/06/2024 9:22 AM CANNING MACHINE OPERATOR Pulse 64 01/06/2024 9:22 AM CANNING MACHINE OPERATOR Temperature 36.8 C (98.2 F) 05/04/2023 10:51 AM CDT Respiratory Rate 17 05/04/2023 5:00 PM CDT Oxygen Saturation 98% 01/06/2024 9:22 AM CANNING MACHINE OPERATOR Inhaled Oxygen Concentration - - Weight 61.2 kg (135 lb) 01/06/2024 9:22 AM CANNING MACHINE OPERATOR Height 170.2 cm (5' 7 ) 01/06/2024 9:22 AM CANNING MACHINE OPERATOR Body Mass Index 21.14 01/06/2024 9:22 AM CANNING MACHINE OPERATOR Plan of Treatment Not on file Medical Devices Implanted Type Area Civil Rights Investigator Device Identifier Shelf Expiration Date Model / Serial / Lot LawPal [id number] Hemashield [place] 8mm 30cm Woven Smooth Needle Passage Suture - [id number] - [id number] Implanted:Qty: 1 on 06/18/2020 by Edmond Berumen MD at [facility] Graft N/A: Aorta Cinelan [id number] 12/21/2024 [id number] / [id number] / 20L04 WikiBrains [id number] Graft Cardiovascular Hemashield [place] 2 Velour Collagen Polyester 4 Branch Od8 Mm L47 Cm Od26 Mm Odsec10 Mm Abdomen Thorax Woven Soft Flexible - [id number] - [id number] Implanted:Qty: 1 on 06/18/2020 by Rajat Paul MD at [facility] Graft N/A: Aorta [employer]U INC 07/21/2020 [id number] / [id number] / 16F08 LawPal [id number] Hemashield [place] 18mm 30cm Woven Smooth Needle Passage Suture - [id number] - [id number] Implanted:Qty: 1 on 06/18/2020 by Rajat Paul MD at [facility] Graft N/A: Heart Getinge/[place] Inc [id number] 07/21/2024 [id number] / [id number] / 20F24 Implantable Loop Recorder-07/01/19 22 Implanted:2021 (Quantity not on file) Implantable Loop Recorder Left: Chest Medtronic REVEAL LINQ ICM / / Greer [employer]esciences [id number] Sawyer-Brayden ds Perimount Magna Ease 23mm Bioprosthesis - [id number] - [id number] Implanted:Qty: 1 on 06/18/2020 by Rajat Paul MD at [facility] Other - see comments N/A: Heart [employer] 12/15/2023 [id number] [id number] / [id number] / Insurance [employer] CHOICE PPO [employer] CHOICE PPO Advance Directives For more information, please contact: [phone] * Full Code (Latest Code Status on File) Date Activated Date Inactivated Comments 06/16/2020 4:41 PM 06/24/2020 5:30 PM Care Teams Band Instrument Repairer Relationship Specialty Start Date End Date Pearl Akbar NP [address] [place] [address] PCP - General Family Medicine 12/07/23
--- OUTSIDE RECORDS SUMMARY | 2024-06-26 20:48 | XMS_ITS | Encounter Summary ---
Author Organization [facility] Address [address] [place] [address] Phone Care Team Providers Care Tipple Operator Name Role Phone Perla Gomez MD Primary Care Provider [phone] Lynn Shipman Primary Care Provider [phone] Perla Gomez MD Unavailable [phone] Rajat Paul MD Unavailable Brandyn Abdi DO Primary Care Provider [phone] Pearl Akbar NP Primary Care Provider [phone] Encounter Details Date Type Department Care Team [...] on filedocumented in this encounter Care Teams Tipple Operator Relationship Specialty Start Date End Date Perla Gomez MD PCP - General Family Medicine 06/10/20 08/17/22 Lynn Shipman PA [address] [place] [address] PCP - General Physician Coconut Jelly Roller 08/18/22 09/07/22 Brandyn Abdi DO [address] [id number] PCP - General Internal Medicine 09/08/22 12/06/23 Pearl Akbar, PERINATAL INSTRUCTOR [address] [place] [address] PCP - General Family Medicine 12/07/23 Perla Gomez MD Family Medicine 08/18/22 09/05/22 Rajat Paul MD [address] [place] [address] Surgeon Cardiothoracic Surgery 06/24/20 7 3 documented as of this encounter
--- OUTSIDE RECORDS SUMMARY | 2024-06-26 20:48 | XMS_ITS | Encounter Summary ---
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
--- OUTSIDE RECORDS SUMMARY | 2024-06-26 20:48 | XMS_ITS | CONTINUITY OF CARE DOCUMENT ---
Author Name ethan lnog Address Unknown Organization [facility] Office Address [address] [place] [address] Phone [phone] Care Team Providers Care Corporate Treasurer Name Role Phone Cain Sibley MD Unavailable [phone] RENATE DALE PA-C Unavailable INSURANCE PROVIDERS Payer name Policy type / Coverage type [place] red constitution party ID UHC MEDICARE COMPLETE HMO Other [id number]
--- OUTSIDE RECORDS SUMMARY | 2024-06-26 20:48 | XMS_ITS | Clinical Summary ---
Author Organization [facility] [address] Address [address] [place] [address] Care Team Providers Care Program Counselor Name Role Phone Pearl Akbar NP Primary Care Provider [phone] Allergies No known active allergies Medications aspirin 81 mg chewable tabletIndicati ons:primary prevention of coronary heart disease Take 1 tablet (81 mg total) by mouth qualifications examiner before breakfast 01/24/20 19 Active atorvastatin (LIPITOR) 80 mg tabletIndicati ons:hyperlipid emia Take 1 tablet (80 mg total) by mouth qualifications examiner before breakfast 01/23/20 19 Active cholecalcifero l (VITAMIN D-3) 1,000 unit capsuleIndicat ions:Vitamin D Deficiency Take 2 capsules (2,000 Units total) by mouth qualifications examiner before breakfast Active zolpidem (AMBIEN) 10 mg tabletIndicati ons:Sleep-Onse t Insomnia Take 1 tablet (10 mg total) by mouth nightly as needed for sleep Active calcium carbonate (OS-STAN) 1,500 mg (600 mg of elemental calcium) tabletIndicati ons:Hypocalcem ia Prevention Take 1,000 mg of elemental calcium by mouth qualifications examiner before breakfast Active albuterol HFA (PROVENTIL HFA,VENTOLIN [...] (06/12/2020): Added automatically from request for surgery [id number] Assessment & Plan (06/24/2020 10:51 AM CDT): [...] (06/12/2020): Added automatically from request for surgery [id number] Assessment & Plan (06/23/2020 1:43 PM CDT): [...] 34 mm Hemashield graft on 01/15 at [facility] per Dr. Alegre. SBP remains slightly [...] 34 mm Hemashield graft on 01/15 at [facility] per Dr. Alegre. 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[facility]) Family History Medical History Relation Name Comments Heart attack Father Heart disease Father Relation Name Status Comments Father Alive [place] in his 70s Social History Tobacco Use [...] Comments Blood Pressure 136/70 01/06/2024 9:22 AM AGENCY SERVICE COORDINATOR Pulse 64 01/06/2024 9:22 AM AGENCY SERVICE COORDINATOR Temperature 36.8 C (98.2 F) 05/04/2023 10:51 AM CDT Respiratory Rate 17 05/04/2023 5:00 PM CDT Oxygen Saturation 98% 01/06/2024 9:22 AM AGENCY SERVICE COORDINATOR Inhaled Oxygen Concentration - - Weight 61.2 kg (135 lb) 01/06/2024 9:22 AM AGENCY SERVICE COORDINATOR Height 170.2 cm (5' 7 ) 01/06/2024 9:22 AM AGENCY SERVICE COORDINATOR Body Mass Index 21.14 01/06/2024 9:22 AM AGENCY SERVICE COORDINATOR Plan of Treatment Health Maintenance Due Date [...] 09/03/2026 09/03/2016 Medical Devices Implanted Type Area Software Recruiter Device Identifier Shelf Expiration Date Model / Serial / Lot Kreix [id number] Hemashield [place] 8mm 30cm Woven Smooth Needle Passage Suture - [id number] - [id number] Implanted:Qty: 1 on 06/18/2020 by Edmond Berumen MD at [facility] Graft N/A: Aorta GETINGE [employer] [id number] 12/21/2024 [id number] / [id number] / 20L04 Getinge [employer] [id number] Graft Cardiovascular Hemashield [place] 2 Velour Collagen Polyester 4 Branch Od8 Mm L47 Cm Od26 Mm Odsec10 Mm Abdomen Thorax Woven Soft Flexible - [id number] - [id number] Implanted:Qty: 1 on 06/18/2020 by Rajat Paul MD at [facility] Graft N/A: Aorta GETINGE CASTLE INC 07/21/2020 [id number] / [id number] / 16F08 Kreix [id number] Hemashield [place] 18mm 30cm Woven Smooth Needle Passage Suture - [id number] - [id number] Implanted:Qty: 1 on 06/18/2020 by Rajat Paul MD at [facility] Graft N/A: Heart Getinge/[employer] [place] Inc [id number] 07/21/2024 [id number] / [id number] / 20F24 Implantable Loop Recorder-07/01/19 22 Implanted:2021 (Quantity not on file) Implantable Loop Recorder Left: Chest Medtronic REVEAL LINQ ICM / / Greer [employer] [id number] Sawyer-Brayden ds Perimount Magna Ease 23mm Bioprosthesis - [id number] - [id number] Implanted:Qty: 1 on 06/18/2020 by Rajat Paul MD at [facility] Other - see comments N/A: Heart [employer] 12/15/2023 [id number] [id number] / [id number] / Insurance [employer] PPO [employer] PPO Advance Directives For more information, please contact: [phone] * Full Code (Latest Code Status on File) Date Activated Date Inactivated Comments 06/16/2020 4:41 PM 06/24/2020 5:30 PM Care Teams Program Counselor Relationship Specialty Start Date End Date Pearl Akbra, AUTHORIZER [address] [place] [address] PCP - General Family Medicine 12/07/23
--- OUTSIDE RECORDS SUMMARY | 2024-06-26 20:48 | XMS_ITS | Encounter Summary ---
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 Jamison. Will request CTS to reviewand see if patient needs to be followed by us as well. documented in this encounter Plan of Treatment Not on file documented as of this encounter Visit Diagnoses Not on filedocumented in this encounter Care Teams English Tutor Relationship Specialty Start Date End Date Perla Gomez MD [address] [place] [address] PCP - General Family Medicine 06/06/20 [place] [address] [place] [phone] 06/06/20 documented as of this encounter
--- OUTSIDE RECORDS SUMMARY | 2024-06-26 20:48 | XMS_ITS | Clinical Summary ---
Author Organization [facility] Address [address] [place] [address] Care Team Providers Care Senior Gis Analyst Name Role Phone Unavailable Primary Care Provider [...] Comments Blood Pressure 102/70 01/03/2012 5:40 PM ASSOCIATE JUSTICE Pulse 85 01/03/2012 5:40 PM ASSOCIATE JUSTICE Temperature - - Respiratory Rate - - Oxygen Saturation - - Inhaled Oxygen Concentration - - Weight 58.1 kg (128 lb) 01/03/2012 5:40 PM ASSOCIATE JUSTICE Height 170.2 cm (5' 7 ) 01/03/2012 5:40 PM ASSOCIATE JUSTICE Body Mass Index 20.05 01/03/2012 5:40 PM ASSOCIATE JUSTICE Plan of Treatment Health Maintenance Due Date Last Done Comments Colorectal Cancer Screening Colonoscopy (10 Years) 1959 Hepatitis C 05/17/1977 DTaP, Tdap and Td Vaccines ( 1 - Tdap) 05/17/1978 Mammogram Screening 1999 Pneumococcal Vaccine: 50+ Ye ars (1 of 1 - PCV) 05/17/2009 Zoster Vaccines (1 of 2) 05/17/2009 COVID-19 Vaccine (1 - 2023-2 5 season) 2023 PHQ-2 (Physician [place]) 02/22/2024 Dexa Scan (General) 05/17/2024 RSV Immunization [...]
--- OUTSIDE RECORDS SUMMARY | 2024-06-26 20:48 | XMS_ITS | Clinical Summary ---
Author Organization [facility] Address [address] [place] [address] Care Team Providers Care Accountant Cost Name Role Phone Perla Gomez MD Primary Care Provider [phone] Perla Gomez MD Unavailable [phone] Source Comments [facility],non-owned Affiliates and Associated Physician Practices is amultiple site organization consisting of ambulatory clinics and hospital sitesin [place], [place], [place] and [place]. This disclosure is being madepursuant to the Care Everywhere program and may not contain all information available regarding this patient. Last updated 17.[facility] Allergies No known active allergies Medications * [...] NOAC. Assessment & Plan (04/05/2019 11:59 AM SCENE PAINTER): Warfarin, follow up with vascular. Paroxysmal atrial fibrillation 02/02/2019 Assessment & Plan (10/19/2019 2:25 PM CDT): Post Operative AFIB: with reoccurrence. Continue BB. With recent SFA occlusion, suspected to be embolic, pt will require AC, now on warfarin, despite [id number] of 1. Will reach out to vascular for recs on NOAC. Follow up with EP for rhythm control recs. Assessment & Plan (04/05/2019 12:05 PM SCENE PAINTER): Post Operative AFIB: No events on monitor, stop amio. Continue BB. With recent SFA occlusion, suspected to be embolic, pt will require AC, now on warfarin, despite [id number] of 1. . Assessment & Plan (02/02/2019 9:24 AM SCENE PAINTER): Post Operative AFIB: Continue Amio, check TSH and PFTS for baseline. Event Monitor to quantify. Increase Metoprolol to 50mg BID. Hx of CABG 02/02/2019 Assessment & Plan (04/05/2019 11:59 AM SCENE PAINTER): SVG to RCA secondary to acute dissection. Continue medical management with ASA, statin, and Metoprolol. Assessment & Plan (02/02/2019 9:25 AM SCENE PAINTER): SVG to RCA secondary to acute dissection. Continue medical management with ASA, statin, and Metoprolol. Type 1 dissection of ascending aorta 01/16/2019 Assessment & Plan (10/19/2019 2:36 PM CDT): Stable, sp Ascending aorta graft with cardiopulmonary bypass using 34 mm Hemashield graft on 01/15 at [facility] per Dr. Alegre. SBP remains stable, continue BB. Stable on CT 03/24. Assessment & Plan (04/05/2019 11:56 AM SCENE PAINTER): Stable, sp Ascending aorta graft with cardiopulmonary bypass using 34 mm Hemashield graft on 01/15 at [facility] per Dr. Alegre. SBP remains stable, pt is orthostatic in clinic today, decrease Metoprolol to 12.5mg daily. Continue to log BP and bring to follow up. Stable on CT 03/24. S/P aortic dissection repair 01/16/2019 Assessment & Plan (02/02/2019 9:28 AM SCENE PAINTER): Stable, sp Ascending aorta graft with cardiopulmonary bypass using 34 mm Hemashield graft on 01/15 at [facility] per Dr. Alegre. 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 Gender Identity Not on file Sexual Orientation [...] Oxygen Concentration 40% 03/26/2019 1 0:36 AM SCENE PAINTER Weight 60.8 kg (134 lb) 09/07/2021 10:56 [...] this topic Medical Devices Implanted Type Area Crop And Soil Technician Device Identifier Shelf Expiration Date Model / Serial / Lot Graft Cv 34mm 30cm Hmsh Pl Polystr 2 Vlr - [id number] Implanted:Qty: 1 on 01/15/2019 by Josue Alegre MD at [facility] N/A: Aorta Maquet 11/20/2021 [id number] / [id number] Description:GTIN: [id number] Graft Cv 8mm 30cm Hmsh Pl Polystr 2 Vlr - [id number] Implanted:Qty: 1 on 01/15/2019 by Josue Alegre MD at [facility] N/A: Aorta Maquet 11/20/2022 [id number] / [id number] Description:GTIN: [id number] [place] Tefl Implanted:Qty: 4 on 01/15/2019 by Josue Alegre MD at [facility] N/A: Aorta Bard Peripheral Vascular 03/16/2023 [id number] / / [id number] Plate 8 Hl Strnm Strnlck Ze 2.4 Mm Implanted:Qty: 2 on 01/15/2019 by Josue Alegre MD at [facility] N/A: Sternum Bina Biomet [id number] / / Screw 2.4mm 12mm Slf Drl Lck Strnl Canc Implanted:Qty: 16 on 01/15/2019 by Josue Alegre MD at [facility] N/A: Sternum Bina Biomet [id number] / / Screw 2.4mm 14mm Slf Drl Lck Strnl Canc Implanted:Qty: 8 on 01/15/2019 by Josue Alegre MD at [facility] N/A: Sternum Bina Biomet [id number] / / 8-Hole Jl Plate Implanted:Qty: 1 on 01/15/2019 by Josue Alegre MD at [facility] N/A: Sternum Bina Biomet [id number] / / Sys Crd Mntr Rvl Linq Ii - [id number] Implanted:Qty: 1 on 06/30/2021 by Erik Lance MD at [facility] Left: Chest [employer] [place] 04/15/2022 [id number] / [id number] / Description:loop recorder Procedures Procedure Name [...] felix 06/04/2021 12:09 PM CDT [facility] Comment:No Laboratory eviden ce of HIV infection. Blood BLOOD SPECIMEN / Unknown Venipuncture / Unknown 06/04/2021 10:42 AM CDT 06/04/2021 10:48 AM CDT Dee Ramirez MD LAB - CHEMISTRY ORDERABLES F inal Result [facility] [address] [place] [address], [place] [phone] * HEPATITIS C RNA QUANTITATIVE (06/04/2021 10:42 AM CDT) [facility] Hepatitis C RNA PCR, Interp Not detected Not detected 06/08/2021 12:18 PM CDT [facility] Blood BLOOD SPECIMEN / Unknown Venipuncture / Unknown 06/04/2021 10:42 AM CDT 06/04/2021 12:19 PM CDT Narrative [facility] - 06/08/2021 12:18 PM CDT The Hepatitis C viral (HCV) RNA analysis utilized a serum sample, real-time reverse fairing man PCR, and is reported as Not Detected, [...] the isolation of HCV RNA with reverse fairing man of genomic HCV RNA followed by real-time PCR in the presence of an unrelated RNA internal control. The internal control ensures that RNA is isolated, and that no general significant inhibitors of the RT-PCR process are present. The analysis was performed using a U.S. FDA approved test methodology ([employer] Real Time HCV). us Dee Ramirez MD LAB - CHEMISTRY ORDERABLES F inal Result [facility] [address] [place] [address], [place] [phone] from Last 3 Months or Most Recently Relevant to Health Maintenance Insurance [facility] MEDICAID - [facility] * Guarantor: ERI ROLON Account Type Relation to Patient Date of Phone Billing Address Personal/Family [phone] Advance Directives * Full Code (Latest [...] 12:03 AM 01/22/2019 4:11 PM Care Teams Accountant Cost Relationship Specialty Start Date End Date Perla Gomez MD [address] [place] [address] PCP - General Family Medicine 06/06/20 Perla Gomez MD [facility] [place] [address] 06/06/20
--- NOTE | 2024-06-26 21:21 | ED.SKABFB ---
HPI - Skin/Abscess/Foreign Bdy General Chief complaint: Skin/Abscess/Foreign Body <Moon Crabtree PA-C - Last Filed: 06/26/24 21:33> Stated complaint: Wound under Ileostomy <Moon Crabtree PA-C - Last Filed: 06/26/24 21:33> Time Seen by Provider: 06/26/24 20:11 <Moon Crabtree PA-C - Last Filed: 06/26/24 21:33> History of Present Illness HPI narrative: 64-year-old female with history of ulcerative colitis s/p ileostomy placement in 1979 in [place] presents emergency department with concerns for her ileostomy site. Patient states about 3 months ago she began developing a ulcer your ileostomy site and a firm white dot. She told her family member about this who told her to come to the ED. She states the area is tender. Denies drainage. She reportedly changes her ileostomy about once a day or once every other day. She uses hydrocolloid dressings. She denies changes in her stool, blood in her stool, fevers. She is scheduled to see Dr. Robles later this month. She has not seen wound care. <Moon Crbatree PA-C - Last Filed: 06/26/24 21:33> Related Data Home medications: Home Medications ?Medication ?Instructions ?Recorded ?Confirmed ?Last Taken ?Type aspirin 81 mg chewable tablet 81 mg PO DAILY 07/23/19 05/04/24 02/27/21 History lisinopril 5 mg tablet 5 mg PO DAILY 11/18/23 05/04/24 Unknown History <Moon Crabtree PA-C - Last Filed: 06/26/24 21:33> Allergies/Adverse reactions: Allergies Allergy/AdvReac Type Severity Reaction Status Date / Time No Known Allergies Allergy Verified 06/26/24 20:12 <Moon Crabtree PA-C - Last Filed: 06/26/24 21:33> Review of Systems Review of Systems: All systems reviewed & are unremarkable except as noted in HPI and below <MARÍA Cortes Last Filed: 06/26/24 21:33> [facility] Past Medical History Medical History: Medical History Depression with anxiety Peripheral vascular disease (~03/23/19) 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 Dissecting aneurysm of thoracic aorta, Myron type A (01/15/19) History of MRSA infection Paroxysmal atrial fibrillation Hypothyroidism Aortic dissection Eczema Anemia Arthritis Bowel obstruction Ulcerative colitis Asthma Ileostomy in place <Moon Crabtree PA-C - Last Filed: 06/26/24 21:33> Surgical History Surgical History: Surgical History History of hysterectomy History of aortic valve replacement with bioprosthetic valve History of repair of Myron type A dissecting aneurysm of thoracic aorta (01/15/19) Status post tube graft placement done at [facility]. Repair of what sounds like graft separation/leak was done in 05/2020. History of partial thyroidectomy History of laparoscopy With adhesiolysis. History of ileostomy History of section Status post proctocolectomy History of tonsillectomy <Moon Crabtree PA-C - Last Filed: 06/26/24 21:33> Family History Family History: Family History Sibling Diabetes mellitus Mother Cancer Father Heart attack <Moon Crabtree PA-C - Last Filed: 06/26/24 21:33> Social History Social History: Social History Social History: Surrogate decision maker: Hesham Ramey, spouse. Code status: Full code. Smoking status: Never smoker Second hand tobacco smoke exposure: No Alcohol intake: never Substance use: never Substance use type: does not use Additional living arrangements comments: Lives with family in [place]. <Moon Crabtree PA-C - Last Filed: 06/26/24 21:33> Exam Narrative: GENERAL: Well-appearing, well-nourished, and in no acute distress. HEAD: Normocephalic, atraumatic. EYES: EOMI. ENT: Nares clear, no rhinorrhea or epistaxis. Mucous membranes moist. NECK: Supple. CHEST: Clear to auscultation. No respiratory distress. HEART: Regular rate and rhythm. No murmur heard. Normal peripheral pulses. ABDOMEN: Soft, nontender, nondistended, normal active bowel sounds. No rebound, guarding or rigidity. Right lower quadrant ileostomy in expected position with normal appearing stoma, approximately 1 cm stage II ulcer with yellow biofilm at the base at the 10 o'clock position in comparison to stoma, there is a pinpoint white firm nodule at the 8:00 position in relation to the stoma with no fluctuance, induration or drainage. No tenderness to the abdomen surrounding the stoma. Brown stool noted in stoma bag. No bleeding or melena EXTREMITIES: Normal range of motion. No edema. SKIN: Warm, dry, no rash. NEURO: No focal deficits. Alert and oriented x3 <Moon Crabtree PA-C - Last Filed: 06/26/24 21:33> Course COAGULATION OPERATOR/PA Physician Supervision I agree with midlevel documentation; I performed the medical decision making component of this evaluation. <Aylin Ramos MD - Last Filed: 06/27/24 03:38> Vital Signs Vital signs: Vital Signs Temperature 97.9 F 06/26/24 18:43 Pulse Rate 66 06/26/24 18:43 Respiratory Rate 16 06/26/24 18:43 Blood Pressure 126/76 06/26/24 18:43 Pulse Oximetry 98 06/26/24 18:43 Oxygen Delivery Room Air 06/26/24 18:43 Temperature 97.9 F 06/26/24 18:43 Pulse Rate 66 06/26/24 18:43 Respiratory Rate 16 06/26/24 18:43 Blood Pressure 126/76 06/26/24 18:43 Pulse Oximetry 98 06/26/24 18:43 Oxygen Delivery Room Air 06/26/24 18:43 <Moon rCabtree PA-C - Last Filed: 06/26/24 21:33> Vital Signs Temperature 97.9 F 06/26/24 18:43 Pulse Rate 66 06/26/24 18:43 Respiratory Rate 16 06/26/24 18:43 Blood Pressure 126/76 06/26/24 18:43 Pulse Oximetry 98 06/26/24 18:43 Oxygen Delivery Room Air 06/26/24 18:43 Temperature 97.9 F 06/26/24 18:43 Pulse Rate 66 06/26/24 18:43 Respiratory Rate 16 06/26/24 18:43 Blood Pressure 126/76 06/26/24 18:43 Pulse Oximetry 98 06/26/24 18:43 Oxygen Delivery Room Air 06/26/24 18:43 <Aylin Ramos MD - Last Filed: 06/27/24 03:38> MDM - Skin/Abscess/Foreign Bdy MDM Narrative Medical decision making narrative: 64-year-old female with history of ulcerative colitis s/p ileostomy placement in 1979 car aspirins presents to the emergency department with concerns for an ulcer surrounding her ileostomy for the past 3 months. Triage vitals are stable. Patient is afebrile and nontoxic appearing. Exam is significant for a 1 cm stage II ulceration your the 10 o'clock position in comparison to the ileostomy with no surrounding erythema, no induration, no fluctuation. There is a pinpoint white firm nodule at the 8 o'clock position with no induration or fluctuation, no crepitus, no vesicles. The stoma is normal in appearance. There is no melena or hematochezia. Stool is brown. Abdomen is soft and nontender. Overall patient's exam is reassuring and most consistent with an ulceration likely due to increased moisture. The white nodule may be a small pustule vs most likely keratotic plug. Will trial the patient on keflex to cover infection, although there are no overt signs of cellulitis. Advised her to ensure she is changing her dressings daily, continue using the hydrocolloid dressings and to keep the area clean and dry. Advised to follow closely with GI physician as well as her PCP for wound care referral. Discussed strict ED return precautions. She is agreeable to plan verbalized understanding. Discharged in stable condition. <Moon Crabtree PA-C - Last Filed: 06/26/24 21:33> Discharge Plan Discharge Clinical Impression: Ileostomy care, Abdominal wall ulcer <Moon Crabtree PA-C - Last Filed: 06/26/24 21:33> Patient Disposition: Home <Moon Crabtree PA-C - Last Filed: 06/26/24 21:33> Condition: Stable <Moon Crabtree PA-C - Last Filed: 06/26/24 21:33> Instructions: Antibiotic Form, Ileostomy Care (ED) <Moon Crabtree PA-C - Last Filed: 06/26/24 21:33> Additional Instructions: Please take the antibiotics as directed. Make sure your changing her ileostomy site daily and keeping the area clean and dry. Continue using hydrocolloid dressings. Follow-up closely with the GI physician at your appointment in June. Also follow-up with your primary care provider for referral for wound care. Return to the emergency department if develop a fever, redness, drainage, or other concerning symptoms. <MARÍA Cortes Last Filed: 06/26/24 21:33> Patient Language: Divehi <Moon Crabtree PA-C - Last Filed: 06/26/24 21:33> Prescriptions: New cephalexin 500 mg capsule 500 mg PO Q6H Qty: 28 0RF No Action triamcinolone acetonide 0.5 % cream 1 applic topical BID PRN (Reason: rash) Qty: 45 2RF lisinopril 5 mg tablet 5 mg PO DAILY aspirin 81 mg tablet,chewable 81 mg PO DAILY (DME) Ostomy supplies. See Rx Instructions .Route .MEDSUPPLY Qty: 1 0RF Rx Instructions: ostomy bags, remover, skin prep, and clip needed. albuterol sulfate 90 mcg/actuation HFA aerosol inhaler 1 inh INHALATION Q4-6H PRN (Reason: Shortness Of Breath) Qty: 6.7 3RF clonazepam [Klonopin] 0.5 mg tablet 0.25 mg PO BID PRN (Reason: anxiety) Qty: 60 0RF zolpidem 10 mg tablet 10 mg PO HS Qty: 30 1RF metoprolol succinate 50 mg tablet extended release 24 hr See Rx Instructions .ROUTE .COMPLEX Qty: 90 2RF Dose Instruction: TAKE 1 TABLET BY MOUTH EVERY DAY Rx Instructions: TAKE 1 TABLET BY MOUTH EVERY DAY vilazodone 10 mg tablet See Rx Instructions .ROUTE .COMPLEX Qty: 30 0RF Dose Instruction: TAKE 1 TABLET BY MOUTH EVERY DAY WITH FOOD Rx Instructions: TAKE 1 TABLET BY MOUTH EVERY DAY WITH FOOD <Moon Crabtree PA-C - Last Filed: 06/26/24 21:33> Follow-up/Referrals: Erlin Sandhu MD [Primary Care Provider] - Ramin Robles MD [Physician] - <Moon Crabtree PA-C - Last Filed: 06/26/24 21:33>
== END 2024-06-26 21:39 | disposition home or self-care (01) ==
PROVIDERS: Emergency Provider Physician Assistant; PCP Family Medicine
DX: L98.491 Non-pressure chronic ulcer of skin of other sites limited to breakdown of skin (principal); F32.A Depression, unspecified; F41.9 Anxiety disorder, unspecified; I48.91 Unspecified atrial fibrillation; E03.9 Hypothyroidism, unspecified; D64.9 Anemia, unspecified; M19.90 Unspecified osteoarthritis, unspecified site; J45.909 Unspecified asthma, uncomplicated; Z43.2 Encounter for attention to ileostomy
CPT/HCPCS: 99283

== ENCOUNTER 2024-08-03 13:59 | Outpatient (CLI) | payer MEDICARE, SELFPAY ==
--- NOTE | ~2024-08-03 | MM_ITS ---
EXAMINATION: MM screening carly BI w inna HISTORY: Screening TECHNIQUE: Craniocaudal and mediolateral oblique 3-D tomosynthesis images were obtained and synthetic 2-D images were generated. CAD analysis was submitted and interpreted. COMPARISON: Comparison to multiple prior studies sequentially, with oldest reviewed study dated 10/2014. BREAST PARENCHYMAL COMPOSITION: Dense: The breasts are heterogeneously dense, which may obscure small masses FINDINGS: There is no evidence of suspicious mass, calcification, or architectural distortion to sugg est malignancy in either breast. There has been no suspicious interval change. IMPRESSION: 1. No mammographic evidence of malignancy. 2. Recommend routine screening mammography in one year. BI-RADS Category 1: Negative Reviewed, dictated and finalized at location B.
--- OUTSIDE RECORDS SUMMARY | 2024-08-03 14:05 | XMS_ITS | Encounter Summary ---
Author Organization [facility] Address 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 Jamison. Will request CTS to reviewand see if patient needs to be followed by us as well. documented in this encounter Plan of Treatment Not on file documented as of this encounter Visit Diagnoses Not on filedocumented in this encounter Care Teams Senior Paralegal Relationship Specialty Start Date End Date Perla Gomez MD [address] [place] [phone] PCP - General Family Medicine 06/06/20 Peral Gomez MD [address] [place] [phone] 06/06/20 documented as of this encounter
--- OUTSIDE RECORDS SUMMARY | 2024-08-03 14:05 | XMS_ITS | Encounter Summary ---
Author Organization [facility] Address [address] [place] [address] Phone Care Team Providers Care Structural Draftsman Name Role Phone Perla Gomez MD Primary Care Provider [phone] Lynn Shipman Primary Care Provider [phone] Perla Gomez MD Unavailable [phone] Rajat Paul MD Unavailable Brandyn Abdi DO Primary Care Provider [phone] Pearl Akbar NP Primary Care Provider [phone] Encounter Details Date Type Department Care Team [...] on filedocumented in this encounter Care Teams Structural Draftsman Relationship Specialty Start Date End Date Perla Gomez MD PCP - General Family Medicine 06/10/20 08/17/22 Lynn Shipman PA [address] [place] [id number] PCP - General Physician Infantry Indirect Fire Crewmember 08/18/22 09/07/22 Brandyn Abdi DO [address] [id number] PCP - General Internal Medicine 09/08/22 12/06/23 Pearl Akbar, PROGRAM DIRECTOR/AIR PERSONALITY [address] [place] [address] PCP - General Family Medicine 12/07/23 Perla Gomez MD Family Medicine 08/18/22 09/05/22 Rajat Paul MD [address] [place] [address] Surgeon Cardiothoracic Surgery 06/24/20 7 3 documented as of this encounter
--- OUTSIDE RECORDS SUMMARY | 2024-08-03 14:05 | XMS_ITS | Clinical Summary ---
Author Organization [facility] Address [address] [place] [address] Care Team Providers Care Mandarin Chinese Teacher Name Role Phone Perla Gomez MD Primary Care Provider [phone]- [phone] Perla Gomez MD Unavailable [phone] Source Comments [facility],non-owned Affiliates and Associated Physician Practices is amultiple site organization consisting of ambulatory clinics and hospital sitesin [place], [place], [place] and [place]. This disclosure is being madepursuant to the Care Everywhere program and may not contain all information available regarding this patient. Last updated 17.[facility] Allergies No known active allergies Medications * [...] NOAC. Assessment & Plan (04/05/2019 11:59 AM NANNY BABYSITTER): Warfarin, follow up with vascular. Paroxysmal atrial fibrillation 02/02/2019 Assessment & Plan (10/19/2019 2:25 PM CDT): Post Operative AFIB: with reoccurrence. Continue BB. With recent SFA occlusion, suspected to be embolic, pt will require AC, now on warfarin, despite [id number] of 1. Will reach out to vascular for recs on NOAC. Follow up with EP for rhythm control recs. Assessment & Plan (04/05/2019 12:05 PM NANNY BABYSITTER): Post Operative AFIB: No events on monitor, stop amio. Continue BB. With recent SFA occlusion, suspected to be embolic, pt will require AC, now on warfarin, despite [id number] of 1. . Assessment & Plan (02/02/2019 9:24 AM NANNY BABYSITTER): Post Operative AFIB: Continue Amio, check TSH and PFTS for baseline. Event Monitor to quantify. Increase Metoprolol to 50mg BID. Hx of CABG 02/02/2019 Assessment & Plan (04/05/2019 11:59 AM NANNY BABYSITTER): SVG to RCA secondary to acute dissection. Continue medical management with ASA, statin, and Metoprolol. Assessment & Plan (02/02/2019 9:25 AM NANNY BABYSITTER): SVG to RCA secondary to acute dissection. Continue medical management with ASA, statin, and Metoprolol. Type 1 dissection of ascending aorta 01/16/2019 Assessment & Plan (10/19/2019 2:36 PM CDT): Stable, sp Ascending aorta graft with cardiopulmonary bypass using 34 mm Hemashield graft on 01/15 at [facility] per Dr. Alegre. SBP remains stable, continue BB. Stable on CT 2. Assessment & Plan (04/05/2019 11:56 AM NANNY BABYSITTER): Stable, sp Ascending aorta graft with cardiopulmonary bypass using 34 mm Hemashield graft on 01/15 at [facility] per Dr. Algere. SBP remains stable, pt is orthostatic in clinic today, decrease Metoprolol to 12.5mg daily. Continue to log BP and bring to follow up. Stable on CT 2. S/P aortic dissection repair 01/16/2019 Assessment & Plan (02/02/2019 9:28 AM NANNY BABYSITTER): Stable, sp Ascending aorta graft with cardiopulmonary bypass using 34 mm Hemashield graft on 01/15 at [facility] per Dr. Alegre. SBP remains slightly [...] on file Legal Sex Female 3:05 PM NANNY BABYSITTER Gender Identity Not on file Sexual Orientation [...] Oxygen Concentration 40% 03/26/2019 1 0:36 AM NANNY BABYSITTER Weight 60.8 kg (134 lb) 09/07/2021 10:56 AM CDT Height 170.2 cm (5' 7) 09/07/2021 10:56 AM CDT Body Mass Index [...] this topic Medical Devices Implanted Type Area Unit Aide Tech Device Identifier Shelf Expiration Date Model / Serial / Lot Graft Cv 34mm 30cm Hmsh Pl Polystr 2 Vlr - [id number] Implanted:Qty: 1 on 01/15/2019 by Josue Alegre MD at [facility] N/A: Aorta Maquet 11/20/2021 [id number] / [id number] Description:GTIN: [id number] Graft Cv 8mm 30cm Hmsh Pl Polystr 2 Vlr - [id number] Implanted:Qty: 1 on 01/15/2019 by Josue Alegre MD at [facility] N/A: Aorta Maquet 11/20/2022 [id number] / [id number] Description:GTIN: [id number] Termo Tefl Implanted:Qty: 4 on 01/15/2019 by Josue Alegre MD at [facility] N/A: Aorta Bard Peripheral Vascular 03/16/2023 [id number] / / [id number] 8 Hl Strnm Strnlck Ze 2.4 Mm Implanted:Qty: 2 on 01/15/2019 by Josue Alegre MD at [facility] N/A: Sternum Ibna Biomet [id number] / / Screw 2.4mm 12mm Slf Drl Lck Strnl Canc Implanted:Qty: 16 on 01/15/2019 by Josue Alegre MD at [facility] N/A: Sternum Bina Biomet [id number] / / Screw 2.4mm 14mm Slf Drl Lck Strnl Canc Implanted:Qty: 8 on 01/15/2019 by Josue Alegre MD at [facility] N/A: Sternum Bina Biomet [id number] / / 8-Hole Jl Plate Implanted:Qty: 1 on 01/15/2019 by Josue Alegre MD at [facility] N/A: Sternum Bina Biomet [id number] / / Sys Crd Mntr Rvl Linq Ii - [id number] Implanted:Qty: 1 on 06/30/2021 by Erik Lance MD at [facility] Left: Chest Medtron [place] 04/15/2022 [id number] / [id number] / Description:loop recorder Procedures Procedure Name [...] ve Non-react felix 06/04/2021 12:09 PM CDT [facility] Comment:No Laboratory eviden ce of HIV infection. Blood BLOOD SPECIMEN / Unknown Venipuncture / Unknown 06/04/2021 10:42 AM CDT 06/04/2021 10:48 AM CDT Dee Ramirez MD LAB - CHEMISTRY ORDERABLES F inal Result [facility] [address] [place] [address], [place] [phone] * HEPATITIS C RNA QUANTITATIVE (06/04/2021 10:42 AM CDT) [facility] Hepatitis C RNA PCR, Interp Not detected Not detected 06/08/2021 12:18 PM CDT [facility] Blood BLOOD SPECIMEN / Unknown Venipuncture / Unknown 06/04/2021 10:42 AM CDT 06/04/2021 12:19 PM CDT Narrative [facility] - 06/08/2021 12:18 PM CDT The Hepatitis C viral (HCV) RNA analysis utilized a serum sample, real-time reverse educational fundraising director PCR, and is reported as Not Detected, [...] the isolation of HCV RNA with reverse educational fundraising director of genomic HCV RNA followed by real-time PCR in the presence of an unrelated RNA internal control. The internal control ensures that RNA is isolated, and that no general significant inhibitors of the RT-PCR process are present. The analysis was performed using a U.S. FDA approved test methodology ([employer] Travel Real Time HCV). us Dee Ramirez MD LAB - CHEMISTRY ORDERABLES F inal Result [facility] [address] [place], [place] [address] [phone] from Last 3 Months or Most Recently Relevant to Health Maintenance Insurance [facility] MEDICA[facility] - [place] [facility] * Guarantor: ERI ROLON Account Type Relation to Patient Date of Phone Billing Address Personal/Family 1960 [address] [id number] [facility] Advance Directives * Full Code (Latest Code [...] 12:03 AM 01/22/2019 4:11 PM Care Teams Mandarin Chinese Teacher Relationship Specialty Start Date End Date Perla Gomez MD formerly [facility] [place] [phone] PCP - General Family Medicine 06/06/20 Perla Gomez MD [address] [place] [phone] 06/06/20
--- OUTSIDE RECORDS SUMMARY | 2024-08-03 14:05 | XMS_ITS | Referral Summary ---
Author Organization [facility] [address] Address [address] [place] [address] Care Team Providers Care Nib Adjuster Name Role Phone Pearl Akbar NP Primary Care Provider [phone] [phone] Allergies No known active allergies Medications aspirin 81 mg chewable tabletIndicatio ns:primary prevention of coronary heart disease Take 1 tablet (81 mg total) by mouth cath lab radiology technician before breakfast 9 Active atorvastatin (LIPITOR) 80 mg tabletIndicatio ns:hyperlipidem ia Take 1 tablet (80 mg total) by mouth cath lab radiology technician before breakfast 9 Active cholecalciferol (VITAMIN D-3) 1,000 unit capsuleIndicati ons:Vitamin D Deficiency Take 2 capsules (2,000 Units total) by mouth cath lab radiology technician before breakfast Active zolpidem (AMBIEN) 10 mg tabletIndicatio ns:Sleep-Onset Insomnia Take 1 tablet (10 mg total) by mouth nightly as needed for sleep Active calcium carbonate (OS-STAN) 1,500 mg (600 mg of elemental calcium) tabletIndicatio ns:Hypocalcemia Prevention Take 1,000 mg of elemental calcium by mouth cath lab radiology technician before breakfast Active albuterol HFA (PROVENTIL HFA,VENTOLIN HFA,PROAIR HFA) 90 mcg/actuation inhalerIndicati ons:Acute Asthma Attack Inhale 2 puffs every 6 (six) hours as needed for wheezing Active buPROPion SR (ZYBAN) 150 mg 12 hr tablet Take 1 tablet (150 mg total) by mouth daily Active lisinopriL (PRINIVIL,ZESTR IL) 10 mg tablet Take 1 tablet (10 mg total) by mouth daily 3 Active sertraline (ZOLOFT) 100 mg tablet Take 1 tablet (100 mg total) by mouth daily Active metoprolol XL (TOPROL-XL) 50 mg extended release tablet Take 1 tablet (50 mg total) by mouth daily 3 Active ARIPiprazole (ABILIFY) 2 mg tablet Take 1 tablet (2 mg total) by mouth daily 4 Active tiZANidine (ZANAFLEX) 2 mg tablet TAKE 1-2 TABLET(S) BY MOUTH DAILY AT BEDTIME 180 tablet 5 Active Active Problems Problem Noted Date Diagnosed [...] on 06/19 Added amiodarone TID on 06/19 06/23 SR QTC 447 Change amiodarone to 400mg daily DVT (deep venous thrombosis) 06/21/2020 Assessment & Plan (06/24/2020 10:52 AM CDT): Hx of DVT - was on Eliquis Will not restart at discharge due to two major surgeries. 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 Lowry) 06/18 ([place]): Redo sternotomy, zone 2 aortic arch replacement, AVR (inspiris 23mm) & bioBentall aortic root replacement (10 cabrol to LCA), reimplant of SVG-RCA bypass. 06/23 Remove temporary pacing wires History of aortic dissection 06/06/2020 S/P aortic dissection repair 01/16/2019 Overview (08/14/2020): Last Assessment & Plan: Stable, sp Ascending aorta graft with cardiopulmonary bypass using 34 mm Hemashield graft on 01/15 at [facility] per Dr. Alegre. SBP remains slightly [...] 34 mm Hemashield graft on 01/15 at [facility] per Dr. Alegre. SBP remains stable, [...] (06/12/2020): Added automatically from request for surgery [id number] Social History Tobacco Use Types Packs/Day Years [...] Comments Blood Pressure 136/70 01/06/2024 9:22 AM MUSIC COMPOSER Pulse 64 01/06/2024 9:22 AM MUSIC COMPOSER Temperature 36.8 C (98.2 F) 05/04/2023 10:51 AM CDT Respiratory Rate 17 05/04/2023 5:00 PM CDT Oxygen Saturation 98% 01/06/2024 9:22 AM MUSIC COMPOSER Inhaled Oxygen Concentration - - Weight 61.2 kg (135 lb) 01/06/2024 9:22 AM MUSIC COMPOSER Height 170.2 cm (5' 7) 01/06/2024 9:22 AM MUSIC COMPOSER Body Mass Index 21.14 01/06/2024 9:22 AM MUSIC COMPOSER Plan of Treatment Not on file Medical Devices Implanted Type Area Highway Inspector Device Identifier Shelf Expiration Date Model / Serial / Lot [employer] [id number] Hemashield [place] 8mm 30cm Woven Smooth Needle Passage Suture - [id number] - [id number] Implanted:Qty: 1 on 06/18/2020 by Edmond Berumen MD at [facility] Graft N/A: Aorta GETINGE [employer] [id number] 12/21/2024 [id number] / [id number] / 20L04 Getinge [place] Inc [id number] Graft Cardiovascular Hemashield [place] 2 Velour Collagen Polyester 4 Branch Od8 Mm L47 Cm Od26 Mm Odsec10 Mm Abdomen Thorax Woven Soft Flexible - [id number] - [id number] Implanted:Qty: 1 on 06/18/2020 by Rajat Paul MD at [facility] Graft N/A: Aorta GETINGE CASTLE INC 07/21/2020 [id number] / [id number] / [id number] [employer] [id number] Hemashield [place] 18mm 30cm Woven Smooth Needle Passage Suture - [id number] - [id number] Implanted:Qty: 1 on 06/18/2020 by Rajat Paul MD at [facility] Graft N/A: Heart Getinge/[place] Inc [id number] 07/21/2024 [id number] / [id number] / 20F24 Implantable Loop Recorder-07/01/19 22 Implanted:2021 (Quantity not on file) Implantable Loop Recorder Left: Chest Medtronic REVEAL LINQ ICM / / [employer]er [employer] [id number] Sawyer-Brayden ds Perimount Magna Ease 23mm Bioprosthesis - [id number] - [id number] Implanted:Qty: 1 on 06/18/2020 by Rajat Paul MD at [facility] Other - see comments N/A: Heart [employer] 12/15/2023 [id number] [id number] / [id number] / Insurance [employer] PPO [employer] CHOICE PPO Advance Directives For more information, please contact: [phone] * Full Code (Latest Code Status on File) Date Activated Date Inactivated Comments 06/16/2020 4:41 PM 06/24/2020 5:30 PM Care Teams Nib Adjuster Relationship Specialty Start Date End Date Pearl Akbar NP [address] [place] [address] PCP - General Family Medicine 12/07/23
--- OUTSIDE RECORDS SUMMARY | 2024-08-03 14:05 | XMS_ITS | Clinical Summary ---
Author Organization [facility] [address] Address [address] [place] [address] Care Team Providers Care Inhalation Therapist Name Role Phone Pearl Akbar NP Primary Care Provider [phone] [phone] Allergies No known active allergies Medications aspirin 81 mg chewable tabletIndicatio ns:primary prevention of coronary heart disease Take 1 tablet (81 mg total) by mouth hospitalist program director before breakfast 9 Active atorvastatin (LIPITOR) 80 mg tabletIndicatio ns:hyperlipidem ia Take 1 tablet (80 mg total) by mouth hospitalist program director before breakfast 9 Active cholecalciferol (VITAMIN D-3) 1,000 unit capsuleIndicati ons:Vitamin D Deficiency Take 2 capsules (2,000 Units total) by mouth hospitalist program director before breakfast Active zolpidem (AMBIEN) 10 mg tabletIndicatio ns:Sleep-Onset Insomnia Take 1 tablet (10 mg total) by mouth nightly as needed for sleep Active calcium carbonate (OS-STAN) 1,500 mg (600 mg of elemental calcium) tabletIndicatio ns:Hypocalcemia Prevention Take 1,000 mg of elemental calcium by mouth hospitalist program director before breakfast Active albuterol HFA (PROVENTIL HFA,VENTOLIN [...] (06/12/2020): Added automatically from request for surgery [id number] Assessment & Plan (06/24/2020 10:51 AM CDT): [...] (06/12/2020): Added automatically from request for surgery [id number] Assessment & Plan (06/23/2020 1:43 PM CDT): [...] Hemashield graft on 01/15 at [facility] per Dr. Alegre. SBP remains slightly [...] Hemashield graft on 01/15 at [facility] per Dr. Alegre. SBP remains stable, [...] (06/12/2020): Added automatically from request for surgery [id number] Surgical History Surgery Date Site/Laterality Comments THYROIDECTOMY, [...] artery disease) PAF (paroxysmal atrial fibri llation) ([facility]) Depression Asthma UC (ulcerative colitis) ([facility]) S/ P colectomy and illisotomy 1979 DVT (deep venous thrombosis) ([facility]) LLE Aneurysm PVD (peripheral vascular disease) Pulmonary nodule History of blood transfusion Aortic dissection (HCC) type A Postoperative nausea and vomiting 06/17/2020 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HCC) Family History Medical History Relation Name Comments Heart attack Father Heart disease Father Relation Name Status Comments Father Alive [facility] his 70s Social History Tobacco Use [...] Comments Blood Pressure 136/70 01/06/2024 9:22 AM INFO SPECIALIST Pulse 64 01/06/2024 9:22 AM INFO SPECIALIST Temperature 36.8 C (98.2 F) 05/04/2023 10:51 AM CDT Respiratory Rate 17 05/04/2023 5:00 PM CDT Oxygen Saturation 98% 01/06/2024 9:22 AM INFO SPECIALIST Inhaled Oxygen Concentration - - Weight 61.2 kg (135 lb) 01/06/2024 9:22 AM INFO SPECIALIST Height 170.2 cm (5' 7) 01/06/2024 9:22 AM INFO SPECIALIST Body Mass Index 21.14 01/06/2024 9:22 AM INFO SPECIALIST Plan of Treatment Health Maintenance Due Date [...] 09/03/2026 09/03/2016 Medical Devices Implanted Type Area Windows 7 Deployment Lead Device Identifier Shelf Expiration Date Model / Serial / Lot FLX Micro [id number] Hemashield [place] 8mm 30cm Woven Smooth Needle Passage Suture - [id number] - [id number] Implanted:Qty: 1 on 06/18/2020 by Edmond Berumen MD at [facility] Graft N/A: Aorta GETINGE [employer] [id number] 12/21/2024 [id number] / [id number] / 20L04 Getinge GIDEEN Inc [id number] Graft Cardiovascular Hemashield [place] 2 Velour Collagen Polyester 4 Branch Od8 Mm L47 Cm Od26 Mm Odsec10 Mm Abdomen Thorax Woven Soft Flexible - [id number] - [id number] Implanted:Qty: 1 on 06/18/2020 by Rajat Paul MD at [facility] Graft N/A: Aorta GETINGE CASTLE INC 07/21/2020 [id number] / [id number] / [id number] FLX Micro [id number] Hemashield [place] 18mm 30cm Woven Smooth Needle Passage Suture - [id number] - [id number] Implanted:Qty: 1 on 06/18/2020 by Rajat Paul MD at [facility] Graft N/A: Heart Getinge/[place] [employer] [id number] 07/21/2024 [id number] / [id number] / 20F24 Implantable Loop Recorder-5/10/20 22 Implanted:2021 (Quantity not on file) Implantable Loop Recorder Left: Chest Medtronic REVEAL LINQ ICM / / [employer] [id number] Sawyer-Brayden ds Perimount Magna Ease 23mm Bioprosthesis - [id number] - [id number] Implanted:Qty: 1 on 06/18/2020 by Rajat Paul MD at [facility] Other - see comments N/A: Heart [employer] 12/15/2023 [id number] [id number] / [id number] / Insurance [employer] [place] [address] Advance Directives For more information, please contact: [phone] * Full Code (Latest Code Status on File) Date Activated Date Inactivated Comments 06/16/2020 4:41 PM 06/24/2020 5:30 PM Care Teams Inhalation Therapist Relationship Specialty Start Date End Date Pearl Akbar BROADCAST OPERATIONS DIRECTOR [address] [place] [address] PCP - General Family Medicine 12/07/23
--- OUTSIDE RECORDS SUMMARY | 2024-08-03 14:05 | XMS_ITS | Encounter Summary ---
Author Organization [facility] Address [address] [place] [address] Care Team Providers Care Service Control Operator Name Role Phone Perla Gomez MD Primary Care Provider [phone] Perla Gomez MD Unavailable [phone] Encounter Details Date Type Department Care Team (Late st Contact Info) Description 06/09/2021 Telephone [facility] [address] [facility] [address] [place] [address] Radha Rodas RN Social History Tobacco Use [...] on file Legal Sex Female 3:05 PM ISSUE CLERK Gender Identity Not on file Sexual Orientation [...] on filedocumented in this encounter Care Teams Service Control Operator Relationship Specialty Start Date End Date Perla Gomez MD [address] [place] [phone] PCP - General Family Medicine 06/06/20 Perla Gomez MD [address] [place] [phone] 06/06/20 documented as of this encounter
== END 2024-08-03 14:00 | disposition home or self-care (01) ==
LOC: ANHIMG 14:02
PROVIDERS: PCP Family Medicine; Visit Provider Nurse Practitioner Family
DX: Z12.31 Encounter for screening mammogram for malignant neoplasm of breast (principal)
CPT/HCPCS: 77063; 77067

== ENCOUNTER 2024-08-28 13:52 | Outpatient (CLI) | payer MEDICARE, SELFPAY ==
--- OUTSIDE RECORDS SUMMARY | 2024-08-28 13:59 | XMS_ITS | Clinical Summary ---
Author Organization [facility] Address [address] [place] [address] Care Team Providers Care Automatic Riveting Machine Operator Name Role Phone Unavailable Primary Care Provider [...] Comments Blood Pressure 102/70 01/03/2012 5:40 PM SAGGER SOAK Pulse 85 01/03/2012 5:40 PM SAGGER SOAK Temperature - - Respiratory Rate - - Oxygen Saturation - - Inhaled Oxygen Concentration - - Weight 58.1 kg (128 lb) 01/03/2012 5:40 PM SAGGER SOAK Height 170.2 cm (5' 7) 01/03/2012 5:40 PM SAGGER SOAK Body Mass Index 20.05 01/03/2012 5:40 PM SAGGER SOAK Plan of Treatment Health Maintenance Due Date Last Done Comments Colorectal Cancer Screening Colonoscopy (10 Years) 1960 Hepatitis C 05/17/1977 DTaP, Tdap and Td Vaccines ( 1 - Tdap) 05/17/1978 Mammogram Screening 1999 Pneumococcal Vaccine: 50+ Ye ars (1 of 1 - PCV) 05/17/2009 Zoster Vaccines (1 of 2) 05/17/2009 COVID-19 Vaccine (1 - 2023-2 5 season) 2023 PHQ-2 (Physician [place]) 02/22/2024 Dexa Scan (General) 05/17/2024 RSV Immunization [...]
--- OUTSIDE RECORDS SUMMARY | 2024-08-28 13:59 | XMS_ITS | Referral Summary ---
Author Organization [facility] [address] Address [address] [place] [address] Care Team Providers Care Logistics Service Representative Name Role Phone Pearl Akbar NP Primary Care Provider [phone] [phone] Allergies No known active allergies Medications aspirin 81 mg chewable tabletIndicatio ns:primary prevention of coronary heart disease Take 1 tablet (81 mg total) by mouth associate account executive before breakfast 9 Active atorvastatin (LIPITOR) 80 mg tabletIndicatio ns:hyperlipidem ia Take 1 tablet (80 mg total) by mouth associate account executive before breakfast 9 Active cholecalciferol (VITAMIN D-3) 1,000 unit capsuleIndicati ons:Vitamin D Deficiency Take 2 capsules (2,000 Units total) by mouth associate account executive before breakfast Active zolpidem (AMBIEN) 10 mg tabletIndicatio ns:Sleep-Onset Insomnia Take 1 tablet (10 mg total) by mouth nightly as needed for sleep Active calcium carbonate (OS-STAN) 1,500 mg (600 mg of elemental calcium) tabletIndicatio ns:Hypocalcemia Prevention Take 1,000 mg of elemental calcium by mouth associate account executive before breakfast Active albuterol HFA (PROVENTIL HFA,VENTOLIN [...] (06/12/2020): Added automatically from request for surgery [id number] Assessment & Plan (06/24/2020 10:51 AM CDT): [...] - OOB ambulating - OU status - [place] discontinued - BP goal normotensive - Diet: advanced, NPO after midnight for OR with Dr. Paul - Will keep KENNY drain in today - Neurochecks q 2 - Planning OR with Dr. Paul on Tuesday Severe aortic regurgitation 06/12/2020 Overview (06/12/2020): Added automatically from request for surgery [id number] Assessment & Plan (06/23/2020 1:43 PM CDT): 06/16: OR with vascular for subclavian debranching (Dr. Lowry) 06/18 (eBverly): Redo sternotomy, zone 2 aortic arch replacement, AVR (inspiris 23mm) & bioBentall aortic root replacement (10 cabrol to LCA), reimplant of SVG-RCA bypass. 06/23 Remove temporary pacing wires History of aortic dissection 06/06/2020 S/P aortic dissection repair 01/16/2019 Overview (08/14/2020): Last Assessment & Plan: Stable, sp Ascending aorta graft with cardiopulmonary bypass using 34 mm Hemashield graft on 01/15 at [facility] per Dr. Alegre. SBP remains slightly above [...] 34 mm Hemashield graft on 01/15 at [facility] per Dr. Alegre. SBP remains stable, continue [...] (06/12/2020): Added automatically from request for surgery [id number] Social History Tobacco Use Types Packs/Day Years [...] Comments Blood Pressure 136/70 01/06/2024 9:22 AM ROLL FORMING MACHINE OPERATOR Pulse 64 01/06/2024 9:22 AM ROLL FORMING MACHINE OPERATOR Temperature 36.8 C (98.2 F) 05/04/2023 10:51 AM CDT Respiratory Rate 17 05/04/2023 5:00 PM CDT Oxygen Saturation 98% 01/06/2024 9:22 AM ROLL FORMING MACHINE OPERATOR Inhaled Oxygen Concentration - - Weight 61.2 kg (135 lb) 01/06/2024 9:22 AM ROLL FORMING MACHINE OPERATOR Height 170.2 cm (5' 7) 01/06/2024 9:22 AM ROLL FORMING MACHINE OPERATOR Body Mass Index 21.14 01/06/2024 9:22 AM ROLL FORMING MACHINE OPERATOR Plan of Treatment Not on file Medical Devices Implanted Type Area Delimer Device Identifier Shelf Expiration Date Model / Serial / Lot [id number] Hemashield Dorena 8mm 30cm Woven Smooth Needle Passage Suture - [id number] - [id number] Implanted:Qty: 1 on 06/18/2020 by Edmond Berumen MD at [facility] Graft N/A: Aorta GETINGE [employer] [id number] 12/21/2024 [id number] / [id number] / 20L04 Getinge [employer] [id number] Graft Cardiovascular Hemashield Dorena 2 Velour Collagen Polyester 4 Branch Od8 Mm L47 Cm Od26 Mm Odsec10 Mm Abdomen Thorax Woven Soft Flexible - [id number] - [id number] Implanted:Qty: 1 on 06/18/2020 by Rajat Paul MD at [facility] Graft N/A: Aorta GETINGE CASTLE INC 07/21/2020 [id number] / [id number] / [id number] Close.[employer] Llc [id number] Hemashield Dorena 18mm 30cm Woven Smooth Needle Passage Suture - [id number] - [id number] Implanted:Qty: 1 on 06/18/2020 by Rajat Paul MD at [facility] Graft N/A: Heart Getinge/[employer] Inc [id number] 07/21/2024 [id number] / [id number] / 20F24 Implantable Loop Recorder-07/01/19 22 Implanted:2021 (Quantity not on file) Implantable Loop Recorder Left: Chest Medtronic REVEAL LINQ ICM / / Greer Lifesciences [id number] Sawyer-Brayden ds Perimount Magna Ease 23mm Bioprosthesis - [id number] - [id number] Implanted:Qty: 1 on 06/18/2020 by Rajat Paul MD at [facility] Other - see comments N/A: Heart Greer Lifesciences 12/15/2023 [id number] / [id number] / Insurance [employer] PPO [employer] CHOICE PPO Advance Directives For more information, please contact: [phone] * Full Code (Latest Code Status on File) Date Activated Date Inactivated Comments 06/16/2020 4:41 PM 06/24/2020 5:30 PM Care Teams Logistics Service Representative Relationship Specialty Start Date End Date Pearl Akbar NP [address] [place] [address] PCP - General Family Medicine 12/07/23
--- OUTSIDE RECORDS SUMMARY | 2024-08-28 13:59 | XMS_ITS | Encounter Summary ---
Author Organization [facility] Address [address] [place] [address] Phone Care Team Providers Care Heater Furnace Name Role Phone Perla Gomez MD Primary Care Provider [phone]- [phone] Lynn Shipman Primary Care Provider [phone] Perla Gomez MD Unavailable [phone] Rajat Paul MD Unavailable Brandyn Abdi DO Primary Care Provider [phone] Pearl Akbar NP Primary Care Provider [phone] Encounter Details Date Type Department Care Team [...] on filedocumented in this encounter Care Teams Heater Furnace Relationship Specialty Start Date End Date Perla Gomez MD PCP - General Family Medicine 06/10/20 08/17/22 Lynn Shipman PA [address] [place] [address] PCP - General Physician Laborer Driver 08/18/22 09/07/22 Brandyn Abdi DO [address] [phone] PCP - General Internal Medicine 09/08/22 12/06/23 Pearl Akbar, TELEVISION NEWS ANCHOR [address] [place] [address] PCP - General Family Medicine 12/07/23 Perla Gomez MD Family Medicine 08/18/22 09/05/22 Rajat Paul MD [address] [place] [address] Surgeon Cardiothoracic Surgery 06/24/20 7 3 documented as of this encounter
--- OUTSIDE RECORDS SUMMARY | 2024-08-28 13:59 | XMS_ITS | Clinical Summary ---
Author Organization [facility] Address [address] [address] Care Team Providers Care Casino Investigator Name Role Phone Perla Gomez MD Primary Care Provider [phone] Perla Gomez MD Unavailable [phone] Source Comments [facility],non-owned Affiliates and Associated Physician Practices is amultiple site organization consisting of ambulatory clinics and hospital sitesin [place], [place], [place] and [place]. This disclosure is being madepursuant to the Care Everywhere program and may not contain all information available regarding this patient. Last updated 17.[facility] Allergies No known active allergies Medications * [...] NOAC. Assessment & Plan (04/05/2019 11:59 AM MATERIALS ASSISTANT): Warfarin, follow up with vascular. Paroxysmal atrial fibrillation 02/02/2019 Assessment & Plan (10/19/2019 2:25 PM CDT): Post Operative AFIB: with reoccurrence. Continue BB. With recent SFA occlusion, suspected to be embolic, pt will require AC, now on warfarin, despite [id number] of 1. Will reach out to vascular for recs on NOAC. Follow up with EP for rhythm control recs. Assessment & Plan (04/05/2019 12:05 PM MATERIALS ASSISTANT): Post Operative AFIB: No events on monitor, stop amio. Continue BB. With recent SFA occlusion, suspected to be embolic, pt will require AC, now on warfarin, despite MHTXu6EVDG of 1. . Assessment & Plan (02/02/2019 9:24 AM MATERIALS ASSISTANT): Post Operative AFIB: Continue Amio, check TSH and PFTS for baseline. Event Monitor to quantify. Increase Metoprolol to 50mg BID. Hx of CABG 02/02/2019 Assessment & Plan (04/05/2019 11:59 AM MATERIALS ASSISTANT): SVG to RCA secondary to acute dissection. Continue medical management with ASA, statin, and Metoprolol. Assessment & Plan (02/02/2019 9:25 AM MATERIALS ASSISTANT): SVG to RCA secondary to acute dissection. Continue medical management with ASA, statin, and Metoprolol. Type 1 dissection of ascending aorta 01/16/2019 Assessment & Plan (10/19/2019 2:36 PM CDT): Stable, sp Ascending aorta graft with cardiopulmonary bypass using 34 mm Hemashield graft on 01/15 at [facility] per Dr. Alegre. SBP remains stable, continue BB. Stable on CT 2. Assessment & Plan (04/05/2019 11:56 AM MATERIALS ASSISTANT): Stable, sp Ascending aorta graft with cardiopulmonary bypass using 34 mm Hemashield graft on 01/15 at [facility] per Dr. Alegre. SBP remains stable, pt is orthostatic in clinic today, decrease Metoprolol to 12.5mg daily. Continue to log BP and bring to follow up. Stable on CT 2. S/P aortic dissection repair 01/16/2019 Assessment & Plan (02/02/2019 9:28 AM MATERIALS ASSISTANT): Stable, sp Ascending aorta graft with cardiopulmonary bypass using 34 mm Hemashield graft on 01/15 at [facility] per Dr. Alegre. SBP remains slightly [...] on file Legal Sex Female 3:05 PM MATERIALS ASSISTANT Gender Identity Not on file Sexual Orientation [...] Oxygen Concentration 40% 03/26/2019 1 0:36 AM MATERIALS ASSISTANT Weight 60.8 kg (134 lb) 09/07/2021 10:56 [...] [place] SCREENING 1960 MAMMOGRAM 1960 PAP SMEAR 05/17/1980 PNEUMOCOCCAL VACCINE 50+ (1 of 1 - PCV) 05/17/2009 ZOSTER VACCINE (1 of 2) 05/17/2009 Respiratory Syncytial Virus (RSV) Vaccine Pt: or over 60 yrs (1 - Risk 60-74 years 1-dose series) 2019 COVID-19 VACCINE ( season) 2023 08/11/2020, 07/02/2020, 05/21/2020 DEPRESSION SCREENING 02/22/2024 MEDICARE AWV CALENDAR YEAR 2024 INFLUENZA VACCINE (#1) 2024 , 12/12/2020, 11/22/2019, Additional history exists DTAP/TDAP/TD VACCINES [...] this topic Medical Devices Implanted Type Area Manager Drive Device Identifier Shelf Expiration Date Model / Serial / Lot Graft Cv 34mm 30cm Hmsh Pl Polystr 2 Vlr - [id number] Implanted:Qty: 1 on 01/15/2019 by Josue Alegre MD at [facility] N/A: Aorta Maquet 11/20/2021 [id number] / [id number] Description:GTIN: [id number] Graft Cv 8mm 30cm Hmsh Pl Polystr 2 Vlr - [id number] Implanted:Qty: 1 on 01/15/2019 by Josue Alegre MD at [facility] N/A: Aorta Maquet 11/20/2022 [id number] / [id number] Description:GTIN: [id number] [place] Tefl Implanted:Qty: 4 on 01/15/2019 by Josue Alegre MD at [facility] N/A: Aorta Bard Peripheral Vascular 03/16/2023 [id number] / / [id number] 8 Hl Strnm Strnlck Ze 2.4 Mm Implanted:Qty: 2 on 01/15/2019 by Josue Alegre MD at [facility] N/A: Sternum Bina Biomet [id number] / / Screw 2.4mm 12mm Slf Drl Lck Strnl Canc Implanted:Qty: 16 on 01/15/2019 by Josue Alegre MD at [facility] N/A: Sternum Bina Biomet [id number] / / Screw 2.4mm 14mm Slf Drl Lck Strnl Canc Implanted:Qty: 8 on 01/15/2019 by Josue Alegre MD at [facility] N/A: Sternum Bina Biomet [id number] / / 8-Hole Jl Plate Implanted:Qty: 1 on 01/15/2019 by Josue Alegre MD at [facility] N/A: Sternum Bina Biomet [id number] / / Sys Crd Mntr Rvl Linq Ii - [id number] Implanted:Qty: 1 on 06/30/2021 by Erik Lance MD at [facility] Left: Chest Medtron [place] 04/15/2022 [id number] / [id number] / Description:loop recorder Procedures Procedure Name [...] ve Non-react felix 06/04/2021 12:09 PM CDT [facility] Comment:No Laboratory eviden ce of HIV infection. Blood BLOOD SPECIMEN / Unknown Venipuncture / Unknown 06/04/2021 10:42 AM CDT 06/04/2021 10:48 AM CDT Dee Ramirez MD LAB - CHEMISTRY ORDERABLES F inal Result [facility] [address] [place] [address], [place] [phone] * HEPATITIS C RNA QUANTITATIVE (06/04/2021 10:42 AM CDT) [facility] Hepatitis C RNA PCR, Interp Not detected Not detected 06/08/2021 12:18 PM CDT [facility] Blood BLOOD SPECIMEN / Unknown Venipuncture / Unknown 06/04/2021 10:42 AM CDT 06/04/2021 12:19 PM CDT Narrative [facility] - 06/08/2021 12:18 PM CDT The Hepatitis C viral (HCV) RNA analysis utilized a serum sample, real-time reverse care management coordinator PCR, and is reported as Not Detected, [...] the isolation of HCV RNA with reverse care management coordinator of genomic HCV RNA followed by real-time PCR in the presence of an unrelated RNA internal control. The internal control ensures that RNA is isolated, and that no general significant inhibitors of the RT-PCR process are present. The analysis was performed using a U.S. FDA approved test methodology ([employer] Real Time HCV). us Dee Ramirez MD LAB - CHEMISTRY ORDERABLES F inal Result [facility] [address] [place], [place] [address] [phone] from Last 3 Months or Most Recently Relevant to Health Maintenance Insurance [facility] [place] [facility] * Guarantor: ERI ROLON Account Type Relation to Patient Date of Phone Billing Address Personal/Family 1960 [address] [id number] [facility] Advance Directives * Full Code (Latest Code [...] 12:03 AM 01/22/2019 4:11 PM Care Teams Casino Investigator Relationship Specialty Start Date End Date Perla Gomez MD [facility] [place] [phone] PCP - General Family Medicine 06/06/20 Perla Gomez MD [address] [place] [phone] 06/06/20
--- OUTSIDE RECORDS SUMMARY | 2024-08-28 13:59 | XMS_ITS | Encounter Summary ---
Author Organization [facility] Address [address] [place] [address] Care Team Providers Care Cook'S Assistant Name Role Phone Perla Gomez MD Primary Care Provider [phone] Perla Gomez MD Unavailable [phone] Encounter Details Date Type Department Care Team (Late st Contact Info) Description 06/09/2021 Telephone [facility] [address] [facility] [address] [place] [address] Radha Rodas RN Social History Tobacco Use [...] on file Legal Sex Female 3:05 PM SAP BASIS CONSULTANT Gender Identity Not on file Sexual Orientation [...] on filedocumented in this encounter Care Teams Cook'S Assistant Relationship Specialty Start Date End Date Perla Gomez MD [address] [place] [phone] PCP - General Family Medicine 06/06/20 Perla Gomez MD [address] [place] [phone] 06/06/20 documented as of this encounter
--- OUTSIDE RECORDS SUMMARY | 2024-08-28 13:59 | XMS_ITS | Encounter Summary ---
Author Organization [facility] Address [address] [place] [address] Care Team Providers Care Territory Business Manager Name Role Phone Perla Gomez MD Primary Care Provider [phone]- [phone] Perla Gomez MD Unavailable [phone] Encounter Details Date Type Department Care Team (Late st Contact Info) Description 06/04/2021 Telephone [facility] [address] [facility] [address] [place] [address] Radha Rodas RN Social History Tobacco Use [...] on file Legal Sex Female 3:05 PM STEEL LAYER Gender Identity Not on file Sexual Orientation [...] appears that patient has been following at [facility] with Dr. Jamison. Will request CTS to reviewand see if patient needs to be followed by us as well. documented in this encounter Plan of Treatment Not on file documented as of this encounter Visit Diagnoses Not on filedocumented in this encounter Care Teams Territory Business Manager Relationship Specialty Start Date End Date Perla Gomez MD [address] [place] [phone] PCP - General Family Medicine 06/06/20 Perla Gomez MD [address] [place] [phone] 06/06/20 documented as of this encounter
--- OUTSIDE RECORDS SUMMARY | 2024-08-28 13:59 | XMS_ITS | Clinical Summary ---
Author Organization [facility] [address] Address [address] [place] [address] Care Team Providers Care Weaver Hand Loom Name Role Phone Pearl Akbar NP Primary Care Provider [phone] [phone] Allergies No known active allergies Medications aspirin 81 mg chewable tabletIndicatio ns:primary prevention of coronary heart disease Take 1 tablet (81 mg total) by mouth district service manager before breakfast 9 Active atorvastatin (LIPITOR) 80 mg tabletIndicatio ns:hyperlipidem ia Take 1 tablet (80 mg total) by mouth district service manager before breakfast 9 Active cholecalciferol (VITAMIN D-3) 1,000 unit capsuleIndicati ons:Vitamin D Deficiency Take 2 capsules (2,000 Units total) by mouth district service manager before breakfast Active zolpidem (AMBIEN) 10 mg tabletIndicatio ns:Sleep-Onset Insomnia Take 1 tablet (10 mg total) by mouth nightly as needed for sleep Active calcium carbonate (OS-STAN) 1,500 mg (600 mg of elemental calcium) tabletIndicatio ns:Hypocalcemia Prevention Take 1,000 mg of elemental calcium by mouth district service manager before breakfast Active albuterol HFA (PROVENTIL HFA,VENTOLIN [...] (06/12/2020): Added automatically from request for surgery [id number] Assessment & Plan (06/24/2020 10:51 AM CDT): [...] - OOB ambulating - OU status - [place] discontinued - BP goal normotensive - Diet: advanced, NPO after midnight for OR with Dr. Paul - Will keep KENNY drain in today - Neurochecks q 2 - Planning OR with Dr. Paul on Tuesday Severe aortic regurgitation 06/12/2020 Overview (06/12/2020): Added automatically from request for surgery [id number] Assessment & Plan (06/23/2020 1:43 PM CDT): [...] 34 mm Hemashield graft on 01/[address] [facility] [address] Alegre. SBP remains slightly above [...] 34 mm Hemashield graft on 01/[address] [facility] [address] Alegre. SBP remains stable, continue [...] (06/12/2020): Added automatically from request for surgery [id number] Surgical History Surgery Date Site/Laterality Comments THYROIDECTOMY, [...] artery disease) PAF (paroxysmal atrial fibri llation) ([facility]) Depression Asthma UC (ulcerative colitis) ([facility]) S/ P colectomy and illisotomy 1979 DVT (deep venous thrombosis) ([facility]) LLE Aneurysm PVD (peripheral vascular disease) Pulmonary nodule History of blood transfusion Aortic dissection (HCC) type A Postoperative nausea and vomiting 06/17/2020 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HCC) Family History Medical History Relation Name Comments Heart attack Father Heart disease Father Relation Name Status Comments Father Alive MS in his 70s Social History Tobacco Use [...] Comments Blood Pressure 136/70 01/06/2024 9:22 AM PLANT SPECIALIST Pulse 64 01/06/2024 9:22 AM PLANT SPECIALIST Temperature 36.8 C (98.2 F) 05/04/2023 10:51 AM CDT Respiratory Rate 17 05/04/2023 5:00 PM CDT Oxygen Saturation 98% 01/06/2024 9:22 AM PLANT SPECIALIST Inhaled Oxygen Concentration - - Weight 61.2 kg (135 lb) 01/06/2024 9:22 AM PLANT SPECIALIST Height 170.2 cm (5' 7) 01/06/2024 9:22 AM PLANT SPECIALIST Body Mass Index 21.14 01/06/2024 9:22 AM PLANT SPECIALIST Plan of Treatment Health Maintenance Due [...] 09/03/2026 09/03/2016 Medical Devices Implanted Type Area Potato Picker Device Identifier Shelf Expiration Date Model / Serial / Lot Vinted [id number] Hemashield [place] 8mm 30cm Woven Smooth Needle Passage Suture - [id number] - [id number] Implanted:Qty: 1 on 06/18/2020 by Edmond Berumen MD at [facility] Graft N/A: Aorta GETINGE [employer] [id number] 12/21/2024 [id number] / [id number] / 20L04 Getinge Otog[employer] Inc [id number] Graft Cardiovascular Hemashield [place] 2 Velour Collagen Polyester 4 Branch Od8 Mm L47 Cm Od26 Mm Odsec10 Mm Abdomen Thorax Woven Soft Flexible - [id number] - [id number] Implanted:Qty: 1 on 06/18/2020 by Rajat Paul MD at [facility] Graft N/A: Aorta GETINGE CASTLE INC 07/21/2020 [id number] / [id number] / [id number] Vinted [id number] Hemashield [place] 18mm 30cm Woven Smooth Needle Passage Suture - [id number] - [id number] Implanted:Qty: 1 on 06/18/2020 by Rajat Paul MD at [facility] Graft N/A: Heart Getinge/[place] [employer] [id number] 07/21/2024 [id number] / [id number] / 20F24 Implantable Loop Recorder-5/10/20 22 Implanted:2021 (Quantity not on file) Implantable Loop Recorder Left: Chest Medtronic REVEAL LINQ ICM / / Greer Lifesciences [id number] Sawyer-Brayden ds Perimount Magna Ease 23mm Bioprosthesis - [id number] - [id number] Implanted:Qty: 1 on 06/18/2020 by Rajat Paul MD at [facility] Other - see comments N/A: Heart Greer [employer] 12/15/2023 [id number] [id number] / [id number] / Insurance [place] [address] Advance Directives For more information, please contact: [phone] * Full Code (Latest Code Status on File) Date Activated Date Inactivated Comments 06/16/2020 4:41 PM 06/24/2020 5:30 PM Care Teams Weaver Hand Loom Relationship Specialty Start Date End Date Pearl Akbar RN [facility] [address] [place] [address] PCP - General Family Medicine 12/07/23
[2024-08-28 16:38] LABS: Free T3 3.43 pg/mL (2.45-5.93); Free T4 Free Thyroxine 1.15 ng/dL (0.78-2.19)
[2024-08-28 16:51] LABS: Thyroid Stimulating Hormone 0.483 uIU/mL (0.465-4.680)
== END 2024-08-28 13:53 | disposition home or self-care (01) ==
PROVIDERS: PCP Family Medicine; Visit Provider Nurse Practitioner Family
DX: E03.9 Hypothyroidism, unspecified (principal)
CPT/HCPCS: 36415; 84439; 84443; 84481

== ENCOUNTER 2024-09-12 18:15 | Emergency (ER) | payer MEDICARE, SELFPAY ==
[2024-09-12] VITALS (15 sets, daily range): BP systolic 102–130; BP diastolic 55–72; PULSE 55–63; RESP 14–21; TEMP 36.2–36.6; O2SAT 99–100
--- NOTE | ~2024-09-12 | XR_ITS ---
CHEST RADIOGRAPH, PA AND LATERAL CLINICAL HISTORY: palpitations . COMPARISON: 11/30/2023 TECHNIQUE: PA and lateral views of the chest. FINDINGS Sternal wires and mediastinal clips are identified, the wires are midline and intact. Loop recorder projects to the left of midline. Prosthetic valve in the aortic position. Postoperative change of the thoracic aorta. Multiple surgical clips projecting over the right superior mediastinum and the right axilla. The bilateral lung gomez are primarily clear. IMPRESSION: Postoperative change within the thoracic aorta without focal infiltrate or effusion. Reviewed, dictated and finalized at location A. IMPRESSION: Postoperative change within the thoracic aorta without focal infiltrate or effu chelita.
--- NOTE | 2024-09-12 18:17 | ECG_ITS ---
Test Date: 2024-09-12 18:20:44 Measurements Intervals Sawyer Rate: 59 P: 70 AR: 185 QRS: 85 QRSD: 94 T: 69 QT: 400 QTc: 399 Interpretive Statements SINUS BRADYCARDIA LOW QRS VOLTAGE IN PRECORDIAL LEADS [QRS DEFLECTION < 1.0 mV IN CHEST LEADS] Compared to ECG 11/30/2023 03:37:59 Low QRS voltage now present Sinus rhythm no longer present Myocardial infarct finding no longer present Electronically Signed On 09-14-2024 15:34:58 CDT by Peyman Beyer M.D.
[2024-09-12 18:32] LABS: Hematocrit 36.0 % (37.0-47.0); Hemoglobin 11.8 g/dL (12.0-15.0); Immature Granulocyte Percent A 0.2 % (0-0.5); Lymphocytes Absolute Auto 1.18 K/mm3 (0.9-3.2); Mean Corpuscular HGB Conc 32.8 g/dl (32-36); Mean Corpuscular Hemoglobin 29.2 pg (26-34); Mean Corpuscular Volume 89.1 fl (80-100); Nucleated Red Blood Cells Absolute Auto 0.000 K/mm3 (0.0-0.012); Nucleated Red Blood Cells Perc 0.0 % (0.0-0.2); Platelet Count Result 145 k/mm3 (150-375); Red Blood Count 4.04 M/mm3 (4.2-5.4); White Blood Count 5.1 K/mm3 (4.5-10.0)
[2024-09-12 18:43] LABS: INR 1.0; Prothrombin Time 12.8 Seconds (11.1-14.7)
[2024-09-12 18:44] LABS: Partial Thromboplastin Time 27.8 Seconds (22.3-36.8)
[2024-09-12 18:56] LABS: Alanine Aminotransferase 17 U/L (6-35); Albumin Level 4.3 g/dL (3.5-5.1); Alkaline Phosphatase 77 U/L (38-126); Anion Gap 9 mmol/L (4-12); Aspartate Amino Transferase 24 U/L (14-36); Bilirubin,Total < 0.1 mg/dL (0.2-1.3); Blood Urea Nitrogen 21 mg/dL (7-17); Calcium 9.3 mg/dL (8.4-10.2); Carbon Dioxide 25 mmol/L (22-30); Chloride 102 mmol/L (98-107); Estimated CRCL calculation 53 ml/min; Estimated Glomerular Filt Rate > 60; Glucose 97 mg/dL (65-110); Lipase 90 U/L (23-300); Potassium 4.1 mmol/L (3.4-5.0); Sodium 136 mmol/L (137-145); Total Protein 7.1 g/dL (6.3-8.2)
[2024-09-12 19:04] LABS: Troponin I < 0.012 ng/mL (0.000-0.034)
--- NOTE | 2024-09-12 22:52 | ECG_ITS ---
Test Date: 2024-09-12 22:57:41 Measurements Intervals Watson Rate: 56 P: 67 GA: 202 QRS: 64 QRSD: 98 T: 64 QT: 425 QTc: 413 Interpretive Statements SINUS BRADYCARDIA LOW QRS VOLTAGE IN PRECORDIAL LEADS [QRS DEFLECTION < 1.0 mV IN CHEST LEADS] Compared to ECG 09/12/2024 18:20:44 No significant changes Electronically Signed On 09-14-2024 15:38:19 CDT by Peyman Beyer M.D.
[2024-09-12 23:54] LABS: Troponin I < 0.012 ng/mL (0.000-0.034)
[2024-09-13] VITALS (21 sets, daily range): BP systolic 101–116; BP diastolic 50–75; PULSE 54–65; RESP 11–24; O2SAT 94–100
[2024-09-13 01:27] LABS: Troponin I < 0.012 ng/mL (0.000-0.034)
--- OUTSIDE RECORDS SUMMARY | 2024-09-13 03:00 | XMS_ITS | Encounter Summary ---
Author Organization [facility] Address [address] [place] [address] Phone Care Team Providers Care Access Assoc Name Role Phone Perla Gomez MD Primary Care Provider [phone]- [phone] Lynn Shipman Primary Care Provider [phone] Perla Gomez MD Unavailable [phone] Rajat Paul MD Unavailable Brandyn Abdi DO Primary Care Provider [phone] Pearl Akbar NP Primary Care Provider [phone] Encounter Details Date Type Department Care Team [...] on filedocumented in this encounter Care Teams Access Assoc Relationship Specialty Start Date End Date Perla Gomez MD PCP - General Family Medicine 06/10/20 08/17/22 Lynn Shipman PA [address] [place] [address] PCP - General Physician Nursing Educator 08/18/22 09/07/22 Brandyn Abdi DO [address] [id number] PCP - General Internal Medicine 09/08/22 12/06/23 Pearl Akbar, PLAYGROUND EQUIPMENT ERECTOR [address] [place] [address] PCP - General Family Medicine 12/07/23 Perla Gomez MD Family Medicine 08/18/22 09/05/22 Rajat Paul MD [address] [place] [address] Surgeon Cardiothoracic Surgery 06/24/20 7 3 documented as of this encounter
--- OUTSIDE RECORDS SUMMARY | 2024-09-13 03:00 | XMS_ITS | Clinical Summary ---
Author Organization [facility] Address [address] [place] [address] Care Team Providers Care Assembler Piano Name Role Phone Perla Gomez MD Primary Care Provider [phone] Perla Gomez MD Unavailable [phone] Source Comments [facility],non-owned Affiliates and Associated Physician Practices is amultiple site organization consisting of ambulatory clinics and hospital sitesin [place], [place], [place] and [place]. This disclosure is being madepursuant to the Care Everywhere program and may not contain all information available regarding this patient. Last updated 17.[facility] Allergies No known active allergies Medications * [...] NOAC. Assessment & Plan (04/05/2019 11:59 AM TUGBOAT PILOT): Warfarin, follow up with vascular. Paroxysmal atrial fibrillation 02/02/2019 Assessment & Plan (10/19/2019 2:25 PM CDT): Post Operative AFIB: with reoccurrence. Continue BB. With recent SFA occlusion, suspected to be embolic, pt will require AC, now on warfarin, despite LYSVj4NECG of 1. Will reach out to vascular for recs on NOAC. Follow up with EP for rhythm control recs. Assessment & Plan (04/05/2019 12:05 PM TUGBOAT PILOT): Post Operative AFIB: No events on monitor, stop amio. Continue BB. With recent SFA occlusion, suspected to be embolic, pt will require AC, now on warfarin, despite OSAYi7PLCL of 1. . Assessment & Plan (02/02/2019 9:24 AM TUGBOAT PILOT): Post Operative AFIB: Continue Amio, check TSH and PFTS for baseline. Event Monitor to quantify. Increase Metoprolol to 50mg BID. Hx of CABG 02/02/2019 Assessment & Plan (04/05/2019 11:59 AM TUGBOAT PILOT): SVG to RCA secondary to acute dissection. Continue medical management with ASA, statin, and Metoprolol. Assessment & Plan (02/02/2019 9:25 AM TUGBOAT PILOT): SVG to RCA secondary to acute dissection. Continue medical management with ASA, statin, and Metoprolol. Type 1 dissection of ascending aorta 01/16/2019 Assessment & Plan (10/19/2019 2:36 PM CDT): Stable, sp Ascending aorta graft with cardiopulmonary bypass using 34 mm Hemashield graft on 01/15 at [facility] per Dr. Alegre. SBP remains stable, continue BB. Stable on CT 2. Assessment & Plan (04/05/2019 11:56 AM TUGBOAT PILOT): Stable, sp Ascending aorta graft with cardiopulmonary bypass using 34 mm Hemashield graft on 01/15 at [facility] per Dr. Alegre. SBP remains stable, pt is orthostatic in clinic today, decrease Metoprolol to 12.5mg daily. Continue to log BP and bring to follow up. Stable on CT 2. S/P aortic dissection repair 01/16/2019 Assessment & Plan (02/02/2019 9:28 AM TUGBOAT PILOT): Stable, sp Ascending aorta graft with cardiopulmonary bypass using 34 mm Hemashield graft on 01/15 at [facility] per Dr. Alegre. SBP [...] on file Legal Sex Female 3:05 PM TUGBOAT PILOT Gender Identity Not on file Sexual Orientation [...] Oxygen Concentration 40% 03/26/2019 1 0:36 AM TUGBOAT PILOT Weight 60.8 kg (134 lb) 09/07/2021 10:56 [...] this topic Medical Devices Implanted Type Area Museum Archivist Device Identifier Shelf Expiration Date Model / Serial / Lot Graft Cv 34mm 30cm Hmsh Pl Polystr 2 Vlr - [id number] Implanted:Qty: 1 on 01/15/2019 by Josue Alegre MD at [facility] N/A: Aorta Maquet 11/20/2021 [id number] / [id number] Description:GTIN: [id number] Graft Cv 8mm 30cm Hmsh Pl Polystr 2 Vlr - [id number] Implanted:Qty: 1 on 01/15/2019 by Josue Alegre MD at [facility] N/A: Aorta Maquet 11/20/2022 [id number] / [id number] Description:GTIN: [id number] Carleton Tefl Implanted:Qty: 4 on 01/15/2019 by Josue Alegre MD at [facility] N/A: Aorta Bard Peripheral Vascular 03/16/2023 [id number] / / [id number] 8 Hl Strnm Strnlck Ze 2.4 Mm Implanted:Qty: 2 on 01/15/2019 by Josue Alegre MD at [facility] N/A: Sternum Bina Biomet [id number] / / Screw 2.4mm 12mm Slf Drl Lck Strnl Canc Implanted:Qty: 16 on 01/15/2019 by Josue Alegre MD at [facility] N/A: Sternum Bina Biomet [id number] / / Screw 2.4mm 14mm Slf Drl Lck Strnl Canc Implanted:Qty: 8 on 01/15/2019 by Josue Alegre MD at [facility] N/A: Sternum Bina Biomet [id number] / / 8-Hole Jl Plate Implanted:Qty: 1 on 01/15/2019 by Josue Alegre MD at [facility] N/A: Sternum Bina Biomet [id number] / / Sys Crd Mntr Rvl Linq Ii - [id number] Implanted:Qty: 1 on 06/30/2021 by Erik Lance MD at [facility] Left: Chest Medtron [place]leton 04/15/2022 [id number] / [id number] / Description:loop recorder Procedures Procedure Name [...] ve Non-react felix 06/04/2021 12:09 PM CDT [facility] Comment:No Laboratory eviden ce of HIV infection. Blood BLOOD SPECIMEN / Unknown Venipuncture / Unknown 06/04/2021 10:42 AM CDT 06/04/2021 10:48 AM CDT Dee Ramirez MD LAB - CHEMISTRY ORDERABLES F inal Result [facility] [address] [place] [address], [place] [phone] * HEPATITIS C RNA QUANTITATIVE (06/04/2021 10:42 AM CDT) [facility] Hepatitis C RNA PCR, Interp Not detected Not detected 06/08/2021 12:18 PM CDT [facility] Blood BLOOD SPECIMEN / Unknown Venipuncture / Unknown 06/04/2021 10:42 AM CDT 06/04/2021 12:19 PM CDT Narrative [facility] - 06/08/2021 12:18 PM CDT The Hepatitis C viral (HCV) RNA analysis utilized a serum sample, real-time reverse sharepoint developer PCR, and is reported as Not Detected, [...] the isolation of HCV RNA with reverse sharepoint developer of genomic HCV RNA followed by real-time PCR in the presence of an unrelated RNA internal control. The internal control ensures that RNA is isolated, and that no general significant inhibitors of the RT-PCR process are present. The analysis was performed using a U.S. FDA approved test methodology (Selerity Real Time HCV). us Dee Ramirez MD LAB - CHEMISTRY ORDERABLES F inal Result [facility] [address] [place], [place] [address] [phone] from Last 3 Months or Most Recently Relevant to Health Maintenance Insurance [facility] [place]ICAID [place] [facility] * Guarantor: ERI ROLON Account Type Relation to Patient Date of Phone Billing Address Personal/Family 1960 [address] [id number] [facility] Advance Directives * Full Code (Latest Code [...] 12:03 AM 01/22/2019 4:11 PM Care Teams Assembler Piano Relationship Specialty Start Date End Date Perla Gomez MD [facility] [place] [phone] PCP - General Family Medicine 06/06/20 Perla Gomez MD [address] [place] [phone] 06/06/20
--- OUTSIDE RECORDS SUMMARY | 2024-09-13 03:00 | XMS_ITS | Referral Summary ---
Author Organization [facility] [address] Address [address] [place] [address] Care Team Providers Care Legislative Correspondent Name Role Phone Pearl Akbar STEAMBLASTER Primary Care Provider [phone] Encounters Date Type Department Care Team Description 09/07/2024 Anticoagulation Visit [facility] Cardiology [address] [place] [address] Joy Delatorre, SUE from Last 3 Months Allergies No known active allergies Medications aspirin 81 mg chewable tabletIndicatio ns:primary prevention of coronary heart disease Take 1 tablet (81 mg total) by mouth data processor before breakfast 9 Active atorvastatin (LIPITOR) 80 mg tabletIndicatio ns:hyperlipidem ia Take 1 tablet (80 mg total) by mouth data processor before breakfast 9 Active cholecalciferol (VITAMIN D-3) 1,000 unit capsuleIndicati ons:Vitamin D Deficiency Take 2 capsules (2,000 Units total) by mouth data processor before breakfast Active zolpidem (AMBIEN) 10 mg tabletIndicatio ns:Sleep-Onset Insomnia Take 1 tablet (10 mg total) by mouth nightly as needed for sleep Active calcium carbonate (OS-STAN) 1,500 mg (600 mg of elemental calcium) tabletIndicatio ns:Hypocalcemia Prevention Take 1,000 mg of elemental calcium by mouth data processor before breakfast Active albuterol HFA (PROVENTIL HFA,VENTOLIN [...] RVR on 06/19 Added amiodarone TID on 06/19/ SR QTC 447 Change amiodarone to 400mg daily DVT (deep venous thrombosis) 06/21/2020 Assessment & Plan (06/24/2020 10:52 AM CDT): Hx of DVT - was on Eliquis Will not restart at discharge due to two major surgeries. 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 Alegre. SBP remains slightly [...] mm Hemashield graft on 01/15 at [facility] per Dr. Alegre. SBP remains stable, [...] (06/12/2020): Added automatically from request for surgery [id number] Social History Tobacco Use Types Packs/Day Years [...] Comments Blood Pressure 136/70 01/06/2024 9:22 AM GYN Pulse 64 01/06/2024 9:22 AM GYN Temperature 36.8 C (98.2 F) 05/04/2023 10:51 AM CDT Respiratory Rate 17 05/04/2023 5:00 PM CDT Oxygen Saturation 98% 01/06/2024 9:22 AM GYN Inhaled Oxygen Concentration - - Weight 61.2 kg (135 lb) 01/06/2024 9:22 AM GYN Height 170.2 cm (5' 7) 01/06/2024 9:22 AM GYN Body Mass Index 21.14 01/06/2024 9:22 AM GYN Plan of Treatment Not on file Medical Devices Implanted Type Area Survey Research Analyst Device Identifier Shelf Expiration Date Model / Serial / Lot AmpliPhi Biosciences [id number] Hemashield [place] 8mm 30cm Woven Smooth Needle Passage Suture - [id number] - [id number] Implanted:Qty: 1 on 06/18/2020 by Edmond Berumen MD at [facility] Graft N/A: Aorta SKC CommunicationsINGE DotProduct [id number] 12/21/2024 [id number] / [id number] / 20L04 Ambio Healthle Inc [id number] Graft Cardiovascular Hemashield [place] 2 Velour Collagen Polyester 4 Branch Od8 Mm L47 Cm Od26 Mm Odsec10 Mm Abdomen Thorax Woven Soft Flexible - [id number] - [id number] Implanted:Qty: 1 on 06/18/2020 by Rajat Paul MD at [facility] Graft N/A: Aorta GETINGE CASTLE INC 07/21/2020 [id number] / [id number] / [id number] AmpliPhi Biosciences [id number] Hemashield [place] 18mm 30cm Woven Smooth Needle Passage Suture - [id number] - [id number] Implanted:Qty: 1 on 06/18/2020 by Rajat Paul MD at [facility] Graft N/A: Heart Getinge/Inman Inc [id number] 07/21/2024 [id number] / [id number] / 20F24 Implantable Loop Recorder-07/01/19 22 Implanted:2021 (Quantity not on file) Implantable Loop Recorder Left: Chest Medtronic REVEAL LINQ ICM / / Greer Lifesciences [id number] Sawyer-Brayden ds Perimount Magna Ease 23mm Bioprosthesis - [id number] - [id number] Implanted:Qty: 1 on 06/18/2020 by Rajat Paul MD at [facility] Other - see comments N/A: Heart Greer Lifesciences 12/15/2023 [id number] / [id number] / Insurance [employer] [place] [place] [id number] [employer] CHOICE PPO MIRIAN ALEJANDRO [address] Advance Directives For more information, please contact: [phone] * Full Code (Latest Code Status on File) Date Activated Date Inactivated Comments 06/16/2020 4:41 PM 06/24/2020 5:30 PM Care Teams Legislative Correspondent Relationship Specialty Start Date End Date Pearl Akbar NP [address] [place] [address] PCP - General Family Medicine 12/07/23
--- OUTSIDE RECORDS SUMMARY | 2024-09-13 03:00 | XMS_ITS | Clinical Summary ---
Author Organization [facility] Address [address] [place] [address] Care Team Providers Care Compressor Operator Portable Name Role Phone Unavailable Primary Care Provider [...] Comments Blood Pressure 102/70 01/03/2012 5:40 PM STAFF TECHNOLOGIST Pulse 85 01/03/2012 5:40 PM STAFF TECHNOLOGIST Temperature - - Respiratory Rate - - Oxygen Saturation - - Inhaled Oxygen Concentration - - Weight 58.1 kg (128 lb) 01/03/2012 5:40 PM STAFF TECHNOLOGIST Height 170.2 cm (5' 7) 01/03/2012 5:40 PM STAFF TECHNOLOGIST Body Mass Index 20.05 01/03/2012 5:40 PM STAFF TECHNOLOGIST Plan of Treatment Health Maintenance Due Date Last Done Comments Colorectal Cancer Screening Colonoscopy (10 Years) 1960 Hepatitis C 05/17/1977 DTaP, Tdap and Td Vaccines ( 1 - Tdap) 05/17/1978 Mammogram Screening 1999 Pneumococcal Vaccine: 50+ Ye ars (1 of 1 - PCV) 05/17/2009 Zoster Vaccines (1 of 2) 05/17/2009 COVID-19 Vaccine (1 - 2023-2 5 season) 2023 PHQ-2 (Physician Hebo) 02/22/2024 Dexa Scan (General) 05/17/2024 RSV Immunization [...]
--- OUTSIDE RECORDS SUMMARY | 2024-09-13 03:00 | XMS_ITS | Clinical Summary ---
Author Organization [facility] [address] Address [address] [place] [address] Care Team Providers Care Enforcement Officer Name Role Phone Pearl Akbar NP Primary Care Provider [phone] Allergies No known active allergies Medications aspirin 81 mg chewable tabletIndicatio ns:primary prevention of coronary heart disease Take 1 tablet (81 mg total) by mouth track helper before breakfast 9 Active atorvastatin (LIPITOR) 80 mg tabletIndicatio ns:hyperlipidem ia Take 1 tablet (80 mg total) by mouth track helper before breakfast 9 Active cholecalciferol (VITAMIN D-3) 1,000 unit capsuleIndicati ons:Vitamin D Deficiency Take 2 capsules (2,000 Units total) by mouth track helper before breakfast Active zolpidem (AMBIEN) 10 mg tabletIndicatio ns:Sleep-Onset Insomnia Take 1 tablet (10 mg total) by mouth nightly as needed for sleep Active calcium carbonate (OS-STAN) 1,500 mg (600 mg of elemental calcium) tabletIndicatio ns:Hypocalcemia Prevention Take 1,000 mg of elemental calcium by mouth track helper before breakfast Active albuterol HFA (PROVENTIL HFA,VENTOLIN [...] (06/12/2020): Added automatically from request for surgery [id number] Assessment & Plan (06/24/2020 10:51 AM CDT): [...] (06/12/2020): Added automatically from request for surgery [id number] Assessment & Plan (06/23/2020 1:43 PM CDT): [...] (06/12/2020): Added automatically from request for surgery [id number] Encounters Date Type Department Care Team Description 09/07/2024 Anticoagulation Visit [facility] Cardiology [address] [place] [address] Joy Delatorre, SUE from Last 3 Months Surgical History Surgery Date Site/Laterality Comments THYROIDECTOMY, [...] PAF (paroxysmal atrial fibri llation) ([facility]) Depression Asthma UC (ulcerative colitis) ([facility]) S/ P colectomy and illisotomy 1979 DVT (deep venous thrombosis) ([facility]) LLE Aneurysm PVD (peripheral vascular disease) Pulmonary nodule History of blood transfusion Aortic dissection ([facility]) type A Postoperative nausea and vomiting 06/17/2020 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HCC) Family History Medical History Relation Name Comments Heart attack Father Heart disease Father Relation Name Status Comments Father Alive [place] in his 70s Social History Tobacco Use [...] Comments Blood Pressure 136/70 01/06/2024 9:22 AM COMPUTERIZED MILL MILL RECORDER Pulse 64 01/06/2024 9:22 AM COMPUTERIZED MILL MILL RECORDER Temperature 36.8 C (98.2 F) 05/04/2023 10:51 AM CDT Respiratory Rate 17 05/04/2023 5:00 PM CDT Oxygen Saturation 98% 01/06/2024 9:22 AM COMPUTERIZED MILL MILL RECORDER Inhaled Oxygen Concentration - - Weight 61.2 kg (135 lb) 01/06/2024 9:22 AM COMPUTERIZED MILL MILL RECORDER Height 170.2 cm (5' 7) 01/06/2024 9:22 AM COMPUTERIZED MILL MILL RECORDER Body Mass Index 21.14 01/06/2024 9:22 AM COMPUTERIZED MILL MILL RECORDER Plan of Treatment Health Maintenance Due Date Last Done Comments Breast Cancer Screening-Mammogram 1960 Colon Cancer Screening-Colonoscopy 1960 Depression Screening 1960 Hepatitis C Screening 1960 Osteoporosis Screening-Bone Density Scan 1960 Hepatitis B Screening 05/17/1977 Pneumococcal vaccine 65+ (1 of 1 - PCV) 05/17/2009 Zoster Vaccine (1 of 2) 05/17/2009 Fall Risk Assessment 06/24/2021 06/24/2020 Well Visit 65+ 05/17/2024 Influenza Vaccine (#1) 2024 , 11/22/2019, 11/23/2018, Additional history exists DTaP/Tdap/Td Vaccine (2 - Td or Tdap) 09/03/2026 09/03/2016 Medical Devices Implanted Type Area Glass Smoother Device Identifier Shelf Expiration Date Model / Serial / Lot Astrapi [id number] Hemashield [place] 8mm 30cm Woven Smooth Needle Passage Suture - [id number] - [id number] Implanted:Qty: 1 on 06/18/2020 by Edmond Berumen MD at [facility] Graft N/A: Aorta GETINGE [employer]Object LLC [id number] 12/21/2024 [id number] / [id number] / 20L04 Spangleinge Carmell [employer] Inc [id number] Graft Cardiovascular Hemashield [place] 2 Velour Collagen Polyester 4 Branch Od8 Mm L47 Cm Od26 Mm Odsec10 Mm Abdomen Thorax Woven Soft Flexible - [id number] - [id number] Implanted:Qty: 1 on 06/18/2020 by Rajat Paul MD at [facility] Graft N/A: Aorta GETINGE CASTLE INC 07/21/2020 [id number] / [id number] / [id number] Astrapi [id number] Hemashield [place] 18mm 30cm Woven Smooth Needle Passage Suture - [id number] - [id number] Implanted:Qty: 1 on 06/18/2020 by Rajat Paul MD at [facility] Graft N/A: Heart Getinge/[place] Inc [id number] 07/21/2024 [id number] / [id number] / 20F24 Implantable Loop Recorder-07/01/19 22 Implanted:2021 (Quantity not on file) Implantable Loop Recorder Left: Chest Medtronic REVEAL LINQ ICM / / Greer Lifesciences [id number] Sawyer-Brayden ds Perimount Magna Ease 23mm Bioprosthesis - [id number] - [id number] Implanted:Qty: 1 on 06/18/2020 by Rajat Paul MD at [facility] Other - see comments N/A: Heart Greer [employer] 12/15/2023 [id number] [id number] / [id number] / Insurance [employer] CHOICE PPO [employer] CHOICE PPO Advance Directives For more information, please contact: [phone] * Full Code (Latest Code Status on File) Date Activated Date Inactivated Comments 06/16/2020 4:41 PM 06/24/2020 5:30 PM Care Teams Enforcement Officer Relationship Specialty Start Date End Date Pearl Akbar NP [address] [place] [address] PCP - General Family Medicine 12/07/23
--- OUTSIDE RECORDS SUMMARY | 2024-09-13 03:00 | XMS_ITS | Encounter Summary ---
Author Organization [facility] Address [address] [place] [address] Care Team Providers Care Hospital Security Officer Name Role Phone Perla Gomez MD Primary Care Provider [phone] Perla Gomez MD Unavailable [phone] Encounter Details Date Type Department Care Team (Late st Contact Info) Description 06/09/2021 Telephone [facility] Cardiology [address] [facility] [address] [place] [address] Radha Rodas RN Social History Tobacco Use [...] on file Legal Sex Female 3:05 PM CLIPPER MACHINE Gender Identity Not on file Sexual Orientation Not on file documented as of this encounter Functional Status * Is person deaf or have serious hearing difficulty? Answer Date of Assessment Author No 06/08/2020 12:57 PM CDT rBi Fisher RN * Is person blind or [...] on filedocumented in this encounter Care Teams Hospital Security Officer Relationship Specialty Start Date End Date Perla Gomez MD [address] [place] [phone] PCP - General Family Medicine 06/06/20 Perla Gomez MD [address] [place] [phone] 06/06/20 documented as of this encounter
--- OUTSIDE RECORDS SUMMARY | 2024-09-13 03:00 | XMS_ITS | Encounter Summary ---
Author Organization [facility] Address [address] [place] [address] Care Team Providers Care Director Software Quality Assurance Name Role Phone Perla Gomez MD Primary Care Provider [phone] Perla Gomez MD Unavailable [phone] Encounter Details Date Type Department Care Team (Late st Contact Info) Description 06/04/2021 Telephone [facility] [address] [facility] [address] [place] [address] Radha Rodas RN Social History Tobacco Use [...] on file Legal Sex Female 3:05 PM GRINDER SET UP OPERATOR SURFACE Gender Identity Not on file Sexual Orientation [...] appears that patient has been following at [facility] with Dr. Jamison. Will request CTS to reviewand see if patient needs to be followed by us as well. documented in this encounter Plan of Treatment Not on file documented as of this encounter Visit Diagnoses Not on filedocumented in this encounter Care Teams Director Software Quality Assurance Relationship Specialty Start Date End Date Perla Gomez MD [address] [place] [phone] PCP - General Family Medicine 06/06/20 Perla Gomez MD [address] [place] [phone] 06/06/20 documented as of this encounter
--- NOTE | 2024-09-13 03:12 | ED.ARRPALP ---
HPI - Arrhythmia/Palpitations General Chief Complaint: Arrhythmia/Palpitations Stated Complaint: palpitations Time Seen by Provider: 09/13/24 02:33 Source: patient and family () Limitations: no limitations History of Present Illness HPI narrative: Patient presents with report of palpitations she has felt day. She states at times it feels like heart is skipping beats and other times she seems hyper aware heart is beating. She states she is had palpitations frequently/chronically. Has previously used event/Holter monitor also still has a loop recorder in place it is no longer active/working/recording. The loop recorder was placed because she had episode of ventricular fibrillation which resolved. She also reports she transiently had a brief history of atrial fibrillation and was Eliquis point but this was later discontinued the arrhythmia never returned. Both of these arrhythmias happened after aortic replacement with mechanical valve. She has a history 2 open surgeries. These were performed at [facility] and [facility] however she follows with granular operator here in [place], Dr. Newsome. She sees him yearly and is due for her next appointment although 1 is not currently scheduled. Patient takes magnesium. She states it seems like the palpitations have become more intense. She denies any edema. Her PA increase the dose of her metoprolol just yesterday, for 50 mg daily to 75 mg daily. She denies any chest pain but has experiencing some shortness of breath as well as a cough. No fevers or chills. 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 Repair of what sounds like graft separation/leak was done in 05/2020. History of partial thyroidectomy History of laparoscopy With adhesiolysis. History of ileostomy History of section Status post proctocolectomy History of tonsillectomy Family History Family History Sibling Diabetes mellitus Mother Cancer Father Heart attack Social History Social History Social History: Surrogate decision maker: Hesham Ramey, spouse. Code status: Full code. Smoking status: Never smoker Second hand tobacco smoke exposure: No Alcohol intake: never Substance use: never Substance use type: does not use Living arrangements: with family Additional living arrangements comments: Lives with family in [place]. Spiritual care concerns: No Exam Narrative: GENERAL: Well-appearing, well-nourished, and in no acute distress. HEAD: Normocephalic, atraumatic. EYES: Non injected, non icteric ENT: Nares clear, no rhinorrhea or epistaxis. Gross auditory acuity intact. NECK: Supple. No meningismus. CHEST: Speaking in full sentences. No respiratory distress.Non labored. HEART: Regular rate and rhythm. . ABDOMEN: Soft, nondistended. EXTREMITIES: Normal range of motion. No bilateral lower extremity edema. SKIN: Warm, dry, no rash. NEURO: No focal deficits. Alert and oriented. Answering questions. Following commands. Normal speech without aphasia or dysarthria. PSYCH: Normal mood and affect. Course Vital Signs Vital signs: Vital Signs Temperature 97.8 F 09/12/24 18:25 Pulse Rate 63 09/12/24 18:25 Respiratory Rate 16 09/12/24 18:25 Blood Pressure 120/70 09/12/24 18:25 Pulse Oximetry 100 09/12/24 18:25 Temperature 97.1 F L 09/12/24 20:05 Pulse Rate 65 09/13/24 04:29 Respiratory Rate 12 09/13/24 04:29 Blood Pressure 110/65 09/13/24 04:29 Pulse Oximetry 98 09/13/24 04:29 MDM - Arrhythmia/Palpitations MDM Narrative Medical decision making narrative: Patient presents with report of palpitations. She reports that she chronically experiences palpitations and had this worked up previously with a Holter/event monitor as as a loop recorder. Loop recorder remains in place in her chest although was active/working. History of 2 open heart surgeries including aortic valve replacement and aneurysm repair performed at [facility] and [place] follows with granular operator Dr Newsome and is due for annual appointment. Her PA recently increased her metoprolol dosage from 50mg daily to 75mg daily. In the emergency department they are afebrile with vital signs within normal limits. Questionable U waves particularly in V4 V5 and V6. Magnesium lab ordered. TSH level was also ordered however she did just have 1 performed earlier in the month and it was normal. Mild normocytic anemia and thrombocytopenia. The former not to a degree to suggest significant symptomatic anemia. No marked electrolyte abnormalities 3 negative troponins. Today's TSH is normal. No arrhythmias were noted on EKGs or during cardiac monitoring while patient was in the ED. she is otherwise stable for discharge advised to follow-up with her granular operator. Differential Diagnosis Differential diagnosis: Likely palpitations, anxiety, sinus tachycardia, artial fibrillation, artial flutter, ventricular premature beats, supraventricular tachycardia, ventricular tachycardia, WPW and other (thyroid dysfunction; psychogenic; PACs/PVCs; electrolyte abnormalities, symptomatic anemia) Lab Data Attestation: I reviewed the patient's lab results. 09/12/24 18:24 09/12/24 18:24 Labs: Lab Results 09/12/24 09/12/24 09/13/24 Range/Units 18:24 23:03 00:27 WBC 5.1 (4.5-10.0) K/mm3 RBC 4.04 L (4.2-5.4) M/mm3 Hgb 11.8 L (12.0-15.0) g/dL Hct 36.0 L (37.0-47.0) % MCV 89.1 (80-100) fl MCH 29.2 (26-34) pg MCHC 32.8 (32-36) g/dl RDW 12.8 (11.5-14.5) % Plt Count 145 L (150-375) k/mm3 MPV 9.8 (7.4-10.4) fl Immature Gran % (Auto) 0.2 (0-0.5) % Neut % (Auto) 62.8 (45.5-73.1) % Lymph % (Auto) 23.0 (18.3-44.2) % [place] % (Auto) 11.3 H (2.6-8.5) % Eos % (Auto) 1.9 (0-4.4) % Baso % (Auto) 0.8 (0.2-1.2) % Lymph # (Auto) 1.18 (0.9-3.2) K/mm3 [place] # (Auto) 0.6 (0.1-0.6) K/mm3 Eos # (Auto) 0.1 (0-0.3) K/mm3 Baso # (Auto) 0.0 (0.0-0.1) K/mm3 Abs Immat Gran (auto) 0.01 (0.00-0.031) K/mm3 Absolute Neuts (auto) 3.2 (1.3-6.7) K/mm3 Absolute Nucleated RBC 0.000 (0.0-0.012) K/mm3 Nucleated RBC % 0.0 (0.0-0.2) % PT 12.8 (11.1-14.7) Seconds INR 1.0 APTT 27.8 (22.3-36.8) Seconds Sodium 136 L (137-145) mmol/L Potassium 4.1 (3.4-5.0) mmol/L Chloride 102 (98-107) mmol/L Carbon Dioxide 25 (22-30) mmol/L Anion Gap 9 (4-12) mmol/L BUN 21 H (7-17) mg/dL Creatinine 0.87 (0.7-1.0) mg/dL Estim Creat Clear Calc 53 ml/min Estimated GFR > 60 (59 - ) Glucose 97 (65-110) mg/dL Calcium 9.3 (8.4-10.2) mg/dL Magnesium 2.1 (1.6-2.3) mg/dL Total Bilirubin < 0.1 L (0.2-1.3) mg/dL AST 24 (14-36) U/L ALT 17 (6-35) U/L Alkaline Phosphatase 77 (38-126) U/L Troponin I < 0.012 < 0.012 < 0.012 (0.000-0.034) ng/mL Total Protein 7.1 (6.3-8.2) g/dL Albumin 4.3 (3.5-5.1) g/dL Lipase 90 (23-300) U/L TSH 1.260 (0.465-4.680) uIU/mL Imaging Data Radiologist's impression: Impressions Chest X-Ray 09/12/24 19:13 IMPRESSION: Postoperative change within the thoracic aorta without focal infiltrate or effusion. ECG Data EKG #1: Attestation: I personally reviewed and interpreted this ECG as follows: ECG completion date: 09/12/24 ECG completion time: 18:20 Interpretation: Sinus bradycardia at a rate of 59 beats per minute. ME interval 185. QRS 94. QT/QTC 400/399. Good R-wave progression across the precordial leads. No T-wave inversions. Questionable U waves particularly in V4 V5 and V6. EKG #2: Attestation: I personally reviewed and interpreted this ECG as follows: ECG completion date: 09/12/24 ECG completion time: 22:57 Interpretation: Sinus bradycardia at a rate of 56 beats per minute. ME interval 202. QRS 98. QT/QTC 425/417. Good R-wave progression across the precordial leads. Normal axis. No T-wave inversions. Discharge Plan Discharge Clinical Impression: Heart palpitations, Normocytic anemia, Thrombocytopenia Patient Disposition: Home Condition: Stable Instructions: Antibiotic Form, Heart Palpitations (DC), Anemia (ED) Additional Instructions: No clear cause of your symptoms as no abnormal activity was captured well cardiac monitoring while in the emergency department or on the EKGs. You had 3 normal/negative troponins (cardiac enzymes). No marked abnormalities of electrolytes. TSH (thyroid) normal. Recommend follow-up with your primary care physician and granular operator. Return to the emergency department any new or worsening symptoms. Continue taking your medications as prescribed. Patient Language: Portuguese Prescriptions: No Action paroxetine HCl 10 mg tablet 10 mg PO DAILY Qty: 90 0RF Patient Comments: pt states no longer taking aspirin 81 mg tablet,chewable 81 mg PO DAILY (DME) Ostomy supplies. See Rx Instructions .Route .MEDSUPPLY Qty: 1 0RF Rx Instructions: ostomy bags, remover, skin prep, and clip needed. albuterol sulfate 90 mcg/actuation HFA aerosol inhaler 1 inh INHALATION Q4-6H PRN (Reason: Shortness Of Breath) Qty: 6.7 3RF metoprolol succinate 50 mg tablet extended release 24 hr See Rx Instructions .ROUTE .COMPLEX Qty: 90 2RF Dose Instruction: TAKE 1 TABLET BY MOUTH EVERY DAY Rx Instructions: TAKE 1 TABLET BY MOUTH EVERY DAY lisinopril 10 mg tablet 10 mg PO DAILY Qty: 90 3RF Rx Instructions: take with 5 mg tablet to total 15mg. lisinopril 5 mg tablet 5 mg PO DAILY Qty: 90 3RF Rx Instructions: take with 10mg tab to total 15mg zolpidem 10 mg tablet 10 mg PO HS Qty: 90 1RF clonazepam 0.5 mg tablet 0.25 mg PO BID PRN (Reason: anxiety) Qty: 60 1RF Follow-up/Referrals: Erlin Newsome MD [Physician] - Erlin Sandhu MD [Primary Care Provider] - Stand Alone Forms: Work/School Release IP Time of Disposition: 04:19
[2024-09-13 03:24] LABS: Magnesium 2.1 mg/dL (1.6-2.3)
[2024-09-13 03:59] LABS: Thyroid Stimulating Hormone 1.260 uIU/mL (0.465-4.680)
== END 2024-09-13 04:29 | disposition home or self-care (01) ==
PROVIDERS: Emergency Medicine; Emergency Provider Student in an Organized Health Care Education/Training Program; PCP Family Medicine
DX: R00.2 Palpitations (principal); D64.9 Anemia, unspecified; D69.6 Thrombocytopenia, unspecified; I73.9 Peripheral vascular disease, unspecified; I48.0 Paroxysmal atrial fibrillation; M19.90 Unspecified osteoarthritis, unspecified site; E89.0 Postprocedural hypothyroidism; J45.909 Unspecified asthma, uncomplicated; K51.90 Ulcerative colitis, unspecified, without complications; F41.8 Other specified anxiety disorders; Z95.2 Presence of prosthetic heart valve; Z86.14 Personal history of Methicillin resistant Staphylococcus aureus infection; Z90.710 Acquired absence of both cervix and uterus; Z79.899 Other long term (current) drug therapy; R00.1 Bradycardia, unspecified
CPT/HCPCS: 36415; 71046; 80053; 83690; 83735; 84443; 84484; 85025; 85610; 85730; 93005; 99284

== ENCOUNTER 2024-10-05 12:38 | Outpatient (CLI) | payer MEDICARE, SELFPAY ==
--- OUTSIDE RECORDS SUMMARY | 2024-10-05 12:42 | XMS_ITS | Clinical Summary ---
Author Organization [facility] Address [address] [place] [id number] Care Team Providers Care Personnel Adviser Name Role Phone Unavailable Primary Care Provider [...] Comments Blood Pressure 102/70 01/03/2012 5:40 PM STRIPPER COLOR Pulse 85 01/03/2012 5:40 PM [employer]IP[employer] Temperature - - Respiratory Rate - - Oxygen Saturation - - Inhaled Oxygen Concentration - - Weight 58.1 kg (128 lb) 01/03/2012 5:40 PM [employer]IP[employer] Height 170.2 cm (5' 7) 01/03/2012 5:40 PM [employer]IP[employer] Body Mass Index 20.05 01/03/2012 5:40 PM STRIPPER [employer] Plan of Treatment Health Maintenance Due Date Last Done Comments Colorectal Cancer Screening Colonoscopy (10 Years) 1960 Hepatitis C 05/17/1977 DTaP, Tdap and Td Vaccines ( 1 - Tdap) 05/17/1978 Mammogram Screening 1999 Pneumococcal Vaccine: 50+ Ye ars (1 of 1 - PCV) 05/17/2009 Zoster Vaccines (1 of 2) 05/17/2009 COVID-19 Vaccine (1 - 2023-2 5 season) 2023 PHQ-2 (Physician [place]) 02/22/2024 Dexa Scan (General) 05/17/2024 RSV Immunization [...]
--- OUTSIDE RECORDS SUMMARY | 2024-10-05 12:42 | XMS_ITS | Encounter Summary ---
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 Jamison. Will request CTS to reviewand see if patient needs to be followed by us as well. documented in this encounter Plan of Treatment Not on file documented as of this encounter Visit Diagnoses Not on filedocumented in this encounter Care Teams Product Tester Fiberglass Relationship Specialty Start Date End Date Perla Gomez MD [address] [place] [phone] PCP - General Family Medicine 06/06/20 Perla Gomez MD [address] [place] [phone] 06/06/20 documented as of this encounter
--- OUTSIDE RECORDS SUMMARY | 2024-10-05 12:42 | XMS_ITS | Encounter Summary ---
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
--- OUTSIDE RECORDS SUMMARY | 2024-10-05 12:42 | XMS_ITS | Clinical Summary ---
Author Organization [facility] Address [address] [place] [address] Care Team Providers Care Glove Turner Name Role Phone Perla Gomez MD Primary Care Provider [phone] Perla Gomez MD Unavailable [phone] Source Comments [facility] [employer],non-owned Affiliates and Associated Physician Practices is amultiple site organization consisting of ambulatory clinics and hospital sitesin [place], [place], [place] and [place]. This disclosure is being madepursuant to the Care Everywhere program and may not contain all information available regarding this patient. Last updated 17.[facility] [employer] Allergies No known active allergies Medications * [...] NOAC. Assessment & Plan (04/05/2019 11:59 AM PRODUCT AMBASSADOR): Warfarin, follow up with vascular. Paroxysmal atrial fibrillation 02/02/2019 Assessment & Plan (10/19/2019 2:25 PM CDT): Post Operative AFIB: with reoccurrence. Continue BB. With recent SFA occlusion, suspected to be embolic, pt will require AC, now on warfarin, despite [id number] of 1. Will reach out to vascular for recs on NOAC. Follow up with EP for rhythm control recs. Assessment & Plan (04/05/2019 12:05 PM PRODUCT AMBASSADOR): Post Operative AFIB: No events on monitor, stop amio. Continue BB. With recent SFA occlusion, suspected to be embolic, pt will require AC, now on warfarin, despite [id number] of 1. . Assessment & Plan (02/02/2019 9:24 AM PRODUCT AMBASSADOR): Post Operative AFIB: Continue Amio, check TSH and PFTS for baseline. Event Monitor to quantify. Increase Metoprolol to 50mg BID. Hx of CABG 02/02/2019 Assessment & Plan (04/05/2019 11:59 AM PRODUCT AMBASSADOR): SVG to RCA secondary to acute dissection. Continue medical management with ASA, statin, and Metoprolol. Assessment & Plan (02/02/2019 9:25 AM PRODUCT AMBASSADOR): SVG to RCA secondary to acute dissection. Continue medical management with ASA, statin, and Metoprolol. Type 1 dissection of ascending aorta 01/16/2019 Assessment & Plan (10/19/2019 2:36 PM CDT): Stable, sp Ascending aorta graft with cardiopulmonary bypass using 34 mm Hemashield graft on 01/15 at [facility] per Dr. Alegre. SBP remains stable, continue BB. Stable on CT 2. Assessment & Plan (04/05/2019 11:56 AM PRODUCT AMBASSADOR): Stable, sp Ascending aorta graft with cardiopulmonary bypass using 34 mm Hemashield graft on 01/15 at [facility] per Dr. Alegre. SBP remains stable, pt is orthostatic in clinic today, decrease Metoprolol to 12.5mg daily. Continue to log BP and bring to follow up. Stable on CT 2. S/P aortic dissection repair 01/16/2019 Assessment & Plan (02/02/2019 9:28 AM PRODUCT AMBASSADOR): Stable, sp Ascending aorta graft with cardiopulmonary bypass using 34 mm Hemashield graft on 01/15 at [facility] per Dr. Alegre. 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 Gender Identity Not on file Sexual Orientation [...] Oxygen Concentration 40% 03/26/2019 1 0:36 AM PRODUCT AMBASSADOR Weight 60.8 kg (134 lb) 09/07/2021 10:56 [...] this topic Medical Devices Implanted Type Area Mechanic Chief Device Identifier Shelf Expiration Date Model / Serial / Lot Graft Cv 34mm 30cm Hmsh Pl Polystr 2 Vlr - [id number] Implanted:Qty: 1 on 01/15/2019 by Josue Alegre MD at [facility] N/A: Aorta Maquet 11/20/2021 [id number] / [id number] Description:GTIN: [id number] Graft Cv 8mm 30cm Hmsh Pl Polystr 2 Vlr - [id number] Implanted:Qty: 1 on 01/15/2019 by Josue Alegre MD at [facility] N/A: Aorta Maquet 11/20/2022 [id number] / [id number] Description:GTIN: [id number] Tefl Implanted:Qty: 4 on 01/15/2019 by Josue Alegre MD at [facility] N/A: Aorta Bard Peripheral Vascular 03/16/2023 [id number] / / [id number] Plate 8 Hl Strnm Strnlck Ze 2.4 Mm Implanted:Qty: 2 on 01/15/2019 by Josue Alegre MD at [facility] N/A: Sternum Bina Biomet [id number] / / Screw 2.4mm 12mm Slf Drl Lck Strnl Canc Implanted:Qty: 16 on 01/15/2019 by Josue Alegre MD at [facility] N/A: Sternum Bina Biomet [id number] / / Screw 2.4mm 14mm Slf Drl Lck Strnl Canc Implanted:Qty: 8 on 01/15/2019 by Josue Alegre MD at [facility] N/A: Sternum Bina Biomet [id number] / / 8-Hole Jl Plate Implanted:Qty: 1 on 01/15/2019 by Josue Alegre MD at [facility] N/A: Sternum Bina Biomet [id number] / / Sys Crd Mntr Rvl Linq Ii - [id number] Implanted:Qty: 1 on 06/30/2021 by Erik Lance MD at [facility] Left: Chest Medtron Harrison 04/15/2022 [id number] / [id number] / Description:loop recorder Procedures Procedure Name [...] ve Non-react felix 06/04/2021 12:09 PM CDT [facility] Comment:No Laboratory eviden ce of HIV infection. Blood BLOOD SPECIMEN / Unknown Venipuncture / Unknown 06/04/2021 10:42 AM CDT 06/04/2021 10:48 AM CDT Dee Ramirez MD LAB - CHEMISTRY ORDERABLES F inal Result [facility] [address] [place] [address], [place] [phone] * HEPATITIS C RNA QUANTITATIVE (06/04/2021 10:42 AM CDT) [facility] Hepatitis C RNA PCR, Interp Not detected Not detected 06/08/2021 12:18 PM CDT [facility] Blood BLOOD SPECIMEN / Unknown Venipuncture / Unknown 06/04/2021 10:42 AM CDT 06/04/2021 12:19 PM CDT Narrative [facility] - 06/08/2021 12:18 PM CDT The Hepatitis C viral (HCV) RNA analysis utilized a serum sample, real-time reverse pasteuriser operator PCR, and is reported as Not Detected, [...] the isolation of HCV RNA with reverse pasteuriser operator of genomic HCV RNA followed by real-time PCR in the presence of an unrelated RNA internal control. The internal control ensures that RNA is isolated, and that no general significant inhibitors of the RT-PCR process are present. The analysis was performed using a U.S. FDA approved test methodology ([employer] Real Time HCV). us Dee Ramirez MD LAB - CHEMISTRY ORDERABLES F inal Result [facility] [address] [place], [place] [address] [phone] from Last 3 Months or Most Recently Relevant to Health Maintenance Insurance [facility] [place] [facility] * Guarantor: ERI ROLON Account Type Relation to Patient Date of Phone Billing Address Personal/Family 1960 [address] [id number] [facility] Advance Directives * Full Code (Latest [...] 12:03 AM 01/22/2019 4:11 PM Care Teams Glove Turner Relationship Specialty Start Date End Date Perla Gomez MD [facility] [place] [phone] PCP - General Family Medicine 06/06/20 Perla Gomez MD [address] [place] [phone] 06/06/20
--- OUTSIDE RECORDS SUMMARY | 2024-10-05 12:42 | XMS_ITS | Encounter Summary ---
Author Organization [facility] Address [address] [place] [address] Phone Care Team Providers Care Impregnator Carbon Products Name Role Phone Perla Gomez MD Primary Care Provider [phone] Lynn Shipman Primary Care Provider [phone] Perla Gomez MD Unavailable [phone] Rajat Paul MD Unavailable Brandyn Abdi DO Primary Care Provider [phone] Pearl Akbar NP Primary Care Provider [phone] Encounter Details Date Type Department Care Team [...] on filedocumented in this encounter Care Teams Impregnator Carbon Products Relationship Specialty Start Date End Date Perla Gomez MD PCP - General Family Medicine 06/10/20 08/17/22 Lynn Shipman PA [address] [place] [id number] PCP - General Physician Pier Hand 08/18/22 09/07/22 Brandyn Abdi DO [address] [phone] PCP - General Internal Medicine 09/08/22 12/06/23 Pearl Akbar, CABLE INSTALLER [address] [place] [address] PCP - General Family Medicine 12/07/23 Perla Gomez MD Family Medicine 08/18/22 09/05/22 Rajat Paul MD [address] [place] [address] Surgeon Cardiothoracic Surgery 06/24/20 7 3 documented as of this encounter
--- OUTSIDE RECORDS SUMMARY | 2024-10-05 12:42 | XMS_ITS | Clinical Summary ---
Author Organization [facility] [address] Address [address] [place] [address] Care Team Providers Care Land Leases And Rentals Manager Name Role Phone Pearl Akbar NP Primary Care Provider [phone] Allergies No known active allergies Medications aspirin 81 mg chewable tabletIndicati ons:primary prevention of coronary heart disease Take 1 tablet (81 mg total) by mouth foil wrapper before breakfast 9 Active cholecalcifero l (VITAMIN D-3) 1,000 unit capsuleIndicat ions:Vitamin D Deficiency Take 2 capsules (2,000 Units total) by mouth foil wrapper before breakfast Active zolpidem (AMBIEN) 10 mg tabletIndicati ons:Sleep-Onse t Insomnia Take 1 tablet (10 mg total) by mouth nightly as needed for sleep Active calcium carbonate (OS-STAN) 1,500 mg (600 mg of elemental calcium) tabletIndicati ons:Hypocalcem ia Prevention Take 1,000 mg of elemental calcium by mouth foil wrapper before breakfast Active albuterol HFA (PROVENTIL HFA,VENTOLIN HFA,PROAIR HFA) 90 mcg/actuation inhalerIndicat ions:Acute Asthma Attack Inhale 2 puffs every 6 (six) hours as needed for wheezing Active lisinopriL (PRINIVIL,ZEST RIL) 10 mg tablet Take 1 tablet (10 mg total) by mouth daily 3 Active metoprolol XL (TOPROL-XL) 50 mg extended release tablet Take 1 tablet (50 mg total) by mouth daily 3 Active clonazePAM (KlonoPIN) 0.5 mg tablet 0.25 MG (1/2 X 0.5 MG) ORALLY TWICE A DAY NEEDED FOR ANXIETY 5 Active metoprolol XL (TOPROL-XL) 25 mg extended release tablet Take 1 tablet (25 mg total) by mouth daily Active zinc acetate 50 mg (zinc) capsule Take by mouth Active atorvastatin (LIPITOR) 80 mg tabletIndicati ons:hyperlipid emia Take 1 tablet (80 mg total) by mouth foil wrapper before breakfast 9 09/21/19 25 Discontinue d(Other) buPROPion SR (ZYBAN) 150 mg 12 hr tablet Take 1 tablet (150 mg total) by mouth daily 09/21/19 25 Discontinue d(No longer taking - Do not display on AVS) sertraline (ZOLOFT) 100 mg tablet Take 1 tablet (100 mg total) by mouth daily 09/21/19 25 Discontinue d(No longer taking - Do not display on AVS) ARIPiprazole (ABILIFY) 2 mg tablet Take 1 tablet (2 mg total) by mouth daily 4 09/21/19 25 Discontinue d(No longer taking - Do not display on AVS) tiZANidine (ZANAFLEX) 2 mg tablet TAKE 1-2 TABLET(S) BY MOUTH DAILY AT BEDTIME 180 tablet 5 09/21/19 25 Discontinue d(No longer taking - Do not display on AVS) Active Problems Problem Noted Date Diagnosed Date [...] (06/12/2020): Added automatically from request for surgery [id number] Assessment & Plan (06/24/2020 10:51 AM CDT): [...] arrest with antegrade cerebral perfusion TTF 06/20 5/1 PCT out, MCT out today, capped wires [...] (06/12/2020): Added automatically from request for surgery [id number] Assessment & Plan (06/23/2020 1:43 PM CDT): 06/16: OR with vascular for subclavian debranching (Dr. Lowry) 06/18 (Paul): Redo sternotomy, zone 2 aortic arch replacement, AVR (inspiris 23mm) & bioBentall aortic root replacement (10 cabrol to LCA), reimplant of SVG-RCA bypass. 06/23 Remove temporary pacing wires History of aortic dissection 06/06/2020 S/P aortic dissection repair 01/16/2019 Overview (08/14/2020): Last Assessment & Plan: Stable, sp Ascending aorta graft with cardiopulmonary bypass using 34 mm Hemashield graft on 01/15 at [facility] per Dr. Alegre. SBP remains [...] 34 mm Hemashield graft on 01/15 at [facility] per Dr. Alegre. SBP remains [...] (06/12/2020): Added automatically from request for surgery [id number] Encounters Date Type Department Care Team Description 09/20/2024 9:00 AM CDT Office Visit [facility] Medical [facility] Cardiology [address] [place] [phone] Eda Licona, AYDIN Palpitations; Lipid screening; S/P aortic dissection repair 09/14/2024 Telephone [facility] Cardiology [address] [facility] [address] [place] [phone] Eda Licona NP 09/07/2024 Anticoagulation Visit [facility] Cardiology [address] [place] [address] [address] [place] [phone] Joy Delatorre RN from Last 3 Months Surgical History Surgery [...] CAD (coronary artery disease) PAF (paroxysmal atrial fibrillation) Depression Asthma UC (ulcerative colitis) S/P lauro ctomy and illisotomy 1979 DVT (deep venous thrombosis) LLE Aneurysm PVD (peripheral vascular disease) Pulmonary nodule History of blood transfusion Aortic dissection (HCC) type A Postoperative nausea and vomiting 06/17/2020 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HCC) Family History Medical History Relation Name Comments Heart attack Father Heart disease Father Relation Name Status Comments Father Alive CT in his 70s Social History Tobacco Use [...] Sign Reading Time Taken Comments Blood Pressure 118/60 09/20/2024 8:56 AM CDT Pulse 66 09/20/2024 8:56 AM CDT Temperature 36.8 C (98.2 F) 05/04/2023 10:51 AM CDT Respiratory Rate 17 05/04/2023 5:00 PM CDT Oxygen Saturation 98% 09/20/2024 8:56 AM CDT Inhaled Oxygen Concentration - - Weight 56.7 kg (125 lb) 09/20/2024 8:56 AM CDT Height 170.2 cm (5' 7) 09/20/2024 8:56 AM CDT Body Mass Index 19.58 09/20/2024 8:56 AM CDT Plan of Treatment Health Maintenance [...] Visit 65+ 05/17/2024 Influenza Vaccine (#1) 2024 0, 11/22/2019, 11/23/2018, Additional history exists DTaP/Tdap/Td Vaccine (2 - Td or Tdap) 09/03/2026 09/03/2016 Medical Devices Implanted Type Area Manager Business Operations Device Identifier Shelf Expiration Date Model / Serial / Lot Quvium [id number] Hemashield [place] 8mm 30cm Woven Smooth Needle Passage Suture - [id number] - [id number] Implanted:Qty: 1 on 06/18/2020 by Edmond Berumen MD at [facility] Graft N/A: Aorta GETINGE [employer] [id number] 12/21/2024 [id number] / [id number] / [id number] Getinge Jud Inc [id number] Graft Cardiovascular Hemashield [place] 2 Velour Collagen Polyester 4 Branch Od8 Mm L47 Cm Od26 Mm Odsec10 Mm Abdomen Thorax Woven Soft Flexible - [id number] - [id number] Implanted:Qty: 1 on 06/18/2020 by Rajat Paul MD at [facility] Graft N/A: Aorta GETINGE [employer] 07/21/2020 [id number] / [id number] / [id number] [facility] [id number] Hemashield [place] 18mm 30cm Woven Smooth Needle Passage Suture - [id number] - [id number] Implanted:Qty: 1 on 06/18/2020 by Rajat Paul MD at [facility] Graft N/A: Heart Getinge[employer] [id number] 07/21/2024 [id number] / [id number] / 20F24 Implantable Loop Recorder-07/01/19 22 Implanted:2021 (Quantity not on file) Implantable Loop Recorder Left: Chest Medtronic REVEAL LINQ ICM / / [employer] [id number] Sawyer-Brayden ds Perimount Magna Ease 23mm Bioprosthesis - [id number] - [id number] Implanted:Qty: 1 on 06/18/2020 by Rajat Paul MD at [facility] Other - see comments N/A: Heart [employer] 12/15/2023 [id number] / [id number] / Procedures Procedure Name Priority Date/Time Associated Diagnosis Comments POCT LIPID PANEL Routine 09/20/2024 9:01 AM CDT Lipid screening from Last 3 Months Results * (ABNORMAL) POCT lipid panel (09/20/2024 9:01 AM CDT) Cholesterol, POC 213 <200 MG/DL HDL, POC 48 >=40 mg/dL Triglycerides, POC 188(A) <=149 mg/dL LDL Cholesterol POC 127 <=129 mg/dL Chol/HDL Ratio, POC 2.6 NONE Non-HDL Cholesterol, POC 165 NONE mg/dL Cholesterol Total, POC 213(A) 30 - 199 mg/dL Capillary blood 09/20/2024 9 :01 AM CDT Eda Licona NP POINT OF CARE TEST ORDERA BLES Final Result from Last 3 Months Insurance MEDICARE [facility] ADVANTAGE CHOICE PPO Advance Directives For more information, please contact: [phone] * Full Code (Latest Code Status on File) Date Activated Date Inactivated Comments 06/16/2020 4:41 PM 06/24/2020 5:30 PM Care Teams Land Leases And Rentals Manager Relationship Specialty Start Date End Date Pearl Akbar, GLOBAL IMPLEMENTATION MANAGER [address] [place] [address] PCP - General Family Medicine 12/07/23
--- NOTE | 2024-10-12 12:20 | WPDHOLTEREM ---
Holter/Event Monitor Holter/Event Monitor Date of procedure: 10/05/24 Holter/Event Procedure: 3-7 Day Holter Monitor Indications: Palpitations Conclusion: 1. 3 days holter monitor on 10/05/24. 2. Predominant rhythm is sinus rhythm. HR range 54-148 bpm; average HR 72 bpm. 3. There are rare premature supraventricular complexes, rare supraventricular couplets, and rare supraventricular triplets. There are 3 episiodes of supraventricular tachycardia with fastest at 148 bpm and longest lasting 12 seconds. 4. There are rare premature ventricular complexes. No ventricular tachycardia. 5. No significant pauses greater than 3 seconds. 6. Patient reports 1 episode of symptoms of irregular beats which demonstrates sinus rhythm at 66 bpm with PAC's.
== END 2024-10-05 12:39 | disposition home or self-care (01) ==
LOC: ANHCARD 12:40
PROVIDERS: PCP Family Medicine; Visit Provider Nurse Practitioner Family
DX: I49.1 Atrial premature depolarization (principal); I47.10 Supraventricular tachycardia, unspecified; I49.3 Ventricular premature depolarization; I48.0 Paroxysmal atrial fibrillation; R00.2 Palpitations
CPT/HCPCS: 93242

== ENCOUNTER 2024-10-09 09:43 | Emergency (ER) | payer MEDICARE, SELFPAY ==
[2024-10-09 09:49] VITALS: BP 138/67; PULSE 61; RESP 16; TEMP 36.2; O2SAT 100
--- NOTE | 2024-10-09 09:59 | ED_ITS ---
HPI - Dizziness General Chief Complaint: Dizziness Stated Complaint: Dizziness Time Seen by Provider: 10/09/24 10:05 Mode of arrival: ambulatory Limitations: no limitations History of Present Illness HPI Narrative: 64-year-old female presents with concern for dizziness. She also reports she has been having a headache behind her left eye. She reports she has been experiencing dizziness chronically, she tried meclizine in the past without relief. Reports that incidence of dizziness improved on its own. Reports she has been dizzy for about a week and now has a headache. She reports chronic neck pain for which she sees a chiropractor, her chiropractor recommended she go to the urgent care today. She has been using a walker for mobility due to dizziness. She denies weakness in any extremity, vomiting, nausea, slurred speech or difficulty swallowing. She has been taking Tylenol elicited complaint: dizziness Related Data Home Medications ?Medication ?Instructions ?Recorded ?Confirmed ?Last Taken ?Type aspirin 81 mg chewable tablet 81 mg PO DAILY 07/23/19 09/05/24 02/27/21 History Allergies Allergy/AdvReac Type Severity Reaction Status Date / Time No Known Allergies Allergy Verified 10/09/24 09:44 Review of Systems Review of Systems: CONSTITUTIONAL: Denies malaise, chills, sweats, or fever. EYES: Denies visual changes ENT: Denies rhinorrhea, congestion, sinus pain CARDIOVASCULAR: Denies chest pain. Reports palpitations RESPIRATORY: Denies cough or dyspnea. GASTROINTESTINAL: Denies abdominal pain, nausea, vomiting SKIN: Denies rash or itching. MUSCULOSKELETAL: Reports neck pain NEUROLOGIC: Denies numbness, weakness. Reports dizziness and headache. 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 Dissecting aneurysm of thoracic aorta, Myron type A (01/15/19) History of MRSA infection Paroxysmal atrial fibrillation Hypothyroidism Aortic dissection Eczema Anemia Arthritis Bowel obstruction Ulcerative colitis Asthma Ileostomy in place Surgical History Surgical History History of hysterectomy History of aortic valve replacement with bioprosthetic valve History of repair of [place] type A dissecting aneurysm of thoracic aorta (01/15/19) Status post tube graft placement done at [facility]. Repair of what sounds like graft separation/leak was done in 05/2020. History of partial thyroidectomy History of laparoscopy With adhesiolysis. History of ileostomy History of section Status post proctocolectomy History of tonsillectomy Family History Family History Sibling Diabetes mellitus Mother Cancer Father Heart attack Social History Social History Social History: Surrogate decision maker: Hesham Ramey, spouse. Code status: Full code. Smoking status: Never smoker Second hand tobacco smoke exposure: No Alcohol intake: never Substance use: never Substance use type: does not use Living arrangements: with family Additional living arrangements comments: Lives with family in [place]. Spiritual care concerns: No Comments At time of signature, agree with nursing past medical, surgical, social and family history. There is no relevant family history pertinent to the presenting complaint Exam Narrative: GENERAL: Well-appearing, well-nourished, and in no acute distress. HEAD: Normocephalic, atraumatic. EYES: PERRLA, sclera clear, and EOMI. No nystagmus. ENT: Nares clear. Mucous membranes moist. TM pearly carballo with sharp light reflex bilaterally; no tragal tenderness. Oropharynx without erythema or lesions. Tonsils not enlarged and without exudate. NECK: Supple. CHEST: No respiratory distress. Clear to auscultation. No bony deformities, no asymmetry. Speaks in full sentences. HEART: Regular rate and rhythm. No murmur heard. Normal peripheral pulses. EXTREMITIES: Normal range of motion. No edema. Normal strength and sensation. SKIN: Warm, dry, no visible rash. NEURO: Alert and oriented x3. No focal deficits. Cranial nerves II through XII grossly intact PSYCH: Normal mood and affect Course Course Emergency Course: Patient is aware of, understands and agrees to be transferred to the emergency room. Patient agrees to proceed directly to the emergency department. Portions of this record may have been created with voice recognition software Level of Care: Express Care Visit Vital Signs Vital signs: Vital Signs Temperature 97.1 F L 10/09/24 09:49 Pulse Rate 61 10/09/24 09:49 Respiratory Rate 16 10/09/24 09:49 Blood Pressure 138/67 10/09/24 09:49 Pulse Oximetry 100 10/09/24 09:49 Oxygen Delivery Room Air 10/09/24 09:49 Temperature 97.1 F L 10/09/24 09:49 Pulse Rate 61 10/09/24 09:49 Respiratory Rate 16 10/09/24 09:49 Blood Pressure 138/67 10/09/24 09:49 Pulse Oximetry 100 10/09/24 09:49 Oxygen Delivery Room Air 10/09/24 09:49 Reviewed. Transfer Transfered to: [place] Transportation: Other (Private vehicle) Transfer rationale: Dizziness Accepting physician: Christos CRAWFORD - Dizziness MDM Narrative Medical decision making narrative: I evaluated this patient in the express care. History is obtained from patient who is an independent historian and physical exam was performed.? Available medical records were reviewed. ? Patient is non-toxic appearing and is in no distress. ECG Data EKG #1: ECG completion date: 10/09/24 ECG completion time: 10:37 Prior ECG tracings: available for review Interpretation: Rate 59, MI interval 159, QRS duration 89. Possible left ventricular conduction delay, anterior septal myocardial infarction of indeterminate age EKG Interpretation: bradycardia Critical Care Time Critical Care Time Critical Care Time: No Discharge Plan Discharge Clinical Impression: Dizziness Patient Disposition: Acute Care Hospital Condition: Stable Patient Language: Pashto Prescriptions: No Action paroxetine HCl 10 mg tablet 10 mg PO DAILY Qty: 90 0RF Patient Comments: pt states no longer taking aspirin 81 mg tablet,chewable 81 mg PO DAILY (DME) Ostomy supplies. See Rx Instructions .Route .MEDSUPPLY Qty: 1 0RF Rx Instructions: ostomy bags, remover, skin prep, and clip needed. albuterol sulfate 90 mcg/actuation HFA aerosol inhaler 1 inh INHALATION Q4-6H PRN (Reason: Shortness Of Breath) Qty: 6.7 3RF lisinopril 10 mg tablet 10 mg PO DAILY Qty: 90 3RF Rx Instructions: take with 5 mg tablet to total 15mg. lisinopril 5 mg tablet 5 mg PO DAILY Qty: 90 3RF Rx Instructions: take with 10mg tab to total 15mg zolpidem 10 mg tablet 10 mg PO HS Qty: 90 1RF clonazepam 0.5 mg tablet 0.25 mg PO BID PRN (Reason: anxiety) Qty: 60 1RF metoprolol succinate 50 mg tablet extended release 24 hr See Rx Instructions .ROUTE .COMPLEX Qty: 135 2RF Dose Instruction: TAKE 1 TABLET BY MOUTH EVERY DAY Rx Instructions: TAKE 1.5 TABLET BY MOUTH EVERY DAY Follow-up/Referrals: Gay Sandhu MD [Primary Care Provider, Family Practice] Time of Disposition: 10:46
--- NOTE | 2024-10-09 10:29 | ECG_ITS ---
Test Date: 2024-10-09 10:37:11 Measurements Intervals [place] Rate: 59 P: 44 [place]: 192 QRS: 69 QRSD: 89 T: 76 QT: 413 QTc: 411 Interpretive Statements SINUS BRADYCARDIA ANTEROSEPTAL INFARCT, AGE INDETERMINATE BASELINE ARTIFACT- I, II, III, AVR, AVL, AVF ABNORMAL ECG Compared to ECG 09/12/2024 22:57:41 Myocardial infarct finding now present Electronically Signed On 10-09-2024 10:42:57 CDT by Brandyn Abdi D.O.
== END 2024-10-09 10:45 | disposition short-term general hospital (02) ==
PROVIDERS: Emergency Provider Nurse Practitioner; PCP Family Medicine
DX: R42 Dizziness and giddiness (principal); R94.31 Abnormal electrocardiogram [ECG] [EKG]; I73.9 Peripheral vascular disease, unspecified; I48.0 Paroxysmal atrial fibrillation; E03.9 Hypothyroidism, unspecified; M19.90 Unspecified osteoarthritis, unspecified site; J45.909 Unspecified asthma, uncomplicated; F41.8 Other specified anxiety disorders; Z86.14 Personal history of Methicillin resistant Staphylococcus aureus infection; Z95.2 Presence of prosthetic heart valve; Z90.89 Acquired absence of other organs; Z86.718 Personal history of other venous thrombosis and embolism
CPT/HCPCS: 93005; 99214; G0463

== ENCOUNTER 2024-10-09 11:14 | Inpatient (IN) | payer MEDICARE, SELFPAY ==
[2024-10-09] VITALS (13 sets, daily range): BP systolic 102–143; BP diastolic 47–78; PULSE 55–69; RESP 14–20; TEMP 36.4–36.7; O2SAT 98–100
--- NOTE | ~2024-10-09 | MR_ITS ---
MRI of the brain Clinical History: Dizziness Technique: Axial and sagittal T1-weighted images were acquired. These were followed by axial T2-weighted, diffusion weighted, gradient, and FLAIR images. Following intravenous administration of 9 cc MultiHance gadolinium, T1-weighted fat-sat imaging was performed in the axial and coronal planes. COMPARISON: 04/02/2021 Findings: No acute infarct, acute intracranial hemorrhage or mass lesion seen. There are multiple small scattered foci of low signal on gradient images, compatible sequela of multiple echogenic images, which appears largely new since prior exam. No significant signal abnormality seen on FLAIR images. Ventricles and subarachnoid spaces are unremarkable. Orbits are unremarkable. Paranasal sinuses and mastoid air cells are clear. Major intracranial flow voids are intact. Sagittal midline structures are intact. No abnormal postcontrast enhancement identified. IMPRESSION: No acute infarct, intracranial hemorrhage or mass lesion. Evidence of numerous scattered prior microhemorrhages, which largely are new from prior exam. Precise etiology of this finding is unclear. Reviewed, dictated and finalized at [facility]. IMPRESSION: No acute infarct, intracranial hemorrhage or mass lesion. Evidence of numerous scattered prior microhemorrhages, which largely are new fr om prior exam. Precise etiology of this finding is unclear.
--- NOTE | ~2024-10-09 | CT_ITS ---
History: Vertigo PROCEDURE: CT head without contrast. COMPARISON: None 04/22/2021 TECHNIQUE: Axial imaging of the head performed from the skull base to the vertex without IV contrast. Sagittal and coronal reformations obtained. DLP: 605 mGy-cm FINDINGS: The ventricles are mildly enlarged. The dilatation of the ventricles is proportional to the degree of sulcal prominence, not uncommon in the senescent brain. Mildly decreased attenuation is identified within the periventricular white matter, likely secondary to microvascular ischemic disease, in a patient of this age. There is no mass, mass effect or midline shift. There is no abnormal extra-axial fluid collection or intracranial hemorrhage. Visualized paranasal sinuses are clear. The mastoid air cells are well aerated. No acute displaced fractures within the overlying cranium. Impression: No acute intracranial hemorrhage or suspicious mass effect. Reviewed, dictated and finalized at location A. Impression: No acute intracranial hemorrhage or suspicious mass effect.
--- NOTE | ~2024-10-09 | CT_ITS ---
EXAMINATION: CTA BRAIN/CAROTID DATE: 10/09/2024 14:49 INDICATION: Persistent vertigo TECHNIQUE: Computed tomographic angiography (CTA) of the head and neck was performed with 100 mL Omnipaque-350 intravenous contrast. Multiplanar reconstructions and maximum intensity projection 3D-reconstructions of the carotid arteries and of the intracranial arteries were created by the technologist on a separate workstation. Automated exposure control and iterative reconstruction technique were employed.The dose-length product was 988.32 mGy-cm. COMPARISON: Head CT date FINDINGS: Intracranial arteries Left vertebral artery is dominant. Small amount of nonhemodynamically significant atherosclerotic plaque at the bilateral carotid siphons and at the intracranial left vertebral artery.. There is no hemodynamically significant stenosis in the vertebral, basilar and internal carotid arteries. The A1 and P1 segments are patent. The right anterior cerebral artery supplied from the left internal carotid artery via a patent anterior communicating artery. The right posterior cerebral artery supplied by the right internal carotid artery via a patent right posterior communicating artery. There are no aneurysms identified. Cerebral arterial arborization appears symmetric. No abnormally enhancing brain lesions identified. Carotid arteries: Stable appearance of a type A aortic dissection beginning in the ascending thoracic aorta extending through the visualized mid descending thoracic aorta. There is aneurysmal dilation of the proximal descending thoracic aorta which measures up to 4.4 cm. Postoperative changes study on 01/15/2019 with median sternotomy wires, new large fenestration of the previously intact dissection flap at the aortic arch and placement of a new common origin for the great vessels arising from the arch as well as the vascular graft supplying the left and right coronary arteries from the distal ascending thoracic aorta. There is stable appearance of high attenuation material surrounding the aortic arch and situated in the pericardial space between the ascending thoracic aorta and the pulmonary outflow tract which is also likely postoperative in etiology. There is no evident atherosclerotic plaque with 0% stenosis of the right and left carotid bulbs relative to normal distal artery lumen diameter (NASCET criteria). Left vertebral artery is dominant. Status post right thyroidectomy. Mild compressive atelectasis in the medial left upper lobe along the aortic arch. Additional mild dependent atelectasis in bilateral lower lobes. Mild lower cervical spondylosis. IMPRESSION: 1. No evident atherosclerotic plaque with 0% stenosis of the right and left carotid bulbs relative to normal distal artery lumen diameter (NASCET criteria). 2. Normal anatomic relationship the [place] as detailed above. Otherwise unremarkable cerebral CT angiogram with no evident thrombosis, hematoma significant stenosis or aneurysm. 3. Stable appearance of a likely repaired type A aortic dissection with fusiform aneurysmal dilation of the descending thoracic aorta which measures up to 4.4 cm in maximal diameter. Correlate with surgical history. Reviewed, dictated and finalized at location A. IMPRESSION: 1. No evident atherosclerotic plaque with 0% stenosis of the right and left car otid bulbs relative to normal distal artery lumen diameter (NASCET criteria). 2. Normal anatomic relationship the [place] as detailed above. Otherwi se unremarkable cerebral CT angiogram with no evident thrombosis, hematoma sign ificant stenosis or aneurysm. 3. Stable appearance of a likely repaired type A aortic dissection with fusifor m aneurysmal dilation of the descending thoracic aorta which measures up to 4.4 cm in maximal diameter. Correlate with surgical history.
--- OUTSIDE RECORDS SUMMARY | 2024-10-09 11:48 | XMS_ITS | Encounter Summary ---
Author Organization [facility] Health Address [address] [place] [address] Care Team Providers Care Machine Washer Name Role Phone Perla Gomez MD Primary Care Provider [phone] Perla Gomez MD Unavailable [phone] Encounter Details Date Type Department Care Team (Late st Contact Info) Description 06/09/2021 Telephone [facility] Cardiology [address] [facility] [address] [place] [address] Radha Rodas RN Social History Tobacco Use [...] on file Legal Sex Female 3:05 PM CONTRACT PROJECT MANAGER Gender Identity Not on file Sexual Orientation [...] on filedocumented in this encounter Care Teams Machine Washer Relationship Specialty Start Date End Date Perla Gomez MD [address] [place] [phone] PCP - General Family Medicine 06/06/20 Perla Gomez MD [address] [place] [id number] 06/06/20 documented as of this encounter
--- OUTSIDE RECORDS SUMMARY | 2024-10-09 11:48 | XMS_ITS | Clinical Summary ---
Author Organization [facility] [place] [address] Address [address] [place] [address] Care Team Providers Care Casket Inspector Name Role Phone Pearl Akbar NP Primary Care Provider [phone] Allergies No known active allergies Medications aspirin 81 mg chewable tabletIndicati ons:primary prevention of coronary heart disease Take 1 tablet (81 mg total) by mouth bedspread cutter before breakfast 9 Active cholecalcifero l (VITAMIN D-3) 1,000 unit capsuleIndicat ions:Vitamin D Deficiency Take 2 capsules (2,000 Units total) by mouth bedspread cutter before breakfast Active zolpidem (AMBIEN) 10 mg tabletIndicati ons:Sleep-Onse t Insomnia Take 1 tablet (10 mg total) by mouth nightly as needed for sleep Active calcium carbonate (OS-STAN) 1,500 mg (600 mg of elemental calcium) tabletIndicati ons:Hypocalcem ia Prevention Take 1,000 mg of elemental calcium by mouth bedspread cutter before breakfast Active albuterol HFA (PROVENTIL HFA,VENTOLIN [...] 1 tablet (80 mg total) by mouth bedspread cutter before breakfast 9 09/21/19 25 Discontinue d(Other) [...] (06/12/2020): Added automatically from request for surgery [id number] Assessment & Plan (06/24/2020 10:51 AM CDT): [...] (06/12/2020): Added automatically from request for surgery [id number] Assessment & Plan (06/23/2020 1:43 PM CDT): [...] 34 mm Hemashield graft on 01/15 at [facility] per Dr. Alegre. SBP [...] 34 mm Hemashield graft on 01/15 at [facility] per Dr. Alegre. SBP [...] (06/12/2020): Added automatically from request for surgery [id number] Encounters Date Type Department Care Team Description 09/20/2024 9:00 AM CDT Office Visit [facility] Medical Group Cardiology [address] [place] [phone] Eda Licona, AYDIN Palpitations; Lipid screening; S/P aortic dissection repair 09/14/2024 Telephone [facility] Cardiology [address] [facility] [address] [place] [phone] Eda Licona NP 09/07/2024 Anticoagulation Visit [facility] Cardiology [address] [place] [address] [address] [place] [phone] Joy Delatorre RN from Last 3 [...] Father Relation Name Status Comments Father Alive [place] in his 70s Social History Tobacco Use [...] 09/03/2026 09/03/2016 Medical Devices Implanted Type Area Wood Tile Installation Helper Device Identifier Shelf Expiration Date Model / Serial / Lot [employer] [id number] Hemashield [place] 8mm 30cm Woven Smooth Needle Passage Suture - [id number] - [id number] Implanted:Qty: 1 on 06/18/2020 by Edmond Berumen MD at [facility] Graft N/A: Aorta GETINGE [employer] [id number] 12/21/2024 [id number] / [id number] / 20L04 Getinge [employer] [id number] Graft Cardiovascular Hemashield [place] 2 Velour Collagen Polyester 4 Branch Od8 Mm L47 Cm Od26 Mm Odsec10 Mm Abdomen Thorax Woven Soft Flexible - [id number] - [id number] Implanted:Qty: 1 on 06/18/2020 by Rajat Paul MD at [facility] Graft N/A: Aorta GETINGE [employer] 07/21/2020 [id number] / [id number] / [id number] [facility] [id number] Hemashield [place] 18mm 30cm Woven Smooth Needle Passage Suture - [id number] - [id number] Implanted:Qty: 1 on 06/18/2020 by Rajat Paul MD at [facility] Graft N/A: Heart Getinge[employer] [id number] 07/21/2024 [id number] / [id number] / 20F24 Implantable Loop Recorder-07/01/19 22 Implanted:2021 (Quantity not on file) Implantable Loop Recorder Left: Chest Medtronic REVEAL LINQ ICM / / [employer] [id number] Sawyer-Brayden ds Perimount Magna Ease 23mm Bioprosthesis - [id number] - [id number] Implanted:Qty: 1 on 06/18/2020 by Rajat Paul MD at [facility] Other - see comments N/A: Heart [employer] 12/15/2023 [id number] [id number] / [id number] / Procedures Procedure Name Priority Date/Time Associated [...] Result from Last 3 Months Insurance MEDICARE [facility] ADVANTAGE CHOICE PPO Advance Directives For more information, please contact: [phone] * Full Code (Latest Code Status on File) Date Activated Date Inactivated Comments 06/16/2020 4:41 PM 06/24/2020 5:30 PM Care Teams Casket Inspector Relationship Specialty Start Date End Date Pearl Akbar, TRANSFER STATION ATTENDANT [address] [place] [address] PCP - General Family Medicine 12/07/23
--- OUTSIDE RECORDS SUMMARY | 2024-10-09 11:48 | XMS_ITS | Clinical Summary ---
Author Organization [facility] Address [address] [facility] [address] [place] [address] Care Team Providers Care Bed Operator Name Role Phone Perla Gomez MD Primary Care Provider [phone] Perla Gomez MD Unavailable [phone] Source Comments [facility] [employer],non-owned Affiliates and Associated Physician Practices is amultiple site organization consisting of ambulatory clinics and hospital sitesin [place], [place], [place] and [place]. This disclosure is being madepursuant to the Care Everywhere program and may not contain all information available regarding this patient. Last updated 17.[facility] [employer] Allergies No known active allergies Medications * [...] NOAC. Assessment & Plan (04/05/2019 11:59 AM LEAF COVERER): Warfarin, follow up with vascular. Paroxysmal atrial fibrillation 02/02/2019 Assessment & Plan (10/19/2019 2:25 PM CDT): Post Operative AFIB: with reoccurrence. Continue BB. With recent SFA occlusion, suspected to be embolic, pt will require AC, now on warfarin, despite [id number] of 1. Will reach out to vascular for recs on NOAC. Follow up with EP for rhythm control recs. Assessment & Plan (04/05/2019 12:05 PM LEAF COVERER): Post Operative AFIB: No events on monitor, stop amio. Continue BB. With recent SFA occlusion, suspected to be embolic, pt will require AC, now on warfarin, despite [id number] of 1. . Assessment & Plan (02/02/2019 9:24 AM LEAF COVERER): Post Operative AFIB: Continue Amio, check TSH and PFTS for baseline. Event Monitor to quantify. Increase Metoprolol to 50mg BID. Hx of CABG 02/02/2019 Assessment & Plan (04/05/2019 11:59 AM LEAF COVERER): SVG to RCA secondary to acute dissection. Continue medical management with ASA, statin, and Metoprolol. Assessment & Plan (02/02/2019 9:25 AM LEAF COVERER): SVG to RCA secondary to acute dissection. Continue medical management with ASA, statin, and Metoprolol. Type 1 dissection of ascending aorta 01/16/2019 Assessment & Plan (10/19/2019 2:36 PM CDT): Stable, sp Ascending aorta graft with cardiopulmonary bypass using 34 mm Hemashield graft on 01/15 at [facility] per Dr. Alegre. SBP remains stable, continue BB. Stable on CT 2. Assessment & Plan (04/05/2019 11:56 AM LEAF COVERER): Stable, sp Ascending aorta graft with cardiopulmonary bypass using 34 mm Hemashield graft on 01/15 at [facility] per Dr. Alegre. SBP remains stable, pt is orthostatic in clinic today, decrease Metoprolol to 12.5mg daily. Continue to log BP and bring to follow up. Stable on CT 2. S/P aortic dissection repair 01/16/2019 Assessment & Plan (02/02/2019 9:28 AM LEAF COVERER): Stable, sp Ascending aorta graft with cardiopulmonary bypass using 34 mm Hemashield graft on 01/15 at [facility] per Dr. Alegre. SBP [...] on file Legal Sex Female 3:05 PM LEAF COVERER Gender Identity Not on file Sexual Orientation [...] Oxygen Concentration 40% 03/26/2019 1 0:36 AM LEAF COVERER Weight 60.8 kg (134 lb) 09/07/2021 10:56 [...] this topic Medical Devices Implanted Type Area Clearing Hand Device Identifier Shelf Expiration Date Model / Serial / Lot Graft Cv 34mm 30cm Hmsh Pl Polystr 2 Vlr - [id number] Implanted:Qty: 1 on 01/15/2019 by Josue Alegre MD at [facility] N/A: Aorta Maquet 11/20/2021 [id number] / [id number] Description:GTIN: [id number] Graft Cv 8mm 30cm Hmsh Pl Polystr 2 Vlr - [id number] Implanted:Qty: 1 on 01/15/2019 by Josue Alegre MD at [facility] N/A: Aorta Maquet 11/20/2022 [id number] / [id number] Description:GTIN: [id number] [place] Tefl Implanted:Qty: 4 on 01/15/2019 by Josue Alegre MD at [facility] N/A: Aorta Bard Peripheral Vascular 03/16/2023 [id number] / / [id number] Plate 8 Hl Strnm Strnlck Ze 2.4 Mm Implanted:Qty: 2 on 01/15/2019 by Josue Alegre MD at [facility] N/A: Sternum Bina Biomet [id number] / / Screw 2.4mm 12mm Slf Drl Lck Strnl Canc Implanted:Qty: 16 on 01/15/2019 by Josue Alegre MD at [facility] N/A: Sternum Bina Biomet [id number] / / Screw 2.4mm 14mm Slf Drl Lck Strnl Canc Implanted:Qty: 8 on 01/15/2019 by Josue Alegre MD at [facility] N/A: Sternum Bina Biomet [id number] / / 8-Hole Jl Plate Implanted:Qty: 1 on 01/15/2019 by Josue Alegre MD at [facility] N/A: Sternum Bina Biomet [id number] / / Sys Crd Mntr Rvl Linq Ii - [id number] Implanted:Qty: 1 on 06/30/2021 by Erik Lance MD at [facility] Left: Chest Medtron [place] 04/15/2022 [id number] / [id number] / Description:loop recorder Procedures Procedure Name [...] ve Non-react felix 06/04/2021 12:09 PM CDT [facility] Comment:No Laboratory eviden ce of HIV infection. Blood BLOOD SPECIMEN / Unknown Venipuncture / Unknown 06/04/2021 10:42 AM CDT 06/04/2021 10:48 AM CDT Dee Ramirez MD LAB - CHEMISTRY ORDERABLES F inal Result [facility] [address] [place] [address], [place] [phone] * HEPATITIS C RNA QUANTITATIVE (06/04/2021 10:42 AM CDT) [facility] Hepatitis C RNA PCR, Interp Not detected Not detected 06/08/2021 12:18 PM CDT [facility] Blood BLOOD SPECIMEN / Unknown Venipuncture / Unknown 06/04/2021 10:42 AM CDT 06/04/2021 12:19 PM CDT Narrative [facility] - 06/08/2021 12:18 PM CDT The Hepatitis C viral (HCV) RNA analysis utilized a serum sample, real-time reverse fitness services manager PCR, and is reported as Not Detected, [...] the isolation of HCV RNA with reverse fitness services manager of genomic HCV RNA followed by real-time PCR in the presence of an unrelated RNA internal control. The internal control ensures that RNA is isolated, and that no general significant inhibitors of the RT-PCR process are present. The analysis was performed using a U.S. FDA approved test methodology ([employer] Real Time HCV). us Dee Ramirez MD LAB - CHEMISTRY ORDERABLES F inal Result [facility] [address] [place], [place] [address] [phone] from Last 3 Months or Most Recently Relevant to Health Maintenance Insurance [facility] [place]ICAID [place] [facility] * Guarantor: ERI ROLON Account Type Relation to Patient Date of Phone Billing Address Personal/Family 1960 [address] [id number] [facility] Advance Directives * Full Code (Latest [...] 12:03 AM 01/22/2019 4:11 PM Care Teams Bed Operator Relationship Specialty Start Date End Date Perla Gomez MD [facility] [place] [phone] PCP - General Family Medicine 06/06/20 Perla Gomez MD [address] [place] [phone] 06/06/20
--- OUTSIDE RECORDS SUMMARY | 2024-10-09 11:48 | XMS_ITS | Clinical Summary ---
Author Organization [facility] Address [address] [place] [address] Care Team Providers Care Fuel Handler Name Role Phone Unavailable Primary Care Provider [...] Comments Blood Pressure 102/70 01/03/2012 5:40 PM NUCLEAR MEDICINE MEDICAL DIRECTOR Pulse 85 01/03/2012 5:40 PM NUCLEAR MEDICINE MEDICAL DIRECTOR Temperature - - Respiratory Rate - - Oxygen Saturation - - Inhaled Oxygen Concentration - - Weight 58.1 kg (128 lb) 01/03/2012 5:40 PM NUCLEAR MEDICINE MEDICAL DIRECTOR Height 170.2 cm (5' 7) 01/03/2012 5:40 PM NUCLEAR MEDICINE MEDICAL DIRECTOR Body Mass Index 20.05 01/03/2012 5:40 PM NUCLEAR MEDICINE MEDICAL DIRECTOR Plan of Treatment Health Maintenance Due Date Last Done Comments Colorectal Cancer Screening Colonoscopy (10 Years) 1960 Hepatitis C 05/17/1977 DTaP, Tdap and Td Vaccines ( 1 - Tdap) 05/17/1978 Mammogram Screening 1999 Pneumococcal Vaccine: 50+ Ye ars (1 of 1 - PCV) 05/17/2009 Zoster Vaccines (1 of 2) 05/17/2009 COVID-19 Vaccine (1 - 2023-2 5 season) 2023 PHQ-2 (Physician [place]) 02/22/2024 Dexa Scan (General) 05/17/2024 RSV Immunization [...]
--- OUTSIDE RECORDS SUMMARY | 2024-10-09 11:48 | XMS_ITS | Encounter Summary ---
Author Organization [facility] Address [address] [place] [address] Phone Care Team Providers Care Software Verification Engineer Name Role Phone Perla Gomez MD Primary Care Provider [phone] Lynn Shipman Primary Care Provider [phone] Perla Gomez MD Unavailable [phone] Rajat Paul MD Unavailable Brandyn Abdi DO Primary Care Provider [phone] Pearl Akbar NP Primary Care Provider [phone] Encounter Details Date Type Department Care Team [...] on filedocumented in this encounter Care Teams Software Verification Engineer Relationship Specialty Start Date End Date Perla Gomez MD PCP - General Family Medicine 06/10/20 08/17/22 Lynn Shipman PA [address] [place] [address] PCP - General Physician Electrical Helper 08/18/22 09/07/22 Brandyn Abdi DO [address] [id number] PCP - General Internal Medicine 09/08/22 12/06/23 Pearl Akbar, SLOT SUPERVISOR [address] [place] [address] PCP - General Family Medicine 12/07/23 Perla Gomez MD Family Medicine 08/18/22 09/05/22 Rajat Paul MD [address] [place] [address] Surgeon Cardiothoracic Surgery 06/24/20 7 3 documented as of this encounter
--- OUTSIDE RECORDS SUMMARY | 2024-10-09 11:48 | XMS_ITS | Encounter Summary ---
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 Jamison. Will request CTS to reviewand see if patient needs to be followed by us as well. documented in this encounter Plan of Treatment Not on file documented as of this encounter Visit Diagnoses Not on filedocumented in this encounter Care Teams Hedis Nurse Relationship Specialty Start Date End Date Perla Gomez MD [address] [place] [phone] PCP - General Family Medicine 06/06/20 Perla Gomez MD [address] [place] [phone] 06/06/20 documented as of this encounter
--- NOTE | 2024-10-09 12:25 | ECG_ITS ---
Test Date: 2024-10-09 12:37:30 Measurements Intervals [place] Rate: 57 P: 93 AK: 223 QRS: 83 QRSD: 100 T: 66 QT: 419 QTc: 411 Interpretive Statements SINUS BRADYCARDIA WITH FIRST DEGREE AV BLOCK INCOMPLETE RIGHT BUNDLE BRANCH BLOCK CANNOT R/O SEPTAL INFARCT, AGE INDETERMINATE ABNORMAL ECG Compared to ECG 10/09/2024 10:37:11 First degree AV block now present Electronically Signed On 10-09-2024 12:45:53 CDT by Brandyn Abdi D.O.
[2024-10-09 12:45] LABS: Hematocrit 36.5 % (37.0-47.0); Hemoglobin 11.9 g/dL (12.0-15.0); Immature Granulocyte Percent A 0.2 % (0-0.5); Lymphocytes Absolute Auto 0.84 K/mm3 (0.9-3.2); Mean Corpuscular HGB Conc 32.6 g/dl (32-36); Mean Corpuscular Hemoglobin 28.7 pg (26-34); Mean Corpuscular Volume 88.0 fl (80-100); Nucleated Red Blood Cells Absolute Auto 0.000 K/mm3 (0.0-0.012); Nucleated Red Blood Cells Perc 0.0 % (0.0-0.2); Platelet Count Result 147 k/mm3 (150-375); Red Blood Count 4.15 M/mm3 (4.2-5.4); White Blood Count 4.3 K/mm3 (4.5-10.0)
[2024-10-09 12:54] LABS: Alanine Aminotransferase 18 U/L (6-35); Albumin Level 4.5 g/dL (3.5-5.1); Alkaline Phosphatase 80 U/L (38-126); Anion Gap 8 mmol/L (4-12); Aspartate Amino Transferase 26 U/L (14-36); Bilirubin,Total 0.3 mg/dL (0.2-1.3); Blood Urea Nitrogen 12 mg/dL (7-17); Calcium 9.8 mg/dL (8.4-10.2); Carbon Dioxide 28 mmol/L (22-30); Chloride 102 mmol/L (98-107); Estimated CRCL calculation 64 ml/min; Estimated Glomerular Filt Rate > 60; Glucose 96 mg/dL (65-110); Potassium 4.1 mmol/L (3.4-5.0); Sodium 138 mmol/L (137-145); Total Protein 7.4 g/dL (6.3-8.2)
--- OUTSIDE RECORDS SUMMARY | 2024-10-09 13:37 | XMS_ITS | Clinical Summary ---
Author Organization [facility] Address [address] [place] [address] Care Team Providers Care Piercing Machine Operator Name Role Phone Unavailable Primary [...] Comments Blood Pressure 102/70 01/03/2012 5:40 PM SPECIAL EDUCATION CLASSROOM AIDE Pulse 85 01/03/2012 5:40 PM SPECIAL EDUCATION CLASSROOM AIDE Temperature - - Respiratory Rate - - Oxygen Saturation - - Inhaled Oxygen Concentration - - Weight 58.1 kg (128 lb) 01/03/2012 5:40 PM SPECIAL EDUCATION CLASSROOM AIDE Height 170.2 cm (5' 7) 01/03/2012 5:40 PM SPECIAL EDUCATION CLASSROOM AIDE Body Mass Index 20.05 01/03/2012 5:40 PM SPECIAL EDUCATION CLASSROOM AIDE Plan of Treatment Health Maintenance Due Date Last Done Comments Colorectal Cancer Screening Colonoscopy (10 Years) 1960 Hepatitis C 05/17/1977 DTaP, Tdap and Td Vaccines ( 1 - Tdap) 05/17/1978 Mammogram Screening 1999 Pneumococcal Vaccine: 50+ Ye ars (1 of 1 - PCV) 05/17/2009 Zoster Vaccines (1 of 2) 05/17/2009 COVID-19 Vaccine (1 - 2023-2 5 season) 2023 PHQ-2 (Physician [place]) 02/22/2024 Dexa Scan (General) 05/17/2024 RSV Immunization [...]
--- OUTSIDE RECORDS SUMMARY | 2024-10-09 13:37 | XMS_ITS | Clinical Summary ---
Author Organization [facility] Address [address] [facility] [place] [address] Care Team Providers Care Optical Engineering Technician Name Role Phone Perla Gomez MD Primary Care Provider [phone] Perla Gomez MD Unavailable [phone] Source Comments [facility] [employer],non-owned Affiliates and Associated Physician Practices is amultiple site organization consisting of ambulatory clinics and hospital sitesin [place], [place], [place] and [place]. This disclosure is being madepursuant to the Care Everywhere program and may not contain all information available regarding this patient. Last updated 17.[facility] [employer] Allergies No known active allergies Medications * [...] NOAC. Assessment & Plan (04/05/2019 11:59 AM GUEST SERVICES ASSOCIATE): Warfarin, follow up with vascular. Paroxysmal atrial fibrillation 02/02/2019 Assessment & Plan (10/19/2019 2:25 PM CDT): Post Operative AFIB: with reoccurrence. Continue BB. With recent SFA occlusion, suspected to be embolic, pt will require AC, now on warfarin, despite [id number] of 1. Will reach out to vascular for recs on NOAC. Follow up with EP for rhythm control recs. Assessment & Plan (04/05/2019 12:05 PM GUEST SERVICES ASSOCIATE): Post Operative AFIB: No events on monitor, stop amio. Continue BB. With recent SFA occlusion, suspected to be embolic, pt will require AC, now on warfarin, despite [id number] of 1. . Assessment & Plan (02/02/2019 9:24 AM GUEST SERVICES ASSOCIATE): Post Operative AFIB: Continue Amio, check TSH and PFTS for baseline. Event Monitor to quantify. Increase Metoprolol to 50mg BID. Hx of CABG 02/02/2019 Assessment & Plan (04/05/2019 11:59 AM GUEST SERVICES ASSOCIATE): SVG to RCA secondary to acute dissection. Continue medical management with ASA, statin, and Metoprolol. Assessment & Plan (02/02/2019 9:25 AM GUEST SERVICES ASSOCIATE): SVG to RCA secondary to acute dissection. Continue medical management with ASA, statin, and Metoprolol. Type 1 dissection of ascending aorta 01/16/2019 Assessment & Plan (10/19/2019 2:36 PM CDT): Stable, sp Ascending aorta graft with cardiopulmonary bypass using 34 mm Hemashield graft on 01/15 at [facility] per Dr. Alegre. SBP remains stable, continue BB. Stable on CT 2. Assessment & Plan (04/05/2019 11:56 AM GUEST SERVICES ASSOCIATE): Stable, sp Ascending aorta graft with cardiopulmonary bypass using 34 mm Hemashield graft on 01/15 at [facility] per Dr. Alegre. SBP remains stable, pt is orthostatic in clinic today, decrease Metoprolol to 12.5mg daily. Continue to log BP and bring to follow up. Stable on CT 2. S/P aortic dissection repair 01/16/2019 Assessment & Plan (02/02/2019 9:28 AM GUEST SERVICES ASSOCIATE): Stable, sp Ascending aorta graft with cardiopulmonary bypass using 34 mm Hemashield graft on 01/15 at [facility] per Dr. Alegre. SBP remains slightly [...] on file Legal Sex Female 3:05 PM GUEST SERVICES ASSOCIATE Gender Identity Not on file Sexual Orientation [...] Oxygen Concentration 40% 03/26/2019 1 0:36 AM GUEST SERVICES ASSOCIATE Weight 60.8 kg (134 lb) 09/07/2021 10:56 [...] this topic Medical Devices Implanted Type Area Commercial Solar Sales Consultant Device Identifier Shelf Expiration Date Model / Serial / Lot Graft Cv 34mm 30cm Hmsh Pl Polystr 2 Vlr - [id number] Implanted:Qty: 1 on 01/15/2019 by Josue Alegre MD at [facility] N/A: Aorta Maquet 11/20/2021 [id number] / [id number] Description:GTIN: [id number] Graft Cv 8mm 30cm Hmsh Pl Polystr 2 Vlr - [id number] Implanted:Qty: 1 on 01/15/2019 by Josue Alegre MD at [facility] N/A: Aorta Maquet 11/20/2022 [id number] / [id number] Description:GTIN: [id number] [place] Tefl Implanted:Qty: 4 on 01/15/2019 by Josue Alegre MD at [facility] N/A: Aorta Bard Peripheral Vascular 03/16/2023 [id number] / / [id number] 8 Hl Strnm Strnlck Ze 2.4 Mm Implanted:Qty: 2 on 01/15/2019 by Josue Alegre MD at [facility] N/A: Sternum Bina Biomet [id number] / / Screw 2.4mm 12mm Slf Drl Lck Strnl Canc Implanted:Qty: 16 on 01/15/2019 by Josue Alegre MD at [facility] N/A: Sternum Bina Biomet [id number] / / Screw 2.4mm 14mm Slf Drl Lck Strnl Canc Implanted:Qty: 8 on 01/15/2019 by Josue Alegre MD at [facility] N/A: Sternum Bina Biomet [id number] / / 8-Hole Jl Plate Implanted:Qty: 1 on 01/15/2019 by Josue Alegre MD at [facility] N/A: Sternum Bina Biomet [id number] / / Sys Crd Mntr Rvl Linq Ii - [id number] Implanted:Qty: 1 on 06/30/2021 by Erik Lance MD at [facility] Left: Chest Medtron [place] 04/15/2022 [id number] / [id number] / Description:loop recorder Procedures Procedure Name [...] inal Result [facility] [address] [place] [address], [place] [phone] * HEPATITIS C RNA QUANTITATIVE (06/04/2021 10:42 AM CDT) [facility] Hepatitis C RNA PCR, Interp Not detected Not detected 06/08/2021 12:18 PM CDT [facility] Blood BLOOD SPECIMEN / Unknown Venipuncture / Unknown 06/04/2021 10:42 AM CDT 06/04/2021 12:19 PM CDT Narrative [facility] - 06/08/2021 12:18 PM CDT The Hepatitis C viral (HCV) RNA analysis utilized a serum sample, real-time reverse community outreach director PCR, and is reported as Not [...] the isolation of HCV RNA with reverse community outreach director of genomic HCV RNA followed by real-time PCR in the presence of an unrelated RNA internal control. The internal control ensures that RNA is isolated, and that no general significant inhibitors of the RT-PCR process are present. The analysis was performed using a U.S. FDA approved test methodology ([employer] Real Time HCV). us Dee Ramirez MD LAB - CHEMISTRY ORDERABLES F inal Result [facility] [address] [place], [place] [address] [phone] from Last 3 Months or Most Recently Relevant to Health Maintenance Insurance [facility] [place]ID [place] [facility] * Guarantor: ERI ROLON Account Type Relation to Patient Date of Phone Billing Address Personal/Family 1960 [address] [id number] [facility] Advance Directives * [...] 12:03 AM 01/22/2019 4:11 PM Care Teams Optical Engineering Technician Relationship Specialty Start Date End Date Perla Gomez MD [facility] [place] [phone] PCP - General Family Medicine 06/06/20 Perla Gomez MD [address] [place] [phone] 06/06/20
--- OUTSIDE RECORDS SUMMARY | 2024-10-09 13:37 | XMS_ITS | Encounter Summary ---
Author Organization [facility] Health Address [address] [place] [address] Care Team Providers Care Acute Specialist Name Role Phone Perla Gomez MD Primary Care Provider [phone] Perla Gomez MD Unavailable [phone] Encounter Details Date Type Department Care Team (Late st Contact Info) Description 06/04/2021 Telephone [facility] [address] 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 Jamison. Will request CTS to reviewand see if patient needs to be followed by us as well. documented in this encounter Plan of Treatment Not on file documented as of this encounter Visit Diagnoses Not on filedocumented in this encounter Care Teams Acute Specialist Relationship Specialty Start Date End Date Perla Gomez MD [address] [place] [phone] PCP - General Family Medicine 06/06/20 Perla Gomez MD [address] [place] [phone] 06/06/20 documented as of this encounter
--- OUTSIDE RECORDS SUMMARY | 2024-10-09 13:37 | XMS_ITS | Encounter Summary ---
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
--- OUTSIDE RECORDS SUMMARY | 2024-10-09 13:37 | XMS_ITS | Encounter Summary ---
Author Organization [facility] Address [address] [place] [address] Phone Care Team Providers Care Mangle Tender Name Role Phone Perla Gomez MD Primary Care Provider [phone] Lynn Shipman Primary Care Provider [phone] Perla Gomez MD Unavailable [phone] Rajat Paul MD Unavailable Brandyn Abdi DO Primary Care Provider [phone] Pearl Akbar NP Primary Care Provider [phone] Encounter Details Date Type Department Care Team [...] on filedocumented in this encounter Care Teams Mangle Tender Relationship Specialty Start Date End Date Perla Gomez MD PCP - General Family Medicine 06/10/20 08/17/22 Lynn Shipman PA [address] [place] [address] PCP - General Physician Commercial Litigation Paralegal 08/18/22 09/07/22 Brandyn Abdi DO [address] [phone] PCP - General Internal Medicine 09/08/22 12/06/23 Pearl Akbar, PLUMBING INSTALLER [address] [place] [address] PCP - General Family Medicine 12/07/23 Perla Gomez MD Family Medicine 08/18/22 09/05/22 Rajat Paul MD [address] [place] [address] Surgeon Cardiothoracic Surgery 06/24/20 7 3 documented as of this encounter
--- OUTSIDE RECORDS SUMMARY | 2024-10-09 13:37 | XMS_ITS | Clinical Summary ---
Author Organization [facility] [address] Address [address] [place] [address] Care Team Providers Care Clinical Team Lead Name Role Phone Pearl Akbar NP Primary Care Provider [phone] Allergies No known active allergies Medications aspirin 81 mg chewable tabletIndicati ons:primary prevention of coronary heart disease Take 1 tablet (81 mg total) by mouth early intervention school psychologist before breakfast 9 Active cholecalcifero l (VITAMIN D-3) 1,000 unit capsuleIndicat ions:Vitamin D Deficiency Take 2 capsules (2,000 Units total) by mouth early intervention school psychologist before breakfast Active zolpidem (AMBIEN) 10 mg tabletIndicati ons:Sleep-Onse t Insomnia Take 1 tablet (10 mg total) by mouth nightly as needed for sleep Active calcium carbonate (OS-STAN) 1,500 mg (600 mg of elemental calcium) tabletIndicati ons:Hypocalcem ia Prevention Take 1,000 mg of elemental calcium by mouth early intervention school psychologist before breakfast Active albuterol HFA (PROVENTIL HFA,VENTOLIN [...] tablet (80 mg total) by mouth early intervention school psychologist before breakfast 9 09/21/19 25 Discontinue d(Other) [...] (06/12/2020): Added automatically from request for surgery [id number] Assessment & Plan (06/24/2020 10:51 AM CDT): [...] (06/12/2020): Added automatically from request for surgery [id number] Assessment & Plan (06/23/2020 1:43 PM CDT): [...] (06/12/2020): Added automatically from request for surgery [id number] Encounters Date Type Department Care Team Description 09/20/2024 9:00 AM CDT Office Visit [facility] Card[facility] [address] [place] [phone] Eda Licona, AYDIN Palpitations; Lipid screening; S/P aortic dissection repair 09/14/2024 Telephone [facility] [address] [facility] [address] [place] [phone] Eda Licona NP 09/07/2024 Anticoagulation Visit [facility]iology [address] [place] [address] [address] [place] [phone] Joy Delatorre RN from Last 3 [...] Father Relation Name Status Comments Father Alive [place] in his 70s Social History Tobacco Use [...] 09/03/2026 09/03/2016 Medical Devices Implanted Type Area Burglar Alarm Operator Device Identifier Shelf Expiration Date Model / Serial / Lot Towandas book [id number] Hemashield Kashia 8mm 30cm Woven Smooth Needle Passage Suture - [id number] - [id number] Implanted:Qty: 1 on 06/18/2020 by Edmond Berumen MD at [facility] Graft N/A: Aorta [employer] [id number] 12/21/2024 [id number] / [id number] / [id number] Getinge [place] [employer] [id number] Graft Cardiovascular Hemashield Kashia 2 Velour Collagen Polyester 4 Branch Od8 Mm L47 Cm Od26 Mm Odsec10 Mm Abdomen Thorax Woven Soft Flexible - [id number] - [id number] Implanted:Qty: 1 on 06/18/2020 by Rajat Paul MD at [facility] Graft N/A: Aorta [employer]INGE [employer] 07/21/2020 [id number] / [id number] / [id number] [facility] [id number] Hemashield Kashia 18mm 30cm Woven Smooth Needle Passage Suture - [id number] - [id number] Implanted:Qty: 1 on 06/18/2020 by Rajat Paul MD at [facility] Graft N/A: Heart Getinge/[place] [employer] [id number] 07/21/2024 [id number] / [id number] / [id number] Implantable Loop Recorder-07/01/19 22 Implanted:2021 (Quantity not on file) Implantable Loop Recorder Left: Chest Med[employer] REVEAL LINQ ICM / / [employer] [id number] Sawyer-Brayden ds [place] Magna Ease 23mm Bioprosthesis - [id number] - [id number] Implanted:Qty: 1 on 06/18/2020 by Rajat Paul MD at [facility] Other - see comments N/A: Heart [employer] 12/15/2023 [id number] / [id number] / Procedures Procedure Name Priority Date/Time Associated [...] Result from Last 3 Months Insurance MEDICARE [facility] ADVANTAGE CHOICE PPO Advance Directives For more information, please contact: [phone] * Full Code (Latest Code Status on File) Date Activated Date Inactivated Comments 06/16/2020 4:41 PM 06/24/2020 5:30 PM Care Teams Clinical Team Lead Relationship Specialty Start Date End Date Pearl Akbar, SOLE STITCHER HAND [address] [place] [address] PCP - General Family Medicine 12/07/23
[2024-10-09] MEDS: diazePAM INJ (*CRX) 10 MG/2 ML SYRINGE 2.5 MG IM (14:13)
[2024-10-09] MEDS: diazePAM INJ (*CRX) 10 MG/2 ML SYRINGE 2.5 MG IV PUSH (15:52)
--- NOTE | 2024-10-09 15:55 | ED_ITS ---
HPI - Dizziness General Chief Complaint: Dizziness Stated Complaint: dizziness x2 days Time Seen by Provider: 10/09/24 12:24 History of Present Illness HPI Narrative: About days ago, patient started feeling dizzy, worse when she stands up. She feels fine when she is just sitting there, however when she gets up does walk she gets quite dizzy, describes as feeling like the room is spinning around her. Try some meclizine at home without any improvement. No focal numbness or weakness or difficulty speaking. Has had similar episodes in the past but none so serious or persistent Related Data Home Medications ?Medication ?Instructions ?Recorded ?Confirmed ?Last Taken ?Type aspirin 81 mg chewable tablet 81 mg PO DAILY 07/23/19 09/05/24 02/27/21 History Allergies Allergy/AdvReac Type Severity Reaction Status Date / Time No Known Allergies Allergy Verified 10/09/24 12:28 Review of Systems 2 Review of Systems: All systems reviewed & are unremarkable except as noted in HPI and below PMFSH Past Medical History Medical History Depression with anxiety Peripheral vascular disease (~03/23/19) 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 Repair of what sounds like graft separation/leak was done in 05/2020. History of partial thyroidectomy History of laparoscopy With adhesiolysis. History of ileostomy History of section Status post proctocolectomy History of tonsillectomy Family History Family History Sibling Diabetes mellitus Mother Cancer Father Heart attack Social History Social History Social History: Surrogate decision maker: Hesham Ramey, spouse. Code status: Full code. Smoking status: Never smoker Second hand tobacco smoke exposure: No Alcohol intake: never Substance use: never Substance use type: does not use Living arrangements: with family Additional living arrangements comments: Lives [place]. Spiritual care concerns: No Exam 2 Narrative: EXAMINATION OF ORGAN SYSTEMS/BODY AREAS: Constitutional: Vital signs per nursing GENERAL:[No acute distress, non-toxic appearing.] HEAD: Normal with no signs of head trauma. EYES: EOMI, conjunctiva normal ENT: Hearing grossly intact LUNGS: Nonlabored breathing. HEART: [Regular rate and rhythm] ABD: [Soft], [nontender to palpation] EXT: Normal range of motion SKIN: [No rashes or lesions.] NEURO: [Alert and oriented x 3. No gross focal sensory or strength deficits.] No facial asymmetry. Normal clear speech. PSYCH: Normal affect Course Vital Signs Vital signs: Vital Signs Temperature 97.6 F 10/09/24 11:45 Pulse Rate 60 10/09/24 11:45 Respiratory Rate 16 10/09/24 11:45 Blood Pressure 140/76 10/09/24 11:45 Pulse Oximetry 100 10/09/24 11:45 Oxygen Delivery Room Air 10/09/24 11:45 Temperature 98 F 10/09/24 12:28 Pulse Rate 59 L 10/09/24 15:42 Respiratory Rate 20 10/09/24 15:42 Blood Pressure 132/65 10/09/24 15:42 Pulse Oximetry 99 10/09/24 15:42 Oxygen Delivery Room Air 10/09/24 12:28 MDM - Dizziness MDM Narrative Medical decision making narrative: 64-year-old female presenting here with persistent dizziness from 2 days ago, fine when she sits but worse when she is moving around. She has been at bedside worried that she may fall if she goes home now. Tried meclizine without improvement. Labs within acceptable limits, EKG shows sinus rhythm rate 57, WA 2-3, QRS 100, QTC 411. No ST elevations or depressions or signs of acute ischemia or arrhythmia She has no focal neurologic deficits on exam. CT head and neck unremarkable. Tried doses of Valium without improvement. They would like to be admitted and I agree this is quite reasonable, discussed with neurology and hospitalist for admission. Lab Data 10/09/24 12:34 10/09/24 12:34 Labs: Lab Results 10/09/24 Range/Units 12:34 WBC 4.3 L (4.5-10.0) K/mm3 RBC 4.15 L (4.2-5.4) M/mm3 Hgb 11.9 L (12.0-15.0) g/dL Hct 36.5 L (37.0-47.0) % MCV 88.0 (80-100) fl MCH 28.7 (26-34) pg MCHC 32.6 (32-36) g/dl RDW 12.5 (11.5-14.5) % Plt Count 147 L (150-375) k/mm3 MPV 9.5 (7.4-10.4) fl Immature Gran % (Auto) 0.2 (0-0.5) % Neut % (Auto) 66.5 (45.5-73.1) % Lymph % (Auto) 19.7 (18.3-44.2) % Bollinger % (Auto) 11.5 H (2.6-8.5) % Eos % (Auto) 1.2 (0-4.4) % Baso % (Auto) 0.9 (0.2-1.2) % Lymph # (Auto) 0.84 L (0.9-3.2) K/mm3 Bollinger # (Auto) 0.5 (0.1-0.6) K/mm3 Eos # (Auto) 0.1 (0-0.3) K/mm3 Baso # (Auto) 0.0 (0.0-0.1) K/mm3 Abs Immat Gran (auto) 0.01 (0.00-0.031) K/mm3 Absolute Neuts (auto) 2.8 (1.3-6.7) K/mm3 Absolute Nucleated RBC 0.000 (0.0-0.012) K/mm3 Nucleated RBC % 0.0 (0.0-0.2) % Sodium 138 (137-145) mmol/L Potassium 4.1 (3.4-5.0) mmol/L Chloride 102 (98-107) mmol/L Carbon Dioxide 28 (22-30) mmol/L Anion Gap 8 (4-12) mmol/L BUN 12 D (7-17) mg/dL Creatinine 0.70 (0.7-1.0) mg/dL Estim Creat Clear Calc 64 ml/min Estimated GFR > 60 (59 - ) Glucose 96 (65-110) mg/dL Calcium 9.8 (8.4-10.2) mg/dL Total Bilirubin 0.3 (0.2-1.3) mg/dL AST 26 (14-36) U/L ALT 18 (6-35) U/L Alkaline Phosphatase 80 (38-126) U/L Total Protein 7.4 (6.3-8.2) g/dL Albumin 4.5 (3.5-5.1) g/dL Discharge Plan Discharge Clinical Impression: Dizziness Patient Disposition: Still a Patient Condition: Stable Patient Language: Kiswahili Prescriptions: No Action paroxetine HCl 10 mg tablet 10 mg PO DAILY Qty: 90 0RF Patient Comments: pt states no longer taking aspirin 81 mg tablet,chewable 81 mg PO DAILY (DME) Ostomy supplies. See Rx Instructions .Route .MEDSUPPLY Qty: 1 0RF Rx Instructions: ostomy bags, remover, skin prep, and clip needed. albuterol sulfate 90 mcg/actuation HFA aerosol inhaler 1 inh INHALATION Q4-6H PRN (Reason: Shortness Of Breath) Qty: 6.7 3RF lisinopril 10 mg tablet 10 mg PO DAILY Qty: 90 3RF Rx Instructions: take with 5 mg tablet to total 15mg. lisinopril 5 mg tablet 5 mg PO DAILY Qty: 90 3RF Rx Instructions: take with 10mg tab to total 15mg zolpidem 10 mg tablet 10 mg PO HS Qty: 90 1RF clonazepam 0.5 mg tablet 0.25 mg PO BID PRN (Reason: anxiety) Qty: 60 1RF metoprolol succinate 50 mg tablet extended release 24 hr See Rx Instructions .ROUTE .COMPLEX Qty: 135 2RF Dose Instruction: TAKE 1 TABLET BY MOUTH EVERY DAY Rx Instructions: TAKE 1.5 TABLET BY MOUTH EVERY DAY Follow-up/Referrals: Gay Sandhu MD [Primary Care Provider, Family Practice]
--- NOTE | 2024-10-09 17:37 | PM.IMHP ---
H&P: HPI History of Present Illness Date/Time: 10/09/24 17:37 Chief Complaint: Dizziness Narrative: This is a 64-year-old female who presented with dizziness that started about few days ago. Worsens when she stands describes as room spinning sensation. Tried some meclizine at home without any improvement. No focal weakness or numbness difficulty speaking. She had similar episodes in the past. In the ED her vitals were stable. Laboratory workup revealed WBC of 4.3 hemoglobin 11.9 platelet count 147 Chem panel was unremarkable. LFT normal. EKG with sinus rhythm rate of 57 QTC 411. T inversion in septal leads. Findings were similar compared to previous EKG CT head was negative. CTA head and neck with the 0% stenosis of right and left carotid bulb. Unremarkable CT angiogram. Stable appearance of a likely repair type a aortic dissection with fusiform aneurysmal dilatation of the descending thoracic aorta which measures up to 4.4 cm in maximal diameter. She is admitted in this setting for further treatment. With Valium she is feeling a little better this evening. Review of Systems Review of Systems: - CONSTITUTIONAL: Denies weight loss, fever and chills. - HEENT: Denies changes in vision and hearing - RESPIRATORY: Denies SOB and cough. - CV: Denies palpitations and CP. - GI: Denies abdominal pain, nausea, vomiting and diarrhea. - : Denies dysuria and urinary frequency. - MSK: Denies myalgia and joint pain. - SKIN: Denies rash and pruritus. - NEUROLOGICAL: Denies headache and syncope. Reports dizziness - PSYCHIATRIC: Denies recent changes in mood. Denies anxiety and depression. [facility] Past Medical History Medical History Depression with anxiety Peripheral vascular disease (~03/23/19) 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 Repair of what sounds like graft separation/leak was done in 05/2020. History of partial thyroidectomy History of laparoscopy With adhesiolysis. History of ileostomy History of section Status post proctocolectomy History of tonsillectomy Family History Family History Sibling Diabetes mellitus Mother Cancer Father Heart attack Social History Social History Social History: Surrogate decision maker: Hesham Ramey, spouse. Code status: Full code. Smoking status: Never smoker Second hand tobacco smoke exposure: No Alcohol intake: never Substance use: never Substance use type: does not use Lack of Transportation: No Lack of Food: Never True Current Housing: I Have Housing Concerned About Future Housing: Decline to Answer Difficulty Paying Gas/Electric Bills: Decline to Answer Difficulty Paying for Meds: Decline to Answer Currently Unemployed: Decline to Answer Education: Associate Degree Difficulty w/ Childcare or Family Care: Decline to Answer Living arrangements: with family Additional living arrangements comments: Lives with family in [place]. Spiritual care concerns: No Meds Home Medications and Allergies Home Medications ?Medication ?Instructions ?Recorded ?Confirmed ?Type aspirin 81 mg chewable tablet 81 mg PO DAILY 07/23/19 10/09/24 History Ostomy supplies. #1 ea 10/26/23 10/09/24 Rx albuterol sulfate 90 mcg/actuation 1 inh inhalation Q4-6H PRN 12/06/23 10/09/24 Rx aerosol inhaler Shortness Of Breath #6.7 grams lisinopril 10 mg tablet 10 mg PO DAILY #90 tabs 07/24/24 10/09/24 Rx lisinopril 5 mg tablet 5 mg PO DAILY #90 tabs 07/24/24 10/09/24 Rx zolpidem 10 mg tablet 10 mg PO HS #90 tabs 07/25/24 10/09/24 Rx clonazepam 0.5 mg tablet 0.25 mg (1/2 x 0.5 mg) PO BID PRN 08/22/24 10/09/24 Rx anxiety #60 tabs metoprolol succinate 50 mg See Rx Instructions .Route 09/24/24 10/09/24 Rx tablet,extended release 24 hr .COMPLEX #135 tabs Allergies Allergy/AdvReac Type Severity Reaction Status Date / Time No Known Allergies Allergy Verified 10/09/24 18:13 Vital Signs Vital Signs - 24 hr 10/09/24 11:45 10/09/24 12:28 10/09/24 12:34 Temperature 97.6 F 98 F Pulse Rate 60 58 L 61 Respiratory Rate 16 14 Blood Pressure 140/76 119/64 Pulse Oximetry 100 99 Oxygen Delivery Room Air Room Air 10/09/24 14:14 10/09/24 15:42 10/09/24 17:35 Temperature Pulse Rate 59 L 59 L 64 Respiratory Rate 16 20 17 Blood Pressure 134/61 132/65 113/72 Pulse Oximetry 100 99 99 Oxygen Delivery Exam Narrative: GENERAL: The patient is well developed, not in acute distress HEENT: Nonicteric sclerae, PERRLA, EOMI. Oropharynx clear. Moist mucous membranes. Conjunctivae appear well perfused. CHEST: Chest wall is nontender. HEART: Regular rate and rhythm without murmur, rubs, or gallops LUNGS: Clear to auscultation bilaterally. no respiratory distress ABDOMEN: Soft, positive bowel sounds, non-tender, no organomegaly. SKIN: No rash, no excessive bruising, petechiae, or purpura. NEUROLOGIC: Cranial nerves II-XII intact, alert and oriented x 3, no gross motor deficits EXTREMITIES: no edema, cyanosis or clubbing H&P: Results Labs Labs: Short CBC 10/09/24 Range/Units 12:34 WBC 4.3 L (4.5-10.0) K/mm3 Hgb 11.9 L (12.0-15.0) g/dL Hct 36.5 L (37.0-47.0) % Plt Count 147 L (150-375) k/mm3 BMP 10/09/24 12:34 Sodium 138 Potassium 4.1 Chloride 102 Carbon Dioxide 28 BUN 12 D Creatinine 0.70 Glucose 96 Calcium 9.8 Liver Function 10/09/24 Range/Units 12:34 Total Bilirubin 0.3 (0.2-1.3) mg/dL AST 26 (14-36) U/L ALT 18 (6-35) U/L Alkaline Phosphatase 80 (38-126) U/L Albumin 4.5 (3.5-5.1) g/dL Assessment and Plan Assessment and plan (1) Depression with anxiety: Code(s): F41.8 - Other specified anxiety disorders Status: Acute (2) Hypertension: Code(s): I10 - Essential (primary) hypertension Status: Chronic (3) History of aortic valve replacement with bioprosthetic valve: Code(s): Z95.3 - Presence of xenogenic heart valve Status: Acute (4) CAD (coronary artery disease), autologous vein bypass graft: Code(s): I25.810 - Atherosclerosis of coronary artery bypass graft(s) without angina pectoris Status: Acute (5) Paroxysmal A-fib: Code(s): I48.0 - Paroxysmal atrial fibrillation Status: Chronic (6) S/P CABG (coronary artery bypass graft): Code(s): Z95.1 - Presence of aortocoronary bypass graft Status: Chronic (7) Chronic dissection of thoracic aorta: Code(s): I71.01 - Dissection of thoracic aorta Status: Chronic (8) Hyperlipidemia: Qualifiers: Hyperlipidemia type: unspecified Qualified Code(s): E78.5 - Hyperlipidemia, unspecified Code(s): E78.5 - Hyperlipidemia, unspecified Status: Chronic (9) Hypothyroidism: Code(s): E03.9 - Hypothyroidism, unspecified Status: Chronic (10) Ulcerative colitis: Code(s): K51.90 - Ulcerative colitis, unspecified, without complications Status: Acute (11) Ileostomy in place: Code(s): Z93.2 - Ileostomy status Status: Chronic (12) Cervical radicular pain: Code(s): M54.12 - Radiculopathy, cervical region Status: Acute (13) Dizziness: Code(s): R42 - Dizziness and giddiness Status: Acute Plan This is a 64-year-old female who presented with dizziness that started about few days ago. Worsens when she stands describes as room spinning sensation. Tried some meclizine at home without any improvement. No focal weakness or numbness difficulty speaking. She had similar episodes in the past. In the ED her vitals were stable. Laboratory workup revealed WBC of 4.3 hemoglobin 11.9 platelet count 147 Chem panel was unremarkable. LFT normal. EKG with sinus rhythm rate of 57 QTC 411. T inversion in septal leads. Findings were similar compared to previous EKG CT head was negative. CTA head and neck with the 0% stenosis of right and left carotid bulb. Unremarkable CT angiogram. Stable appearance of a likely repair type a aortic dissection with fusiform aneurysmal dilatation of the descending thoracic aorta which measures up to 4.4 cm in maximal diameter. She is admitted in this setting for further treatment. Dizziness: Check orthostatic. CTA head and neck negative. Will further evaluated with MRI brain. Neurology consulted History of thoracic aorta dissection status post repair May of 2020 Paroxysmal atrial fibrillation postoperative transient Peripheral vascular disease 2019 with thrombus in left common femoral artery and proximal superficial femoral artery with severe stenosis History of ulcerative colitis status post proctocolectomy with ileostomy in place in History of small-bowel obstruction treated with surgery and adhesiolysis Status post partial thyroidectomy History of aortic valve replacement with bioprosthetic valve Anxiety depression Hypothyroidism Hypertension Coronary artery disease DVT prophylaxis Code status full code Hospitalist MIPS Advance Care Plan I have confirmed that the patient's Advanced Care Plan is present, code status is documented, or surrogate decision maker is listed in patient medical record.: Yes Medication Reconciliation I have utilized all available resources to obtain, update and review the patients current medications (includes all prescriptions, OTC, herbals, cannabis, and nutritional supplements).: Yes
--- NOTE | 2024-10-09 17:49 | ADMGEN ---
This patient, Eri Ramey, was admitted to 2 Medical Room 241-. Patient/family oriented to hospital policies and general routines including ID bracelet, bed and alarms, visiting hours, pain management, procedures, bathroom and other care routines, personal items, smoking policy, room service/diet, and visiting hours. Information on how to activate the Rapid Response Team has been discussed. Patient/Family are encouraged to report perceived risks to care and to ask questions if they do not understand what they are told or what they should do.
[2024-10-09] MEDS: MECLIZINE HCL 25 MG TABLET PO (20:16)
[2024-10-09] MEDS: ZOLPIDEM TARTRATE (*CRX) 5 MG TABLET 10 MG PO (20:16)
[2024-10-10] VITALS (12 sets, daily range): BP systolic 108–127; BP diastolic 52–63; PULSE 59–77; RESP 16; TEMP 36.4–37; O2SAT 96–98
--- NOTE | 2024-10-10 06:59 | P.PNIM_ITS ---
Progress Note: A&P Assessment and Plan (1) Dizziness: Code(s): R42 - Dizziness and giddiness Status: Acute Assessment and Plan: - CTA head and neck negative - orthostatic vitals negative - NIHSS 0 - suspect inner ear pathology. Less likely CVA. - Will further evaluated with MRI brain. Neurology consulted - continue PRN meclizine - PT/OT (2) Depression with anxiety: Code(s): F41.8 - Other specified anxiety disorders Status: Acute Assessment and Plan: - continue meds (3) Hypertension: Code(s): I10 - Essential (primary) hypertension Status: Chronic Assessment and Plan: - continue lisinopril and metoprolol (4) History of aortic valve replacement with bioprosthetic valve: Code(s): Z95.3 - Presence of xenogenic heart valve Status: Acute Assessment and Plan: - continue home ASA (5) CAD (coronary artery disease), autologous vein bypass graft: Code(s): I25.810 - Atherosclerosis of coronary artery bypass graft(s) without angina pectoris Status: Acute Assessment and Plan: - continue home ASA (6) Paroxysmal A-fib: Code(s): I48.0 - Paroxysmal atrial fibrillation Status: Chronic Assessment and Plan: - no longer on anticoagulation - continue home beta christine (7) S/P CABG (coronary artery bypass graft): Code(s): Z95.1 - Presence of aortocoronary bypass graft Status: Chronic Assessment and Plan: - continue ASA (8) Chronic dissection of thoracic aorta: Code(s): I71.01 - Dissection of thoracic aorta Status: Chronic Assessment and Plan: - continue ASA (9) Hypothyroidism: Code(s): E03.9 - Hypothyroidism, unspecified Status: Chronic Assessment and Plan: - TSH WNL 08/2024 Plan DVT prophylaxis: Lovenox Code status: full code Subjective Date/time seen: 10/10/24 06:59 Interval history: 64-year-old female who presented with dizziness that started about few days ago. Patient seen and examined at bedside. Still with mild dizziness and headache, but improved. Review of Systems Review of Systems: All systems reviewed & are unremarkable except as noted in HPI and below Exam Narrative: General: NAD Eyes: EOMI ENT: neck supple Cardiovascular: Regular rate and rhythm Respiratory: Clear to auscultation, respirations even and unlabored on RA Gastrointestinal: Soft, non tender Genitourinary: no suprapubic tenderness Musculoskeletal: No edema Skin: warm, dry Neuro: Alert. Alert and oriented x4. Cranial nerves II-XII intact. Face symmetric. Speech clear. Strength 5/5 in BUEs/BLEs. Sensation to light touch intact face, BUE/BLEs. No dysmetria BUE/BLEs. Psych: Mood appropriate Objective Data Vital Signs Vital Signs: Vital Signs - 24 hr 10/09/24 11:45 10/09/24 12:28 10/09/24 12:34 Temperature 97.6 F 98 F Pulse Rate 60 58 L 61 Respiratory Rate 16 14 Blood Pressure 140/76 119/64 Pulse Oximetry 100 99 Oxygen Delivery Room Air Room Air 10/09/24 14:14 10/09/24 15:42 10/09/24 17:35 Temperature Pulse Rate 59 L 59 L 64 Respiratory Rate 16 20 17 Blood Pressure 134/61 132/65 113/72 Pulse Oximetry 100 99 99 Oxygen Delivery 10/09/24 17:40 10/09/24 17:55 10/09/24 18:15 Temperature 98 F 97.6 F Pulse Rate 69 58 L 55 L Respiratory Rate 18 16 Blood Pressure 113/72 135/70 140/64 Pulse Oximetry 100 98 Oxygen Delivery 10/09/24 18:19 10/09/24 18:30 10/09/24 20:00 Temperature Pulse Rate 60 69 64 Respiratory Rate Blood Pressure 143/72 H 128/78 Pulse Oximetry Oxygen Delivery 10/09/24 20:10 10/09/24 20:15 10/10/24 00:00 Temperature 98.0 F Pulse Rate 65 65 Respiratory Rate 18 Blood Pressure 102/47 L Pulse Oximetry 98 Oxygen Delivery Room Air 10/10/24 04:00 10/10/24 05:37 Temperature 98.6 F Pulse Rate 66 69 Respiratory Rate 16 Blood Pressure 108/59 L Pulse Oximetry 97 Oxygen Delivery Intake/Output Intake/Output: Intake & Output 10/07/24 10/08/24 10/09/24 10/10/24 23:59 23:59 23:59 23:59 Intake Total 240 250 Balance 240 250 Meds/Results Medications: Active Medications Generic Name Dose Route Start Last Admin Trade Name Freq PRN Reason Stop Dose Admin Acetaminophen 650 mg 10/10/24 01:17 Acetaminophen 325 Mg Tablet PO Q4H PRN Pain Rated 1-3 Albuterol 1 puff 10/09/24 20:01 Albuterol Sulfate (*Sp) Aerosol 1 Puff INHALATION Q4-6H PRN Shortness Of Breath Aspirin 81 mg 10/10/24 09:00 Aspirin 81 Mg Chewable Tablet PO DAILY [facility] Clonazepam 0.25 mg 10/09/24 20:01 Clonazepam (*Crx) 0.25 Mg Tablet PO BID PRN Anxiety Enoxaparin Sodium 40 mg 10/10/24 09:00 Enoxaparin 40 Mg/0.4 Ml Syringe SUB-Q DAILY [facility] Lisinopril 5 mg 10/10/24 09:00 Lisinopril 5 Mg Tablet PO DAILY [facility] Lisinopril 10 mg 10/10/24 09:00 Lisinopril 10 Mg Tablet PO DAILY [facility] Meclizine HCl 25 mg 10/09/24 20:01 10/09/24 20:16 Meclizine Hcl 25 Mg Tablet PO 25 mg Q6H PRN Administration Vertigo Metoprolol Succinate 75 mg 10/10/24 09:00 Metoprolol Succinate Ext Rel 25 Mg Tabcr BY MOUTH DAILY [facility] Zolpidem Tartrate 10 mg 10/09/24 21:00 10/09/24 20:16 Zolpidem Tartrate (*Crx) 5 Mg Tablet PO 10 mg HS [facility] Administration Radiology Results: ITS Impressions Head CT 10/09/24 13:22 Impression: No acute intracranial hemorrhage or suspicious mass effect. Head/Neck CTA 10/09/24 14:57 IMPRESSION: 1. No evident atherosclerotic plaque with 0% stenosis of the right and left carotid bulbs relative to normal distal artery lumen diameter (NASCET criteria). 2. Normal anatomic relationship the [place] as detailed above. Otherwise unremarkable cerebral CT angiogram with no evident thrombosis, hematoma significant stenosis or aneurysm. 3. Stable appearance of a likely repaired type A aortic dissection with fusiform aneurysmal dilation of the descending thoracic aorta which measures up to 4.4 cm in maximal diameter. Correlate with surgical history. Labs Labs: Laboratory Results - last 24 hr 10/09/24 12:34 WBC 4.3 L RBC 4.15 L Hgb 11.9 L Hct 36.5 L MCV 88.0 MCH 28.7 MCHC 32.6 RDW 12.5 Plt Count 147 L MPV 9.5 Immature Gran % (Auto) 0.2 Neut % (Auto) 66.5 Lymph % (Auto) 19.7 [place] % (Auto) 11.5 H Eos % (Auto) 1.2 Baso % (Auto) 0.9 Lymph # (Auto) 0.84 L [place] # (Auto) 0.5 Eos # (Auto) 0.1 Baso # (Auto) 0.0 Abs Immat Gran (auto) 0.01 Absolute Neuts (auto) 2.8 Absolute Nucleated RBC 0.000 Nucleated RBC % 0.0 Sodium 138 Potassium 4.1 Chloride 102 Carbon Dioxide 28 Anion Gap 8 BUN 12 D Creatinine 0.70 Estim Creat Clear Calc 64 Estimated GFR > 60 Glucose 96 Calcium 9.8 Total Bilirubin 0.3 AST 26 ALT 18 Alkaline Phosphatase 80 Total Protein 7.4 Albumin 4.5
[2024-10-10] MEDS: ACETAMINOPHEN 325 MG TABLET 650 MG PO ×2 (07:38→18:17)
[2024-10-10] MEDS: ASPIRIN 81 MG CHEWABLE TABLET PO (08:43)
[2024-10-10] MEDS: METOPROLOL SUCCINATE EXT REL 25 MG TABCR 75 MG BY MOUTH (08:44)
[2024-10-10] MEDS: ENOXAPARIN 40 MG/0.4 ML SYRINGE SUB-Q (08:44)
--- NOTE | 2024-10-10 11:53 | P.CONNEU_ITS ---
Assessment and Plan Assessment and plan (1) Dizziness: Code(s): R42 - Dizziness and giddiness Status: Acute Plan 1. Dizziness as per the conversation orthostatic as well as with change of position in the bed from 1 side to other side raising the possibility of different mechanism there is orthostasis well as the inner ear that is cannalopathy. All the instructions given regarding this how to manage, there is no reason to add any other medication for this particular problem. Consult date: 10/10/24 HPI: Eri Ramey is a 64 year old female admitted to the hospital through the emergency room for the complaints of being dizzy when standing up to walk ,she has tried some meclizine at home without any improvement she gave no history of focal numbness or weakness or difficulties in speech .on initial evaluation in the emergency room it was documented that she is taking aspirin 81mg daily, she is not allergic to any med she has ongoing history of anxiety with depression, peripheral vascular disease with thrombus in left common femoral artery and proximal superficial femoral artery with severe stenosis dissecting aneurysm of thoracic aorta, paroxysmal atrial fibrillation, hypothyroidism, and GI diagnosis of ulcerative colitis with history of ileostomy in the place. She has undergone aortic valve replacement with bioprosthetic valve, dissecting aneurysm repair of thoracic aorta she has never smoker, never alcohol intake or, and on initial exam in the emergency room exam was grossly nonfocal. Her vital signs were normal, CBC was normal with platelet 147 1000 BMP was normal, mast scan was normal, her CTA at this stage revealed no significant abnormalities except the repaired type a aortic dissection with fusiform aneurysmal dilatation of the descending thoracic aorta measuring 4.4cm in maximal diameter. Head CT scan was normal Review of Systems 2 Review of Systems: All systems reviewed & are unremarkable except as noted in HPI and below [facility] Past Medical History Medical History Depression with anxiety Peripheral vascular disease (~03/23/19) 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 Dissecting aneurysm of thoracic aorta, [place] type A (01/15/19) History of MRSA infection Paroxysmal atrial fibrillation Hypothyroidism Aortic dissection Eczema Anemia Arthritis Bowel obstruction Ulcerative colitis Asthma Ileostomy in place Surgical History Surgical History History of hysterectomy History of aortic valve replacement with bioprosthetic valve History of repair of [place] type A dissecting aneurysm of thoracic aorta (01/15/19) Status post tube graft placement done at [facility]. Repair of what sounds like graft separation/leak was done in 05/2020. History of partial thyroidectomy History of laparoscopy With adhesiolysis. History of ileostomy History of section Status post proctocolectomy History of tonsillectomy Family History Family History Sibling Diabetes mellitus Mother Cancer Father Heart attack Social History Social History Social History: Surrogate decision maker: Hesham Ramey, spouse. Code status: Full code. Smoking status: Never smoker Second hand tobacco smoke exposure: No Alcohol intake: never Substance use: never Substance use type: does not use Lack of Transportation: No Lack of Food: Never True Current Housing: I Have Housing Concerned About Future Housing: Decline to Answer Difficulty Paying Gas/Electric Bills: Decline to Answer Difficulty Paying for Meds: Decline to Answer Currently Unemployed: Decline to Answer Education: Associate Degree Difficulty w/ Childcare or Family Care: Decline to Answer Living arrangements: with family Additional living arrangements comments: Lives with family in [place]. Spiritual care concerns: No Meds Home Medications and Allergies Home Medications ?Medication ?Instructions ?Recorded ?Confirmed ?Type aspirin 81 mg chewable tablet 81 mg PO DAILY 07/23/19 10/09/24 History Ostomy supplies. #1 ea 10/26/23 10/09/24 Rx albuterol sulfate 90 mcg/actuation 1 inh inhalation Q4 -6H PRN 12/06/23 10/09/24 Rx aerosol inhaler Shortness Of Breath #6.7 gra ms lisinopril 10 mg tablet 10 mg PO DAILY #90 tabs 06/0 05/1510/09/24 Rx lisinopril 5 mg tablet 5 mg PO DAILY #90 tabs 07/2410/09/24 Rx zolpidem 10 mg tablet 10 mg PO HS #90 tabs 07/25/2 5 10/09/24 Rx clonazepam 0.5 mg tablet 0.25 mg (1/2 x 0.5 mg) PO BI D PRN 08/22/24 10/09/24 Rx anxiety #60 tabs metoprolol succinate 50 mg See Rx Instructions .Route 09/24/24 10/09/24 Rx tablet,extended release 24 hr .COMPLEX #135 tabs Allergies Allergy/AdvReac Type Severity Reaction Status Date / Time No Known Allergies Allergy Verified 10/09/24 18:13 Vital Signs Vital Signs - 24 hr 10/09/24 12:28 10/09/24 12:34 10/09/24 14:14 Temperature 36.6 C Pulse Rate 58 L 61 59 L Respiratory Rate 14 16 Blood Pressure 119/64 134/61 Pulse Oximetry 99 100 Oxygen Delivery Room Air 10/09/24 15:42 10/09/24 17:35 10/09/24 17:40 Temperature 36.6 C Pulse Rate 59 L 64 69 Respiratory Rate 20 17 18 Blood Pressure 132/65 113/72 113/72 Pulse Oximetry 99 99 100 Oxygen Delivery 10/09/24 17:55 10/09/24 18:15 10/09/24 18:19 Temperature 36.4 C Pulse Rate 58 L 55 L 60 Respiratory Rate 16 Blood Pressure 135/70 140/64 143/72 H Pulse Oximetry 98 Oxygen Delivery 10/09/24 18:30 10/09/24 20:00 10/09/24 20:10 Temperature 36.7 C Pulse Rate 69 64 65 Respiratory Rate 18 Blood Pressure 128/78 102/47 L Pulse Oximetry 98 Oxygen Delivery 10/09/24 20:15 10/10/24 00:00 10/10/24 04:00 Temperature Pulse Rate 65 66 Respiratory Rate Blood Pressure Pulse Oximetry Oxygen Delivery Room Air 10/10/24 05:37 10/10/24 08:00 10/10/24 08:00 Temperature 37.0 C Pulse Rate 69 76 Respiratory Rate 16 Blood Pressure 108/59 L Pulse Oximetry 97 Oxygen Delivery Room Air 10/10/24 08:42 10/10/24 08:44 Temperature Pulse Rate 77 77 Respiratory Rate Blood Pressure 110/52 L Pulse Oximetry 98 Oxygen Delivery Exam 2 Narrative: revealed her to be awake alert cooperative in no obvious acute distress, head normocephalic with no bruit, ear nose throat examination normal, neck supple with no cervical bruit no thyromegaly no lymphadenopathy, heart regular with murmur lungs clear to auscultation, abdomen soft nontender, neurologically she is awake alert oriented x3 with speech not dysphasic not dysarthric not dysphonic, pupils round regular feels the vision full extraocular movements full face symmetrical tongue midline motor examination revealed her to have normal strength and tone reflexes symmetrical plantars downgoing no evidence of gross cerebellar deficit. Results Labs 10/09/24 12:34 10/09/24 12:34 Labs: Short CBC 10/09/24 Range/Units 12:34 WBC 4.3 L (4.5-10.0) K/mm3 Hgb 11.9 L (12.0-15.0) g/dL Hct 36.5 L (37.0-47.0) % Plt Count 147 L (150-375) k/mm3 BMP 10/09/24 12:34 Sodium 138 Potassium 4.1 Chloride 102 Carbon Dioxide 28 BUN 12 D Creatinine 0.70 Glucose 96 Calcium 9.8 Liver Function 10/09/24 Range/Units 12:34 Total Bilirubin 0.3 (0.2-1.3) mg/dL AST 26 (14-36) U/L ALT 18 (6-35) U/L Alkaline Phosphatase 80 (38-126) U/L Albumin 4.5 (3.5-5.1) g/dL
[2024-10-10] MEDS: ZOLPIDEM TARTRATE (*CRX) 5 MG TABLET 10 MG PO (20:22)
[2024-10-11] VITALS (8 sets, daily range): BP systolic 102–128; BP diastolic 62–64; PULSE 59–69; RESP 16; TEMP 36.6–36.7; O2SAT 98
--- NOTE | 2024-10-11 | ECHO_ITS ---
Patient Info Name: Eri Ramey Age: 64 years : 1960 Gender: Female Ht: 67 in Wt: 124 lbs BSA: 1.62 m2 HR: 58 bpm BP: 102 / 63 mmHg Technical Quality: Good Exam Date: 10/11/2024 11:32 AM Patient Status: I Admit Date: 10/10/2024 Exam Type: CA echo doppler w bubble study Complete two-dimensional, color flow and Doppler transthoracic echocardiogram is performed with agitated saline. Staff Referring Physician: Evan Avalos Drum Cleaner: Svetlana Trujillo Attending Provider: Becky Lu MD Contrast/Agitated Saline Contrast/Ag. Saline: Agitated Saline Amount: 20.00 ml Summary 1. Left ventricular systolic function is normal, estimated at 55-60. 2. The left ventricular diastolic function is normal. 3. Left atrial chamber dimension is moderately enlarged. 4. There is mild tricuspid valve regurgitation. 5. No pulmonary hypertension, estimated pulmonary arterial systolic pressure is 25 mmHg. 6. There is mild pulmonic regurgitation. 7. There is trace mitral valve regurgitation. Left Ventricle Left ventricular chamber dimension is normal. Left ventricular systolic function is normal, estimated at 55-60. There is no increased left ventricular wall thickness. Left ventricular septal wall motion is normal. The left ventricular diastolic function is normal. Right Ventricle Right ventricular chamber dimension is normal. Right ventricular systolic function is normal. Left Atria Left atrial chamber dimension is moderately enlarged. Right Atria Right atrial chamber dimension is normal. Atrial Septum Intact interatrial septum visualized by agitated saline imaging. Aortic Valve The aortic valve is probable trileaflet. There is mild aortic valve sclerosis. There is no aortic valve stenosis. There is no aortic valve regurgitation. Pulmonic Valve The pulmonic valve is normal. There is no pulmonic valve stenosis. There is mild pulmonic regurgitation. Mitral Valve The mitral valve has normal leaflets. There is no mitral valve stenosis. There is trace mitral valve regurgitation. Tricuspid Valve The tricuspid valve leaflets are normal. There is no significant tricuspid valve stenosis. There is mild tricuspid valve regurgitation. No pulmonary hypertension, estimated pulmonary arterial systolic pressure is 25 mmHg. Pericardium/Pleural The pericardium appears normal. There is no pericardial effusion. Inferior Vena Cava Normal inferior vena cava with >50% collapse upon inspiration consistent with normal right atrial pressure, 5 mmHg. Aorta The aortic root size at the sinus of Valsalva is normal. The prox ascending aorta size is normal. Left Ventricular Outflow Tract Name Value Normal LVOT 2D LVOT Diameter 1.8 cm LVOT Doppler LVOT Peak Velocity 139 cm/s LVOT Peak Gradient 6 mmHg LVOT Mean Gradient 3 mmHg LVOT VTI 31 cm LVOT VTI/AV VTI Ratio 0.7 LVOT Stroke Volume 78 ml LVOT CO 3.8 l/min LVOT CI 2.3 l/min/m2 Pulmonic Valve Name Value Normal RVOT Doppler RVOT Peak Velocity 55 cm/s RVOT Peak Gradient 1 mmHg PV Doppler PV Peak Velocity 91 cm/s PV Peak Gradient 3 mmHg PV Regurgitation Doppler MA Peak End Diastolic Velocity 103 cm/s Mitral Valve Name Value Normal MV Diastolic Function MV E Peak Velocity 61 cm/s MV A Peak Velocity 63 cm/s MV E/A 1.0 MV Decel Time (PW) 217 ms MV Annular TDI MV E/e' (Septal) 6.9 MV E/e' (Lateral) 5.2 MV E/e' (Average) 6.1 Tricuspid Valve Name Value Normal TV Regurgitation Doppler TR Peak Velocity 225 cm/s TR Peak Gradient 19 mmHg Estimated PAP/RSVP RA Pressure 5 mmHg <=5 PA Systolic Pressure 25 mmHg <36 RV Systolic Pressure 25 mmHg <36 Aortic Valve Name Value Normal AV Doppler AV Peak Velocity 210 cm/s AV Peak Gradient 17 mmHg AV Mean Gradient 9 mmHg AV VTI 42 cm AV Area (Cont Eq VTI) 1.8 cm2 >=3.0 AV Area (Cont Eq Dung) 1.7 cm2 AV DI (Dung) 0.66 AV Regurgitation 2D LVOT Area 2.5 cm2 Ventricles Name Value Normal LV Dimensions 2D/MM IVS Diastolic Thickness (2D) 0.8 cm 0.6-1.0 LVID Diastole (2D) 4.5 cm 3.8-5.2 LVIW Diastolic Thickness (2D) 0.8 cm 0.6-0.9 LVID Systole (2D) 3.0 cm 2.2-3.5 LVOT Diameter 1.8 cm LV Mass (2D Cubed) 118.09 g 67.00-162.00 LV Mass Index (2D Cubed) 73 g/m2 43-95 Relative Wall Thickness (2D) 0.37 <=0.42 LV Fractional Shortening/Ejection Fraction 2D/MM LV Fractional Shortening (2D) 33 % 27-45 LV EF (2D Teichholz) 62 % LV Diastolic Volume (4C MOD) 96 ml LV EF (4C MOD) 66 % LV Diastolic Volume (2C MOD) 73 ml LV EF (2C MOD) 57 % LV Diastolic Volume (BP MOD) 92 ml 46-106 LV Diastolic Volume Index (BP MOD) 56 ml/m2 29-61 LV Systolic Volume (BP MOD) 33 ml 14-42 LV Systolic Volume Index (BP MOD) 21 ml/m2 8-24 LV EF (BP MOD) 64 % 54-74 LV Diastolic Length (4C) 7.6 cm LV Systolic Length (4C) 6.4 cm LV Stroke Volume (4C MOD) 63 ml Atria Name Value Normal LA Dimensions LA Volume (4C A-L) 31 ml LA Volume (BP A-L) 29 ml RA Dimensions RA Systolic Major Carter Length (4C) 5.7 cm 2.2-2.8 RA Area (4C) 17.1 cm2 <=18.0 Report Signatures
[2024-10-11] MEDS: ACETAMINOPHEN 325 MG TABLET 650 MG PO ×2 (03:26→15:45)
[2024-10-11] MEDS: ASPIRIN 81 MG CHEWABLE TABLET PO (08:30)
[2024-10-11] MEDS: ENOXAPARIN 40 MG/0.4 ML SYRINGE SUB-Q (08:30)
[2024-10-11] MEDS: METOPROLOL SUCCINATE EXT REL 25 MG TABCR 75 MG BY MOUTH (08:30)
--- NOTE | 2024-10-11 12:54 | WPDNEUROPN ---
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 She may try vestibular exercises on her own and if the symptoms persist she may require formal neuro otology evaluation. Safety precautions are important. (2) Paroxysmal A-fib: Code(s): I48.0 - Paroxysmal atrial fibrillation Status: Chronic (3) S/P CABG (coronary artery bypass graft): Code(s): Z95.1 - Presence of aortocoronary bypass graft Status: Chronic (4) History of aortic valve replacement with bioprosthetic valve: Code(s): Z95.3 - Presence of xenogenic heart valve Status: Acute Subjective Date/time seen: 10/11/24 12:54 Interval history: The patient is 64-year-old with history of dizziness for last 6 months. For symptoms that worsen his she decided come to the hospital. He has also history of ulcerative colitis and atrial fibrillation and aortic valve disease. CT angiogram of the head and neck did not show any significant large vessel occlusion. MRI of the brain was performed today which did not show any significant abnormalities however chronic micro hemorrhages were noted on SWAN view. No headaches or diplopia or difficulty with walking. Review of Systems Review of Systems: All systems reviewed & are unremarkable except as noted in HPI and below Exam Narrative: Exam head and neck was unremarkable. Cranial nerves injured testing intact system normal power and tone in both upper lower limbs. Rapid alternating movement of the upper lower limbs were symmetric. Coordination finger-nose were normal. No involuntary movements are seen. No nystagmus or intention tremors were noted. Objective Data Vital Signs Vital Signs: Vital Signs - 24 hr 10/10/24 13:55 10/10/24 14:00 10/10/24 14:45 Temperature 97.6 F Pulse Rate 75 64 Respiratory Rate 16 Blood Pressure 121/63 Pulse Oximetry 97 98 Oxygen Delivery Room Air Room Air 10/10/24 16:00 10/10/24 20:00 10/10/24 20:00 Temperature 97.6 F Pulse Rate 64 60 59 L Respiratory Rate 16 Blood Pressure 127/63 Pulse Oximetry 98 Oxygen Delivery 10/10/24 20:00 10/10/24 20:20 10/11/24 00:00 Temperature Pulse Rate 60 60 66 Respiratory Rate 16 Blood Pressure Pulse Oximetry 96 98 Oxygen Delivery Room Air Room Air 10/11/24 04:00 10/11/24 04:33 10/11/24 08:00 Temperature 98.0 F Pulse Rate 59 L 69 63 Respiratory Rate 16 Blood Pressure 102/63 Pulse Oximetry 98 Oxygen Delivery 10/11/24 08:00 10/11/24 08:28 10/11/24 08:30 Temperature Pulse Rate 68 68 Respiratory Rate Blood Pressure 125/62 Pulse Oximetry 98 Oxygen Delivery Room Air 10/11/24 12:00 Temperature Pulse Rate 63 Respiratory Rate Blood Pressure Pulse Oximetry Oxygen Delivery Intake/Output Intake/Output: Intake & Output 10/08/24 10/09/24 10/10/24 10/11/24 23:59 23:59 23:59 23:59 Intake Total 240 1200 340 Balance 240 1200 340 Meds/Results Medications: Active Medications Generic Name Dose Route Start Last Admin Trade Name Freq PRN Reason Stop Dose Admin Acetaminophen 650 mg 10/10/24 01:17 10/11/24 03:26 Acetaminophen 325 Mg Tablet PO 650 mg Q4H PRN Administration Pain Rated 1-3 Albuterol 1 puff 10/09/24 20:01 Albuterol Sulfate (*Sp) Aerosol 1 Puff INHALATION Q4-6H PRN Shortness Of Breath Aspirin 81 mg 10/10/24 09:00 10/11/24 08:30 Aspirin 81 Mg Chewable Tablet PO 81 mg DAILY GULSHAN Administration Clonazepam 0.25 mg 10/09/24 20:01 Clonazepam (*Crx) 0.25 Mg Tablet PO BID PRN Anxiety Enoxaparin Sodium 40 mg 10/10/24 09:00 10/11/24 08:30 Enoxaparin 40 Mg/0.4 Ml Syringe SUB-Q 40 mg DAILY GULSHAN Administration Lisinopril 5 mg 10/10/24 09:00 10/11/24 08:30 Lisinopril 5 Mg Tablet PO 5 mg DAILY GULSHAN Administration Lisinopril 10 mg 10/10/24 09:00 10/11/24 08:30 Lisinopril 10 Mg Tablet PO 10 mg DAILY GULSHAN Administration Meclizine HCl 25 mg 10/09/24 20:01 10/09/24 20:16 Meclizine Hcl 25 Mg Tablet PO 25 mg Q6H PRN Administration Vertigo Metoprolol Succinate 75 mg 10/10/24 09:00 10/11/24 08:30 Metoprolol Succinate Ext Rel 25 Mg Tabcr BY MOUTH 75 mg DAILY GULSHAN Administration Perflutren Lipid Microsphere 0 ml 10/11/24 06:57 Perflutren Lipid Microspheres 1.5 Ml Vial Diluted To 10 Ml Total Volume IV PUSH 10/14/24 06:57 ONCE PRN adequate visualization Protocol Zolpidem Tartrate 10 mg 10/09/24 21:00 10/10/24 20:22 Zolpidem Tartrate (*Crx) 5 Mg Tablet PO 10 mg HS GULSHAN Administration Radiology Results: ITS Impressions Head CT 10/09/24 13:22 Impression: No acute intracranial hemorrhage or suspicious mass effect. Head/Neck CTA 10/09/24 14:57 IMPRESSION: 1. No evident atherosclerotic plaque with 0% stenosis of the right and left carotid bulbs relative to normal distal artery lumen diameter (NASCET criteria). 2. Normal anatomic relationship the [place] as detailed above. Otherwise unremarkable cerebral CT angiogram with no evident thrombosis, hematoma significant stenosis or aneurysm. 3. Stable appearance of a likely repaired type A aortic dissection with fusiform aneurysmal dilation of the descending thoracic aorta which measures up to 4.4 cm in maximal diameter. Correlate with surgical history. Brain MRI 10/11/24 06:06 IMPRESSION: No acute infarct, intracranial hemorrhage or mass lesion. Evidence of numerous scattered prior microhemorrhages, which largely are new from prior exam. Precise etiology of this finding is unclear.
--- NOTE | 2024-10-11 13:46 | PCOTNOTE ---
Spoke with pt who reports I with ADLs still despite dizziness. PT has already seen pt during this admit and pt was I to ambulate multiple laps in the hallway. Pt states no OT needs at this time and does not need therapy. Will d/c orders.
--- NOTE | 2024-10-11 15:49 | P.DS_ITS ---
DS: Admitting Diagnosis Discharge Date 10/11/24 Admitting Diagnosis - vertigo DS: Discharge Diagnosis Discharge Diagnosis (1) Dizziness: Code(s): R42 - Dizziness and giddiness Status: Acute (2) Depression with anxiety: Code(s): F41.8 - Other specified anxiety disorders Status: Acute (3) Hypertension: Code(s): I10 - Essential (primary) hypertension Status: Chronic (4) History of aortic valve replacement with bioprosthetic valve: Code(s): Z95.3 - Presence of xenogenic heart valve Status: Acute (5) CAD (coronary artery disease), autologous vein bypass graft: Code(s): I25.810 - Atherosclerosis of coronary artery bypass graft(s) without angina pectoris Status: Acute (6) Paroxysmal A-fib: Code(s): I48.0 - Paroxysmal atrial fibrillation Status: Chronic (7) S/P CABG (coronary artery bypass graft): Code(s): Z95.1 - Presence of aortocoronary bypass graft Status: Chronic (8) Chronic dissection of thoracic aorta: Code(s): I71.01 - Dissection of thoracic aorta Status: Chronic (9) Hypothyroidism: Code(s): E03.9 - Hypothyroidism, unspecified Status: Chronic DS: Summary Hospital Course Reason for hospitalization: - vertigo Hospital Course: Patient is a 64-year-old female that presented to the emergency department with complaints of 3 days of dizziness, described as room spinning sensation. In the ED her vitals were stable. Laboratory workup revealed WBC of 4.3, hemoglobin 11.9, platelet count 147. Chem panel was unremarkable. LFT normal. EKG with sinus rhythm rate of 57 QTC 411. T inversion in septal leads. Fi ndings were similar compared to previous EKG CT head was negative. CTA head and neck with the 0% stenosis of right and left carotid bulb. Unremarkable CT angiogram. Stable appearance of a likely repair type a aortic dissection with fusiform aneurysmal dilatation of the descending thoracic aorta which measures up to 4.4 cm in maximal diameter. MRI brain showed no acute infarct, intracranial hemorrhage or mass lesion. Evidence of numerous scattered prior microhemorrhages, which largely are new from prior exam. Precise etiology of this finding is unclear. Echocardiogram 1. Left ventricular systolic function is normal, estimated at 55-60. 2. The left ventricular diastolic function is normal. 3. Left atrial chamber dimension is moderately enlarged. 4. There is mild tricuspid valve regurgitation. 5. No pulmonary hypertension, estimated pulmonary arterial systolic pressure is 25 mmHg. 6. There is mild pulmonic regurgitation. 7. There is trace mitral valve regurgitation. Neurology followed, reviewed MRI brain and suspected symptoms secondary to peripheral vestibular pathology. Suspect microhemorrhages old and possible related to hypertension/aortic dissection. Patient had no focal neurologic symptoms. PT/OT recommended outpatient vestibular therapy. Patient was started on p.r.n. meclizine and Valium with improvement of her symptoms. Patient ambulating at baseline on discharge. Status at Discharge Functional status at discharge: independent ambulation Time Spent with Patient Time attestation: Total time spent providing and/or coordinating discharge services: Time spent: Greater than 30 minutes Exam Narrative: General: NAD Eyes: EOMI ENT: neck supple Cardiovascular: Regular rate and rhythm Respiratory: Clear to auscultation, respirations even and unlabored on RA Gastrointestinal: Soft, non tender Genitourinary: no suprapubic tenderness Musculoskeletal: No edema Skin: warm, dry Neuro: Alert. Psych: Mood appropriate DS: Data Data Completed and Pending Completed studies during hospitalization: - CT head - CTA head and neck - MRI brain Discharge Plan Discharge Attending physician on discharge: Fernando Moran Consulting providers: Neftaly Sandoval; Alba Gustafson Discharging Clinician: Alba Gustafson Anticipated Discharge Date/Time: 10/11/24 15:41 Patient Disposition: Home Activity: as tolerated Diet: as tolerated Discharge Instructions: Take all medications as prescribed. Follow-up with your primary care provider in one week. Return to the emergency department if you develop chest pain, shortness of breath, persistent fever >100.4, confusion, loss of consciousness. Patient Instructions: Benign Paroxysmal Positional Vertigo (DC), Dizziness (GEN) Patient Language: Portuguese Stand Alone Forms: General Discharge Information Follow-up/Referrals: Gay Sandhu MD [Primary Care Provider, [facility]] - Call for Appointment Referral Note: 5-7 days Discharge Medications: Continued aspirin 81 mg tablet,chewable 81 mg PO DAILY albuterol sulfate 90 mcg/actuation HFA aerosol inhaler 1 inh INHALATION Q4-6H PRN (Reason: Shortness Of Breath) Qty: 6.7 3RF lisinopril 10 mg tablet 10 mg PO DAILY Qty: 90 3RF Rx Instructions: take with 5 mg tablet to total 15mg. lisinopril 5 mg tablet 5 mg PO DAILY Qty: 90 3RF Rx Instructions: take with 10mg tab to total 15mg zolpidem 10 mg tablet 10 mg PO HS Qty: 90 1RF clonazepam 0.5 mg tablet 0.25 mg PO BID PRN (Reason: anxiety) Qty: 60 1RF metoprolol succinate 50 mg tablet extended release 24 hr See Rx Instructions .ROUTE .COMPLEX Qty: 135 2RF Dose Instruction: TAKE 1 TABLET BY MOUTH EVERY DAY Patient Comments: taking 75mg now Rx Instructions: TAKE 1.5 TABLET BY MOUTH EVERY DAY No Action (DME) Ostomy supplies. See Rx Instructions .Route .MEDSUPPLY Qty: 1 0RF Rx Instructions: ostomy bags, remover, skin prep, and clip needed. Other Ambulatory Orders: PT Outpatient Eval and Treat (ONCE) Timeframe: [id number] Location: Determined by Patient Ordered By: Alba Gustafson Date of admission: 10/10/24 11:19 Primary Care Provider: Gay Sandhu Admitting Provider: Becky Lu Attending physician on admission: Becky Lu Condition: Stable
== END 2024-10-11 16:55 | disposition home or self-care (01) | DRG 149 ==
LOC: ANHED 16:00 → ANH2MED 17:02
PROVIDERS: Admitting Provider Family Medicine; Emergency Provider Emergency Medicine; PCP Family Medicine; Visit Provider Physician Assistant
DX: H81.20 Vestibular neuronitis, unspecified ear (principal); I71.019 Dissection of thoracic aorta, unspecified; I25.810 Atherosclerosis of coronary artery bypass graft(s) without angina pectoris; K51.90 Ulcerative colitis, unspecified, without complications; E78.5 Hyperlipidemia, unspecified; E03.9 Hypothyroidism, unspecified; F41.8 Other specified anxiety disorders; I73.9 Peripheral vascular disease, unspecified; I48.0 Paroxysmal atrial fibrillation; I10 Essential (primary) hypertension; M54.12 Radiculopathy, cervical region; Z95.2 Presence of prosthetic heart valve; Z90.89 Acquired absence of other organs; Z79.82 Long term (current) use of aspirin; Z95.1 Presence of aortocoronary bypass graft; Z93.2 Ileostomy status
CPT/HCPCS: 36415; 70450; 70496; 70498; 70553; 80053; 85025; 93005; 93306; 96372; 96374; 96375; 96376; 97161; 99285; A9270; A9579; G0378; J1650; J3360; Q9967

== ENCOUNTER 2024-11-28 07:54 | Outpatient (CLI) | payer MEDICARE, SELFPAY ==
--- NOTE | ~2024-11-28 | CT_ITS ---
EXAMINATION: CTA chest abdomen pelvis DATE: 11/28/2024 08:47 INDICATION: Aortic dissection status post repair. TECHNIQUE: Computed tomographic angiography (CTA) of the chest, abdomen, and pelvis was performed without and with 100 mL Omnipaque-350 intravenous contrast. Automated exposure control and iterative reconstruction technique were employed. The dose-length product was 996.97 mGy-cm. Maximum intensity projection 3D- reconstructions of the aorta and other arteries were constructed by the technologist on a separate workstation. COMPARISON: CT 11/30/2023 FINDINGS: CHEST CTA: The lungs demonstrate mild atelectasis. There is a stable 5 mm nodule in right middle lobe, likely benign. No pleural effusion. There are changes of right hemithyroidectomy. Cardiomegaly is noted. There are changes of aortic valve replacement. No pericardial effusion. There is a tube graft involving ascending aorta. Distal to left subclavian artery, there is an aortic dissection with contrast opacification of the true and false lumens. The dissection extends into the left common iliac artery. There is a fusiform aneurysm of proximal descending thoracic aorta measuring 4.3 cm. There is mild thoracic spondylosis. ABDOMEN AND PELVIS CTA: The liver, gallbladder, spleen, pancreas, and adrenal glands are normal. There is cortical thinning of the kidneys. There are cysts in left kidney measuring up to 9 mm. There are no dilated loops of bowel. There are changes of colectomy. There is an end ileostomy on the right. There are no pathologically enlarged lymph nodes. There is no free intraperitoneal fluid. There is mild lumbar spondylosis. IMPRESSION: 1. Stable aortic dissection from the descending thoracic aorta to the left common iliac artery. Stable 4.3 cm fusiform aneurysm of descending thoracic aorta. Reviewed, dictated and finalized at location E. IMPRESSION: 1. Stable aortic dissection from the descending thoracic aorta to the left comm on iliac artery. Stable 4.3 cm fusiform aneurysm of descending thoracic aorta.
[2024-11-28 08:31] LABS: Estimated Glomerular Filt Rate > 60
== END 2024-11-28 07:55 | disposition home or self-care (01) ==
LOC: ANHIMG 07:56
PROVIDERS: PCP Nurse Practitioner Family; Visit Provider Nurse Practitioner Adult Health
DX: I71.23 Aneurysm of the descending thoracic aorta, without rupture (principal); Z98.890 Other specified postprocedural states
CPT/HCPCS: 71275; 74174; Q9967

== ENCOUNTER 2024-12-11 14:18 | Outpatient (CLI) | payer MEDICARE, SELFPAY ==
--- OUTSIDE RECORDS SUMMARY | 2024-12-11 17:58 | XMS_ITS | Encounter Summary ---
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 Estrada documented in this encounter Plan of Treatment Not on file documented as of this encounter Visit Diagnoses Not on filedocumented in this encounter Care Teams Quill Winder Relationship Specialty Start Date End Date Perla Gomez MD [address] [place] [phone] PCP - General Family Medicine 06/06/20 Perla Gomez MD [address] [place] [phone] 06/06/20 documented as of this encounter
--- OUTSIDE RECORDS SUMMARY | 2024-12-11 17:58 | XMS_ITS | Encounter Summary ---
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 Jamison. Will request CTS to reviewand see if patient needs to be followed by us as well. documented in this encounter Plan of Treatment Not on file documented as of this encounter Visit Diagnoses Not on filedocumented in this encounter Care Teams Bulk Pigment Reducer Relationship Specialty Start Date End Date Perla Gomez MD [address] [place] [phone] PCP - General Family Medicine 06/06/20 Perla Gomez MD [address] [place] [phone] 06/06/20 documented as of this encounter
--- OUTSIDE RECORDS SUMMARY | 2024-12-11 17:58 | XMS_ITS | Clinical Summary ---
Author Organization [facility] Address [address] [place] [address] Care Team Providers Care Rock Wool Insulator Name Role Phone Perla Gomez MD Primary Care Provider [phone] ePrla Gomez MD Unavailable [phone] [facility],non-owned Affiliates and Associated Physician Practices is amultiple site organization consisting of ambulatory clinics and hospital sitesin [place], [place], [place] and [place]. This disclosure is being madepursuant to the Care Everywhere program and may not contain all information available regarding this patient. Last updated 17.[facility] [employer] Allergies No known active allergies Medications * [...] NOAC. Assessment & Plan (04/05/2019 11:59 AM AUTOMATION MANAGER): Warfarin, follow up with vascular. Paroxysmal atrial fibrillation 02/02/2019 Assessment & Plan (10/19/2019 2:25 PM CDT): Post Operative AFIB: with reoccurrence. Continue BB. With recent SFA occlusion, suspected to be embolic, pt will require AC, now on warfarin, despite DJOEp8HHTJ of 1. Will reach out to vascular for recs on NOAC. Follow up with EP for rhythm control recs. Assessment & Plan (04/05/2019 12:05 PM AUTOMATION MANAGER): Post Operative AFIB: No events on monitor, stop amio. Continue BB. With recent SFA occlusion, suspected to be embolic, pt will require AC, now on warfarin, despite MCFWp5WHTK of 1. . Assessment & Plan (02/02/2019 9:24 AM AUTOMATION MANAGER): Post Operative AFIB: Continue Amio, check TSH and PFTS for baseline. Event Monitor to quantify. Increase Metoprolol to 50mg BID. Hx of CABG 02/02/2019 Assessment & Plan (04/05/2019 11:59 AM AUTOMATION MANAGER): SVG to RCA secondary to acute dissection. Continue medical management with ASA, statin, and Metoprolol. Assessment & Plan (02/02/2019 9:25 AM AUTOMATION MANAGER): SVG to RCA secondary to acute dissection. Continue medical management with ASA, statin, and Metoprolol. Type 1 dissection of ascending aorta 01/16/2019 Overview (11/21/2024): IMO 11/21/2024 Assessment & Plan (10/19/2019 2:36 PM CDT): Stable, sp Ascending aorta graft with cardiopulmonary bypass using 34 mm Hemashield graft on 01/15 at [facility] per Dr. Alegre. SBP remains stable, continue BB. Stable on CT 03/24. Assessment & Plan (04/05/2019 11:56 AM AUTOMATION MANAGER): Stable, sp Ascending aorta graft with cardiopulmonary bypass using 34 mm Hemashield graft on 01/15 at [facility] per Dr. Alegre. SBP remains stable, pt is orthostatic in clinic today, decrease Metoprolol to 12.5mg daily. Continue to log BP and bring to follow up. Stable on CT 2. S/P aortic dissection repair 01/16/2019 Assessment & Plan (02/02/2019 9:28 AM AUTOMATION MANAGER): Stable, sp Ascending aorta graft with cardiopulmonary bypass using 34 mm Hemashield graft on 01/15 at [facility] per Dr. Alegre. 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 Gender Identity Not on file Sexual [...] Oxygen Concentration 40% 03/26/2019 1 0:36 AM AUTOMATION MANAGER Weight 60.8 kg (134 lb) 09/07/2021 10:56 [...] - Risk 60-74 years 1-dose series) 2019 DEPRESSION SCREENING 02/22/2024 MEDICARE AWV CALENDAR YEAR 2024 COVID-19 VACCINE (2024- season) 2024 08/11/2020, 07/02/2020, 05/21/2020 INFLUENZA VACCINE (#1) 2024 , 12/12/2020, 11/22/2019, [...] this topic Medical Devices Implanted Type Area Operator Supply Device Identifier Shelf Expiration Date Model / Serial / Lot Graft Cv 34mm 30cm [facility] [address] Polystr 2 Vlr - [id number] Implanted:Qty: 1 on 01/15/2019 by Josue Alegre MD at [facility] N/A: Aorta Maquet 11/20/2021 [id number] / [id number] Description:GTIN: [id number] Graft Cv 8mm 30cm [facility] [address] Polystr 2 Vlr - [id number] Implanted:Qty: 1 on 01/15/2019 by Josue Alegre MD at [facility] N/A: Aorta Maquet 11/20/2022 [id number] / [id number] Description:GTIN: [id number] [place] Tefl Implanted:Qty: 4 on 01/15/2019 by Josue Alegre MD at [facility] N/A: Aorta Bard Peripheral Vascular 03/16/2023 [id number] / / [id number] 8 Hl Strnm Strnlck Ze 2.4 Mm Implanted:Qty: 2 on 01/15/2019 by Josue Alegre MD at [facility] N/A: Sternum Bina Biomet [id number] / / Screw 2.4mm 12mm Slf Drl Lck Strnl Canc Implanted:Qty: 16 on 01/15/2019 by Josue Alegre MD at [facility] N/A: Sternum Bina Biomet [id number] / / Screw 2.4mm 14mm Slf Drl Lck Strnl Canc Implanted:Qty: 8 on 01/15/2019 by Josue Alegre MD at [facility] N/A: Sternum Bina Biomet [id number] / / 8-Hole Jl Plate Implanted:Qty: 1 on 01/15/2019 by Josue Alegre MD at [facility] N/A: Sternum Bina Biomet [id number] / / Sys Crd Mntr Rvl Linq Ii - [id number] Implanted:Qty: 1 on 06/30/2021 by Erik Lance MD at [facility] Left: Chest Medtron Jackson 04/15/2022 [id number] / [id number] / Description:loop recorder Procedures Procedure Name [...] ve Non-react felix 06/04/2021 12:[address] [facility] Comment:No Laboratory eviden ce of HIV infection. Blood BLOOD SPECIMEN / Unknown Venipuncture / Unknown 06/04/2021 10:42 AM CDT 06/04/2021 10:48 AM CDT us Dee Ramirez MD LAB - CHEMISTRY ORDERABLES F inal Result Performing Organization Address City/[facility]/ZIP Co de Phone Number [address] [id number] [place] [address], [facility] [phone] * HEPATITIS C RNA QUANTITATIVE (06/04/2021 10:42 AM CDT) [facility] Hepatitis C RNA PCR, Interp Not detected Not detected 06/08/2021 12:18 PM CDT [facility] Blood BLOOD SPECIMEN / Unknown Venipuncture / Unknown 06/04/2021 10:42 AM CDT 06/04/2021 12:19 PM CDT Narrative [facility] - 06/08/2021 12:18 PM CDT The Hepatitis C viral (HCV) RNA analysis utilized a serum sample, real-time reverse dermatopathologist PCR, and is reported as Not Detected, [...] the isolation of HCV RNA with reverse dermatopathologist of genomic HCV RNA followed by real-time PCR in the presence of an unrelated RNA internal control. The internal control ensures that RNA is isolated, and that no general significant inhibitors of the RT-PCR process are present. The analysis was performed using a U.S. FDA approved test methodology (SetJam Real Time HCV). us Dee Ramirez MD LAB - CHEMISTRY ORDERABLES F inal Result [facility] [address] [place] [address], [facility] [phone] from Last 3 Months or Most Recently Relevant to Health Maintenance Insurance [facility] MEDICAID - [place] [facility] Advance [...] 12:03 AM 01/22/2019 4:11 PM Care Teams Rock Wool Insulator Relationship Specialty Start Date End Date Perla Gomez MD [facility] [place] [id number] PCP - General Family Medicine 06/06/20 Perla Gomez MD [facility] [place] [address] 06/06/20
--- OUTSIDE RECORDS SUMMARY | 2024-12-11 17:58 | XMS_ITS | Encounter Summary ---
Author Organization [facility] Address [address] [place] [address] Phone Care Team Providers Care Incident Response Consultant Name Role Phone Perla Gomez MD Primary Care Provider [phone] Lynn Shipman Primary Care Provider [phone] Perla Gomez MD Unavailable [phone] Rajat Paul MD Unavailable Brandyn Abdi DO Primary Care Provider [phone] Pearl Akbar NP Primary Care Provider [phone] Encounter Details Date Type Department Care Team [...] on filedocumented in this encounter Care Teams Incident Response Consultant Relationship Specialty Start Date End Date Perla Gomez MD PCP - General Family Medicine 06/10/20 08/17/22 Lynn Shipman PA [address] [place] [address] PCP - General Physician Tool Pusher 08/18/22 09/07/22 Brandyn Abdi DO [address] [id number] PCP - General Internal Medicine 09/08/22 12/06/23 Pearl Akbar, GENERAL TECHNICIAN [address] [place] [address] PCP - General Family Medicine 12/07/23 Perla Gomez MD Family Medicine 08/18/22 09/05/22 Rajat Paul MD [address] [place] [address] Surgeon Cardiothoracic Surgery 06/24/20 7 3 documented as of this encounter
--- OUTSIDE RECORDS SUMMARY | 2024-12-11 17:59 | XMS_ITS | Clinical Summary ---
Author Organization [facility] [address] Address [address] [place] [address] Care Team Providers Care Machine Preservative Filler Name Role Phone Pearl Akbar NP Primary Care Provider [phone] Allergies No known active allergies Medications aspirin 81 mg chewable tabletIndicatio ns:primary prevention of coronary heart disease Take 1 tablet (81 mg total) by mouth cardroom plastic card grader before breakfast 9 Active cholecalciferol (VITAMIN D-3) 1,000 unit capsuleIndicati ons:Vitamin D Deficiency Take 2 capsules (2,000 Units total) by mouth cardroom plastic card grader before breakfast Active zolpidem (AMBIEN) 10 mg tabletIndicatio ns:Sleep-Onset Insomnia Take 1 tablet (10 mg total) by mouth nightly as needed for sleep Active calcium carbonate (OS-STAN) 1,500 mg (600 mg of elemental calcium) tabletIndicatio ns:Hypocalcemia Prevention Take 1,000 mg of elemental calcium by mouth cardroom plastic card grader before breakfast Active albuterol HFA (PROVENTIL HFA,VENTOLIN HFA,PROAIR HFA) 90 mcg/actuation inhalerIndicati ons:Acute Asthma Attack Inhale 2 puffs every 6 (six) hours as needed for wheezing Active lisinopriL (PRINIVIL,ZESTR IL) 10 mg tablet [...] mg (zinc) capsule Take by mouth Active Active Problems Problem Noted Date Diagnosed [...] on 06/19 Added amiodarone TID on 06/19 5/ SR QTC 447 Change amiodarone to 400mg daily DVT (deep venous thrombosis) 06/21/2020 Assessment & Plan (06/24/2020 10:52 AM CDT): Hx of DVT - was on Eliquis Will not restart at discharge due to two major surgeries. 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 Paul - Will keep KENNY drain in today - Neurochecks q 2 - Planning OR with Dr. Paul on Tuesday Severe aortic regurgitation 06/12/2020 Overview (06/12/2020): Added automatically from request for surgery [id number] Assessment & Plan (06/23/2020 1:43 PM CDT): [...] 34 mm Hemashield graft on 01/15 at [facility] per Dr. Alegre. SBP remains [...] 34 mm Hemashield graft on 01/15 at [facility] per Dr. Alegre. SBP remains [...] (06/12/2020): Added automatically from request for surgery [id number] Encounters Date Type Department Care Team Description 11/27/2024 Telephone [facility] Cardiology Narrative [facility] [address] [place] [phone] order 09/20/2024 9:00 AM CDT Office Visit [facility] Cardiology [address] [place] [address] [address] [place] [phone] Eda Licona NP Palpitations; Lipid screening; S/P aortic dissection repair 09/14/2024 Telephone [facility] Cardiology [facility] [address] [place] [phone] Eda Licona NP from Last 3 Months Surgical History Surgery Date Site/Laterality Comments THYROIDECTOMY, PARTIAL ~1995 Left CORONARY ARTERY BYPASS GRAFT 02/21/2018 - 02/20/2019 x1 vessel with type a dissection repair THROMBECTOMY Left iliofemoral SFA ,popliteal and tibial thrombectomy and fascietomy COLOSTOMY 1980s TONSILLECTOMY 02/21/1979 - 02/21/1980 HYSTERECTOMY ~1994 SECTION [...] Father Relation Name Status Comments Father Alive [place] in his 70s Social History Tobacco Use [...] 09/03/2026 09/03/2016 Medical Devices Implanted Type Area Petroleum Refinery Worker Device Identifier Shelf Expiration Date Model / Serial / Lot [id number] Hemashield [place] 8mm 30cm Woven Smooth Needle Passage Suture - [id number] - [id number] Implanted:Qty: 1 on 06/18/2020 by Edmond Berumen MD at [facility] Graft N/A: Aorta Nativo [id number] 12/21/2024 [id number] / [id number] / [id number] [employer] [id number] Graft Cardiovascular Hemashield [place] 2 Velour Collagen Polyester 4 Branch Od8 Mm L47 Cm Od26 Mm Odsec10 Mm Abdomen Thorax Woven Soft Flexible - [id number] - [id number] Implanted:Qty: 1 on 06/18/2020 by Rajat Paul MD at [facility] Graft N/A: Aorta [employer] 07/21/2020 [id number] / [id number] / [id number] Gateshop [id number] Hemashield [place] 18mm 30cm Woven Smooth Needle Passage Suture - [id number] - [id number] Implanted:Qty: 1 on 06/18/2020 by Rajat Paul MD at [facility] Graft N/A: Heart Getinge[employer] Inc [id number] 07/21/2024 [id number] / [id number] / 20F24 Implantable Loop Recorder-07/01/19 22 Implanted:2021 (Quantity not on file) Implantable Loop Recorder Left: Chest Medtronic REVEAL LINQ ICM / / [employer] [id number] Sawyer-Brayden ds [place] Magna Ease 23mm Bioprosthesis - [id number] - [id number] Implanted:Qty: 1 on 06/18/2020 by Rajat Paul MD at [facility] Other - see comments N/A: Heart [employer] 12/15/2023 [id number] / [id number] / Procedures Procedure Name Priority Date/Time Associated [...] Result from Last 3 Months Insurance MEDICARE [place] MEDICARE SUPPLEMENT [employer] ADVANTAGE CHOICE PPO Advance Directives For more information, please contact: [phone] * Full Code (Latest Code Status on File) Date Activated Date Inactivated Comments 06/16/2020 4:41 PM 06/24/2020 5:30 PM Care Teams Machine Preservative Filler Relationship Specialty Start Date End Date Pearl Akbar NP [address] [place] [address] PCP - General Family Medicine 12/07/23
--- OUTSIDE RECORDS SUMMARY | 2024-12-11 17:59 | XMS_ITS | Clinical Summary ---
Author Organization [facility] Address [address] [place] [address] Care Team Providers Care Physical Fitness Teacher Name Role Phone Unavailable Primary Care Provider [...] Comments Blood Pressure 102/70 01/03/2012 5:40 PM PRODUCTION ILLUSTRATOR Pulse 85 01/03/2012 5:40 PM PRODUCTION ILLUSTRATOR Temperature - - Respiratory Rate - - Oxygen Saturation - - Inhaled Oxygen Concentration - - Weight 58.1 kg (128 lb) 01/03/2012 5:40 PM PRODUCTION ILLUSTRATOR Height 170.2 cm (5' 7) 01/03/2012 5:40 PM PRODUCTION ILLUSTRATOR Body Mass Index 20.05 01/03/2012 5:40 PM PRODUCTION ILLUSTRATOR Plan of Treatment Health Maintenance Due Date Last Done Comments Colorectal Cancer Screening Colonoscopy (10 Years) 1960 Hepatitis C 05/17/1977 DTaP, Tdap and Td Vaccines ( 1 - Tdap) 05/17/1978 Mammogram Screening 1999 Pneumococcal Vaccine: 50+ Ye ars (1 of 1 - PCV) 05/17/2009 Zoster Vaccines (1 of 2) 05/17/2009 PHQ-2 (Physician [place]) 02/22/2024 Dexa Scan (General) 05/17/2024 COVID-19 Vaccine ( - 2024-2 6 season) 2024 Influenza Adult (#1) 2024 RSV Immunization or 60+ Years (1 - 1-dose 75+ series) 05/17/2034 Hepatitis A Vaccines Aged Out No long er eligible based on patient's age to complete this topic Meningococcal B Vaccine Aged Out No l onger eligible based on patient's age to complete this topic Meningococcal Vaccine Aged Out No laly isis eligible based on patient's age to complete this topic RSV Immunizations Under 20 Months Aged Out No longer eligible based on patient's age to complete this topic Insurance [employer]
[2024-12-11 19:32] LABS: Alanine Aminotransferase 20 U/L (6-35); Albumin Level 4.6 g/dL (3.5-5.1); Alkaline Phosphatase 77 U/L (38-126); Anion Gap 6 mmol/L (4-12); Aspartate Amino Transferase 33 U/L (14-36); Bilirubin,Total 0.4 mg/dL (0.2-1.3); Blood Urea Nitrogen 18 mg/dL (7-17); Calcium 9.4 mg/dL (8.4-10.2); Carbon Dioxide 31 mmol/L (22-30); Chloride 97 mmol/L (98-107); Estimated Glomerular Filt Rate > 60; Glucose 91 mg/dL (65-110); Potassium 4.3 mmol/L (3.4-5.0); Sodium 134 mmol/L (137-145); Total Protein 7.3 g/dL (6.3-8.2)
[2024-12-11 20:13] LABS: Hemoglobin A1C 5.2 % (<5.7)
[2024-12-11 21:25] LABS: Free T3 3.94 pg/mL (2.45-5.93); Free T4 Free Thyroxine 1.08 ng/dL (0.78-2.19)
[2024-12-11 21:47] LABS: Thyroid Stimulating Hormone 0.723 uIU/mL (0.465-4.680)
== END 2024-12-11 14:19 | disposition home or self-care (01) ==
LOC: ANHGOSHLAB 14:19
PROVIDERS: PCP Nurse Practitioner Family; Visit Provider Nurse Practitioner Family
DX: E03.9 Hypothyroidism, unspecified (principal); R42 Dizziness and giddiness; R73.01 Impaired fasting glucose; Z86.79 Personal history of other diseases of the circulatory system
CPT/HCPCS: 36415; 80053; 83036; 84439; 84443; 84481